=== PATIENT | female | born 1940 | race Caucasian/White ===

== ENCOUNTER 2016-08-26 07:09 | Inpatient (IN) | payer MEDICARE, OTHER ==
--- NOTE | 2016-08-26 07:47 | ED ---
General Adult HPI - General Chief complaint: Shortness of Breath Stated complaint: Difficulty breathing Time Seen by Provider: 08/26/16 07:20 Source: patient, EMS, RN notes reviewed Mode of arrival: EMS Limitations: no limitations - History of Present Illness Initial comments: This is a 76-year-old female who states she woke up this morning was having difficulty breathing so she went [facility]. And again the hospital he diagnosed with COPD exacerbation as well as pneumonia. Patient was already started on Rocephin because the hospital. Patient states currently she is feeling considerably better. Patient also got some breathing treatments and Solu-Medrol. Patient denies any chest pain or palpitations. Patient denies any fever or chills per patient denies abdominal pain patient denies nausea vomiting diarrhea. Patient denies any recent injury or trauma. Patient denies headache patient denies numbness weakness. Patient denies any lightheadedness or dizziness. Patient denies any dysuria hematuria urinary frequency. - Related Data Allergies Allergy/AdvReac Type Severity Reaction Status Date / Time No Known Allergies Allergy Verified 08/26/16 08:04 Review of Systems ROS Statement: Those systems with pertinent positive or pertinent negative responses have been documented in the HPI. ROS Other: All systems not noted in ROS Statement are negative. Past Medical History Past Medical History: Atrial Fibrillation, COPD, CVA/TIA, Myocardial Infarction ([place]), Pneumonia, Respiratory Disorder Additional Past Medical History / Comment(s): cva 10 years History of Any Multi-Drug Resistant Organisms: None Reported Past Surgical History: Appendectomy, Tonsillectomy Additional Past Surgical History / Comment(s): left leg surgery Past Psychological History: No Psychological Hx Reported Smoking Status: Former smoker Past Alcohol Use History: None Reported Past Drug Use History: None Reported General Exam - General Exam Comments Initial Comments: GENERAL: Patient is well-developed and well-nourished. Patient is nontoxic and well- hydrated and is in no acute distress. ENT: Neck is soft and supple. No significant lymphadenopathy is noted. Oropharynx is clear. Moist mucous membranes. Neck has full range of motion without eliciting any pain. EYES: The sclera were anicteric and conjunctiva were pink and moist. Extraocular movements were intact and pupils were equal round and reactive to light. Eyelids were unremarkable. PULMONARY: Unlabored respirations. Good breath sounds bilaterally. Slight crackles in the right base CARDIOVASCULAR: There is a regular rate and rhythm without any murmurs gallops or rubs. ABDOMEN: Soft and nontender with normal bowel sounds. No palpable organomegaly was noted. There is no palpable pulsatile mass. SKIN: Skin is clear with no lesions or rashes and otherwise unremarkable. NEUROLOGIC: Patient is alert and oriented x3. Cranial nerves II through XII are grossly intact. Motor and sensory are also intact. Normal speech, volume and content. Symmetrical smile. MUSCULOSKELETAL: Normal extremities with adequate strength and full range of motion. No lower extremity swelling or edema. No calf tenderness. LYMPHATICS: No significant lymphadenopathy is noted PSYCHIATRIC: Normal psychiatric evaluation. Normal interpersonal interactions appears functionally intact in deals appropriately with others. No signs of depression. No signs of anxiety. Limitations: no limitations Course Vital Signs 08/26/16 07:18 Temperature 98 F Pulse Rate 109 H Respiratory 22 Rate Blood Pressure 147/73 O2 Sat by Pulse 95 Oximetry Medical Decision Making - Medical Decision Making EKG shows atrial fibrillation at 100 beats minute QRS is 78 QT interval 314 QTC is 405. Patient's EKG shows no ST segment elevation or depression or T wave abnormalities are noted. Patient's x-ray from the other facility was reviewed it does show a right lower lobe pneumonia. Disposition Clinical Impression: Pneumonia, COPD exacerbation, Coagulopathy Disposition: ADMITTED IP TO THIS HOSP Referrals: Kofi Cortes MD [Primary Care Provider] - 1-2 days Time of Disposition: 07:58
[2016-08-26] MEDS ORDERED: PNEUMONIA PROTOCOL UTILIZED 1 EACH MISC PO PRN (08:10)
[2016-08-26] MEDS ORDERED: IPRATROPIUM-ALBUTEROL 3 ML NEB INHALATION PRN (08:10)
[2016-08-26] MEDS ORDERED: LISINOPRIL 2.5 MG TAB PO SCH (09:45)
[2016-08-26] MEDS ORDERED: SPIRONOLACTONE 25 MG TAB PO SCH (09:45)
[2016-08-26] MEDS ORDERED: POTASSIUM CHLORIDE ER 20 MEQ TAB.ER PO SCH (09:45)
[2016-08-26 10:38] LABS: Basophils % (A) 0 %; CH 28.7; CHCM 30.6; Eosinophils % (A) 0 %; HCT 39.8 % (34.0-46.0); HGB 12.2 gm/dL (11.4-16.0); Hypochromasia Moderate; Luc # (Auto) 0.03; Luc % (Auto) 1; Lymphocytes # (A) 0.3 k/uL (1.0-4.8); Lymphocytes % (A) 4 %; MCH 28.9 pg (25.0-35.0); MCHC 30.7 g/dL (31.0-37.0); MCV 94.4 fL (80.0-100.0); Mean Platelet Volume 7.1; Monocytes # (A) 0.2 k/uL (0-1.0); Monocytes % (A) 3 %; Neutrophils # (A) 5.5 k/uL (1.3-7.7); Neutrophils % (A) 92 %; RBC 4.21 m/uL (3.80-5.40); RDW 14.4 % (11.5-15.5); WBC (Perox) 6.42
[2016-08-26 10:56] LABS: Calcium 8.3 mg/dL (8.4-10.2); Potassium 4.8 mmol/L (3.5-5.1)
[2016-08-26 10:59] LABS: Prothrombin Time 72.6 sec (9.0-12.0)
[2016-08-26] MEDS: DILTIAZEM CD 240 MG CAP.ER.24H PO SCH (11:14)
[2016-08-26] MEDS: METOPROLOL TARTRATE 25 MG TAB PO SCH ×2 (11:14→20:03)
[2016-08-26] MEDS: OXYBUTYNIN CHLORIDE 5 MG TAB PO SCH ×2 (11:14→20:03)
[2016-08-26] MEDS: AZITHROMYCIN 500 MG TAB PO SCH (11:14)
[2016-08-26 11:20] LABS: INR 7.1 (<1.1)
[2016-08-26] MEDS ORDERED: methylPREDNISolone SOD SUCCI 125 MG/2 ML VIAL IV SCH (12:00)
[2016-08-26 12:01] LABS: Glucose,Whole Blood 129 mg/dL (75-99)
[2016-08-26] MEDS: methylPREDNISolone SOD SUCCI 40 MG/ML 1 ML VIAL IV SCH ×3 (13:13→23:24)
[2016-08-26] MEDS: SODIUM CHLORIDE 0.9% 1,000 ML IV SCH (13:13)
--- NOTE | 2016-08-26 13:31 | HP ---
DATE OF ADMISSION: 08/26/2016 PRESENTING COMPLAINT: Short of breath, cough HISTORY OF PRESENTING COMPLAINT: A very pleasant 76-year-old patient of Dr. Cortes initially went to [facility] where she was transferred down here. Patient's chronic stable medical conditions include atrial fibrillation, congestive heart failure, chronic kidney disease, secondary pulmonary hypertension, osteoarthritis. The patient over one week has been having chills, weakness, decreased oral intake, coughing, short of breath, wheezing, bringing up yellow red sputum. Patient's INR was found to be 9.7 up there, was given ( ) of vitamin K. Patient was therefore transferred down here. The patient continues to feel weak and tired. The patient denies any blood in the urine. Like said there was some red colored sputum. REVIEW OF SYSTEMS: CONSTITUTIONAL: Weak, tired. HEENT: As above. RESPIRATORY: As above. CARDIOVASCULAR: No chest pain. GASTROINTESTINAL: None. GENITOURINARY: None. MUSCULOSKELETAL: Arthritic pain in the hands and legs. GENITOURINARY: None. PSYCHIATRY: None. NEUROLOGICAL: None. Past medical history of atrial fibrillation, CHF with EF 40%, chronic kidney disease, MIs, stroke with no residual, pulmonary hypertension secondary to tricuspid regurgitation, arthritis especially in the hands and legs. PAST SURGICAL HISTORY: Appendectomy, tonsillectomy, left leg surgery for fracture. SOCIAL HISTORY: The patient lives with her daughter and 2 adult grandchildren. Sometimes uses a cane. The patient smoked for close to 56 years, stopped in 2011. Family history of congestive heart failure father. HOME MEDICATIONS: 1. Coumadin 5 mg on Thursday, Thursday, , Thursday, Thursday and 2.5 mg on Thursday and Thursday. 2. Ditropan 5 mg p.o. b.i.d. 3. Potassium 20 mEq a day. 4. Motrin 800 mg p.o. t.i.d. p.r.n. 5. Symbicort 160/4.5 two puffs b.i.d. 6. Aldactone 25 mg a day. 7. Potassium 20 mEq a day. 8. Lopressor 25 p.o. b.i.d. 9. Imodium 4 mg p.o. q.i.d. p.r.n. 10. Zestril 2.5 p.o. daily. 11. Lasix 20 mg p.o. b.i.d. 12. Cardizem CD 240 mg daily. 13. Ventolin 2.5 q.i.d. p.r.n. ALLERGIES: None. ON EXAMINATION: VITAL SIGNS ON PRESENTATION: Temperature 98, pulse 109, respirations 22, blood pressure 147/73, pulse ox 95% on 4 L. GENERAL APPEARANCE: Well built, BMI of 31.9, lying in bed, tired appearing. EYES: Pupils equal. Conjunctivae normal. HENT: Oral cavity normal. NECK: JVD unable to assess. Mass not palpable. RESPIRATORY: Effort increased. LUNGS: Diminished breath sounds, prolonged expiration, wheezing, coarse crackles in the right side. CARDIOVASCULAR: First and second sounds normal. No edema. ABDOMEN: Soft, nontender. Liver and spleen not palpable. LYMPHATIC: No lymph node palpable in the neck and axillae. PSYCHIATRY: Alert and oriented x3. Mood and affect is normal. NEUROLOGICAL: Pupils equal. Cranial nerves grossly intact. Power and sensation grossly intact. MUSCULOSKELETAL: Evidence of osteoarthritis multiple joints. INVESTIGATIONS: Patient's blood work from [facility] shows a BUN 58, creatinine 3.6. UA negative. Amylase 40, lipase 11. White count 7.9, hemoglobin 12.1, platelets 295. Lactic acid 1.2. ASSESSMENT: 1. Right-sided pneumonia, suspect gram-negative organism, present on admission. 2. Acute severe chronic obstructive pulmonary disease exacerbation in an ex-smoker. 3. Persistent atrial fibrillation for which patient is on Coumadin. 4. Chronic congestive heart failure from systolic dysfunction; ejection fraction 40%, from ischemic cardiomyopathy. 5. 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 6. Coronary artery disease with prior history myocardial infarction. 7. Secondary pulmonary hypertension secondary to chronic obstructive pulmonary disease. 8. Tricuspid regurgitation, nonrheumatic. 9. Primary osteoarthritis of the legs and hands. 10. Obesity, body mass index of 31.9. 11. Coumadin toxicity. INR was 9.7 at other hospital. Patient did get ( ) vitamin K. PLAN: Patient was started on nebulized bronchodilators; also started on IV Solu-Medrol. Will send off sputum for Gram stain and culture. Patient also put on breathing treatments. Stat INR has been repeated. Will hold off Coumadin in the meantime. Given patient's renal failure, we will hold off patient's renal offensive drugs including CATIE inhibitor, diuretic, Motrin. Gently hydrate the patient. Will also send her for renal ultrasound. Care was discussed in detail with the patient. Questions were answered.
[2016-08-26] MEDS: IPRATROPIUM-ALBUTEROL 3 ML NEB INHALATION SCH ×3 (14:28→21:24)
--- NOTE | 2016-08-26 14:36 | P.CNPUL ---
History of Present Illness Consult date: 08/26/16 Requesting physician: Finn Scott Reason for consult: pneumonia Chief complaint: Shortness of breath History of present illness: This is a 76-year-old female patient being evaluated and examined today on the selective care unit. The patient was transferred here from [facility] after the patient had one week of chills, weakness, productive coughing with yellow sputum with bright red streaks in it, shortness of breath, wheezing and poor appetite. Patient was noted to have an INR of 9.7 and does take Coumadin at home for atrial fibrillation. Patient was initially started on Rocephin and Solu-Medrol and updrafts while at [facility]. Patient does have a history significant for COPD, atrial fibrillation, previous myocardial infarction, and pneumonia. Chest x-ray from previous hospital does reveal a right lower lobe pneumonia. Upon examination the patient is resting up in bed on 4 L of oxygen via nasal cannula she continues to complain of a productive cough with yellow sputum and red streaks in it.. Review of Systems 14 point review of system was completed and negative other than what is noted above in the HPI. Past Medical History Past Medical History: Atrial Fibrillation, Asthma, Heart Failure, COPD, CVA/TIA , Myocardial Infarction ([place]), Pneumonia, Renal Disease, Respiratory Disorder Additional Past Medical History / Comment(s): cva 15 years ago, EF 40%, severe pulmonary HTN, moderate tricuspid regurg, urinary leakage, arthritis bilateral legs and hands. Last Myocardial Infarction Date:: 1991 History of Any Multi-Drug Resistant Organisms: None Reported Past Surgical History: Appendectomy, Tonsillectomy Additional Past Surgical History / Comment(s): left leg surgery d/t fracture, colonoscopy-normal. Past Anesthesia/Blood Transfusion Reactions: No Reported Reaction Past Psychological History: No Psychological Hx Reported Additional Psychological History / Comment(s): Pt has her daughter and 2 adult grandchildren living with her. She has a cane and walker but does not need to use them at this time. She uses the bus to get to appts. Smoking Status: Former smoker Past Alcohol Use History: None Reported Additional Past Alcohol Use History / Comment(s): Pt states she started smoking in 1954 and quit in 2011. Past Drug Use History: None Reported - Past Family History Father Family Medical History: Congestive Heart Failure (CHF) Additional Family Medical History / Comment(s): Father of CHF-pt cannot recall how old he was. Mother Family Medical History: Diabetes Mellitus Additional Family Medical History / Comment(s): Mother lived to be in her 90's. Medications and Allergies Home Medications Medication Instructions Recorded Confirmed Type Albuterol Nebulized [Ventolin 2.5 mg INHALATION RT-QID PRN 08/26/16 08/26/16 History Nebulized] Budesonide/Formoterol Fumarate 2 puff INHALATION RT-BID 08/26/16 08/26/16 History [Symbicort 160-4.5 Mcg Inhaler] Diltiazem Cd [Cardizem Cd] 240 mg PO DAILY 08/26/16 08/26/16 History Furosemide [Lasix] 20 mg PO BID 08/26/16 08/26/16 History Ibuprofen [Motrin] 800 mg PO TID PRN 08/26/16 08/26/16 History Lisinopril [Zestril] 2.5 mg PO DAILY 08/26/16 08/26/16 History Loperamide [Imodium] 4 mg PO QID PRN 08/26/16 08/26/16 History Metoprolol Tartrate [Lopressor] 25 mg PO BID 08/26/16 08/26/16 History Oxybutynin Chloride [Ditropan] 5 mg PO BID 08/26/16 08/26/16 History Potassium Chloride ER [K-Dur 20] 20 meq PO DAILY 08/26/16 08/26/16 History Potassium Chloride [Klor-Con 20] 20 meq PO DAILY 08/26/16 08/26/16 History Spironolactone [Aldactone] 25 mg PO DAILY 08/26/16 08/26/16 History Warfarin Sodium [Coumadin] 5 mg PO TUWETHFRSA 08/26/16 08/26/16 History Warfarin [Coumadin] 2.5 mg PO SUMO 08/26/16 08/26/16 History Allergies Allergy/AdvReac Type Severity Reaction Status Date / Time No Known Allergies Allergy Verified 08/26/16 08:04 Physical Exam Vitals: Vital Signs Temp Pulse Pulse Resp BP BP Pulse Ox 08/26/16 09:50 96.9 F L 116 H 20 121/64 95 08/26/16 09:30 97.6 F 113 H 22 142/85 94 L 08/26/16 09:23 98 08/26/16 09:13 96 08/26/16 08:54 96 18 115/59 98 08/26/16 08:15 108 H 134/63 98 Intake and Output 08/25/16 08/26/16 08/26/16 22:59 06:59 14:59 Intake Total 120 Output Total 150 Balance -30 Intake: Oral 120 Output: Urine 150 Other: # Bowel Movements 0 GENERAL EXAM: Alert, active, comfortable in no apparent distress. HEAD: Normocephalic. EYES: Normal reaction of pupils, equal size. NOSE: Clear with pink turbinates. THROAT: No erythema or exudates. NECK: No masses, no JVD. CHEST: No chest wall deformity. LUNGS: Equal air entry noted, some faint rhonchi and wheezes noted on expiration. CVS: S1 and S2 normal with no audible mumurs, regular rhythm. ABDOMEN: No hepatosplenomegaly, normal bowel sounds, no guarding or rigidity. EXTREMITIES: No edema noted, pedal pulses palpable. SKIN: No rashes CENTRAL NERVOUS SYSTEM: No focal deficits, tone is normal in all 4 extremities. Results - Laboratory Findings CBC and BMP: 08/26/16 10:21 08/26/16 10:21 PT/INR, D-dimer PT 72.6 sec (9.0-12.0) H 08/26/16 10:21 INR 7.1 (<1.1) H* 08/26/16 10:21 Abnormal lab findings: Abnormal Labs 08/26/16 08/26/16 08/26/16 10:21 10:21 10:21 MCHC 30.7 L Lymphocytes # 0.3 L PT 72.6 H INR 7.1 H* Sodium 135 L Carbon Dioxide 19 L BUN 56 H Creatinine 2.54 H Glucose 151 H POC Glucose (mg/dL) Calcium 8.3 L 08/26/16 11:57 MCHC Lymphocytes # PT INR Sodium Carbon Dioxide BUN Creatinine Glucose POC Glucose (mg/dL) 129 H Calcium Assessment and Plan Plan: Assessment Community acquired right lower lobe pneumonia Acute exacerbation of COPD Coagulopathy Atrial fibrillation Congestive heart failure, systolic dysfunction, EF of 40% Chronic kidney disease stage III Coronary artery disease Plan Medications have been reviewed and will be continued as ordered. Coumadin is on hold and the patient has been given vitamin K. We will obtain a sputum culture. We will obtain a chest x-ray in the morning. We'll add budesonide to her nebulizer treatments. Incentive spirometer initiated and encouraged. Continue supportive care and pulmonary hygiene as well as supplemental oxygen to maintain sats above 90%.
--- NOTE | 2016-08-26 16:31 | P.NPCON ---
History of Present Illness - Reason for Consult acute renal failure - History of Present Illness Reason for consultation: Acute kidney injury History of present illness: Patient is a 76-year-old female seen in renal consultation for acute kidney injury. Unclear as to where baseline renal function is. Creatinine 2.5 for an admission. Patient presented to [facility] with dyspnea. She was noted to have pneumonia as well as COPD/patient. She was transferred to [facility] for further care. Patient states she was having a productive cough with yellow sputum for the last few days. She is currently maintained on IV antibiotics as well as IV steroids. She was also taking Advil for the last few days for pain. In her home meds that to see she was taking diuretics as well as an CATIE inhibitor. Overall her dyspnea is improved. She denies any chest pain. She denies any prior history of kidney disease. Denies family history of renal disease. Hemodynamically she's been stable. She also has history of atrial fibrillation and is maintained on Coumadin. Her INR is elevated at 7.1. Denies any hematuria or dysuria. She has been voiding. Vital signs are stable. General: The patient appeared well nourished and normally developed. HEENT: Head exam is unremarkable. Neck is without jugular venous distension. LUNGS: Rhonchi at bases. Breath sounds decreased. HEART: Rate and Rhythm are regular. First and second heart sounds normal. No murmurs, rubs or gallops. ABDOMEN: Abdominal exam reveals normal bowel sounds. Non-tender and non- distended. No evidence of peritonitis. EXTREMITITES: No clubbing, cyanosis, or edema. Past Medical History Past Medical History: Atrial Fibrillation, Asthma, Heart Failure, COPD, CVA/TIA , Myocardial Infarction ([place]), Pneumonia, Renal Disease, Respiratory Disorder Additional Past Medical History / Comment(s): cva 15 years ago, EF 40%, severe pulmonary HTN, moderate tricuspid regurg, urinary leakage, arthritis bilateral legs and hands. Last Myocardial Infarction Date:: 1991 History of Any Multi-Drug Resistant Organisms: None Reported Past Surgical History: Appendectomy, Tonsillectomy Additional Past Surgical History / Comment(s): left leg surgery d/t fracture, colonoscopy-normal. Past Anesthesia/Blood Transfusion Reactions: No Reported Reaction Past Psychological History: No Psychological Hx Reported Additional Psychological History / Comment(s): Pt has her daughter and 2 adult grandchildren living with her. She has a cane and walker but does not need to use them at this time. She uses the bus to get to appts. Smoking Status: Former smoker Past Alcohol Use History: None Reported Additional Past Alcohol Use History / Comment(s): Pt states she started smoking in 1954 and quit in 2011. Past Drug Use History: None Reported - Past Family History Father Family Medical History: Congestive Heart Failure (CHF) Additional Family Medical History / Comment(s): Father of CHF-pt cannot recall how old he was. Mother Family Medical History: Diabetes Mellitus Additional Family Medical History / Comment(s): Mother lived to be in her 90's. Medications and Allergies Home Medications Medication Instructions Recorded Confirmed Type Albuterol Nebulized [Ventolin 2.5 mg INHALATION RT-QID PRN 08/26/16 08/26/16 History Nebulized] Budesonide/Formoterol Fumarate 2 puff INHALATION RT-BID 08/26/16 08/26/16 History [Symbicort 160-4.5 Mcg Inhaler] Diltiazem Cd [Cardizem Cd] 240 mg PO DAILY 08/26/16 08/26/16 History Furosemide [Lasix] 20 mg PO BID 08/26/16 08/26/16 History Ibuprofen [Motrin] 800 mg PO TID PRN 08/26/16 08/26/16 History Lisinopril [Zestril] 2.5 mg PO DAILY 08/26/16 08/26/16 History Loperamide [Imodium] 4 mg PO QID PRN 08/26/16 08/26/16 History Metoprolol Tartrate [Lopressor] 25 mg PO BID 08/26/16 08/26/16 History Oxybutynin Chloride [Ditropan] 5 mg PO BID 08/26/16 08/26/16 History Potassium Chloride ER [K-Dur 20] 20 meq PO DAILY 08/26/16 08/26/16 History Potassium Chloride [Klor-Con 20] 20 meq PO DAILY 08/26/16 08/26/16 History Spironolactone [Aldactone] 25 mg PO DAILY 08/26/16 08/26/16 History Warfarin Sodium [Coumadin] 5 mg PO TUWETHFRSA 08/26/16 08/26/16 History Warfarin [Coumadin] 2.5 mg PO SUMO 08/26/16 08/26/16 History Allergies Allergy/AdvReac Type Severity Reaction Status Date / Time No Known Allergies Allergy Verified 08/26/16 08:04 Physical Exam Vitals: Vital Signs Temp Pulse Pulse Resp BP BP Pulse Ox 08/26/16 11:15 96.7 F L 102 H 18 119/63 97 08/26/16 09:50 96.9 F L 116 H 20 121/64 95 08/26/16 09:30 97.6 F 113 H 22 142/85 94 L 08/26/16 09:23 98 08/26/16 09:13 96 08/26/16 08:54 96 18 115/59 98 08/26/16 08:15 108 H 134/63 98 Intake and Output 08/26/16 08/26/16 08/26/16 06:59 14:59 22:59 Intake Total 120 Output Total 500 Balance -380 Intake: Oral 120 Output: Urine 500 Other: # Bowel Movements 0 Weight 81.647 kg Patient Weight 08/27/16 06:59 Weight 81.647 kg Results - Lab Results Most recent lab results Calcium 8.3 mg/dL (8.4-10.2) L 08/26/16 10:21 08/26/16 10:21 08/26/16 10:21 Assessment and Plan Plan: Assessment: #1. Acute kidney injury secondary to ATN secondary to sepsis and NSAIDs. Creatinine 2.54 on admission. Unclear as to what her baseline renal function is. #2. Right lower lobe pneumonia. #3. Chronic systolic CHF with ejection fraction of 40%. #4. Metabolic acidosis secondary to acute kidney injury. #5. Atrial fibrillation, maintained on Coumadin. Plan: Continue normal saline to be run at 50 mL an hour. Check urinalysis. Check renal ultrasound. Avoid nephrotoxic agents and hypotensive episodes. Diuretics as well as lisinopril is held at this time. Discontinue potassium supplementation. Repeat electrolytes in the morning. Thank you for the consultation. I will continue to follow the patient with you during her hospital stay.
--- NOTE | 2016-08-26 17:23 | US ---
EXAMINATION TYPE: US kidneys/renal and bladder DATE OF EXAM: 08/26/2016 5:14 PM COMPARISON: NONE CLINICAL HISTORY: lon. Inpatient with pneumonia and AFib EXAM MEASUREMENTS: Right Kidney: 9.8 x 5.1 x 4.3 cm Left Kidney: 10.2 x 5.5 x 5.3 cm Post Void Residual Volume: Not assessed on inpatient Right Kidney: No hydronephrosis or masses seen Left Kidney: No hydronephrosis or masses seen Bladder: wnl Bilateral Jets seen: Yes There is no evidence for hydronephrosis at this point in time. No nephrolithiasis is seen. No primitivo s are identified. The urinary bladder is anechoic. Bilateral ureteral jets are seen. IMPRESSION: Negative retroperitoneal sonogram exam. No evidence of renal mass or obstruction.
[2016-08-26 17:29] LABS: Glucose,Whole Blood 166 mg/dL (75-99)
[2016-08-26] MEDS ORDERED: WARFARIN 5 MG TAB PO SCH (18:00)
[2016-08-26 20:47] LABS: Glucose,Whole Blood 167 mg/dL (75-99)
[2016-08-26] MEDS: BUDESONIDE 0.5 MG/2 ML NEBU INHALATION SCH (21:25)
[2016-08-26] MEDS: INSULIN LISPRO (humaLOG) 300 UNIT/3 ML VIAL SQ SCH (21:46)
[2016-08-27 00:43] LABS: Amorphous Sediment,Urine Rare /hpf; Appearance,Urine Cloudy (Clear); Bacteria,Urine Rare /hpf; Bilirubin,Urine Negative (Negative); Glucose,Urine (UA) Negative (Negative); Ketones,Urine Negative (Negative); Leukocyte Esterase,Urine Negative (Negative); Mucus,Urine Rare /hpf; Nitrite,Urine Negative (Negative); PH, Urine 5.5 (5.0-8.0); Particle Count 3632; Protein,Urine 1+ (Negative); RBC,Urine 2 /hpf (0-5); Squamous Epithelial Cell,Urine 1 /hpf (0-4); Transitional Epi Cells,Urine <1 /hpf (0-1); UA Billing (MACRO vs. MICRO) MICRO; Urobilinogen,Urine <2.0 mg/dL (<2.0); WBC,Urine 18 /hpf (0-5)
[2016-08-27] MEDS: IPRATROPIUM-ALBUTEROL 3 ML NEB INHALATION SCH ×7 (01:03→23:32)
[2016-08-27 03:44] LABS: Glucose,Whole Blood 172 mg/dL (75-99)
[2016-08-27 06:00] LABS: Glucose,Whole Blood 179 mg/dL (75-99)
[2016-08-27] MEDS: INSULIN LISPRO (humaLOG) 300 UNIT/3 ML VIAL SQ SCH ×4 (06:31→21:14)
[2016-08-27] MEDS: SODIUM CHLORIDE 0.9% 1,000 ML IV SCH (06:31)
[2016-08-27 07:17] LABS: Prothrombin Time 19.6 sec (9.0-12.0)
[2016-08-27 07:19] LABS: Calcium 8.5 mg/dL (8.4-10.2); Potassium 5.1 mmol/L (3.5-5.1)
--- NOTE | 2016-08-27 07:44 | XR ---
EXAMINATION TYPE: XR chest 2V DATE OF EXAM: 08/27/2016 6:52 AM COMPARISON: Outside Chest x-ray from yesterday. HISTORY: Pneumonia per order. TECHNIQUE: Frontal and lateral views of the chest are obtained. FINDINGS: The osseous structures are intact. There is persistent cardiomegaly with atherosclerotic th oracic aorta. There is chronic parenchymal change with right greater than left lower lung opacity fel t to be involving middle and lower lobes. Suspect small right pleural effusion on frontal view less p ronounced on lateral view. No pneumothorax is seen bilaterally. IMPRESSION: Cardiomegaly and chronic parenchymal change with right greater than left bibasilar infilt rate and/or atelectasis, no significant change from one day earlier.
[2016-08-27] MEDS: BUDESONIDE 0.5 MG/2 ML NEBU INHALATION SCH ×2 (08:02→20:56)
[2016-08-27 08:06] LABS: Basophils % (A) 0 %; CH 28.9; CHCM 31.2; Eosinophils % (A) 0 %; HCT 35.8 % (34.0-46.0); HDW 2.72; HGB 11.4 gm/dL (11.4-16.0); Hypochromasia Slight; Luc # (Auto) 0.09; Luc % (Auto) 1; Lymphocytes # (A) 0.6 k/uL (1.0-4.8); Lymphocytes % (A) 8 %; MCH 29.7 pg (25.0-35.0); MCHC 31.8 g/dL (31.0-37.0); MCV 93.1 fL (80.0-100.0); Mean Platelet Volume 7.6; Monocytes # (A) 0.4 k/uL (0-1.0); Monocytes % (A) 5 %; Neutrophils # (A) 6.6 k/uL (1.3-7.7); Neutrophils % (A) 86 %; RBC 3.85 m/uL (3.80-5.40); RDW 14.1 % (11.5-15.5); WBC 7.6 k/uL (3.8-10.6)
[2016-08-27] MEDS: methylPREDNISolone SOD SUCCI 40 MG/ML 1 ML VIAL IV SCH ×3 (09:08→23:06)
[2016-08-27] MEDS: OXYBUTYNIN CHLORIDE 5 MG TAB PO SCH ×2 (09:09→20:36)
[2016-08-27] MEDS: DILTIAZEM CD 240 MG CAP.ER.24H PO SCH (09:09)
[2016-08-27] MEDS: AZITHROMYCIN 500 MG TAB PO SCH (09:09)
[2016-08-27] MEDS: METOPROLOL TARTRATE 25 MG TAB PO SCH ×2 (09:09→20:36)
--- NOTE | 2016-08-27 10:16 | CDI ---
In responding to this query, please exercise your independent professional judgment. The [facility] Coding Staff and Clinical Documentation Specialists appreciate your assistance in clarifying documentation, maintaining compliance with coding guidelines, accurately documenting patients condition and capturing severity of illness. The fact that a question is asked does not imply that any particular answer is desired or expected. Communication forms are a method of clarifying documentation and are not made part of the Legal Health Record. Thank you in advance for your clarification. Last Revision, March 2015 Rosalee Thorpe [address] [facility] [place] [address] Documentation Clarification Form Date: 08/27/2016 10:08:00 AM From: Darcy Mcgowan Admit Date: 08/26/2016 8:11:00 AM Patient Name: Shailesh Vaca Visit Number: [id number] Dr. Ghassan Pichardo 'Sepsis' is documented in your consult note on 08/26. Patient history/risk factors Pneumonia COPD Clinical Indicators: Lab findings: wbc 6.0 on admission Vital Signs: temp 98, hr 109, rr 22, bp 147/73, sats 95% on 4L nc On 08/25 you dictated 'lon secondary to atn secondary to sepsis and NSAID's' Treatment: IV Rocephin IV fluids @ 50 cc/hr In your professional opinion, can you please provide clinical support for the diagnosis of 'Sepsis'? Sepsis Ruled In? (please clarify) Sepsis Ruled Out? Other (please specify) Unable to determine Please document in your progress notes and discharge summary in order to capture severity of illness and risk of mortality. Include clinical findings that support your diagnosis. FYI: Press F11 to launch patient chart. Place X here if this finding has no clinical significance, is not applicable or if you are not able to provide any additional documentation. THI
--- NOTE | 2016-08-27 10:18 | P.PN ---
Subjective Patient is seen in follow-up for acute kidney injury. Unclear as to what her baseline renal function is. Creatinine was elevated at 2.54 on admission yesterday and is improved to 1.94 today. Patient presented with dyspnea and is currently being treated for pneumonia as well as COPD. She does of systolic CHF with ejection fraction of 40%. No edema. Appetite is good. No vomiting or diarrhea. Dyspnea is improved. Vital signs are stable. General: The patient appeared well nourished and normally developed. HEENT: Head exam is unremarkable. Neck is without jugular venous distension. LUNGS: Lungs are clear to auscultation and percussion. Breath sounds decreased. HEART: Rate and Rhythm are regular. First and second heart sounds normal. No murmurs, rubs or gallops. ABDOMEN: Abdominal exam reveals normal bowel sounds. Non-tender and non- distended. No evidence of peritonitis. EXTREMITITES: No clubbing, cyanosis, or edema. Objective - Vital Signs Vital signs: Vital Signs Temp 97.2 F L 08/27/16 08:00 Pulse 101 H 08/27/16 08:07 Resp 16 08/27/16 08:00 BP 119/59 08/27/16 08:00 Pulse Ox 94 L 08/27/16 08:07 Intake & Output 08/26/16 08/27/16 08/27/16 18:59 06:59 18:59 Intake Total 120 550 180 Output Total 500 Balance -380 550 180 Weight 81.647 kg 84.9 kg Intake: IV 550 Sodium Chloride 0.9% 1, 550 000 ml @ 50 mls/hr IV . Q20H [facility] Rx#:[id number] Oral 120 180 Output: Urine 500 Other: Voiding Method Toilet # Bowel Movements 0 - Labs CBC & Chem 7: 08/27/16 06:40 08/27/16 06:40 Labs: Abnormal Lab Results - Last 24 Hours (Table) 08/26/16 08/26/16 08/26/16 Range/Units 10:21 10:21 10:21 MCHC 30.7 L (31.0-37.0) g/dL Lymphocytes # 0.3 L (1.0-4.8) k/uL PT 72.6 H (9.0-12.0) sec INR 7.1 H* (<1.1) Sodium 135 L (137-145) mmol/L Carbon Dioxide 19 L (22-30) mmol/L BUN 56 H (7-17) mg/dL Creatinine 2.54 H (0.52-1.04) mg/dL Glucose 151 H (74-99) mg/dL POC Glucose (mg/dL) (75-99) mg/dL Calcium 8.3 L (8.4-10.2) mg/dL 08/26/16 08/26/16 08/26/16 Range/Units 11:57 17:08 20:45 MCHC (31.0-37.0) g/dL Lymphocytes # (1.0-4.8) k/uL PT (9.0-12.0) sec INR (<1.1) Sodium (137-145) mmol/L Carbon Dioxide (22-30) mmol/L BUN (7-17) mg/dL Creatinine (0.52-1.04) mg/dL Glucose (74-99) mg/dL POC Glucose (mg/dL) 129 H 166 H 167 H (75-99) mg/dL Calcium (8.4-10.2) mg/dL 08/27/16 08/27/16 08/27/16 Range/Units 03:43 05:58 06:40 MCHC (31.0-37.0) g/dL Lymphocytes # 0.6 L (1.0-4.8) k/uL PT (9.0-12.0) sec INR (<1.1) Sodium (137-145) mmol/L Carbon Dioxide (22-30) mmol/L BUN (7-17) mg/dL Creatinine (0.52-1.04) mg/dL Glucose (74-99) mg/dL POC Glucose (mg/dL) 172 H 179 H (75-99) mg/dL Calcium (8.4-10.2) mg/dL 08/27/16 08/27/16 Range/Units 06:40 06:40 MCHC (31.0-37.0) g/dL Lymphocytes # (1.0-4.8) k/uL PT 19.6 H (9.0-12.0) sec INR (<1.1) Sodium (137-145) mmol/L Carbon Dioxide (22-30) mmol/L BUN 68 H (7-17) mg/dL Creatinine 1.94 H (0.52-1.04) mg/dL Glucose 171 H (74-99) mg/dL POC Glucose (mg/dL) (75-99) mg/dL Calcium (8.4-10.2) mg/dL Assessment and Plan Plan: Assessment: #1. Acute kidney injury secondary to ATN secondary to sepsis and NSAIDs. Creatinine 2.54 on admission. Improved to 1.94 today. Unclear as to what her baseline renal function is. #2. Right lower lobe pneumonia. #3. Chronic systolic CHF with ejection fraction of 40%. Compensated. #4. Metabolic acidosis secondary to acute kidney injury. #5. Atrial fibrillation, maintained on Coumadin. #6. Pyuria. Plan: Continue normal saline to be run at 50 mL an hour. Check urine culture. Avoid nephrotoxic agents and hypotensive episodes. Diuretics as well as lisinopril is held at this time. Discontinued potassium supplementation. Aldactone is also held for now. Repeat electrolytes in the morning.
[2016-08-27 11:38] LABS: Glucose,Whole Blood 181 mg/dL (75-99)
--- NOTE | 2016-08-27 16:26 | P.PN ---
Subjective This is a 76-year-old female patient being evaluated and examined today on the selective care unit. The patient was transferred here from [facility] after the patient had one week of chills, weakness, productive coughing with yellow sputum with bright red streaks in it, shortness of breath, wheezing and poor appetite. Patient was noted to have an INR of 9.7 and does take Coumadin at home for atrial fibrillation. Patient was initially started on Rocephin and Solu-Medrol and updrafts while at [facility]. Patient does have a history significant for COPD, atrial fibrillation, previous myocardial infarction, and pneumonia. Chest x-ray from previous hospital does reveal a right lower lobe pneumonia. Upon examination the patient is resting up in bed on 3 L of oxygen via nasal cannula she continues to complain of a productive cough with yellow sputum. The patient does not use home oxygen. Objective - Vital Signs Vital signs: Vital Signs Temp 97.2 F L 08/27/16 08:00 Pulse 100 08/27/16 12:00 Resp 16 08/27/16 12:00 BP 119/59 08/27/16 08:00 Pulse Ox 94 L 08/27/16 08:07 Intake & Output 08/26/16 08/27/16 08/27/16 18:59 06:59 18:59 Intake Total 120 550 860 Output Total 500 Balance -380 550 860 Weight 81.647 kg 84.9 kg Intake: IV 550 400 Sodium Chloride 0.9% 1, 550 400 000 ml @ 50 mls/hr IV . Q20H [facility] Rx#:[id number] Intake, IV Titration 100 Amount cefTRIAXone 1,000 mg In 100 Sodium Chloride 0.9% 50 ml @ 100 mls/hr IVPB Q24HR [facility] Rx#:[id number] Oral 120 360 Output: Urine 500 Other: Voiding Method Toilet Toilet # Bowel Movements 0 - Exam GENERAL EXAM: Alert, active, comfortable in no apparent distress. HEAD: Normocephalic. EYES: Normal reaction of pupils, equal size. NOSE: Clear with pink turbinates. THROAT: No erythema or exudates. NECK: No masses, no JVD. CHEST: No chest wall deformity. LUNGS: Equal air entry noted, some faint rhonchi and wheezes noted on expiration. CVS: S1 and S2 normal with no audible mumurs, regular rhythm. ABDOMEN: No hepatosplenomegaly, normal bowel sounds, no guarding or rigidity. EXTREMITIES: No edema noted, pedal pulses palpable. SKIN: No rashes CENTRAL NERVOUS SYSTEM: No focal deficits, tone is normal in all 4 extremities. - Labs CBC & Chem 7: 08/27/16 06:40 08/27/16 06:40 Labs: Abnormal Lab Results - Last 24 Hours (Table) 08/26/16 08/26/16 08/27/16 Range/Units 17:08 20:45 03:43 Lymphocytes # (1.0-4.8) k/uL PT (9.0-12.0) sec BUN (7-17) mg/dL Creatinine (0.52-1.04) mg/dL Glucose (74-99) mg/dL POC Glucose (mg/dL) 166 H 167 H 172 H (75-99) mg/dL 08/27/16 08/27/16 08/27/16 Range/Units 05:58 06:40 06:40 Lymphocytes # 0.6 L (1.0-4.8) k/uL PT 19.6 H (9.0-12.0) sec BUN (7-17) mg/dL Creatinine (0.52-1.04) mg/dL Glucose (74-99) mg/dL POC Glucose (mg/dL) 179 H (75-99) mg/dL 08/27/16 08/27/16 Range/Units 06:40 11:36 Lymphocytes # (1.0-4.8) k/uL PT (9.0-12.0) sec BUN 68 H (7-17) mg/dL Creatinine 1.94 H (0.52-1.04) mg/dL Glucose 171 H (74-99) mg/dL POC Glucose (mg/dL) 181 H (75-99) mg/dL Assessment and Plan Plan: Assessment Community acquired right lower lobe pneumonia Acute exacerbation of COPD Coagulopathy Atrial fibrillation Congestive heart failure, systolic dysfunction, EF of 40% Chronic kidney disease stage III Coronary artery disease Plan Medications have been reviewed and will be continued as ordered. We will obtain a sputum culture and flu swab. We'll continue budesonide and her nebulizer treatments. Incentive spirometer initiated and encouraged, as well as cough and deep breathe. Continue supportive care and pulmonary hygiene as well as supplemental oxygen to maintain sats above 90%. I performed an examination of the patient and discussed their management with the nurse practitioner. I have reviewed the nurse practitioner's note and agree with the documented findings and plan of care.
[2016-08-27 16:36] LABS: Glucose,Whole Blood 201 mg/dL (75-99)
[2016-08-27 21:17] LABS: Glucose,Whole Blood 186 mg/dL (75-99)
--- NOTE | 2016-08-27 23:53 | PN ---
DATE OF SERVICE: 08/27/2016 PRESENTING COMPLAINT: Cough, short of breath. INTERVAL HISTORY: This patient was admitted with pneumonia, COPD exacerbation and Coumadin toxicity. Breathing is a bit better. Some sputum production. Did tolerate some diet. Sitting up on her bed. Review of systems done for constitutional, cardiovascular, GI, pulmonary; relevant findings as above. Current medications are reviewed that include nebulized bronchodilators, ceftriaxone and IV Solu-Medrol. On examination, temperature 97.2, pulse 61, respiration 15, blood pressure 99/56, pulse ox 96% on 2 L. GENERAL APPEARANCE: Sitting up. Not in distress. EYES: Pupils equal. Conjunctivae normal. NECK: JVD not raised. Mass not palpable. RESPIRATORY: Effort increased. LUNGS: Decreased breath sounds. Prolonged expiration and wheezing. CARDIOVASCULAR: First and second sounds normal. No edema. ABDOMEN: Soft, nontender. Liver and spleen not palpable. PSYCHIATRY: Alert and oriented x3. Mood and affect normal. INVESTIGATIONS: White count 7.6, hemoglobin 11.4. Potassium 5.1. INR is 2.0. BUN 68, creatinine 1.94. ASSESSMENT: 1. Right-sided pneumonia; suspect Gram-negative organism, present on admission. 2. Acute severe chronic obstructive pulmonary disease exacerbation in an ex-smoker, slow to respond. 3. Persistent atrial fibrillation, for which patient is on Coumadin. 4. Chronic congestive heart failure from systolic dysfunction; ejection fraction 40%, from ischemic cardiomyopathy. 5. 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 6. Acute renal failure; could be acute tubular necrosis, with some improvement in the acute component. 7. Coronary artery disease with prior history of myocardial infarction. 8. Secondary pulmonary hypertension secondary to chronic obstructive pulmonary disease. 9. Tricuspid regurgitation, non-rheumatic. 10. Primary osteoarthritis of legs and hands. 11. Obesity; body mass index of 31.9. 12. Coumadin toxicity on presentation. INR has come down. PLAN: Continue current medication and treatment plan, including antibiotics. Blood cultures are negative. Care was discussed with the patient. Patient is getting saline at 50%. Repeat labs in the morning. Encouraged to be out of bed.
[2016-08-28 06:12] LABS: Glucose,Whole Blood 166 mg/dL (75-99)
[2016-08-28] MEDS: INSULIN LISPRO (humaLOG) 300 UNIT/3 ML VIAL SQ SCH ×4 (06:42→21:17)
[2016-08-28] MEDS: SODIUM CHLORIDE 0.9% 1,000 ML IV SCH ×2 (06:44→22:04)
[2016-08-28 06:50] LABS: INR 1.5 (<1.1); Prothrombin Time 14.2 sec (9.0-12.0)
[2016-08-28 07:33] LABS: Calcium 8.9 mg/dL (8.4-10.2); Potassium 5.6 mmol/L (3.5-5.1)
[2016-08-28] MEDS: IPRATROPIUM-ALBUTEROL 3 ML NEB INHALATION SCH ×4 (08:16→20:01)
[2016-08-28] MEDS: BUDESONIDE 0.5 MG/2 ML NEBU INHALATION SCH ×2 (08:17→20:01)
[2016-08-28] MEDS: AZITHROMYCIN 500 MG TAB PO SCH (09:05)
[2016-08-28] MEDS: DILTIAZEM CD 240 MG CAP.ER.24H PO SCH (09:05)
[2016-08-28] MEDS: METOPROLOL TARTRATE 25 MG TAB PO SCH ×2 (09:05→21:19)
[2016-08-28] MEDS: OXYBUTYNIN CHLORIDE 5 MG TAB PO SCH ×2 (09:05→21:19)
[2016-08-28] MEDS: methylPREDNISolone SOD SUCCI 40 MG/ML 1 ML VIAL IV SCH ×3 (09:06→23:40)
--- NOTE | 2016-08-28 09:18 | P.PN ---
Subjective Patient is seen in follow-up for acute kidney injury. Unclear as to what her baseline renal function is. Creatinine was elevated at 2.54 on admission yesterday and is improved to 1.24 today. Patient presented with dyspnea and is currently being treated for pneumonia as well as COPD. She does of systolic CHF with ejection fraction of 40%. No edema. Appetite is good. No vomiting or diarrhea. Dyspnea is improved. No changes overnight. Vital signs are stable. General: The patient appeared well nourished and normally developed. HEENT: Head exam is unremarkable. Neck is without jugular venous distension. LUNGS: Lungs are clear to auscultation and percussion. Breath sounds decreased. HEART: Rate and Rhythm are regular. First and second heart sounds normal. No murmurs, rubs or gallops. ABDOMEN: Abdominal exam reveals normal bowel sounds. Non-tender and non- distended. No evidence of peritonitis. EXTREMITITES: No clubbing, cyanosis, or edema. Objective - Vital Signs Vital signs: Vital Signs Temp 98.0 F 08/28/16 04:00 Pulse 82 08/28/16 08:34 Resp 20 08/28/16 04:00 BP 115/55 08/28/16 04:00 Pulse Ox 95 08/28/16 08:18 Intake & Output 08/27/16 08/28/16 08/28/16 18:59 06:59 18:59 Intake Total 978 550 Balance 978 550 Weight 89.9 kg Intake: IV 400 550 Sodium Chloride 0.9% 1, 400 550 000 ml @ 50 mls/hr IV . Q20H [facility] Rx#:[id number] Intake, IV Titration 100 Amount cefTRIAXone 1,000 mg In 100 Sodium Chloride 0.9% 50 ml @ 100 mls/hr IVPB Q24HR [facility] Rx#:[id number] Oral 478 Other: Voiding Method Toilet Toilet # Voids 1 - Labs CBC & Chem 7: 08/27/16 06:40 08/28/16 06:17 Labs: Abnormal Lab Results - Last 24 Hours (Table) 08/27/16 08/27/16 08/27/16 Range/Units 11:36 16:32 21:09 PT (9.0-12.0) sec Potassium (3.5-5.1) mmol/L BUN (7-17) mg/dL Creatinine (0.52-1.04) mg/dL Glucose (74-99) mg/dL POC Glucose (mg/dL) 181 H 201 H 186 H (75-99) mg/dL 08/28/16 08/28/16 08/28/16 Range/Units 05:57 06:17 06:17 PT 14.2 H (9.0-12.0) sec Potassium 5.6 H (3.5-5.1) mmol/L BUN 64 H (7-17) mg/dL Creatinine 1.24 H (0.52-1.04) mg/dL Glucose 168 H (74-99) mg/dL POC Glucose (mg/dL) 166 H (75-99) mg/dL Microbiology - Last 24 Hours (Table) 08/26/16 14:04 Blood Culture - Preliminary Blood No Growth after 24 hours Assessment and Plan Plan: Assessment: #1. Acute kidney injury secondary to ATN secondary to sepsis and NSAIDs. Creatinine 2.54 on admission. Improved to 1.24 today. Unclear as to what her baseline renal function is. #2. Right lower lobe pneumonia. #3. Chronic systolic CHF with ejection fraction of 40%. Compensated. #4. Metabolic acidosis secondary to acute kidney injury. #5. Atrial fibrillation, maintained on Coumadin. #6. Pyuria. #7. Hyperkalemia. Aldactone is held. She is also off all potassium supplementation. Blood sugars are slightly on the higher side which can be a contributing factor. Plan: Hep-Lock IV fluids. Encourage oral intake. Her appetite is good. Await urine culture. Avoid nephrotoxic agents and hypotensive episodes. Diuretics as well as lisinopril is held at this time. Discontinued potassium supplementation. Aldactone is also held for now. Renal diet. Repeat potassium level at 6 PM today. Repeat electrolytes in the morning.
[2016-08-28 11:25] LABS: Glucose,Whole Blood 191 mg/dL (75-99)
[2016-08-28 15:04] VITALS: BMI 35.1
[2016-08-28 16:13] LABS: Glucose,Whole Blood 238 mg/dL (75-99)
--- NOTE | 2016-08-28 17:18 | P.PN ---
Subjective This is a 76-year-old female patient being evaluated and examined today on the selective care unit. The patient was transferred here from [facility] after the patient had one week of chills, weakness, productive coughing with yellow sputum with bright red streaks in it, shortness of breath, wheezing and poor appetite. Patient was noted to have an INR of 9.7 and does take Coumadin at home for atrial fibrillation. Patient was initially started on Rocephin and Solu-Medrol and updrafts while at [facility]. Patient does have a history significant for COPD, atrial fibrillation, previous myocardial infarction, and pneumonia. Chest x-ray from previous hospital does reveal a right lower lobe pneumonia. New chest xrays reviewed. Upon examination the patient is resting up in bed on 3 L of oxygen via nasal cannula she continues to complain of a productive cough with yellow sputum. The patient does not use home oxygen. Objective - Vital Signs Vital signs: Vital Signs Temp 97.3 F L 08/28/16 15:00 Pulse 64 08/28/16 16:00 Resp 18 08/28/16 15:00 BP 117/63 08/28/16 15:00 Pulse Ox 97 08/28/16 15:00 Intake & Output 08/27/16 08/28/16 08/28/16 18:59 06:59 18:59 Intake Total 978 550 480 Output Total 400 Balance 978 550 80 Weight 89.9 kg 89.9 kg Intake: IV 400 550 Sodium Chloride 0.9% 1, 400 550 000 ml @ 50 mls/hr IV . Q20H [facility] Rx#:[id number] Intake, IV Titration 100 Amount cefTRIAXone 1,000 mg In 100 Sodium Chloride 0.9% 50 ml @ 100 mls/hr IVPB Q24HR [facility] Rx#:[id number] Oral 478 480 Output: Urine 400 Other: Voiding Method Toilet Toilet Toilet # Voids 1 2 # Bowel Movements 0 - Exam GENERAL EXAM: Alert, active, comfortable in no apparent distress. HEAD: Normocephalic. EYES: Normal reaction of pupils, equal size. NOSE: Clear with pink turbinates. THROAT: No erythema or exudates. NECK: No masses, no JVD. CHEST: No chest wall deformity. LUNGS: Equal air entry noted, some faint rhonchi and wheezes noted on expiration. CVS: S1 and S2 normal with no audible mumurs, regular rhythm. ABDOMEN: No hepatosplenomegaly, normal bowel sounds, no guarding or rigidity. EXTREMITIES: No edema noted, pedal pulses palpable. SKIN: No rashes CENTRAL NERVOUS SYSTEM: No focal deficits, tone is normal in all 4 extremities. - Labs CBC & Chem 7: 08/27/16 06:40 08/28/16 06:17 Labs: Abnormal Lab Results - Last 24 Hours (Table) 08/27/16 08/28/16 08/28/16 Range/Units 21:09 05:57 06:17 PT 14.2 H (9.0-12.0) sec Potassium (3.5-5.1) mmol/L BUN (7-17) mg/dL Creatinine (0.52-1.04) mg/dL Glucose (74-99) mg/dL POC Glucose (mg/dL) 186 H 166 H (75-99) mg/dL 08/28/16 08/28/16 08/28/16 Range/Units 06:17 11:23 16:11 PT (9.0-12.0) sec Potassium 5.6 H (3.5-5.1) mmol/L BUN 64 H (7-17) mg/dL Creatinine 1.24 H (0.52-1.04) mg/dL Glucose 168 H (74-99) mg/dL POC Glucose (mg/dL) 191 H 238 H (75-99) mg/dL Microbiology - Last 24 Hours (Table) 08/26/16 14:04 Blood Culture - Preliminary Blood No Growth after 48 hours Assessment and Plan Plan: Assessment Community acquired right lower lobe pneumonia Acute exacerbation of COPD Coagulopathy Atrial fibrillation Congestive heart failure, systolic dysfunction, EF of 40% Chronic kidney disease stage III Coronary artery disease Plan Medications have been reviewed and will be continued as ordered. We'll continue budesonide and her nebulizer treatments. Incentive spirometer initiated and encouraged, as well as cough and deep breathe. Continue supportive care and pulmonary hygiene as well as supplemental oxygen to maintain sats above 90%. We will continue to monitor labs/results and adjust treatment as necessary. I performed an examination of the patient and discussed their management with the nurse practitioner. I have reviewed the nurse practitioner's note and agree with the documented findings and plan of care.
[2016-08-28 21:15] LABS: Glucose,Whole Blood 207 mg/dL (75-99)
[2016-08-28] MEDS ORDERED: SODIUM POLYSTYRENE SULFONATE 15 GM/60 ML BOTTLE PO STA (21:34)
[2016-08-28] MEDS ORDERED: SODIUM BICARB 8.4% 50 ML SYR (1 MEQ/ML) IV STA (21:35)
[2016-08-29 06:21] LABS: Glucose,Whole Blood 160 mg/dL (75-99)
[2016-08-29] MEDS: INSULIN LISPRO (humaLOG) 300 UNIT/3 ML VIAL SQ SCH ×4 (06:24→22:19)
[2016-08-29 06:31] LABS: Anion Gap 8 mmol/L; Blood Urea Nitrogen 52 mg/dL (7-17); Calcium 8.7 mg/dL (8.4-10.2); Carbon Dioxide 25 mmol/L (22-30); Chloride 108 mmol/L (98-107); Glucose 178 mg/dL (74-99); INR 1.4 (<1.1); Non-African American GFR(MDRD) >60 (>60 ml/min/1.73 sqM); Potassium 5.8 mmol/L (3.5-5.1); Sodium 141 mmol/L (137-145)
[2016-08-29 06:32] LABS: Prothrombin Time 13.9 sec (9.0-12.0)
[2016-08-29] MEDS ORDERED: INSULIN REGULAR 100 UNIT/ML VIAL IV ONE (07:28)
[2016-08-29] MEDS ORDERED: DEXTROSE 50%-WATER 50 ML SYRINGE IVP STA (07:32)
[2016-08-29] MEDS ORDERED: FUROSEMIDE 10 MG/ML 4 ML VIAL IV STA (07:32)
--- NOTE | 2016-08-29 07:45 | P.PN ---
Subjective Patient is seen in follow-up for acute kidney injury. Unclear as to what her baseline renal function is. Creatinine was elevated at 2.54 on admission yesterday and is improved to 0.9 today. Patient presented with dyspnea and is currently being treated for pneumonia as well as COPD. She does of systolic CHF with ejection fraction of 40%. No edema. Appetite is good. No vomiting or diarrhea. Dyspnea is improved. No changes overnight. Currently sleeping. Vital signs are stable. General: The patient appeared well nourished and normally developed. HEENT: Head exam is unremarkable. Neck is without jugular venous distension. LUNGS: Lungs are clear to auscultation and percussion. Breath sounds decreased. HEART: Rate and Rhythm are regular. First and second heart sounds normal. No murmurs, rubs or gallops. ABDOMEN: Abdominal exam reveals normal bowel sounds. Non-tender and non- distended. No evidence of peritonitis. EXTREMITITES: No clubbing, cyanosis, or edema. Objective - Vital Signs Vital signs: Vital Signs Temp 96.9 F L 08/29/16 04:00 Pulse 85 08/29/16 04:00 Resp 18 08/29/16 04:00 BP 121/68 08/29/16 04:00 Pulse Ox 93 L 08/29/16 04:00 Intake & Output 08/28/16 08/29/16 08/29/16 18:59 06:59 18:59 Intake Total 960 475 Output Total 400 1400 Balance 560 -925 Weight 89.9 kg Intake: IV 475 Sodium Chloride 0.9% 1, 475 000 ml @ 50 mls/hr IV . Q20H [facility] Rx#:[id number] Oral 960 Output: Urine 400 1400 Other: Voiding Method Toilet Toilet # Voids 2 1 # Bowel Movements 0 0 - Labs CBC & Chem 7: 08/27/16 06:40 08/29/16 05:48 Labs: Abnormal Lab Results - Last 24 Hours (Table) 08/28/16 08/28/16 08/28/16 Range/Units 11:23 16:11 18:15 PT (9.0-12.0) sec Potassium 6.0 H (3.5-5.1) mmol/L Chloride (98-107) mmol/L BUN (7-17) mg/dL Glucose (74-99) mg/dL POC Glucose (mg/dL) 191 H 238 H (75-99) mg/dL 08/28/16 08/29/16 08/29/16 Range/Units 21:14 05:48 05:48 PT 13.9 H (9.0-12.0) sec Potassium 5.8 H (3.5-5.1) mmol/L Chloride 108 H (98-107) mmol/L BUN 52 H (7-17) mg/dL Glucose 178 H (74-99) mg/dL POC Glucose (mg/dL) 207 H (75-99) mg/dL 08/29/16 Range/Units 06:18 PT (9.0-12.0) sec Potassium (3.5-5.1) mmol/L Chloride (98-107) mmol/L BUN (7-17) mg/dL Glucose (74-99) mg/dL POC Glucose (mg/dL) 160 H (75-99) mg/dL Microbiology - Last 24 Hours (Table) 08/26/16 14:04 Blood Culture - Preliminary Blood No Growth after 48 hours Assessment and Plan Plan: Assessment: #1. Acute kidney injury secondary to ATN secondary to sepsis and NSAIDs. Creatinine 2.54 on admission. Improved to 0.9 today. Unclear as to what her baseline renal function is. #2. Right lower lobe pneumonia. #3. Chronic systolic CHF with ejection fraction of 40%. Compensated. #4. Metabolic acidosis secondary to acute kidney injury. Improved. #5. Atrial fibrillation, maintained on Coumadin. #6. Pyuria. #7. Hyperkalemia. Aldactone is held. She is also off all potassium supplementation. Blood sugars are slightly on the higher side which can be a contributing factor. Plan: Hep-Lock IV fluids. Encourage oral intake. Her appetite is good. Await urine culture. Avoid nephrotoxic agents and hypotensive episodes. Discontinued potassium supplementation. Aldactone is also held for now. Renal diet. 10 units of IV regular insulin with amp of D50 along with Lasix 40 mg IV once now. Repeat potassium level at 12 PM today.
[2016-08-29] MEDS: methylPREDNISolone SOD SUCCI 40 MG/ML 1 ML VIAL IV SCH ×3 (08:29→23:09)
[2016-08-29] MEDS: METOPROLOL TARTRATE 25 MG TAB PO SCH ×2 (08:32→22:19)
[2016-08-29] MEDS: AZITHROMYCIN 500 MG TAB PO SCH (08:32)
[2016-08-29] MEDS: DILTIAZEM CD 240 MG CAP.ER.24H PO SCH (08:32)
[2016-08-29] MEDS: OXYBUTYNIN CHLORIDE 5 MG TAB PO SCH ×2 (08:32→22:18)
--- NOTE | 2016-08-29 08:32 | PN ---
DATE OF SERVICE: 08/28/2016 PRESENTING COMPLAINT: Cough, short of breath. INTERVAL HISTORY: Patient is admitted with pneumonia, COPD exacerbation and Coumadin toxicity. Breathing continues to get better. This patient is still congested and wheezing. Did tolerate some diet. Review of systems done for constitutional, cardiovascular, GI, pulmonary; relevant findings as above. Current medications are reviewed that include IV ceftriaxone, Solu-Medrol, breathing treatments. On examination, temperature 97.3, pulse 54, respirations 18, blood pressure 107/63, pulse ox 97% on 3-L. GENERAL APPEARANCE: Lying in bed, tired appearing. EYES: Pupils equal. Conjunctivae normal. NECK: JVD not raised. Mass not palpable. RESPIRATORY: Increased. LUNGS: Decreased breath sounds. Poor expiration, wheezing. CARDIOVASCULAR: First and second sounds normal. No edema. ABDOMEN: Soft, nontender. Liver and spleen not palpable. PSYCHIATRY: Alert and oriented x3. Mood and affect normal though tired appearing. INVESTIGATIONS: Potassium was 5.6. Repeat 6.0 this evening. BUN 64, creatinine 1.24. ASSESSMENT: 1. Transient pneumonia, suspect gram-negative organism, present on admission. 2. Acute severe chronic obstructive pulmonary disease exacerbation in an ex-smoker, slow to respond. 3. Significant hyperkalemia. 4. Persistent atrial fibrillation with the patient on Coumadin. 5. Chronic congestive heart failure from systolic dysfunction; ejection fraction 40% from ischemic cardiomyopathy. 6. Chronic kidney disease, stage III from hypertensive nephrosclerosis. 7. Acute renal failure, could be acute tubular necrosis with improvement. 8. Coronary artery disease with prior history of myocardial infarction. 9. Secondary pulmonary hypertension secondary to chronic obstructive pulmonary disease. 10. Tricuspid regurgitation, nonrheumatic. 11. Primary osteoarthritis of the legs and hands. 12. Obesity; body mass index of 31.9. 13. Coumadin toxicity present on admission, INR down to 1.5. PLAN: Continue current medication and treatment plan. Repeat Kayexalate and resume patient's Coumadin tonight at 2.5 mg. Patient's Aldactone has already been held off so has potassium supplementation. Will follow.
[2016-08-29] MEDS: BUDESONIDE 0.5 MG/2 ML NEBU INHALATION SCH (09:27)
[2016-08-29] MEDS: IPRATROPIUM-ALBUTEROL 3 ML NEB INHALATION SCH ×4 (09:27→19:56)
[2016-08-29 11:25] LABS: Glucose,Whole Blood 113 mg/dL (75-99)
--- NOTE | 2016-08-29 12:45 | P.PN ---
Subjective This is a 76-year-old female patient being evaluated and examined today on the selective care unit. The patient was transferred here from [facility] after the patient had one week of chills, weakness, productive coughing with yellow sputum with bright red streaks in it, shortness of breath, wheezing and poor appetite. Patient was noted to have an INR of 9.7 and does take Coumadin at home for atrial fibrillation. Patient was initially started on Rocephin and Solu-Medrol and updrafts while at [facility]. Patient does have a history significant for COPD, atrial fibrillation, previous myocardial infarction, and pneumonia. Chest x-ray from previous hospital does reveal a right lower lobe pneumonia. New chest xrays reviewed. Upon examination the patient is resting up in bed on 3 L of oxygen via nasal cannula she continues to complain of a productive cough with yellow sputum. The patient does not use home oxygen. Patient is hyperkalemic today and has been addressed by nephrology. Objective - Vital Signs Vital signs: Vital Signs Temp 96.3 F L 08/29/16 11:45 Pulse 80 08/29/16 12:07 Resp 18 08/29/16 11:45 BP 110/53 08/29/16 11:45 Pulse Ox 94 L 08/29/16 11:45 Intake & Output 08/28/16 08/29/16 08/29/16 18:59 06:59 18:59 Intake Total 960 475 480 Output Total 400 1400 Balance 560 -925 480 Weight 89.9 kg Intake: IV 475 Sodium Chloride 0.9% 1, 475 000 ml @ 50 mls/hr IV . Q20H [facility] Rx#:[id number] Oral 960 480 Output: Urine 400 1400 Other: Voiding Method Toilet Toilet Toilet # Voids 2 1 # Bowel Movements 0 0 0 - Exam GENERAL EXAM: Alert, active, comfortable in no apparent distress. HEAD: Normocephalic. EYES: Normal reaction of pupils, equal size. NOSE: Clear with pink turbinates. THROAT: No erythema or exudates. NECK: No masses, no JVD. CHEST: No chest wall deformity. LUNGS: Equal air entry noted, some faint rhonchi and wheezes noted on expiration. CVS: S1 and S2 normal with no audible mumurs, regular rhythm. ABDOMEN: No hepatosplenomegaly, normal bowel sounds, no guarding or rigidity. EXTREMITIES: No edema noted, pedal pulses palpable. SKIN: No rashes CENTRAL NERVOUS SYSTEM: No focal deficits, tone is normal in all 4 extremities. - Labs CBC & Chem 7: 08/27/16 06:40 08/29/16 11:54 Labs: Abnormal Lab Results - Last 24 Hours (Table) 08/28/16 08/28/16 08/28/16 Range/Units 16:11 18:15 21:14 PT (9.0-12.0) sec Potassium 6.0 H (3.5-5.1) mmol/L Chloride (98-107) mmol/L BUN (7-17) mg/dL Glucose (74-99) mg/dL POC Glucose (mg/dL) 238 H 207 H (75-99) mg/dL 08/29/16 08/29/16 08/29/16 Range/Units 05:48 05:48 06:18 PT 13.9 H (9.0-12.0) sec Potassium 5.8 H (3.5-5.1) mmol/L Chloride 108 H (98-107) mmol/L BUN 52 H (7-17) mg/dL Glucose 178 H (74-99) mg/dL POC Glucose (mg/dL) 160 H (75-99) mg/dL 08/29/16 08/29/16 Range/Units 11:24 11:54 PT (9.0-12.0) sec Potassium 5.2 H (3.5-5.1) mmol/L Chloride (98-107) mmol/L BUN (7-17) mg/dL Glucose (74-99) mg/dL POC Glucose (mg/dL) 113 H (75-99) mg/dL Microbiology - Last 24 Hours (Table) 08/26/16 14:04 Blood Culture - Preliminary Blood No Growth after 48 hours Assessment and Plan Plan: Assessment Community acquired right lower lobe pneumonia Acute exacerbation of COPD Coagulopathy Atrial fibrillation Congestive heart failure, systolic dysfunction, EF of 40% Chronic kidney disease stage III Coronary artery disease Hyperkalemia Plan Medications have been reviewed and will be continued as ordered. We'll continue budesonide and her nebulizer treatments. Incentive spirometer initiated and encouraged, as well as cough and deep breathe. Continue supportive care and pulmonary hygiene as well as supplemental oxygen to maintain sats above 90%. Nephrology on consult. We will continue to monitor labs/results and adjust treatment as necessary. I performed an examination of the patient and discussed their management with the nurse practitioner. I have reviewed the nurse practitioner's note and agree with the documented findings and plan of care.
[2016-08-29 16:31] LABS: Glucose,Whole Blood 146 mg/dL (75-99)
[2016-08-29] MEDS: BUDESONIDE 1 MG/2 ML NEBU INHALATION SCH (19:56)
[2016-08-29 20:59] LABS: Glucose,Whole Blood 227 mg/dL (75-99)
--- NOTE | 2016-08-29 22:10 | PN ---
DATE OF SERVICE: 08/29/2016 PRESENTING COMPLAINT: Cough, shortness of breath. INTERVAL HISTORY: The patient was admitted with pneumonia, COPD exacerbation. She is quite a bit short of breath, wheezing, though less congested. Did tolerate some diet. Review of systems done for constitutional, cardiovascular, GI, pulmonary; relevant findings as above. Current medications are reviewed that include nebulized bronchodilators, ceftriaxone, Cardizem CD, IV Solu-Medrol. On examination, temperature 97.3, pulse 70, respiration 22, blood pressure 110/61, pulse ox 98% on 3 L. GENERAL APPEARANCE: Lying in bed, very tired-appearing. EYES: Pupils equal. Conjunctivae normal. NECK: JVD not raised. Mass not palpable. RESPIRATORY: Effort increased. LUNGS: Diminished breath sounds. Prolonged expiration. Wheezing. CARDIOVASCULAR: First and second sounds normal. No edema. ABDOMEN: Soft, nontender. Liver and spleen not palpable. PSYCHIATRY: Alert and oriented x3. Mood and affect tired-appearing. INVESTIGATIONS: Potassium 5.8. Repeat 5.2. Accu-Cheks are noted. ASSESSMENT: 1. Pneumonia; suspect Gram-negative organism, present on admission. 2. Acute severe chronic obstructive pulmonary disease exacerbation in an ex-smoker, slow to respond; still patient is pretty tight and wheezing. 3. Hyperkalemia, uncontrolled this morning. Repeat potassium now coming down. 4. Persistent atrial fibrillation, on Coumadin. 5. Chronic congestive heart failure from systolic dysfunction; ejection fraction 40%; ischemic cardiomyopathy. 6. Chronic kidney disease, probably not present. Patient ( ) acute renal failure, probably acute tubular necrosis, with significant improvement. 7. Coronary artery disease with prior history of myocardial infarction. 8. Secondary pulmonary hypertension secondary to chronic obstructive pulmonary disease. 9. Tricuspid regurgitation, non-rheumatic. 10. Primary osteoarthritis of the hands and legs. 11. Obesity; body mass index of 31.9. 12. Coumadin toxicity, present on admission. INR has come down. PLAN: Patient is still very tight. Patient is already on Solu-Medrol. Will also add nebulized inhaled steroids. Cannot go up with the DuoNeb too much, as patient has atrial fibrillation. Care was discussed with the patient. Will follow.
[2016-08-30 06:17] LABS: Glucose,Whole Blood 167 mg/dL (75-99)
[2016-08-30 06:31] LABS: INR 1.4 (<1.1); Prothrombin Time 13.6 sec (9.0-12.0)
[2016-08-30 06:35] LABS: Anion Gap 6 mmol/L; Blood Urea Nitrogen 48 mg/dL (7-17); Calcium 8.8 mg/dL (8.4-10.2); Carbon Dioxide 35 mmol/L (22-30); Chloride 102 mmol/L (98-107); Glucose 168 mg/dL (74-99); Non-African American GFR(MDRD) >60 (>60 ml/min/1.73 sqM); Potassium 4.9 mmol/L (3.5-5.1); Sodium 143 mmol/L (137-145)
[2016-08-30] MEDS: INSULIN LISPRO (humaLOG) 300 UNIT/3 ML VIAL SQ SCH ×2 (06:45→12:01)
[2016-08-30] MEDS: methylPREDNISolone SOD SUCCI 40 MG/ML 1 ML VIAL IV SCH ×2 (08:32→17:23)
[2016-08-30] MEDS: AZITHROMYCIN 500 MG TAB PO SCH (08:33)
[2016-08-30] MEDS: OXYBUTYNIN CHLORIDE 5 MG TAB PO SCH (08:33)
[2016-08-30] MEDS: METOPROLOL TARTRATE 25 MG TAB PO SCH (08:33)
[2016-08-30] MEDS: DILTIAZEM CD 240 MG CAP.ER.24H PO SCH (08:33)
--- NOTE | 2016-08-30 09:36 | P.PN ---
Subjective Patient is seen in follow-up for acute kidney injury. Creatinine was elevated at 2.54 and is now back to baseline. Patient presented with dyspnea and is currently being treated for pneumonia as well as COPD. She does of systolic CHF with ejection fraction of 40%. No edema. Appetite is good. No vomiting or diarrhea. Dyspnea is improved but is still having some wheezing. No changes overnight. Vital signs are stable. General: The patient appeared well nourished and normally developed. HEENT: Head exam is unremarkable. Neck is without jugular venous distension. LUNGS: Lungs are clear to auscultation and percussion. Breath sounds decreased. HEART: Rate and Rhythm are regular. First and second heart sounds normal. No murmurs, rubs or gallops. ABDOMEN: Abdominal exam reveals normal bowel sounds. Non-tender and non- distended. No evidence of peritonitis. EXTREMITITES: No clubbing, cyanosis, or edema. Objective - Vital Signs Vital signs: Vital Signs Temp 97.6 F 08/30/16 08:00 Pulse 84 08/30/16 08:00 Resp 22 08/30/16 08:00 BP 131/90 08/30/16 08:00 Pulse Ox 95 08/30/16 08:00 Intake & Output 08/29/16 08/30/16 08/30/16 18:59 06:59 18:59 Intake Total 1260 200 Output Total 200 Balance 1260 0 Weight 88.5 kg Intake: IV 200 Sodium Chloride 0.9% 1, 200 000 ml @ 50 mls/hr IV . Q20H [facility] Rx#:[id number] Intake, IV Titration 100 Amount cefTRIAXone 1,000 mg In 100 Sodium Chloride 0.9% 50 ml @ 100 mls/hr IVPB Q24HR [facility] Rx#:[id number] Oral 960 200 Output: Urine 200 Other: Voiding Method Toilet Toilet Toilet # Voids 1 # Bowel Movements 0 - Labs CBC & Chem 7: 08/27/16 06:40 08/30/16 05:57 Labs: Abnormal Lab Results - Last 24 Hours (Table) 08/29/16 08/29/16 08/29/16 Range/Units 11:24 11:54 16:29 PT (9.0-12.0) sec Potassium 5.2 H (3.5-5.1) mmol/L Carbon Dioxide (22-30) mmol/L BUN (7-17) mg/dL Glucose (74-99) mg/dL POC Glucose (mg/dL) 113 H 146 H (75-99) mg/dL 08/29/16 08/30/16 08/30/16 Range/Units 20:57 05:57 05:57 PT 13.6 H (9.0-12.0) sec Potassium (3.5-5.1) mmol/L Carbon Dioxide 35 H (22-30) mmol/L BUN 48 H (7-17) mg/dL Glucose 168 H (74-99) mg/dL POC Glucose (mg/dL) 227 H (75-99) mg/dL 08/30/16 Range/Units 06:15 PT (9.0-12.0) sec Potassium (3.5-5.1) mmol/L Carbon Dioxide (22-30) mmol/L BUN (7-17) mg/dL Glucose (74-99) mg/dL POC Glucose (mg/dL) 167 H (75-99) mg/dL Microbiology - Last 24 Hours (Table) 08/26/16 14:04 Blood Culture - Preliminary Blood No Growth after 72 hours Assessment and Plan Plan: Assessment: #1. Acute kidney injury secondary to ATN secondary to sepsis and NSAIDs. Creatinine 2.54 on admission. GFR now at baseline. #2. Right lower lobe pneumonia. #3. Chronic systolic CHF with ejection fraction of 40%. Compensated. #4. Metabolic acidosis secondary to acute kidney injury. Resolved. She is actually now alkalotic with a bicarb level of 35. This can be due to compensation for underlying respiratory acidosis as well as from Solu-Medrol. Continue to monitor. #5. Atrial fibrillation, maintained on Coumadin. #6. Pyuria. #7. Hyperkalemia. Aldactone is held. She is also off all potassium supplementation. Blood sugars are slightly on the higher side which can be a contributing factor. Resolved. Potassium 4.9 today. Plan: Hep-Lock IV fluids. Encourage oral intake. Her appetite is good. Avoid nephrotoxic agents and hypotensive episodes. Discontinued potassium supplementation. Aldactone is also held for now. Renal diet. Repeat electrolytes in the morning.
[2016-08-30] MEDS: BUDESONIDE 1 MG/2 ML NEBU INHALATION SCH (11:42)
[2016-08-30] MEDS: IPRATROPIUM-ALBUTEROL 3 ML NEB INHALATION SCH ×3 (11:42→15:26)
[2016-08-30 12:02] LABS: Glucose,Whole Blood 134 mg/dL (75-99)
[2016-08-30] MEDS ORDERED: WARFARIN 2.5 MG TAB PO ONE (12:55)
--- NOTE | 2016-08-30 13:34 | PN ---
Shailesh Vaca who is a 76-year-old female, seen, evaluated, and examined. Clinically, patient is not much changed. Patient has acute renal failure as well as COPD exacerbation with a component of chronic systolic heart failure. Patient's baseline ejection fraction only 40%. Overall, is a poor historian. She is less short of breath. Her hemodynamic status is stable. Blood pressure 130/90, respiratory rate 22, pulse 94, temperature 97, she is 98%. HEENT EXAMINATION: Otherwise unremarkable. NECK: Supple. LUNGS: Good air entry bilaterally. A few crackles at bases. HEART: Regular rate and rhythm, S1 and S2 audible. Abdomen is soft. No rebound or rigidity. EXTREMITIES: +1 peripheral pulses. NEUROLOGICAL EXAMINATION: Arousable. Opens eyes. Labs are reviewed. BUN and creatinine are 14 and 0.9. Glucose 168, potassium is 4.9. Her last chest x-ray performed 08/27/2016 reviewed and compared with the prior x-ray, revealed cardiomegaly, interstitial edema and right lower lobe infiltrate. Current medications are reviewed which include DuoNeb unit dose updraft 4 times a day, Zithromax 500 mg daily, Pulmicort 2 times a day, on sliding scale insulin, Solu-Medrol 40 q.8 hourly. The patient's Rocephin will be discontinued tomorrow. Patient is off of Coumadin as well. Due to coagulopathy; however, INR normalized. Would recommend to reinstate Coumadin. IMPRESSION: 1. Right lower lobe pneumonia. 2. Acute chronic obstructive pulmonary disease exacerbation. 3. Acute on chronic congestive heart failure related to chronic systolic heart failure. 4. Acute renal failure, which has improved with fluid resuscitation and observation. 5. Coagulopathy resolved as well. Plan is to repeat the chest x-ray. I feel the Zithromax should be enough along with breathing treatment; however, if the x-ray continued to the present, would recommend to resume the Rocephin. In addition to above, would recommend to resume Coumadin with relatively a smaller dose. Will defer to Cardiovascular Service and Primary Service. Will follow.
[2016-08-30 17:12] LABS: Glucose,Whole Blood 187 mg/dL (75-99)
[2016-08-30 17:21] VITALS: PULSE 88
[2016-08-30 17:23] VITALS: BP 133/84; RESP 18; TEMP 97.6
[2016-08-31] MEDS ORDERED: WARFARIN 2.5 MG TAB PO SCH (18:00)
--- NOTE | 2016-09-07 09:47 | DS ---
DATE OF ADMISSION: 08/26/2016 DATE OF DISCHARGE: 08/30/2016 FINAL DIAGNOSES: 1. Pneumonia, suspect gram-negative organism, present on admission. 2. Acute severe chronic obstructive pulmonary disease exacerbation in an ex-smoker, present on admission. 3. Hyperkalemia. 4. Persistent atrial fibrillation, on Coumadin. 5. Chronic congestive heart failure from systolic dysfunction; ejection fraction 40%, from ischemic cardiomyopathy. 6. Chronic kidney disease not present. 7. Acute renal failure, probably acute tubular necrosis, present on admission with improvement. 8. Coronary artery disease with prior history of myocardial infarction. 9. Secondary pulmonary hypertension secondary to chronic obstructive pulmonary disease. 10. Tricuspid regurgitation, nonrheumatic. 11. Primary osteoarthritis of the hands and legs. 12. Obesity, body mass index 31.9. 13. Coumadin toxicity present at admission, INR is coming down. CONSULTATIONS: Dr. Bowie from pulmonary. Dr. Pichardo from nephrology. HOSPITAL COURSE: This patient presented with COPD exacerbation, pneumonia, also had an episode of acute renal failure with creatinine of 2.5 on presentation, did come down to 0.90 by discharge. On exam, lungs improved air entry. CARDIOVASCULAR: Heart sounds irregular. Psychiatric alert and oriented x3. DISCHARGE MEDICATIONS: 1. Ventolin 2.5 q.i.d. p.r.n. 2. Symbicort 160/4.5 2 puffs b.i.d. 3. Cardizem CD 240 mg p.o. daily. 4. Zestril 2.5 mg p.o. daily. 5. Lopressor 25 mg p.o. b.i.d. 6. Ditropan 5 mg p.o. b.i.d. 7. Aldactone 25 mg p.o. daily. 8. Ceftin 500 mg p.o. b.i.d. 9. DuoNeb t.i.d. 10. Coumadin 2.5 p.o. daily. 11. Prednisone taper. LABS: BMP, CBC, INR in [address] Bowie in one week. Follow-up with Dr. Cortes in 3 days. Care was discussed in detail with the patient. DC planning more than 35 minutes.
--- NOTE | 2016-09-07 09:49 | DS ---
DATE OF ADMISSION: 08/26/2016 DATE OF DISCHARGE: 08/30/2016 ADDENDUM: Discharge planning more than 35 minutes.
== END 2016-08-30 17:27 | disposition home or self-care (01) | DRG 190 ==
LOC: EC 07:09 → 6SEL 08:11
PROVIDERS: ADMIT Hospitalist; ATTEND Hospitalist
DX: J44.0 Chronic obstructive pulmonary disease with (acute) lower respiratory infection (principal); J15.6 Pneumonia due to other Gram-negative bacteria; N17.0 Acute kidney failure with tubular necrosis; I13.0 Hypertensive heart and chronic kidney disease with heart failure and stage 1 through stage 4 chronic kidney disease, or unspecified chronic kidney disease; E87.2 Acidosis; I48.1 Persistent atrial fibrillation; I50.22 Chronic systolic (congestive) heart failure; N39.0 Urinary tract infection, site not specified; I27.2 Other secondary pulmonary hypertension; J44.1 Chronic obstructive pulmonary disease with (acute) exacerbation; E87.5 Hyperkalemia; I36.1 Nonrheumatic tricuspid (valve) insufficiency; N18.3 Chronic kidney disease, stage 3 (moderate); I25.5 Ischemic cardiomyopathy; M19.041 Primary osteoarthritis, right hand; M19.042 Primary osteoarthritis, left hand; M19.91 Primary osteoarthritis, unspecified site; J45.909 Unspecified asthma, uncomplicated; I25.10 Atherosclerotic heart disease of native coronary artery without angina pectoris; I25.2 Old myocardial infarction; R79.1 Abnormal coagulation profile; T39.315A Adverse effect of propionic acid derivatives, initial encounter; T45.515A Adverse effect of anticoagulants, initial encounter; E66.9 Obesity, unspecified; Z68.31 Body mass index [BMI] 31.0-31.9, adult; Z86.73 Personal history of transient ischemic attack (TIA), and cerebral infarction without residual deficits; Z87.891 Personal history of nicotine dependence; Z79.01 Long term (current) use of anticoagulants; Z79.899 Other long term (current) drug therapy; Z79.52 Long term (current) use of systemic steroids
CPT/HCPCS: 71020; 76770; 80048; 81001; 84132; 85025; 85610; 87040; 93005; 94640; 94760; 99285

== ENCOUNTER 2016-10-03 18:33 | Inpatient (IN) | payer MEDICARE, OTHER ==
[2016-10-03] MEDS ORDERED: NALOXONE 0.4 MG/ML 1 ML VIAL IV PRN (21:05)
[2016-10-03] MEDS ORDERED: ALBUTEROL NEBULIZED 2.5 MG/3 ML INHALATION PRN (21:09)
--- NOTE | 2016-10-03 21:26 | XR ---
EXAMINATION TYPE: XR chest 1V DATE OF EXAM: 10/03/2016 9:10 PM COMPARISON: 08/27/2016 HISTORY: Heart failure and pneumonia TECHNIQUE: Single frontal view of the chest is obtained. FINDINGS: Heart is enlarged. There is some pulmonary vascular congestion. There is patchy infiltrate in the lower lung christine and worse on the right side. There are chest leads. There is slight bluntin g of costophrenic angles. IMPRESSION: There is evidence of congestive heart failure. Right lower lobe pneumonia is also presen t. Chest appears slightly worse than last exam.
[2016-10-03 21:38] LABS: CH 28.1; CHCM 31.6; HCT 35.6 % (34.0-46.0); HDW 3.67; HGB 11.4 gm/dL (11.4-16.0); Hypochromasia Moderate; MCH 28.6 pg (25.0-35.0); MCHC 31.9 g/dL (31.0-37.0); MCV 89.5 fL (80.0-100.0); Mean Platelet Volume 7.1; Poikilocytosis Slight; RBC 3.98 m/uL (3.80-5.40); RDW 14.9 % (11.5-15.5); WBC 5.7 k/uL (3.8-10.6)
[2016-10-03 21:53] LABS: ALT 32 U/L (9-52); AST 20 U/L (14-36); Alkaline Phosphatase 110 U/L (38-126); Anion Gap 9 mmol/L; Blood Urea Nitrogen 11 mg/dL (7-17); Calcium 8.5 mg/dL (8.4-10.2); Carbon Dioxide 34 mmol/L (22-30); Chloride 96 mmol/L (98-107); Glucose 93 mg/dL (74-99); Non-African American GFR(MDRD) >60 (>60 ml/min/1.73 sqM); Potassium 3.6 mmol/L (3.5-5.1); Sodium 139 mmol/L (137-145); Total Protein 6.2 g/dL (6.3-8.2)
[2016-10-03 22:01] LABS: Prothrombin Time >130.0 sec (9.0-12.0)
[2016-10-03 22:04] LABS: INR >10.0 (<1.1)
[2016-10-03] MEDS ORDERED: PHYTONADIONE 10 MG in SODIUM CHLORIDE 0.9% 50 ML IVPB STA (22:20)
[2016-10-03] MEDS: FUROSEMIDE 10 MG/ML 4 ML VIAL IV SCH (22:36)
[2016-10-04] MEDS ORDERED: HEPARIN SODIUM,PORCINE 5,000 UNIT/ML 1 ML VIAL SQ SCH
[2016-10-04] MEDS: METOPROLOL TARTRATE 25 MG TAB PO SCH ×2 (00:43→08:24)
[2016-10-04 06:32] LABS: Basophils % (A) 1 %; CH 27.4; CHCM 30.3; Eosinophils # (A) 0.1 k/uL (0-0.7); Eosinophils % (A) 2 %; HCT 36.1 % (34.0-46.0); HDW 3.41; HGB 11.2 gm/dL (11.4-16.0); Hypochromasia Marked; Luc # (Auto) 0.08; Luc % (Auto) 1; Lymphocytes # (A) 0.7 k/uL (1.0-4.8); Lymphocytes % (A) 12 %; MCH 28.1 pg (25.0-35.0); MCHC 30.9 g/dL (31.0-37.0); Mean Platelet Volume 6.7; Monocytes # (A) 0.4 k/uL (0-1.0); Monocytes % (A) 7 %; Neutrophils # (A) 4.5 k/uL (1.3-7.7); Neutrophils % (A) 77 %; Poikilocytosis Slight; RBC 3.97 m/uL (3.80-5.40); RDW 14.7 % (11.5-15.5); WBC 5.8 k/uL (3.8-10.6); WBC (Perox) 5.99
[2016-10-04 06:39] LABS: Glucose,Whole Blood 101 mg/dL (75-99)
[2016-10-04 06:40] LABS: Anion Gap 8 mmol/L; Blood Urea Nitrogen 13 mg/dL (7-17); Calcium 8.1 mg/dL (8.4-10.2); Carbon Dioxide 36 mmol/L (22-30); Chloride 95 mmol/L (98-107); Glucose 97 mg/dL (74-99); Non-African American GFR(MDRD) >60 (>60 ml/min/1.73 sqM); Sodium 139 mmol/L (137-145)
[2016-10-04 06:44] LABS: INR 2.2 (<1.1); Prothrombin Time 21.5 sec (9.0-12.0)
[2016-10-04] MEDS: SYMBICORT 160-4.5 MCG INHALER INHALATION SCH ×2 (08:22→19:36)
[2016-10-04] MEDS: IPRATROPIUM-ALBUTEROL 3 ML NEB INHALATION SCH ×3 (08:22→19:36)
[2016-10-04] MEDS: FUROSEMIDE 10 MG/ML 4 ML VIAL IV SCH ×2 (08:23→20:19)
[2016-10-04] MEDS: LISINOPRIL 2.5 MG TAB PO SCH (08:24)
[2016-10-04] MEDS: SPIRONOLACTONE 25 MG TAB PO SCH (08:24)
[2016-10-04] MEDS: OXYBUTYNIN CHLORIDE 5 MG TAB PO SCH ×2 (08:24→20:20)
[2016-10-04] MEDS ORDERED: FUROSEMIDE 20 MG TAB PO SCH (09:00)
[2016-10-04] MEDS ORDERED: DILTIAZEM CD 240 MG CAP.ER.24H PO SCH (09:00)
[2016-10-04] MEDS ORDERED: METOPROLOL TARTRATE 25 MG TAB PO SCH (09:00)
--- NOTE | 2016-10-04 20:01 | HP ---
DATE OF ADMISSION: 10/03/2016 Patient is a pleasant 76-year-old sent in here from [facility] after transfer from [facility] to here. The patient presented to [facility] with shortness of breath has been going on for 3 days with complaints of orthopnea and no clear history of PND. Patient was found to have pulmonary edema on the chest x-ray and patient did have elevated JVD. Patient still has elevated JVD, was subsequently sent here. Previous ejection fraction as per Dr. Scott's dictation is around 40%. Her previous ejection fraction was 40% apparently. Although the patient is on Cardizem that will be discontinued and we will increase the dose of metoprolol to 50 b.i.d. Patient is also found to have supratherapeutic INR of 10 without any signs or symptoms of GI bleed. Hemoglobin remained stable since yesterday. The patient was given 2 doses of vitamin K after which her INR has come down and patient denied any fevers. Patient was complaining of cough with whitish sputum production, patient denied any dysuria, denied any chest pain. Denied any palpitations. Patient does have a history of atrial fibrillation, for which patient is on Coumadin. REVIEW OF SYSTEMS: CONSTITUTIONAL: No fever, no malaise, no fatigue. HEENT: No recent visual problems or hearing problems. Denied any sore throat. CARDIOVASCULAR: As described in history of present illness. PULMONARY: No shortness of breath, no cough, no hemoptysis. GASTROINTESTINAL: No diarrhea, no nausea, no vomiting, no abdominal pain. Normoactive bowel sounds. NEUROLOGICAL: No headaches, no weakness, no numbness. HEMATOLOGICAL: Denies any bleeding or petechiae. GENITOURINARY: Denies any burning micturition, frequency, or urgency. MUSCULOSKELETAL/RHEUMATOLOGICAL: Denies any joint pain, swelling, or any muscle pain. ENDOCRINE: Denies any polyuria or polydipsia. The rest of the 14 point review of systems is negative. PAST MEDICAL HISTORY: Significant for congestive heart failure, ejection fraction of 40%, myocardial infarction in the past. Patient has ischemic cardiomyopathy, pulmonary hypertension, moderate pulmonary hypertension as per the dictation from Dr. Scott. Patient also was treated recently for pneumonia. Does have history of chronic obstructive pulmonary disease, appendectomy, tonsillectomy. Patient used to be a former smoker. Quit smoking in 195, denied any alcohol abuse or drug abuse. FAMILY HISTORY: Significant for congestive heart failure. Father of congestive heart failure. PHYSICAL EXAMINATION: VITAL SIGNS: Temperature 96.8, pulse of 88, respiratory rate of 16, blood pressure is 94/64, saturating at 94% on 3 L O2 by nasal cannula. GENERAL: The patient is alert and oriented x3, not in any acute distress. Well developed, well nourished. HEENT: Pupils are round and equally reacting to light. EOMI. No scleral icterus. No conjunctival pallor. Normocephalic, atraumatic. No pharyngeal erythema. No thyromegaly. CARDIOVASCULAR: S1 and S2 present. Patient does have S3 as well, does have elevated JVD. No murmurs, rubs, or gallops. Patient is sinus rhythm, rate controlled at this point of time. Patient does have bibasilar crackles that were appreciated. No murmurs, rubs, or gallops. PULMONARY: Chest is clear to auscultation, no wheezing or crackles. ABDOMEN: Soft, nontender, nondistended, normoactive bowel sounds. No palpable organomegaly. MUSCULOSKELETAL: No joint swelling or deformity. EXTREMITIES: No cyanosis, clubbing, or pedal edema. NEUROLOGICAL: Gross neurological examination did not reveal any focal deficits. SKIN: No rashes. LABORATORY DATA: CBC, CMP are abnormal for which has come down after two 10 mg of vitamin K. ASSESSMENT AND PLAN: 1. Congestive heart failure, chronic systolic dysfunction; ejection fraction of around 40% with acute exacerbation. Patient will be continued on 40 mg of IV Lasix. Cardiology will be consulted. 2. Atrial fibrillation, rate controlled. Cardizem is not appropriate considering his systolic dysfunction. Cardizem will be discontinued. Patient will be started on metoprolol, probably patient will benefit from alternate anticoagulation as patient has ( ) atrial fibrillation with the newer anticoagulants. 3. Coumadin coagulopathy. Patient does not take any antibiotics at home. 4. Severe secondary pulmonary hypertension secondary to chronic obstructive pulmonary disease. 5. Chronic obstructive pulmonary disease without any acute exacerbation. Patient does have chronic obstructive pulmonary disease with minimal exacerbation. Patient continued on albuterol, budesonide, Formoterol, ipratropium. 6. Obesity. 7. Atrial fibrillation, rate controlled at this point of time.
[2016-10-04] MEDS: METOPROLOL TARTRATE 50 MG TAB PO SCH (20:21)
[2016-10-05 06:39] LABS: INR 1.3 (<1.1); Prothrombin Time 12.8 sec (9.0-12.0)
[2016-10-05 06:46] LABS: Anion Gap 8 mmol/L; Blood Urea Nitrogen 16 mg/dL (7-17); Calcium 8.7 mg/dL (8.4-10.2); Carbon Dioxide 36 mmol/L (22-30); Chloride 92 mmol/L (98-107); Glucose 117 mg/dL (74-99); Non-African American GFR(MDRD) >60 (>60 ml/min/1.73 sqM); Potassium 4.2 mmol/L (3.5-5.1); Sodium 136 mmol/L (137-145)
--- NOTE | 2016-10-05 08:19 | XR ---
EXAMINATION TYPE: XR chest 1V DATE OF EXAM: 10/05/2016 COMPARISON: Prior chest x-ray September HISTORY: Congestive heart failure TECHNIQUE: Single frontal view of the chest is obtained. FINDINGS: The heart remains enlarged. Patchy density persists at the lung bases. No evident pneumoth orax. There are overlying cardiac leads. Interstitium is mildly increased. IMPRESSION: Cardiomegaly. Basilar atelectasis versus edema, correlate to exclude. Aeration thought to be improved.
[2016-10-05] MEDS: FUROSEMIDE 10 MG/ML 4 ML VIAL IV SCH ×2 (08:28→20:32)
[2016-10-05] MEDS: LISINOPRIL 2.5 MG TAB PO SCH (08:28)
[2016-10-05] MEDS: SPIRONOLACTONE 25 MG TAB PO SCH (08:29)
[2016-10-05] MEDS: METOPROLOL TARTRATE 50 MG TAB PO SCH ×2 (08:29→20:31)
[2016-10-05] MEDS: OXYBUTYNIN CHLORIDE 5 MG TAB PO SCH ×2 (08:29→20:31)
[2016-10-05] MEDS: IPRATROPIUM-ALBUTEROL 3 ML NEB INHALATION SCH ×3 (08:50→19:34)
[2016-10-05] MEDS: SYMBICORT 160-4.5 MCG INHALER INHALATION SCH ×2 (08:50→19:31)
--- NOTE | 2016-10-05 09:31 | P.PN ---
Progress Note - Text Patient presenting with increasing shortness of breath and lower extremity edema. No syncope no chest pain Impression Congestive heart failure with left radical ejection fraction of about 40% Severe pulmonary hypertension with right-sided overload, pressure overload COPD resulting in secondary pulmonary hypertension Rate controlled atrial fibrillation Asymptomatic, supratherapeutic INR, coagulopathy secondary to drug use Plan IV diuresis with Lasix and continue Aldactone also Agree with switching to metoprolol and later we may switch to long-acting metoprolol instead Coumadin management per medical team
[2016-10-05] MEDS: ACETAMINOPHEN TAB 500 MG TAB PO PRN (10:53)
[2016-10-05 11:02] VITALS: BMI 32.1
--- NOTE | 2016-10-05 11:14 | ECHOF ---
Referral Reason:CHF MEASUREMENTS -------- HEIGHT: 160.0 cm WEIGHT: 83.5 kg BP: 108/66 RVIDd: 3.0 cm (< 3.3) IVSd: 1.0 cm (0.6 - 1.1) LVIDd: 4.3 cm (3.9 - 5.3) LVPWd: 1.1 cm (0.6 - 1.1) IVSs: 1.4 cm LVIDs: 3.0 cm LVPWs: 1.7 cm LA Diam: 3.8 cm (2.7 - 3.8) LAESV Index (A-L): 20.70 ml/m Ao Diam: 3.1 cm (2.0 - 3.7) AV Cusp: 2.1 cm (1.5 - 2.6) MV EXCURSION: 16.269 mm (> 18.000) MV EF SLOPE: 86 mm/s (70 - 150) EPSS: 0.3 cm RAP: 5.00 mmHg RVSP: 65.95 mmHg FINDINGS -------- Atrial fibrillation. This was a technically adequate study. The left ventricular size is normal. Left ventricular wall thickness is normal. Overall left ventricular systolic function is normal with, an EF between 55 - 60 %. There is septal flattening in diastole and systole which is consistent with right ventricular pressure and volume overload. The right ventricle is normal in size and function. Normal LA size by volume 22+/-6 ml/m2. The right atrium is normal in size. There is mild aortic valve sclerosis. Mild mitral annular calcification present. Mild tricuspid regurgitation present. There is severe pulmonary hypertension. The right ventricular systolic pressure, as measured by Doppler, is 65.95mmHg. The aortic root size is normal. IVC Not well visulized. The pericardium is normal. CONCLUSIONS -------- 1. Atrial fibrillation. 2. There is mild aortic valve sclerosis. 3. Mild mitral annular calcification present. 4. Mild tricuspid regurgitation present. 5. There is severe pulmonary hypertension. 6. The right ventricular systolic pressure, as measured by Doppler, is 65.95mmHg. 7. The aortic root size is normal. 8. IVC Not well visulized. 9. The pericardium is normal. 10. This was a technically adequate study. 11. The left ventricular size is normal. 12. Left ventricular wall thickness is normal. 13. Overall left ventricular systolic function is normal with, an EF between 55 - 60 %. 14. There is septal flattening in diastole and systole which is consistent with right ventricular pressure and volume overload. 15. The right ventricle is normal in size and function. 16. Normal LA size by volume 22+/-6 ml/m2. 17. The right atrium is normal in size. [employer]: Kelly Richmond RDCS
--- NOTE | 2016-10-05 11:26 | CONS ---
DATE OF CONSULTATION: REASON FOR CONSULTATION: ( ). Please see impression and plan dictated separately. Shailesh Vaca is a 76 -year-old female who was sent from [facility] with shortness of breath. She denied any chest discomfort. She was found to have elevated JVD and crackles bilaterally. She has known cardiomyopathy, ejection fraction of 40%. She also has history of pulmonary hypertension and COPD. INR was supratherapeutic. INR was 10 but she did not have any bleeding. REVIEW OF SYSTEMS: No fever, chills, rigors. No cough or expectoration. No nausea, vomiting or diarrhea. He hematuria or dysuria. No strokes or seizures. Past medical history of left ventricular ejection fraction of 40%, congestive heart failure, pulmonary hypertension, chronic obstructive pulmonary disease and RV enlargement. SOCIAL HISTORY: Former smoker. She quit smoking in 1953. On examination, her blood pressure 94/64 mmHg. Pulse rate is in the 80s. Head and neck examination reveals JVD. Heart sounds S1, S2 are irregular. LUNGS: Decreased breath sounds bilaterally. ABDOMEN: Soft. EXTREMITIES: Mild minimal edema. IMPRESSION: 1. Chronic systolic dysfunction, ejection fraction of 40% by history. 2. Congestive heart failure. 3. Rate controlled atrial fibrillation. 4. Supratherapeutic INR. 5. Severe pulmonary hypertension secondary to chronic obstructive pulmonary disease. SUGGEST: Please see the rest of the dictation dictated separately for impression and plan.
[2016-10-05] MEDS: WARFARIN 3 MG TAB PO SCH (17:25)
--- NOTE | 2016-10-05 21:54 | PN ---
Patient is clinically doing well. Her congestive heart failure improved significantly. We will continue with Lasix for today. Possibly can be switched to oral tomorrow and possibility of discharge tomorrow. Patient INR is 1.3 and will be started on 3 mg of Coumadin today. Patient has significant clinical improvement. REVIEW OF SYSTEMS: CARDIOVASCULAR: No chest pain, no orthopnea, no PND, no palpitations. PULMONARY: Denied any shortness of breath. No cough or hemoptysis. GASTROINTESTINAL: No diarrhea, nausea or vomiting. No abdominal pain. Normoactive bowel sounds. NEUROLOGIC: No headaches, no weakness, no numbness. Medications were reviewed. PHYSICAL EXAMINATION: VITAL SIGNS: Temperature 96.3, pulse 84, respiratory rate 18, blood pressure 114/79, saturating at 94% on 3 L O2 by nasal cannula. GENERAL: The patient is alert and oriented x3, not in any acute distress. Well developed, well nourished. HEENT: Pupils are round and equally reacting to light. EOMI. No scleral icterus. No conjunctival pallor. Normocephalic, atraumatic. No pharyngeal erythema. No thyromegaly. CARDIOVASCULAR: S1 and S2 present. No murmurs, rubs, or gallops. PULMONARY: Chest is clear to auscultation, no wheezing or crackles. ABDOMEN: Soft, nontender, nondistended, normoactive bowel sounds. No palpable organomegaly. MUSCULOSKELETAL: No joint swelling or deformity. EXTREMITIES: No cyanosis, clubbing, or pedal edema. NEUROLOGICAL: Gross neurological examination did not reveal any focal deficits. SKIN: No rashes. LABORATORY DATA: CBC, CMP are abnormal for INR 1.3, BUN of 16, creatinine of 0.8 which are actually normal. ASSESSMENT AND PLAN: 1. Congestive heart failure possibly diastolic dysfunction with acute exacerbation. The patient repeat echocardiogram showed normal ejection fraction. Patient will be continued on Lasix, IV Lasix today and possibly will switch her to oral tomorrow. 2. ( )Atrial fibrillation, rate controlled. Patient will be continued on Cardizem. Patient was started back on Coumadin as mentioned above at 3 mg. 3. Severe secondary pulmonary hypertension. 4. Obstructive sleep apnea without any acute exacerbation. 5. Obesity. 6. ( ) atrial fibrillation. ( ).
[2016-10-06 06:19] LABS: INR 1.6 (<1.1); Prothrombin Time 15.4 sec (9.0-12.0)
[2016-10-06 06:23] LABS: Anion Gap 9 mmol/L; Blood Urea Nitrogen 20 mg/dL (7-17); Carbon Dioxide 34 mmol/L (22-30); Chloride 93 mmol/L (98-107); Glucose 118 mg/dL (74-99); Non-African American GFR(MDRD) 54 (>60 ml/min/1.73 sqM); Potassium 5.3 mmol/L (3.5-5.1); Sodium 136 mmol/L (137-145)
[2016-10-06] MEDS: SPIRONOLACTONE 25 MG TAB PO SCH (07:36)
[2016-10-06] MEDS: FUROSEMIDE 10 MG/ML 4 ML VIAL IV SCH ×2 (07:36→21:31)
[2016-10-06] MEDS: OXYBUTYNIN CHLORIDE 5 MG TAB PO SCH ×2 (07:36→21:32)
[2016-10-06] MEDS: LISINOPRIL 2.5 MG TAB PO SCH (07:36)
[2016-10-06] MEDS: METOPROLOL TARTRATE 50 MG TAB PO SCH ×2 (07:36→21:32)
[2016-10-06] MEDS: IPRATROPIUM-ALBUTEROL 3 ML NEB INHALATION SCH ×3 (08:07→20:11)
[2016-10-06] MEDS: SYMBICORT 160-4.5 MCG INHALER INHALATION SCH ×2 (08:07→20:11)
[2016-10-06] MEDS ORDERED: PANTOPRAZOLE 40 MG/10 ML VIAL IVP SCH (09:00)
--- NOTE | 2016-10-06 10:01 | PN ---
Shailesh is doing much better. She is sitting up at the edge of the bed and she is getting a breathing treatment. Pulse rate is in the 70s. Blood pressure 150/88 mmHg. She is afebrile. Head and neck examination is normal. Breath sounds are reduced bilaterally with some scattered crackles at the bases. Heart sounds are normal. EXTREMITIES: Warm. No edema. LABS: Reviewed. Potassium is 5.3. SUGGEST: Reduce Spironolactone to 12.5 mg p.o. daily. No more oral potassium. If her potassium continues to be elevated, Spironolactone can be discontinued especially once Lasix is switched to p.o. I would also recommend switching to p.o. Lasix within the next 24 hours.
[2016-10-06] MEDS: WARFARIN 3 MG TAB PO SCH (18:30)
--- NOTE | 2016-10-06 21:07 | PN ---
The patient congestive heart failure is improving. The patient INR is 1.6, continue with 3 mg of Coumadin. REVIEW OF SYSTEMS: CARDIOVASCULAR: No chest pain, no orthopnea, no PND, no palpitations. PULMONARY: Denied any shortness of breath. No cough or hemoptysis. GASTROINTESTINAL: No diarrhea, nausea or vomiting. No abdominal pain. Normoactive bowel sounds. NEUROLOGIC: No headaches, no weakness, no numbness. Medications are reviewed. PHYSICAL EXAMINATION: VITAL SIGNS: Temperature 97.2, pulse 94, respiratory rate 18, blood pressure 110/76, saturating at 98% on room air. GENERAL: The patient is alert and oriented x3, not in any acute distress. Well developed, well nourished. HEENT: Pupils are round and equally reacting to light. EOMI. No scleral icterus. No conjunctival pallor. Normocephalic, atraumatic. No pharyngeal erythema. No thyromegaly. CARDIOVASCULAR: S1 and S2 present. Patient continues to have elevated JVD . Bibasilar crackles are appreciated. No murmurs, rubs, or gallops. S1, S2 present. PULMONARY: Chest is clear to auscultation, no wheezing or crackles. ABDOMEN: Soft, nontender, nondistended, normoactive bowel sounds. No palpable organomegaly. MUSCULOSKELETAL: No joint swelling or deformity. EXTREMITIES: No cyanosis, clubbing, or pedal edema. NEUROLOGICAL: Gross neurological examination did not reveal any focal deficits. SKIN: No rashes. Medications were reviewed. Medication changes: Lisinopril will be discontinued and Aldactone will be discontinued due to hyperkalemia. Continue with Lasix. Laboratory data was reviewed. Creatinine is 1.0, BUN has gone up a little bit. Patient needs to be switched to oral Lasix, which we will do tomorrow. ASSESSMENT AND PLAN: 1. Congestive heart failure, chronic diastolic dysfunction with acute exacerbation. Continue with IV Lasix at this point of time. Discontinue Lisinopril and Aldactone because of hyperkalemia. 2. Hyperkalemia due to Aldactone and Lisinopril. 3. History of atrial fibrillation, rate controlled. Continue with beta marybeth. Coumadin 3 mg may need 2 or 2.5 mg Coumadin. 4. Severe secondary pulmonary hypertension. 5. Obstructive sleep apnea. 6. Obesity. Repeat electrolytes tomorrow, I's and O's.
[2016-10-06] MEDS: ACETAMINOPHEN TAB 500 MG TAB PO PRN (21:31)
[2016-10-07 06:11] LABS: INR 1.8 (<1.1); Prothrombin Time 17.6 sec (9.0-12.0)
[2016-10-07 06:13] LABS: Blood Urea Nitrogen 29 mg/dL (7-17); Calcium 8.7 mg/dL (8.4-10.2); Chloride 92 mmol/L (98-107); Glucose 102 mg/dL (74-99); Non-African American GFR(MDRD) 52 (>60 ml/min/1.73 sqM); Potassium 4.9 mmol/L (3.5-5.1); Sodium 138 mmol/L (137-145)
[2016-10-07 06:20] LABS: Anion Gap 7 mmol/L; Carbon Dioxide 39 mmol/L (22-30)
[2016-10-07] MEDS: METOPROLOL TARTRATE 50 MG TAB PO SCH ×2 (07:46→22:55)
[2016-10-07] MEDS: OXYBUTYNIN CHLORIDE 5 MG TAB PO SCH ×2 (07:47→22:55)
[2016-10-07] MEDS: PANTOPRAZOLE 40 MG TABLET PO SCH (07:48)
[2016-10-07] MEDS ORDERED: SPIRONOLACTONE 25 MG TAB PO SCH (09:00)
[2016-10-07] MEDS: IPRATROPIUM-ALBUTEROL 3 ML NEB INHALATION SCH ×3 (09:13→20:54)
[2016-10-07] MEDS: SYMBICORT 160-4.5 MCG INHALER INHALATION SCH ×2 (09:16→21:02)
[2016-10-07] MEDS: FUROSEMIDE 10 MG/ML 4 ML VIAL IV SCH (09:58)
[2016-10-07] MEDS: LISINOPRIL 2.5 MG TAB PO SCH (09:58)
--- NOTE | 2016-10-07 12:08 | P.PN ---
Subjective Principal diagnosis: Congestive heart failure This is a 77-year-old female with history of chronic persistent atrial fibrillation, COPD, prior TIA, renal disease, pulmonary hypertension and moderate tricuspid regurg, who presented to the hospital with symptoms of progressively worsening shortness of breath. Patient was initiated on IV Lasix on presentation here. Her weight is down 7 kg from admission. Potassium today 4.9, BUN 29, creatinine 1.04. INR 1.8. Repeat chest x-ray showed improvement in aeration, basilar atelectasis versus edema. Echocardiogram revealed a normal systolic function. Severe pulmonary hypertension. BNP level on admission 835. She was also noted to have a supra therapeutic INR on admission here. Patient will receive 5 mg of Coumadin today. We'll discontinue the IV Lasix and start the patient on oral diuretics. Patient is anticipating being discharged home soon. Objective - Vital Signs Vital signs: Vital Signs Temp 97.6 F 10/07/16 07:56 Pulse 88 10/07/16 09:26 Resp 18 10/07/16 07:56 BP 112/62 10/07/16 07:56 Pulse Ox 96 10/07/16 07:56 Intake & Output 10/06/16 10/07/16 10/07/16 18:59 06:59 18:59 Intake Total 1160 240 Output Total 400 800 Balance 1160 -400 -560 Weight 82.7 kg Intake: Oral 1160 240 Output: Urine 400 800 Other: Voiding Method Toilet Toilet # Voids 3 2 # Bowel Movements 1 - Exam PHYSICAL EXAMINATION: HEENT: Head is atraumatic, normocephalic. Pupils equal, round. Neck is supple. There is no elevated jugular venous pressure. HEART EXAMINATION: Heart S1 and S2 irregularly irregular CHEST EXAMINATION:lungs reveal a decreased air exchange ABDOMEN: Soft, nontender. Bowel sounds are heard. No organomegaly noted. EXTREMITIES: 2+ peripheral pulses with no evidence of peripheral edema and no calf tenderness noted. NEUROLOGIC patient is awake, alert and oriented -3. . - Labs CBC & Chem 7: 10/04/16 06:07 10/07/16 05:30 Labs: Abnormal Lab Results - Last 24 Hours (Table) 10/07/16 10/07/16 Range/Units 05:30 05:30 PT 17.6 H (9.0-12.0) sec Chloride 92 L (98-107) mmol/L Carbon Dioxide 39 H (22-30) mmol/L BUN 29 H (7-17) mg/dL Glucose 102 H (74-99) mg/dL Assessment and Plan (1) Diastolic CHF, acute on chronic Status: Acute (2) Chronic a-fib Status: Acute (3) Pulmonary HTN Status: Acute (4) Sleep apnea Status: Acute (5) COPD exacerbation Status: Acute Plan: From cardiology's perspective, we will recommend to continue Coumadin to keep the INR in the range of 2-2.5. Discontinue IV Lasix and put the patient on a Lasix 40 by mouth twice a day at home. Follow-up appointment in the office post discharge. DNP note has been reviewed, I agree with a documented findings and plan of care. Patient was seen and examined.
[2016-10-07] MEDS: FUROSEMIDE 40 MG TAB PO SCH (16:38)
[2016-10-07] MEDS ORDERED: WARFARIN 5 MG TAB PO ONE (18:00)
[2016-10-07] MEDS: predniSONE 20 MG TAB PO SCH (18:39)
[2016-10-08] MEDS: SYMBICORT 160-4.5 MCG INHALER INHALATION SCH (07:16)
[2016-10-08] MEDS: IPRATROPIUM-ALBUTEROL 3 ML NEB INHALATION SCH ×2 (07:16→15:44)
--- NOTE | 2016-10-08 07:55 | P.PN ---
Subjective Date of service 10/07/2016 Progress note being dictated for Dr. Patel Interval history: This a 76-year-old female here with acute congestive heart failure. Anticoagulated on Coumadin with current INR 1.8. Oxygen weaning in progress, O2 sat on room air after ambulation 83%, in a patient who does not wear oxygen at home. Maintaining O2 sats of 94% on 2 L nasal cannula. Potassium mildly elevated yesterday, lisinopril and Aldactone discontinued; improved, down to 4.9. Denies chest pain, palpitations or increasing shortness of breath. Objective - Vital Signs Vital signs: Vital Signs Temp 97.1 F L 10/07/16 12:00 Pulse 102 H 10/07/16 16:38 Resp 16 10/07/16 16:38 BP 109/62 10/07/16 16:38 Pulse Ox 94 L 10/07/16 16:38 Intake & Output 10/07/16 10/07/16 10/08/16 06:59 18:59 06:59 Intake Total 420 Output Total 400 800 Balance -400 -380 Weight 82.7 kg Intake: Oral 420 Output: Urine 400 800 Other: Voiding Method Toilet Toilet # Voids 2 # Bowel Movements 1 - Exam PHYSICAL EXAM: VITAL SIGNS: As above GENERAL: [Sitting up in bed, no acute distress] HEENT: [Pupils equal conjunctiva normal. No conjunctival pallor] NECK: [Supple, no JVD] RESPIRATORY EFFORT:[ Normal] LUNGS: [Clear to auscultation, no wheezes rhonchi or crackles] CARDIOVASCULAR[ regular S1 and S2, no murmurs rubs or gallops, no edema] GI: [Abdomen soft, nontender, positive bowel sounds.] PSYCH: [Alert and oriented -3, mood and affect normal.] NEURO: No focal deficits - Labs CBC & Chem 7: 10/04/16 06:07 10/07/16 05:30 Labs: Abnormal Lab Results - Last 24 Hours (Table) 10/07/16 10/07/16 Range/Units 05: 05:30 PT 17.6 H (9.0-12.0) sec Chloride 92 L (98-107) mmol/L Carbon Dioxide 39 H (22-30) mmol/L BUN 29 H (7-17) mg/dL Glucose 102 H (74-99) mg/dL Assessment and Plan Plan: 1. Acute on chronic congestive heart failure, diastolic dysfunction. 2. [ Hyperkalemia secondary to Aldactone and lisinopril, which have been discontinued, improving]. 3. [ Chronic atrial fibrillation, rate controlled]. 4. [ Coumadin monitoring]. 5. [ Severe secondary pulmonary hypertension]. 6. [ Acute hypoxic respiratory failure, O2 sat on room air after ambulation 83%] . 7. [ Obstructive sleep apnea]. 8. Obesity, BMI 31.8 9. Acute on chronic COPD exacerbation, minimal. Plan: Continue on current medication regime ,monitoring and symptomatic treatment. Lasix converted to oral. Patient continues to require oxygen, will monitor overnight and attempt to wean off by tomorrow. Close monitoring of electrolytes, INR with repeat labs ordered for a.m. Discharge planning in progress for tomorrow. The impression and plan of care has been dictated as directed. : I performed a H&P examination of this patient and discussed the same with the dictator. I agree with the dictator's note. Any additional findings/opinions/ etc. will be noted.
[2016-10-08] MEDS: METOPROLOL TARTRATE 50 MG TAB PO SCH (08:49)
[2016-10-08] MEDS: FUROSEMIDE 40 MG TAB PO SCH ×2 (08:49→15:04)
[2016-10-08] MEDS: predniSONE 20 MG TAB PO SCH (08:49)
[2016-10-08] MEDS: PANTOPRAZOLE 40 MG TABLET PO SCH (08:49)
[2016-10-08] MEDS: OXYBUTYNIN CHLORIDE 5 MG TAB PO SCH (08:49)
[2016-10-08] MEDS: LISINOPRIL 2.5 MG TAB PO SCH (08:49)
[2016-10-08 09:38] LABS: INR 2.3 (<1.1); Prothrombin Time 22.4 sec (9.0-12.0)
[2016-10-08 09:42] LABS: Anion Gap 12 mmol/L; Blood Urea Nitrogen 40 mg/dL (7-17); Calcium 9.3 mg/dL (8.4-10.2); Carbon Dioxide 32 mmol/L (22-30); Chloride 91 mmol/L (98-107); Glucose 209 mg/dL (74-99); Non-African American GFR(MDRD) 55 (>60 ml/min/1.73 sqM); Sodium 135 mmol/L (137-145)
[2016-10-08 15:15] VITALS: BP 98/62; RESP 18; TEMP 97.6
[2016-10-08 16:02] VITALS: PULSE 86
--- NOTE | 2016-10-08 19:30 | P.DS ---
Providers Date of admission: 10/03/16 20:10 Expected date of discharge: 10/08/16 Attending physician: Shy Patel Consults: [facility], Dr. Perez Primary care physician: Shy Patel Dr. [facility] Course: Final Diagnoses: 1. Acute on chronic congestive heart failure, diastolic dysfunction. 2. [ Hyperkalemia secondary to Aldactone and lisinopril, which have been discontinued, improving]. 3. [ Chronic atrial fibrillation, rate controlled]. 4. [ Coumadin monitoring]. 5. [ Severe secondary pulmonary hypertension]. 6. [ Acute hypoxic respiratory failure, O2 sat on room air after ambulation 83%] . 7. [ Obstructive sleep apnea]. 8. Obesity, BMI 31.8 9. Acute on chronic COPD exacerbation, minimal. Hospital course:This a 76-year-old female here with acute congestive heart failure, severe pulmonary hypertension, supratherapeutic INR. Echo reported normal LV, EF 55-60%. Evaluated by cardiology .Diuresed with Lasix IV push Anticoagulated on decreased dose of Coumadin. Unable to wean off oxygen; O2 sat on room air after ambulation 83%, in a patient who does not wear oxygen at home. Potassium mildly elevated, lisinopril and Aldactone discontinued. Significant clinical improvement. Cleared by cardiology for discharge. Patient is being discharged home in a stable condition with guarded prognosis. The impression and plan of care has been dictated as directed. : I performed a H&P examination of this patient and discussed the same with the dictator. I agree with the dictator's note. Any additional findings/opinions/ etc. will be noted. Patient Condition at Discharge: Stable Plan - Discharge Summary New Discharge Prescriptions: New Furosemide [Lasix] 40 mg PO BID #60 tablet Metoprolol Tartrate [Lopressor] 50 mg PO BID #60 tab predniSONE 10 mg PO DIRECTED #9 tab Warfarin Sodium [Coumadin] 2 mg PO DAILY@1800 #7 tablet Continue Oxybutynin Chloride [Ditropan] 5 mg PO BID Budesonide/Formoterol Fumarate [Symbicort 160-4.5 Mcg Inhaler] 2 puff INHALATION RT-BID Ipratropium-Albuterol Nebulize [Duoneb 0.5 mg-3 mg/3 ml Soln] 3 ml INHALATION RT-TID #90 ampul.neb Loperamide HCl [Loperamide] 4 mg PO DAILY Changed Albuterol Nebulized [Ventolin Nebulized] 2.5 mg INHALATION TID #0 Discontinued Spironolactone [Aldactone] 25 mg PO DAILY Metoprolol Tartrate [Lopressor] 25 mg PO BID Lisinopril [Zestril] 2.5 mg PO DAILY Diltiazem Cd [Cardizem CD] 240 mg PO DAILY Potassium Chloride ER [K-Dur 20] 20 meq PO DAILY Ibuprofen [Motrin] 800 mg PO TID PRN PRN Reason: Pain Discharge Medication List Budesonide/Formoterol Fumarate [Symbicort 160-4.5 Mcg Inhaler] 2 puff INHALATION RT-BID 08/26/16 [History] Oxybutynin Chloride [Ditropan] 5 mg PO BID 08/26/16 [History] Ipratropium-Albuterol Nebulize [Duoneb 0.5 mg-3 mg/3 ml Soln] 3 ml INHALATION RT -TID #90 ampul.neb 08/30/16 [Rx] Loperamide HCl [Loperamide] 4 mg PO DAILY 10/03/16 [History] Furosemide [Lasix] 40 mg PO BID #60 tablet 10/07/16 [Rx] Albuterol Nebulized [Ventolin Nebulized] 2.5 mg INHALATION TID #0 10/08/16 [Rx] Metoprolol Tartrate [Lopressor] 50 mg PO BID #60 tab 10/08/16 [Rx] Warfarin Sodium [Coumadin] 2 mg PO DAILY@1800 #7 tablet 10/08/16 [Rx] predniSONE 10 mg PO DIRECTED #9 tab 10/08/16 [Rx] Follow up Appointment(s)/Referral(s): Cosme Perez MD [STAFF PHYSICIAN] - 10/15/16 (Unable to get a hold of office at this time. Please call to schedule appointment. ) Kofi Cortes MD [REFERRING] - 10/13/16 3:00 pm Ambulatory/Diagnostic Orders: Prothrombin Time INR [LAB.AMB] Time Frame: 10/10/16, Location: Determined By Patient Patient Instructions/Handouts: Heart Failure (DC), Using Oxygen at Home (DC), Elevated INR (DC) Activity/Diet/Wound Care/Special Instructions: Diet:CHF DIET, Cardiac, no added salt Activity: Limited until follow 3L Oxygen at home, set up for pt with Sancho SMITH (#[phone])/ call once home to have concentrator delivered Discharge Disposition: HOME SELF-CARE
== END 2016-10-08 17:22 | disposition home or self-care (01) | DRG 291 ==
LOC: 6SEL 20:10 → 4MS4W 10-07 20:05
PROVIDERS: ADMIT Internal Medicine; ATTEND Internal Medicine
DX: I50.43 Acute on chronic combined systolic (congestive) and diastolic (congestive) heart failure (principal); J96.01 Acute respiratory failure with hypoxia; I48.1 Persistent atrial fibrillation; J44.1 Chronic obstructive pulmonary disease with (acute) exacerbation; I27.2 Other secondary pulmonary hypertension; E87.5 Hyperkalemia; E66.9 Obesity, unspecified; G47.33 Obstructive sleep apnea (adult) (pediatric); I07.1 Rheumatic tricuspid insufficiency; I25.2 Old myocardial infarction; I25.5 Ischemic cardiomyopathy; I48.2 Chronic atrial fibrillation; R79.1 Abnormal coagulation profile; T45.515A Adverse effect of anticoagulants, initial encounter; T50.0X5A Adverse effect of mineralocorticoids and their antagonists, initial encounter; Z68.31 Body mass index [BMI] 31.0-31.9, adult; Z79.01 Long term (current) use of anticoagulants; Z82.49 Family history of ischemic heart disease and other diseases of the circulatory system; Z86.73 Personal history of transient ischemic attack (TIA), and cerebral infarction without residual deficits; Z87.891 Personal history of nicotine dependence
CPT/HCPCS: 71010; 80048; 80053; 83880; 85025; 85027; 85610; 93306; 94640; 94760

== ENCOUNTER 2017-01-10 16:06 | Inpatient (IN) | payer MEDICARE, OTHER ==
[2017-01-10 19:26] LABS: Basophils % (A) 0 %; CH 27.2; CHCM 31.3; Eosinophils % (A) 0 %; HCT 37.1 % (34.0-46.0); HDW 2.71; Hypochromasia Slight; Luc # (Auto) 0.18; Luc % (Auto) 4; Lymphocytes # (A) 0.5 k/uL (1.0-4.8); Lymphocytes % (A) 12 %; MCH 28.3 pg (25.0-35.0); MCHC 32.3 g/dL (31.0-37.0); MCV 87.5 fL (80.0-100.0); Mean Platelet Volume 8.4; Monocytes # (A) 0.4 k/uL (0-1.0); Monocytes % (A) 8 %; Neutrophils # (A) 3.4 k/uL (1.3-7.7); Neutrophils % (A) 75 %; RBC 4.24 m/uL (3.80-5.40); WBC 4.5 k/uL (3.8-10.6); WBC (Perox) 4.81
[2017-01-10 19:32] LABS: INR 1.5 (<1.2); Prothrombin Time 14.8 sec (9.0-12.0)
[2017-01-10] MEDS ORDERED: WARFARIN 7.5 MG TAB PO ONE (20:00)
[2017-01-10 20:09] LABS: Calcium 8.1 mg/dL (8.4-10.2)
[2017-01-10] MEDS: METOPROLOL TARTRATE 50 MG TAB PO SCH (20:51)
[2017-01-10] MEDS: OXYBUTYNIN CHLORIDE 5 MG TAB PO SCH (20:51)
[2017-01-10] MEDS ORDERED: HEPARIN SODIUM,PORCINE 5,000 UNIT/ML 1 ML VIAL IV PRN (21:30)
[2017-01-10] MEDS ORDERED: HEPARIN SODIUM,PORCINE 5,000 UNIT/ML 1 ML VIAL IV ONE (21:30)
[2017-01-10] MEDS: HEPARIN SODIUM,PORCINE/D5W PMX 25,000 UNIT in DEXTROSE/WATER 1 500ML.BAG IV SCH (22:15)
[2017-01-10] MEDS: POTASSIUM CHLORIDE ER 20 MEQ TAB.ER PO SCH ×2 (22:20→23:47)
[2017-01-10] MEDS: POTASSIUM CHLORIDE 10 MEQ, LIDOCAINE 2% INJ 10 MG in SODIUM CHLORIDE 0.9% 100 ML IV SCH ×2 (22:21→23:46)
--- NOTE | 2017-01-11 01:38 | XR ---
EXAM: XR Chest, 1 View CLINICAL HISTORY: Reason: Shortness of Breath TECHNIQUE: Frontal view of the chest. COMPARISON: Chest x-ray dated 09/27/2016 FINDINGS: Lungs: Probable minimal pulmonary vascular congestion. Bibasilar atelectasis. Pleural space: Unremarkable. No pneumothorax. Heart: Moderate enlargement of the cardiomediastinal silhouette. Mediastinum: See above. Bones/joints: Unremarkable. IMPRESSION: Probable minimal pulmonary vascular congestion.
[2017-01-11] MEDS: POTASSIUM CHLORIDE ER 20 MEQ TAB.ER PO SCH (01:48)
[2017-01-11] MEDS: FUROSEMIDE 10 MG/ML 4 ML VIAL IV SCH ×3 (01:53→20:12)
[2017-01-11 04:02] LABS: INR 1.9 (<1.2); Partial Thromboplastin Time 51.9 sec (22.0-30.0); Prothrombin Time 18.6 sec (9.0-12.0)
[2017-01-11 04:20] LABS: Basophils % (A) 0 %; CH 26.8; CHCM 31.2; Eosinophils % (A) 1 %; HDW 2.69; HGB 12.3 gm/dL (11.4-16.0); Hypochromasia Slight; Luc # (Auto) 0.11; Luc % (Auto) 2; Lymphocytes # (A) 0.9 k/uL (1.0-4.8); Lymphocytes % (A) 18 %; MCHC 32.4 g/dL (31.0-37.0); MCV 86.3 fL (80.0-100.0); Mean Platelet Volume 7.5; Monocytes # (A) 0.3 k/uL (0-1.0); Monocytes % (A) 5 %; Neutrophils # (A) 3.6 k/uL (1.3-7.7); Neutrophils % (A) 74 %; RDW 15.9 % (11.5-15.5); WBC (Perox) 5.45
[2017-01-11 04:31] LABS: Calcium 8.3 mg/dL (8.4-10.2); Potassium 3.7 mmol/L (3.5-5.1)
[2017-01-11] MEDS ORDERED: NON-FORMULARY DRUG (Fluticasone/Vilanterol [Breo Ellipta 200-25 Mcg Inh] 1 PUFF) INHALATION SCH (08:00)
[2017-01-11] MEDS ORDERED: FUROSEMIDE 40 MG TAB PO SCH (09:00)
[2017-01-11] MEDS: SYMBICORT 160-4.5 MCG INHALER INHALATION SCH ×2 (09:16→20:09)
--- NOTE | 2017-01-11 09:54 | HP ---
HISTORY AND PHYSICAL DATE OF SERVICE: 01/10/2017. CHIEF COMPLAINT: Shortness of breath and chest pain. HISTORY OF PRESENT ILLNESS: This 76-year-old woman with past medical history of multiple medical problems, including history of CHF, history atrial fibrillation, history of asthma, COPD, CVA, TIA being followed by Dr. Cortes in the outpatient setting presented to [facility] today with complaints of shortness of breath. The patient also complained of left-sided chest pain which was brief and without radiation, vague in character. The patient was directly transferred to [facility] for further evaluation and treatment. Potassium was found to be 3 and creatinine is 1.1. Serial troponin is found to be 0.[address]-segment elevation myocardial infarction. A 2 D echo done on 10/05/2016 showed a ejection fraction about 55-60%. There is no history of any fever, rigors or chills. No history of headache, loss of consciousness or fevers at this time. PAST MEDICAL HISTORY: History of CHF, history of atrial fibrillation, asthma, CVA/TIA, myocardial infarction. HOME MEDICATIONS: Reviewed and include: 1. Coumadin 2 mg p.o. daily. 2. Aldactone 25 mg p.o. daily. 3. Ditropan 5 mg p.o. b.i.d. 4. Lopressor 50 mg b.i.d. 5. Motrin 800 mg q.8h p.r.n. 6. Lasix 40 mg p.o. b.i.d. 7. Fluticasone 1 puff daily. 8. Symbicort 2 puffs b.i.d. ALLERGIES: None. FAMILY HISTORY: History of CHF in the family in father. SOCIAL HISTORY: Previous history of smoking. No history of alcohol intake. REVIEW OF SYSTEMS: ENT no diminished hearing. No diminished vision. Cardiovascular: As mentioned earlier. Respiratory: As mentioned earlier. Gastroenterology: No nausea or vomiting. : No dysuria. Nervous system: No numbness or weakness. Allergy/Immunology: No asthma or hayfever. Integument: Negative. Musculoskeletal as mentioned early. Hematology: No history anemia. Endocrine: No history of diabetes, hypothyroidism. Constitutional: As mentioned earlier. Dermatology: Negative. Hematology negative. Psychiatric: As mentioned earlier. PHYSICAL EXAM: Patient is alert, oriented times three. Pulse 82, blood pressure 116/49, respirations 17, temperature 97.2, pulse ox 97% on 4 L. HEENT: Conjunctivae normal. Oral mucosa moist. Neck is no jugular venous distention. No carotid bruit. No lymph node enlargement. Cardiovascular system: S1, S2 muffled. No S3, no S4. Respiratory: Breath sounds diminished at the base. Bilateral basal crackles present. ABDOMEN: Soft, nontender. No mass palpable. LEGS: No edema, no swelling. Central nervous system: Higher functions as mentioned earlier. Motors all 4 limbs. No focal motor or sensory deficits. Lymphatics: No lymph nodes palpable in the neck, axilla or groin. Skin: No ulcer, rash or bleeding. LAB DATA: WBC 4.2, hemoglobin is 12, sodium 138, potassium 3. Troponin is noted. ASSESSMENT: 1. Congestive heart failure acute exacerbation with acute on chronic diastolic dysfunction, ejection fraction 55%. 2. Chest pain, possible acute non-ST segment elevation myocardial infarction with Troponin 0.0709. 3. Hypokalemia. 4. Chronic obstructive pulmonary disease. 5. History of atrial fibrillation. 6. Coumadin monitoring. 7. History of myocardial infarction. 8. History of severe pulmonary hypertension. RECOMMENDATIONS AND DISCUSSION: This 76-year-old woman presented with multiple complex medical issues. We will monitor the patient closely. Continue the current medication. Continue symptomatic treatment. Otherwise I recommend IV heparin. Antiplatelet agents. Beta blockers. I would also recommend Cardiology consultation. Otherwise we will resume the home medications also. The prognosis is guarded because of multiple complex medical issues. Monitor fluid and electrolytes balance closely. See orders for further details. Further recommendations to follow. We will supplement potassium as well. See orders for further details. Copy dictation forwarded to Dr. Cortes who is the primary physician. MMODL / IJN: [id number] /
[2017-01-11] MEDS: WARFARIN 2 MG TAB PO SCH (10:26)
[2017-01-11] MEDS: SPIRONOLACTONE 25 MG TAB PO SCH (10:26)
[2017-01-11] MEDS: LOPERAMIDE 2 MG CAP PO SCH (10:27)
[2017-01-11] MEDS: OXYBUTYNIN CHLORIDE 5 MG TAB PO SCH ×2 (10:28→20:12)
[2017-01-11] MEDS: METOPROLOL TARTRATE 50 MG TAB PO SCH ×2 (10:28→20:12)
--- NOTE | 2017-01-11 15:20 | P.CRDCN ---
History of Present Illness Consult reason: shortness of breath History of present illness: Patient presented to the emergency room with sudden onset of shortness of breath. She denied chest discomfort. Medication list in the EMR was reviewed patient states her medications were recently changed Labs are reviewed Troponins reviewed Review of systems: No fever chills or rigors, no cough, phlegm or expectoration , no nausea, vomiting or diarrhea, no hematuria, dysuria, no musculoskeletal complaints, no strokes or seizures, no skin lesions. On examination temperature 97.3F pulse rate 100-110 beats a minute blood pressure 142/73 mmHg respirations 18-20 Breath sounds are reduced bilaterally with by bilateral rhonchi Heart sounds S1 and S2 are soft soft systolic murmur Abdomen soft nontender Extremities warm no edema Impression 76-year-old obese female presenting with fairly sudden onset of shortness of breath and was transferred from [facility]. Follows with Dr. Costello. Stated that in bad most of her medications were changed. She normally follows with Dr. Cortes and Dr. 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% Pulmonary hypertension with RV enlargement Past history of supra therapeutic INRs Borderline troponins, Hypokalemia Subtherapeutic INRs Plan Management of COPD per internal medicine Evaluation for other pulmonary causes of increasing difficulty with breathing per admitting team/internal medicine Continue IV Lasix continue heparin I'm not sure why she is not on an CATIE inhibitor at home: This is an elderly and we don't have a full list of medications all was stopped she is on Aldactone 25 mg by mouth daily Preferably long-acting metoprolol since she also has a cardiac myopathy Check TSH Check d-dimer Repeat 12-lead ECG Past Medical History Past Medical History: Atrial Fibrillation, Asthma, Heart Failure, COPD, CVA/TIA , Myocardial Infarction ([place]), Pneumonia, Renal Disease, Respiratory Disorder Additional Past Medical History / Comment(s): cva 15 years ago, EF 40%, severe pulmonary HTN, moderate tricuspid regurg, urinary leakage, arthritis bilateral legs and hands. Last Myocardial Infarction Date:: 1991 History of Any Multi-Drug Resistant Organisms: None Reported Past Surgical History: Appendectomy, Tonsillectomy Additional Past Surgical History / Comment(s): left leg surgery d/t fracture, colonoscopy-normal. Past Anesthesia/Blood Transfusion Reactions: No Reported Reaction Past Psychological History: No Psychological Hx Reported Additional Psychological History / Comment(s): Pt has her daughter and 2 adult grandchildren living with her. She has a cane and walker but does not need to use them at this time. She uses the bus to get to appts. Smoking Status: Former smoker Past Alcohol Use History: None Reported Additional Past Alcohol Use History / Comment(s): Pt states she started smoking in 1954 and quit in 2011. Past Drug Use History: None Reported - Past Family History Father Family Medical History: Congestive Heart Failure (CHF) Additional Family Medical History / Comment(s): Father of CHF-pt cannot recall how old he was. Mother Family Medical History: Diabetes Mellitus Additional Family Medical History / Comment(s): Mother lived to be in her 90's. Medications and Allergies Home Medications Medication Instructions Recorded Confirmed Type RX: Budesonide/Formoterol Fumarate 2 puff INHALATION RT-BID 08/26/16 01/10/17 History [Symbicort 160-4.5 Mcg Inhaler] RX: Oxybutynin Chloride [Ditropan] 5 mg PO BID 08/26/16 01/10/17 History RX: Metoprolol Tartrate [Lopressor] 50 mg PO BID #60 tab 10/08/16 01/10/17 Rx Fluticasone/Vilanterol [Breo 1 puff INHALATION RT-DAILY 01/10/17 01/10/17 History Ellipta 200-25 Mcg INH] Furosemide [Lasix] 40 mg PO BID 01/10/17 01/10/17 History Ibuprofen [Motrin] 800 mg PO Q8H PRN 01/10/17 01/10/17 History Spironolactone [Aldactone] 25 mg PO DAILY 01/10/17 01/10/17 History Warfarin Sodium [Coumadin] 2 mg PO DAILY 01/10/17 01/10/17 History Allergies Allergy/AdvReac Type Severity Reaction Status Date / Time No Known Allergies Allergy Verified 01/10/17 19:40 Physical Exam Vitals: Vital Signs Temp Pulse Resp BP BP Pulse Ox 01/11/17 09:18 95 01/11/17 08:00 97.2 F L 111 H 20 142/73 92 L 01/11/17 07:22 94 01/11/17 04:00 97 F L 94 17 131/71 94 L 01/11/17 00:00 97.2 F L 89 17 102/62 97 01/10/17 20:00 97.2 F L 82 17 116/49 97 01/10/17 18:45 96.5 F L 87 16 136/69 94 L Intake and Output 01/10/17 01/11/17 01/11/17 22:59 06:59 14:59 Intake Total 120 329.105 Output Total 1200 Balance 120 -870.895 Intake: IV 20 80 0.9 @20mls/hr 20 80 Intake, IV Titration 100 249.105 Amount Heparin Sodium,Porcine/ 149.105 D5w Pmx 25,000 unit In Dextrose/Water 1 500ml. bag @ 11.23 UNITS/KG/HR 19.98 mls/hr IV .Q24H BROCK Rx#:[id number] Potassium Chloride 10 meq 100 100 Lidocaine 2% Inj 10 mg In Sodium Chloride 0.9% 100 ml @ 100 mls/hr IV Q1HR BROCK Rx#:[id number] Output: Urine 1200 Other: Voiding Method Toilet Toilet # Voids 1 Weight 89 kg 89 kg Results 01/11/17 03:32 01/11/17 03:32 Cardiac Enzymes 01/10/17 01/11/17 01/11/17 Range/Units 19:14 00:49 06:22 Troponin I 0.709 H* 0.712 H* 0.631 H* (0.000-0.034) ng/mL Coagulation 01/10/17 01/10/17 01/11/17 Range/Units 19:09 19:14 03:32 PT 14.8 H Cancelled 18.6 H (9.0-12.0) sec APTT 43.3 H 51.9 H (22.0-30.0) sec CBC 01/10/17 01/11/17 Range/Units 19:09 03:32 WBC 4.5 5.0 (3.8-10.6) k/uL RBC 4.24 4.40 (3.80-5.40) m/uL Hgb 12.0 12.3 (11.4-16.0) gm/dL Hct 37.1 38.0 (34.0-46.0) % Plt Count 133 L 148 L (150-450) k/uL Comprehensive Metabolic Panel 01/10/17 01/11/17 Range/Units 19:09 03:32 Sodium 138 137 (137-145) mmol/L Potassium 3.0 L* 3.7 (3.5-5.1) mmol/L Chloride 96 L 95 L (98-107) mmol/L Carbon Dioxide 33 H 32 H (22-30) mmol/L BUN 22 H 26 H (7-17) mg/dL Creatinine 1.10 H 1.10 H (0.52-1.04) mg/dL Glucose 139 H 128 H (74-99) mg/dL Calcium 8.1 L 8.3 L (8.4-10.2) mg/dL Current Medications Generic Name Dose Route Start Last Admin Trade Name Freq PRN Reason Stop Dose Admin Budesonide/Formoterol Fumarate 2 puff 01/11/17 08:00 01/11/17 09:16 Symbicort 160-4.5 Mcg Inhaler INHALATION 2 puff RT-BID BROCK Administration Furosemide 40 mg 01/11/17 01:00 01/11/17 01:53 Lasix IV 40 mg Q12HR BROCK Administration Heparin Sodium (Porcine) 0 unit 01/10/17 21:30 Heparin IV PER PROTOCOL PRN Low PTT Protocol Heparin Sodium/Dextrose 25,000 500 mls @ 19.98 mls/hr 01/10/17 21:30 04:14 unit/ IV Solution IV 14 units/kg/hr .Q24H BROCK 24.92 mls/hr Protocol Titration 11.23 UNITS/KG/HR Loperamide HCl 4 mg 01/11/17 09:00 Imodium PO DAILY BROCK Metoprolol Tartrate 50 mg 01/10/17 21:00 01/10/17 20:51 Lopressor PO 50 mg BID BROCK Administration Oxybutynin Chloride 5 mg 01/10/17 21:00 01/10/17 20:51 Ditropan PO 5 mg BID BROCK Administration Spironolactone 50 mg 01/11/17 10:15 Aldactone PO DAILY BROCK Warfarin Sodium 2 mg 01/11/17 09:00 Coumadin PO DAILY BROCK Intake and Output 01/10/17 01/11/17 01/11/17 22:59 06:59 14:59 Intake Total 120 329.105 Output Total 1200 Balance 120 -870.895 Intake: IV 20 80 0.9 @20mls/hr 20 80 Intake, IV Titration 100 249.105 Amount Heparin Sodium,Porcine/ 149.105 D5w Pmx 25,000 unit In Dextrose/Water 1 500ml. bag @ 11.23 UNITS/KG/HR 19.98 mls/hr IV .Q24H BROCK Rx#:[id number] Potassium Chloride 10 meq 100 100 Lidocaine 2% Inj 10 mg In Sodium Chloride 0.9% 100 ml @ 100 mls/hr IV Q1HR BROCK Rx#:[id number] Output: Urine 1200 Other: Voiding Method Toilet Toilet # Voids 1 Weight 89 kg 89 kg 01/11/17 03:32 01/11/17 03:32
[2017-01-11] MEDS: INSULIN LISPRO (humaLOG) 300 UNIT/3 ML VIAL SQ SCH ×2 (17:28→23:00)
--- NOTE | 2017-01-11 17:52 | P.CNPUL ---
History of Present Illness Consult date: 01/11/17 Reason for consult: dyspnea, COPD History of present illness: A pleasant 76-year-old female patient, obese with known history of COPD, oxygen dependent maintained on home oxygen and Symbicort or Breo on outpatient basis, also known to have chronic atrial fibrillation, mild congestion heart failure with ejection fraction 40% and secondary pulmonary hypertension with RV enlargement. The patient was in a good state of health. Over the past 3 days she started having increased exertional dyspnea along with some limited cough and chest congestion. She was also having some occasional palpitations. No dizziness. No pleurisy. No hemoptysis. She presented emergency department. She was found to have subtherapeutic PT/INR at 1.5. Troponins were 0.7, 0.7 0.6 respectively 3. The d-dimer was positive at 3.77. The patient was started on IV heparin per protocol. The chest x-ray showed mild pulmonary vascular congestion. Otherwise no other acute abnormalities was noted. Meanwhile, the patient was also started on acute COPD exacerbation treatment with DuoNeb neb last treatment [id number], IV Solu-Medrol and she was started on IV Lasix 40 mg every 12 hours. Metoprolol is being used for rate control and the patient is still on anticoagulation with warfarin regarding her chronic atrial fibrillation. Denies having any heart attack. No previous history of DVT or pulmonary embolism. No history of pulmonary fibrosis. No other complaints otherwise. Review of Systems 12 point review of system was done and the positive findings are almost above in history of present illness Past Medical History Past Medical History: Atrial Fibrillation, Asthma, Heart Failure, COPD, CVA/TIA , Myocardial Infarction ([place]), Pneumonia, Renal Disease, Respiratory Disorder Additional Past Medical History / Comment(s): Obesity, COPD, secondary pulmonary potential, degenerative arthritis, CHF with ejection fraction of 40%, chronic atrial fibrillation, obstructive sleep apnea currently on no treatment, BMI of 31.8, Last Myocardial Infarction Date:: 1991 History of Any Multi-Drug Resistant Organisms: None Reported Past Surgical History: Appendectomy, Tonsillectomy Additional Past Surgical History / Comment(s): left leg surgery d/t fracture, colonoscopy-normal. Past Anesthesia/Blood Transfusion Reactions: No Reported Reaction Past Psychological History: No Psychological Hx Reported Additional Psychological History / Comment(s): Pt has her daughter and 2 adult grandchildren living with her. She has a cane and walker but does not need to use them at this time. She uses the bus to get to appts. Smoking Status: Former smoker Past Alcohol Use History: None Reported Additional Past Alcohol Use History / Comment(s): Pt states she started smoking in 1954 and quit in 2011. Past Drug Use History: None Reported - Past Family History Father Family Medical History: Congestive Heart Failure (CHF) Additional Family Medical History / Comment(s): Father of CHF-pt cannot recall how old he was. Mother Family Medical History: Diabetes Mellitus Additional Family Medical History / Comment(s): Mother lived to be in her 90's. Medications and Allergies Home Medications Medication Instructions Recorded Confirmed Type Budesonide/Formoterol Fumarate 2 puff INHALATION RT-BID 08/26/16 01/10/17 History [Symbicort 160-4.5 Mcg Inhaler] Oxybutynin Chloride [Ditropan] 5 mg PO BID 08/26/16 01/10/17 History Metoprolol Tartrate [Lopressor] 50 mg PO BID #60 tab 10/08/16 01/10/17 Rx Fluticasone/Vilanterol [Breo 1 puff INHALATION RT-DAILY 01/10/17 01/10/17 History Ellipta 200-25 Mcg INH] Furosemide [Lasix] 40 mg PO BID 01/10/17 01/10/17 History Ibuprofen [Motrin] 800 mg PO Q8H PRN 01/10/17 01/10/17 History Spironolactone [Aldactone] 25 mg PO DAILY 01/10/17 01/10/17 History Warfarin Sodium [Coumadin] 2 mg PO DAILY 01/10/17 01/10/17 History Allergies Allergy/AdvReac Type Severity Reaction Status Date / Time No Known Allergies Allergy Verified 01/10/17 19:40 Physical Exam Vitals: Vital Signs Temp Pulse Resp BP BP Pulse Ox 01/11/17 16:00 97.6 F 93 18 101/67 95 01/11/17 12:00 97.3 F L 94 18 122/71 99 01/11/17 09:18 95 01/11/17 08:00 97.2 F L 111 H 20 142/73 92 L 01/11/17 07:22 94 01/11/17 04:00 97 F L 94 17 131/71 94 L 01/11/17 00:00 97.2 F L 89 17 102/62 97 01/10/17 20:00 97.2 F L 82 17 116/49 97 01/10/17 18:45 96.5 F L 87 16 136/69 94 L Intake and Output 01/11/17 01/11/17 01/11/17 06:59 14:59 22:59 Intake Total 329.105 120 Output Total 1200 800 Balance -870.895 -680 Intake: IV 80 0.9 @20mls/hr 80 Intake, IV Titration 249.105 Amount Heparin Sodium,Porcine/ 149.105 D5w Pmx 25,000 unit In Dextrose/Water 1 500ml. bag @ 11.23 UNITS/KG/HR 19.98 mls/hr IV .Q24H BROCK Rx#:[id number] Potassium Chloride 10 meq 100 Lidocaine 2% Inj 10 mg In Sodium Chloride 0.9% 100 ml @ 100 mls/hr IV Q1HR BROCK Rx#:[id number] Oral 120 Output: Urine 1200 800 Other: Voiding Method Toilet # Voids 1 2 # Bowel Movements 1 Weight 89 kg Obese, comfortable no acute distress. Not using excessive muscle breathing.Head exam was generally normal. There was no scleral icterus or corneal arcus. Mucous membranes were moist. Neck is short and supple and there is significant crowding of the posterior pharynx. There is a little neck masses. Lungs sounds are diminished bilaterally especially lung bases. Minimal to wheezing with expiration. Heart sounds are irregular, positive S1- S2. No S3 or S4 no murmurs.Abdominal exam revealed normal bowel sounds. The abdomen was soft, non-tender, and without masses, organomegaly, or appreciable enlargement of the abdominal aorta.Examination of the extremities revealed easily palpable radial, femoral and pedal pulses. There was no cyanosis, clubbing or edema. Results - Laboratory Findings CBC and BMP: 01/11/17 03:32 01/11/17 03:32 PT/INR, D-dimer PT 18.6 sec (9.0-12.0) H 01/11/17 03:32 INR 1.9 (<1.2) H 01/11/17 03:32 D-Dimer 3.77 mg/L FEU (<0.60) H 01/11/17 10:41 Abnormal lab findings: Abnormal Labs 01/10/17 01/10/17 01/10/17 19:09 19:09 19:09 RDW 16.0 H Plt Count 133 L Lymphocytes # 0.5 L PT 14.8 H INR 1.5 H APTT D-Dimer Potassium 3.0 L* Chloride 96 L Carbon Dioxide 33 H BUN 22 H Creatinine 1.10 H Glucose 139 H Calcium 8.1 L Troponin I 01/10/17 01/10/17 01/11/17 19:14 19:14 00:49 RDW Plt Count Lymphocytes # PT INR APTT 43.3 H D-Dimer Potassium Chloride Carbon Dioxide BUN Creatinine Glucose Calcium Troponin I 0.709 H* 0.712 H* 01/11/17 01/11/17 01/11/17 03:32 03:32 03:32 RDW 15.9 H Plt Count 148 L Lymphocytes # 0.9 L PT 18.6 H INR 1.9 H APTT 51.9 H D-Dimer Potassium Chloride 95 L Carbon Dioxide 32 H BUN 26 H Creatinine 1.10 H Glucose 128 H Calcium 8.3 L Troponin I 01/11/17 01/11/17 06:22 10:41 RDW Plt Count Lymphocytes # PT INR APTT D-Dimer 3.77 H Potassium Chloride Carbon Dioxide BUN Creatinine Glucose Calcium Troponin I 0.631 H* - Diagnostic Findings Chest x-ray: image reviewed Assessment and Plan Plan: Assessment 1 shortness of breath secondary to acute COPD and CHF exacerbation 2 CHF with mild impairment of the left with an ejection fraction of 40% with severe pulmonary potential 3 COPD with chronic hypoxic respiratory failure maintained on oxygen outpatient basis 4 obesity with a BMI of 34.8 5 obstructive sleep apnea untreated 6 chronic a chief fibrillation with a therapeutic INR on presentation currently on IV heparin 7 troponin leak without significant ST segment elevation or depressions. 8 hypertension 9 osteoarthritis 10 CVA/TIA, history of currently inactive in stable Plan Agree on the current treatment. Continue bronchodilators and steroids and diuretics. Continue deterioration with Coumadin to achieve a therapeutic PT/ INR. Monitor electrodes. We'll continue to follow.
[2017-01-11] MEDS: methylPREDNISolone SOD SUCCI 125 MG/2 ML VIAL IV SCH (18:09)
[2017-01-11] MEDS: HEPARIN SODIUM,PORCINE/D5W PMX 25,000 UNIT in DEXTROSE/WATER 1 500ML.BAG IV SCH (18:09)
[2017-01-11] MEDS: IPRATROPIUM-ALBUTEROL 3 ML NEB INHALATION SCH ×2 (18:50→20:09)
--- NOTE | 2017-01-11 20:30 | PN ---
PROGRESS NOTE DATE OF SERVICE: 01/11/2017 This is a progress note. This 76-year-old woman was admitted with CHF exacerbation also had elevated troponin, possibility of acute non ST segment elevation myocardial infarction is a concern. 2D echo with Doppler is pending at this time. Patient also has COPD as well. PAST MEDICAL HISTORY: Past medical reviewed. REVIEW OF SYSTEMS: Cardiovascular system: As mentioned earlier. Respiratory: As mentioned earlier. GI: No nausea or vomiting. : No dysuria. Central nervous system: No focal deficits. CURRENT MEDICATIONS: Reviewed and include. 1. Symbicort 2 puffs b.i.d. 2. Lasix 40 mg b.i.d. 3. Heparin. 4. Imodium. 5. Diprivan. 6. Lopressor. 7. Aldactone. 8. Famotidine. PHYSICAL EXAMINATION: The patient is alert, oriented times three. Pulse 94, blood pressure 83/47, respiratory rate 16. Temperature 97.3. Pulse ox 98% room air. HEENT: Conjunctivae normal. Oral mucosa moist. Neck is no jugular venous distention. No carotid bruit. No lymph node enlargement. Cardiovascular: S1, S2 muffled. Respiratory: Breath sounds diminished at the bases. Bilateral scattered and crackles. Abdomen soft, nontender. Legs no edema. No swelling. Central nervous system: No focal deficits. LABORATORY DATA: D. dimer is 3.77. Troponin 0.631 and creatinine is 1.10. TSH was 2.10. ASSESSMENT: 1. Congestive heart failure exacerbation acute on chronic diastolic dysfunction, ejection fraction 55%. 2. Chronic obstructive pulmonary disease acute exacerbation with acute purulent tracheobronchitis. 3. Chest pain possible acute non ST segment elevation myocardial infarction. Troponin 0.079. 4. Hypokalemia. 5. History atrial ablation. 6. Coumadin monitoring. 7. History of myocardial infarction. 8. History of pulmonary hypertension. RECOMMENDATIONS AND DISCUSSION: Recommend to continue current management, symptomatic treatment, dual bronchodilator treatment, otherwise steroids. Cardiology input appreciated. Monitor PT/INR closely. We will continue to monitor. We will also obtain Pulmonary consultation as well. The prognosis guarded because of multiple complex medical issues. Further recommendations to follow. MMODL / IJN: [id number] /
[2017-01-11 21:04] LABS: Glucose,Whole Blood 127 mg/dL (75-99)
[2017-01-12] MEDS: methylPREDNISolone SOD SUCCI 125 MG/2 ML VIAL IV SCH ×5 (00:26→23:21)
[2017-01-12 06:00] LABS: Glucose,Whole Blood 157 mg/dL (75-99)
[2017-01-12] MEDS: INSULIN LISPRO (humaLOG) 300 UNIT/3 ML VIAL SQ SCH ×4 (06:25→22:00)
[2017-01-12 06:42] LABS: Basophils % (A) 0 %; CHCM 30.8; Eosinophils % (A) 1 %; HCT 39.1 % (34.0-46.0); HDW 2.71; HGB 12.3 gm/dL (11.4-16.0); Hypochromasia Moderate; Luc # (Auto) 0.05; Luc % (Auto) 2; Lymphocytes # (A) 0.4 k/uL (1.0-4.8); Lymphocytes % (A) 13 %; MCH 27.8 pg (25.0-35.0); MCHC 31.5 g/dL (31.0-37.0); MCV 88.1 fL (80.0-100.0); Monocytes # (A) 0.1 k/uL (0-1.0); Monocytes % (A) 3 %; Neutrophils # (A) 2.3 k/uL (1.3-7.7); Neutrophils % (A) 82 %; RBC 4.44 m/uL (3.80-5.40); RDW 15.6 % (11.5-15.5); WBC 2.8 k/uL (3.8-10.6); WBC (Perox) 3.02
[2017-01-12 06:50] LABS: INR 2.5 (<1.2); Partial Thromboplastin Time 90.2 sec (22.0-30.0); Prothrombin Time 24.5 sec (9.0-12.0)
[2017-01-12] MEDS: IPRATROPIUM-ALBUTEROL 3 ML NEB INHALATION SCH ×4 (07:02→21:01)
[2017-01-12] MEDS: SYMBICORT 160-4.5 MCG INHALER INHALATION SCH ×2 (07:02→21:01)
[2017-01-12] MEDS: LOPERAMIDE 2 MG CAP PO SCH (07:33)
[2017-01-12] MEDS: WARFARIN 2 MG TAB PO SCH (07:37)
[2017-01-12] MEDS: FUROSEMIDE 10 MG/ML 4 ML VIAL IV SCH ×2 (07:37→20:34)
[2017-01-12] MEDS: METOPROLOL TARTRATE 50 MG TAB PO SCH ×2 (07:37→20:34)
[2017-01-12] MEDS: SPIRONOLACTONE 25 MG TAB PO SCH (07:38)
[2017-01-12] MEDS: OXYBUTYNIN CHLORIDE 5 MG TAB PO SCH ×2 (07:38→20:34)
[2017-01-12 07:44] LABS: Anion Gap 8 mmol/L; Blood Urea Nitrogen 25 mg/dL (7-17); Calcium 8.6 mg/dL (8.4-10.2); Carbon Dioxide 37 mmol/L (22-30); Chloride 96 mmol/L (98-107); Glucose 160 mg/dL (74-99); Non-African American GFR(MDRD) 50 (>60 ml/min/1.73 sqM); Sodium 141 mmol/L (137-145)
--- NOTE | 2017-01-12 11:20 | P.PN ---
Subjective Patient of Dr. Costello admitted with shortness of breath, borderline troponins Patient is ablating in the room. She denies any chest discomfort, denies shortness of breath. Afebrile 97.6F, pulse rate in the 70s, normal respirations, blood pressure 120/ 63 mmHg Afebrile 96 rt or shortness of breath Breath sounds are reduced bilaterally with occasional crackles at the bases and occasional scattered rhonchi Heart sounds are soft no S3 gallop Abdomen is soft nontender Extended is warm no edema Impression Permanent atrial fibrillation, rate controlled COPD exacerbation Cardiomyopathy with an ejection fraction of 40% by last assessment Pulmonary hypertension with RV enlargement Admitted with shortness of breath Borderline troponins Stage III chronic kidney disease Normal TSH Plan Continue IV Lasix Continue IV heparin until INR is therapeutic. Today the INR is 2.5 and heparin can be stopped today Continue medical management for now, stop IV heparin and switched to by mouth Lasix 80 mg in the morning and 40 mg in the evening Objective - Vital Signs Vital signs: Vital Signs Temp 97.6 F 01/12/17 07:51 Pulse 72 01/12/17 11:07 Resp 18 01/12/17 07:51 BP 128/63 01/12/17 07:51 Pulse Ox 95 01/12/17 07:51 Intake & Output 01/11/17 01/12/17 01/12/17 18:59 06:59 18:59 Intake Total 706.803 498.145 118 Output Total 800 1950 Balance -93.197 -1451.855 118 Weight 78.1 kg Intake: IV 180 0.9 @20mls/hr 180 Intake, IV Titration 346.803 318.145 Amount Heparin Sodium,Porcine/ 346.803 318.145 D5w Pmx 25,000 unit In Dextrose/Water 1 500ml. bag @ 11.23 UNITS/KG/HR 19.98 mls/hr IV .Q24H BROCK Rx#:[id number] Oral 360 118 Output: Urine 800 1950 Stool 0 Other: Voiding Method Toilet # Voids 2 # Bowel Movements 1 - Labs CBC & Chem 7: 01/12/17 05:59 01/12/17 05:59 Labs: Abnormal Lab Results - Last 24 Hours (Table) 01/11/17 01/11/17 01/12/17 Range/Units 10:41 21:02 05:56 WBC (3.8-10.6) k/uL RDW (11.5-15.5) % Lymphocytes # (1.0-4.8) k/uL PT (9.0-12.0) sec INR (<1.2) APTT (22.0-30.0) sec D-Dimer 3.77 H (<0.60) mg/L FEU Chloride (98-107) mmol/L Carbon Dioxide (22-30) mmol/L BUN (7-17) mg/dL Creatinine (0.52-1.04) mg/dL Glucose (74-99) mg/dL POC Glucose (mg/dL) 127 H 157 H (75-99) mg/dL 01/12/17 01/12/17 01/12/17 Range/Units 05:59 05:59 05:59 WBC 2.8 L (3.8-10.6) k/uL RDW 15.6 H (11.5-15.5) % Lymphocytes # 0.4 L (1.0-4.8) k/uL PT 24.5 H (9.0-12.0) sec INR 2.5 H (<1.2) APTT 90.2 H (22.0-30.0) sec D-Dimer (<0.60) mg/L FEU Chloride 96 L (98-107) mmol/L Carbon Dioxide 37 H (22-30) mmol/L BUN 25 H (7-17) mg/dL Creatinine 1.06 H (0.52-1.04) mg/dL Glucose 160 H (74-99) mg/dL POC Glucose (mg/dL) (75-99) mg/dL
[2017-01-12 11:45] LABS: Glucose,Whole Blood 177 mg/dL (75-99)
--- NOTE | 2017-01-12 13:53 | P.PN ---
Subjective A pleasant 76-year-old female patient, obese with known history of COPD, oxygen dependent maintained on home oxygen and Symbicort or Breo on outpatient basis, also known to have chronic atrial fibrillation, mild congestion heart failure with ejection fraction 40% and secondary pulmonary hypertension with RV enlargement. The patient was in a good state of health. Over the past 3 days she started having increased exertional dyspnea along with some limited cough and chest congestion. She was also having some occasional palpitations. No dizziness. No pleurisy. No hemoptysis. She presented emergency department. She was found to have subtherapeutic PT/INR at 1.5. Troponins were 0.7, 0.7 0.6 respectively 3. The d-dimer was positive at 3.77. The patient was started on IV heparin per protocol. The chest x-ray showed mild pulmonary vascular congestion. Otherwise no other acute abnormalities was noted. Meanwhile, the patient was also started on acute COPD exacerbation treatment with DuoNeb neb last treatment [id number], IV Solu-Medrol and she was started on IV Lasix 40 mg every 12 hours. Metoprolol is being used for rate control and the patient is still on anticoagulation with warfarin regarding her chronic atrial fibrillation. Denies having any heart attack. No previous history of DVT or pulmonary embolism. No history of pulmonary fibrosis. No other complaints otherwise. On 01/12/2017 the patient is doing well. The patient is less short of breath compared to yesterday. She is being diuresed. She is also on examination bronchodilators as and systemic steroids. No new complaints otherwise for now. She remains in atrial fibrillation. He is also being anticoagulated with warfarin and her INR is therapeutic at this point. IV heparin can be discontinued. Renal function stable. She is still on Lasix 40 mg IV every 12 hours. Objective - Vital Signs Vital signs: Vital Signs Temp 97.4 F L 01/12/17 12:00 Pulse 77 01/12/17 12:00 Resp 20 01/12/17 12:00 BP 118/72 01/12/17 12:00 Pulse Ox 95 01/12/17 12:00 Intake & Output 01/11/17 01/12/17 01/12/17 18:59 06:59 18:59 Intake Total 706.803 498.145 118 Output Total 800 1950 Balance -93.197 -1451.855 118 Weight 78.1 kg Intake: IV 180 0.9 @20mls/hr 180 Intake, IV Titration 346.803 318.145 Amount Heparin Sodium,Porcine/ 346.803 318.145 D5w Pmx 25,000 unit In Dextrose/Water 1 500ml. bag @ 11.23 UNITS/KG/HR 19.98 mls/hr IV .Q24H BROCK Rx#:[id number] Oral 360 118 Output: Urine 800 1950 Stool 0 Other: Voiding Method Toilet # Voids 2 # Bowel Movements 1 - Exam Obese, comfortable no acute distress. Not using excessive muscle breathing.Head exam was generally normal. There was no scleral icterus or corneal arcus. Mucous membranes were moist. Neck is short and supple and there is significant crowding of the posterior pharynx. There is a little neck masses. Lungs sounds are diminished bilaterally especially lung bases. Minimal to wheezing with expiration. Heart sounds are irregular, positive S1- S2. No S3 or S4 no murmurs.Abdominal exam revealed normal bowel sounds. The abdomen was soft, non-tender, and without masses, organomegaly, or appreciable enlargement of the abdominal aorta.Examination of the extremities revealed easily palpable radial, femoral and pedal pulses. There was no cyanosis, clubbing or edema. - Labs CBC & Chem 7: 01/12/17 05:59 01/12/17 05:59 Labs: Abnormal Lab Results - Last 24 Hours (Table) 01/11/17 01/12/17 01/12/17 Range/Units 21:02 05:56 05:59 WBC 2.8 L (3.8-10.6) k/uL RDW 15.6 H (11.5-15.5) % Lymphocytes # 0.4 L (1.0-4.8) k/uL PT (9.0-12.0) sec INR (<1.2) APTT (22.0-30.0) sec Chloride (98-107) mmol/L Carbon Dioxide (22-30) mmol/L BUN (7-17) mg/dL Creatinine (0.52-1.04) mg/dL Glucose (74-99) mg/dL POC Glucose (mg/dL) 127 H 157 H (75-99) mg/dL 01/12/17 01/12/17 01/12/17 Range/Units 05:59 05:59 11:43 WBC (3.8-10.6) k/uL RDW (11.5-15.5) % Lymphocytes # (1.0-4.8) k/uL PT 24.5 H (9.0-12.0) sec INR 2.5 H (<1.2) APTT 90.2 H (22.0-30.0) sec Chloride 96 L (98-107) mmol/L Carbon Dioxide 37 H (22-30) mmol/L BUN 25 H (7-17) mg/dL Creatinine 1.06 H (0.52-1.04) mg/dL Glucose 160 H (74-99) mg/dL POC Glucose (mg/dL) 177 H (75-99) mg/dL 01/12/17 Range/Units 13:11 WBC (3.8-10.6) k/uL RDW (11.5-15.5) % Lymphocytes # (1.0-4.8) k/uL PT (9.0-12.0) sec INR (<1.2) APTT 58.6 H (22.0-30.0) sec Chloride (98-107) mmol/L Carbon Dioxide (22-30) mmol/L BUN (7-17) mg/dL Creatinine (0.52-1.04) mg/dL Glucose (74-99) mg/dL POC Glucose (mg/dL) (75-99) mg/dL Assessment and Plan Plan: Assessment 1 shortness of breath secondary to acute COPD and CHF exacerbation, improving slowly 2 CHF with mild impairment of the left with an ejection fraction of 40% with severe pulmonary hypertension 3 COPD with chronic hypoxic respiratory failure maintained on oxygen outpatient basis 4 obesity with a BMI of 34.8 5 obstructive sleep apnea untreated 6 chronic a chief fibrillation with a therapeutic INR on presentation currently on IV heparin 7 troponin leak without significant ST segment elevation or depressions. 8 hypertension 9 osteoarthritis 10 CVA/TIA, history of currently inactive in stable Plan Stop the IV heparin as the patient's INR is therapeutic it is point. Continue likely Lasix. Continue bronchodilators. Continue systemic steroids. Metoprolol for rate control. 2 mg by mouth twice a day. We'll follow.
[2017-01-12 16:46] LABS: Glucose,Whole Blood 156 mg/dL (75-99)
[2017-01-12 21:22] LABS: Glucose,Whole Blood 224 mg/dL (75-99)
[2017-01-13 06:29] LABS: Anisocytosis Slight; Basophils % (A) 0 %; CH 28.2; CHCM 32.5; Eosinophils % (A) 0 %; HCT 38.3 % (34.0-46.0); HDW 2.91; HGB 12.1 gm/dL (11.4-16.0); Hypochromasia Slight; Luc # (Auto) 0.05; Luc % (Auto) 1; Lymphocytes # (A) 0.3 k/uL (1.0-4.8); Lymphocytes % (A) 7 %; MCH 27.7 pg (25.0-35.0); MCHC 31.7 g/dL (31.0-37.0); MCV 87.3 fL (80.0-100.0); Mean Platelet Volume 8.4; Monocytes # (A) 0.2 k/uL (0-1.0); Monocytes % (A) 4 %; Neutrophils # (A) 4.2 k/uL (1.3-7.7); Neutrophils % (A) 88 %; RBC 4.38 m/uL (3.80-5.40); RDW 16.1 % (11.5-15.5); WBC 4.8 k/uL (3.8-10.6); WBC (Perox) 4.91
[2017-01-13 06:37] LABS: Anion Gap 8 mmol/L; Blood Urea Nitrogen 30 mg/dL (7-17); Calcium 8.9 mg/dL (8.4-10.2); Carbon Dioxide 34 mmol/L (22-30); Chloride 94 mmol/L (98-107); Glucose 165 mg/dL (74-99); Non-African American GFR(MDRD) 54 (>60 ml/min/1.73 sqM); Potassium 3.9 mmol/L (3.5-5.1); Sodium 136 mmol/L (137-145)
[2017-01-13 06:43] LABS: Glucose,Whole Blood 156 mg/dL (75-99)
[2017-01-13] MEDS: methylPREDNISolone SOD SUCCI 125 MG/2 ML VIAL IV SCH ×4 (06:55→23:33)
[2017-01-13] MEDS: INSULIN LISPRO (humaLOG) 300 UNIT/3 ML VIAL SQ SCH ×4 (06:56→21:36)
[2017-01-13] MEDS: IPRATROPIUM-ALBUTEROL 3 ML NEB INHALATION SCH ×4 (07:13→20:07)
[2017-01-13] MEDS: SYMBICORT 160-4.5 MCG INHALER INHALATION SCH ×2 (07:13→20:07)
[2017-01-13] MEDS: OXYBUTYNIN CHLORIDE 5 MG TAB PO SCH ×2 (08:03→20:23)
[2017-01-13] MEDS: LOPERAMIDE 2 MG CAP PO SCH ×2 (08:03→08:10)
[2017-01-13] MEDS: FUROSEMIDE 10 MG/ML 4 ML VIAL IV SCH (08:03)
[2017-01-13] MEDS: WARFARIN 2 MG TAB PO SCH ×2 (08:03→08:09)
[2017-01-13] MEDS: SPIRONOLACTONE 25 MG TAB PO SCH (08:03)
[2017-01-13] MEDS: METOPROLOL TARTRATE 50 MG TAB PO SCH ×2 (08:04→20:23)
[2017-01-13 08:28] VITALS: RESP 16
--- NOTE | 2017-01-13 10:17 | P.PN ---
Subjective Principal diagnosis: Shortness of breath This is a 76-year-old female who presented to the hospital with sudden onset of shortness of breath. She follows regularly with Dr. Potts in the office. Has history of persistent chronic atrial fibrillation, COPD, prior TIA, renal disease, was treated here mostly for exacerbation of COPD. Patient also had mild congestive cardiac failure, diastolic acute on chronic. She was seen and examined this morning, breathing overall is significantly improved. She is on Coumadin for anticoagulation, INR pending. Yesterday's INR was 2.5. Objective - Vital Signs Vital signs: Vital Signs Temp 97 F L 01/13/17 08:00 Pulse 110 H 01/13/17 08:00 Resp 16 01/13/17 08:00 BP 116/59 01/13/17 08:00 Pulse Ox 97 01/13/17 08:00 Intake & Output 01/12/17 01/13/17 01/13/17 18:59 06:59 18:59 Intake Total 118 240 Output Total 500 502 Balance -382 -502 240 Weight 87 kg Intake: Oral 118 240 Output: Urine 500 500 Stool 2 Other: Voiding Method Toilet # Voids 650 - Exam PHYSICAL EXAMINATION: HEENT: Head is atraumatic, normocephalic. Pupils equal, round. Neck is supple. There is no elevated jugular venous pressure. HEART EXAMINATION: Heart S1 and S2 irregularly irregular CHEST EXAMINATION: lungs reveal some fine expiratory wheezing throughout. ABDOMEN: Soft, nontender. Bowel sounds are heard. No organomegaly noted. EXTREMITIES: 2+ peripheral pulses with no evidence of peripheral edema and no calf tenderness noted. NEUROLOGIC patient is awake, alert and oriented -2. . - Labs CBC & Chem 7: 01/13/17 05:43 01/13/17 05:43 Labs: Abnormal Lab Results - Last 24 Hours (Table) 01/12/17 01/12/17 01/12/17 Range/Units 11:43 13:11 16:40 RDW (11.5-15.5) % Lymphocytes # (1.0-4.8) k/uL APTT 58.6 H (22.0-30.0) sec Sodium (137-145) mmol/L Chloride (98-107) mmol/L Carbon Dioxide (22-30) mmol/L BUN (7-17) mg/dL Glucose (74-99) mg/dL POC Glucose (mg/dL) 177 H 156 H (75-99) mg/dL 01/12/17 01/13/17 01/13/17 Range/Units 21:20 05:43 05:43 RDW 16.1 H (11.5-15.5) % Lymphocytes # 0.3 L (1.0-4.8) k/uL APTT (22.0-30.0) sec Sodium 136 L (137-145) mmol/L Chloride 94 L (98-107) mmol/L Carbon Dioxide 34 H (22-30) mmol/L BUN 30 H (7-17) mg/dL Glucose 165 H (74-99) mg/dL POC Glucose (mg/dL) 224 H (75-99) mg/dL 01/13/17 Range/Units 06:39 RDW (11.5-15.5) % Lymphocytes # (1.0-4.8) k/uL APTT (22.0-30.0) sec Sodium (137-145) mmol/L Chloride (98-107) mmol/L Carbon Dioxide (22-30) mmol/L BUN (7-17) mg/dL Glucose (74-99) mg/dL POC Glucose (mg/dL) 156 H (75-99) mg/dL Assessment and Plan (1) COPD exacerbation Status: Acute (2) Chronic a-fib Status: Acute (3) TIA (transient ischemic attack) Status: Acute (4) Obesity Status: Acute (5) HTN (hypertension) Status: Acute (6) Elevated troponin Status: Acute (7) Pulmonary HTN Status: Acute (8) Sleep apnea Status: Acute Plan: From cardiology's perspective, we will decrease Aldactone to 25 mg daily, discontinue IV Lasix and start the patient on oral diuretics. She may be able to be discharged once cleared by the primary and a follow-up appointment will be made in the office with Dr. Potts. DNP note has been reviewed, I agree with a documented findings and plan of care. Patient was seen and examined.
[2017-01-13 11:25] LABS: Glucose,Whole Blood 168 mg/dL (75-99)
[2017-01-13 11:35] LABS: INR 3.6 (<1.2); Prothrombin Time 34.6 sec (9.0-12.0)
--- NOTE | 2017-01-13 14:16 | P.PN ---
Subjective Principal diagnosis: Acute exacerbation of COPD A pleasant 76-year-old female patient, obese with known history of COPD, oxygen dependent maintained on home oxygen and Symbicort or Breo on outpatient basis, also known to have chronic atrial fibrillation, mild congestion heart failure with ejection fraction 40% and secondary pulmonary hypertension with RV enlargement. The patient was in a good state of health. Over the past 3 days she started having increased exertional dyspnea along with some limited cough and chest congestion. She was also having some occasional palpitations. No dizziness. No pleurisy. No hemoptysis. She presented emergency department. She was found to have subtherapeutic PT/INR at 1.5. Troponins were 0.7, 0.7 0.6 respectively 3. The d-dimer was positive at 3.77. The patient was started on IV heparin per protocol. The chest x-ray showed mild pulmonary vascular congestion. Otherwise no other acute abnormalities was noted. Meanwhile, the patient was also started on acute COPD exacerbation treatment with DuoNeb neb last treatment [id number], IV Solu-Medrol and she was started on IV Lasix 40 mg every 12 hours. Metoprolol is being used for rate control and the patient is still on anticoagulation with warfarin regarding her chronic atrial fibrillation. Denies having any heart attack. No previous history of DVT or pulmonary embolism. No history of pulmonary fibrosis. No other complaints otherwise. Reevaluated today on 01/13/2017, patient is feeling much better, no cough no wheezing no shortness of breath no chest pain. Patient has made a significant improvement over the last couple of days since admission. INR is therapeutic at 3.6. Basic metabolic profile is normal CBC is relatively normal. Chest x- ray on admission showed mild pulmonary vascular congestion. Improving with diuretics based on the clinical findings. Objective - Vital Signs Vital signs: Vital Signs Temp 97 F L 01/13/17 08:00 Pulse 74 01/13/17 11:20 Resp 16 01/13/17 12:00 BP 116/59 01/13/17 12:00 Pulse Ox 97 01/13/17 12:00 Intake & Output 01/12/17 01/13/17 01/13/17 18:59 06:59 18:59 Intake Total 118 480 Output Total 500 502 802 Balance -382 -502 -322 Weight 87 kg Intake: Oral 118 480 Output: Urine 500 500 800 Stool 2 2 Other: Voiding Method Toilet Toilet # Voids 650 - Exam Physical Exam: Revealed a 76-year-old female in no distress. HEENT:[Neck is supple.] [No neck masses.] [No thyromegaly.] [No JVD.] Chest: [Diminished breath sounds at the bases, no crackles nor rhonchi, no wheezes.] Cardiac Exam: [Normal S1 and S2, no S3 gallop, no murmur.] Abdomen: [Soft, nontender, no megaly, no rebound, no guarding, normal bowel sounds.] Extremities: [No clubbing, no edema, no cyanosis.] Neurological Exam: [No focal neurologic deficit.] - Labs CBC & Chem 7: 01/13/17 05:43 01/13/17 05:43 Labs: Abnormal Lab Results - Last 24 Hours (Table) 01/12/17 01/12/17 01/13/17 Range/Units 16:40 21:20 05:43 RDW 16.1 H (11.5-15.5) % Lymphocytes # 0.3 L (1.0-4.8) k/uL PT (9.0-12.0) sec INR (<1.2) Sodium (137-145) mmol/L Chloride (98-107) mmol/L Carbon Dioxide (22-30) mmol/L BUN (7-17) mg/dL Glucose (74-99) mg/dL POC Glucose (mg/dL) 156 H 224 H (75-99) mg/dL 01/13/17 01/13/17 01/13/17 Range/Units 05:43 06:39 11:17 RDW (11.5-15.5) % Lymphocytes # (1.0-4.8) k/uL PT 34.6 H (9.0-12.0) sec INR 3.6 H (<1.2) Sodium 136 L (137-145) mmol/L Chloride 94 L (98-107) mmol/L Carbon Dioxide 34 H (22-30) mmol/L BUN 30 H (7-17) mg/dL Glucose 165 H (74-99) mg/dL POC Glucose (mg/dL) 156 H (75-99) mg/dL 01/13/17 Range/Units 11:24 RDW (11.5-15.5) % Lymphocytes # (1.0-4.8) k/uL PT (9.0-12.0) sec INR (<1.2) Sodium (137-145) mmol/L Chloride (98-107) mmol/L Carbon Dioxide (22-30) mmol/L BUN (7-17) mg/dL Glucose (74-99) mg/dL POC Glucose (mg/dL) 168 H (75-99) mg/dL Assessment and Plan Plan: 1 shortness of breath secondary to acute COPD and CHF exacerbation 2 CHF with mild impairment of the left with an ejection fraction of 40% with severe pulmonary potential 3 COPD with chronic hypoxic respiratory failure maintained on oxygen outpatient basis 4 obesity with a BMI of 34.8 5 obstructive sleep apnea untreated 6 chronic a chief fibrillation with a therapeutic INR on presentation currently on IV heparin 7 troponin leak without significant ST segment elevation or depressions. 8 hypertension 9 osteoarthritis 10 CVA/TIA, history of currently inactive in stable Recommendation: Continue present treatment plan including bronchodilators, steroids, diuretics, consider discharge planning today or in the next 24 hours. Time with Patient: Less than 30
[2017-01-13 16:35] LABS: Glucose,Whole Blood 190 mg/dL (75-99)
[2017-01-13] MEDS: FUROSEMIDE 40 MG TAB PO SCH (16:58)
--- NOTE | 2017-01-13 18:19 | P.PN ---
Subjective Date of service 01/13/2017. Progress note being dictated for Dr. Cuenca. Interval history: This is a 76-year-old female admitted with acute COPD exacerbation, acute CHF exacerbation and multiple other medical issues. Maintained on nebulized bronchodilators, steroids ,antibiotics and diuretics with breathing improving. Anticoagulated on Coumadin with INR currently at 3.6. Denies chest pain, palpitations or increased in shortness of breath. Recently weaned off of oxygen, Maintaining O2 sats of 97% on room air. Objective - Vital Signs Vital signs: Vital Signs Temp 97 F L 01/13/17 08:00 Pulse 74 01/13/17 11:20 Resp 16 01/13/17 08:00 BP 116/59 01/13/17 08:00 Pulse Ox 97 01/13/17 08:00 Intake & Output 01/12/17 01/13/17 01/13/17 18:59 06:59 18:59 Intake Total 118 240 Output Total 500 502 2 Balance -382 -502 238 Weight 87 kg Intake: Oral 118 240 Output: Urine 500 500 Stool 2 2 Other: Voiding Method Toilet Toilet # Voids 650 - Exam PHYSICAL EXAM: VITAL SIGNS: As above GENERAL: Sitting up at side of bed, no acute distress, consumed 100% of lunch HEENT: Conjunctivae normal. eyes normal. Oral mucosa moist. NECK: No JVD. No thyroid enlargement. No LNs CARDIOVASCULAR: S1, S2 muffled. No murmur, no rubs, no gallops RESPIRATION: Breath sounds diminished in the bases. no rhonchi , no crackles, no wheezes. No bronchial breathing. ABDOMEN: Soft, nontender . No guarding. no masses palpable. No ascites, No hepatosplenomegaly.Bowel sounds heard. LEGS: No edema. no swelling PSYCHIATRY: Alert and oriented 3, mood and affect normal. NERVOUS SYSTEM: Cranial N 2-12 grossly normal. Moves all 4 limbs. Diffuse weakness No focal deficits. No sensory deficit. Skin: no ulcer no rash Joints: No active swelling. No inflammation. Lymphatic system. No LN neck axilla or groin. - Labs CBC & Chem 7: 01/13/17 05:43 01/13/17 05:43 Labs: Abnormal Lab Results - Last 24 Hours (Table) 01/12/17 01/12/17 01/12/17 Range/Units 11:43 13:11 16:40 RDW (11.5-15.5) % Lymphocytes # (1.0-4.8) k/uL PT (9.0-12.0) sec INR (<1.2) APTT 58.6 H (22.0-30.0) sec Sodium (137-145) mmol/L Chloride (98-107) mmol/L Carbon Dioxide (22-30) mmol/L BUN (7-17) mg/dL Glucose (74-99) mg/dL POC Glucose (mg/dL) 177 H 156 H (75-99) mg/dL 01/12/17 01/13/17 01/13/17 Range/Units 21:20 05:43 05:43 RDW 16.1 H (11.5-15.5) % Lymphocytes # 0.3 L (1.0-4.8) k/uL PT (9.0-12.0) sec INR (<1.2) APTT (22.0-30.0) sec Sodium 136 L (137-145) mmol/L Chloride 94 L (98-107) mmol/L Carbon Dioxide 34 H (22-30) mmol/L BUN 30 H (7-17) mg/dL Glucose 165 H (74-99) mg/dL POC Glucose (mg/dL) 224 H (75-99) mg/dL 01/13/17 01/13/17 01/13/17 Range/Units 06:39 11:17 11:24 RDW (11.5-15.5) % Lymphocytes # (1.0-4.8) k/uL PT 34.6 H (9.0-12.0) sec INR 3.6 H (<1.2) APTT (22.0-30.0) sec Sodium (137-145) mmol/L Chloride (98-107) mmol/L Carbon Dioxide (22-30) mmol/L BUN (7-17) mg/dL Glucose (74-99) mg/dL POC Glucose (mg/dL) 156 H 168 H (75-99) mg/dL Assessment and Plan Plan: 1. Acute on chronic congestive heart failure exacerbation, diastolic dysfunction, EF 55%[]. 2. [ Acute COPD exacerbation with acute purulent tracheobronchitis]. 3. [ Chest pain, possible acute non-STEMI, troponin 0.079 4. [ Coumadin monitoring]. 5. [ Pulmonary hypertension]. Plan: Continue on current medication regime ,monitoring and symptomatic treatment. Hold Coumadin tonight, INR 3.6 .Maintain nebulized bronchodilators, antibiotics, steroids. Increase ambulation as tolerated. Discharge planning in progress for tomorrow pending pulmonary clearance. The impression and plan of care has been dictated as directed. : I performed a H&P examination of this patient and discussed the same with the dictator. I agree with the dictator's note. Any additional findings/opinions/ etc. will be noted.
[2017-01-13 21:21] LABS: Glucose,Whole Blood 237 mg/dL (75-99)
[2017-01-14 06:08] LABS: Glucose,Whole Blood 167 mg/dL (75-99)
[2017-01-14 06:14] LABS: Anisocytosis Slight; Basophils % (A) 0 %; CH 28.1; CHCM 32.1; Eosinophils % (A) 0 %; HCT 38.1 % (34.0-46.0); HDW 2.86; HGB 11.7 gm/dL (11.4-16.0); Hypochromasia Slight; Luc # (Auto) 0.07; Luc % (Auto) 1; Lymphocytes # (A) 0.3 k/uL (1.0-4.8); Lymphocytes % (A) 7 %; MCH 27.1 pg (25.0-35.0); MCHC 30.8 g/dL (31.0-37.0); MCV 87.9 fL (80.0-100.0); Monocytes # (A) 0.2 k/uL (0-1.0); Monocytes % (A) 5 %; Neutrophils # (A) 4.2 k/uL (1.3-7.7); Neutrophils % (A) 87 %; RBC 4.34 m/uL (3.80-5.40); RDW 16.1 % (11.5-15.5); WBC 4.8 k/uL (3.8-10.6); WBC (Perox) 4.79
[2017-01-14 06:18] LABS: Blood Urea Nitrogen 34 mg/dL (7-17); Calcium 8.4 mg/dL (8.4-10.2); Chloride 94 mmol/L (98-107); Glucose 170 mg/dL (74-99); Non-African American GFR(MDRD) 54 (>60 ml/min/1.73 sqM); Potassium 4.1 mmol/L (3.5-5.1); Sodium 138 mmol/L (137-145)
[2017-01-14 06:26] LABS: Anion Gap 4 mmol/L
[2017-01-14 06:30] LABS: Carbon Dioxide 40 mmol/L (22-30)
[2017-01-14] MEDS: INSULIN LISPRO (humaLOG) 300 UNIT/3 ML VIAL SQ SCH ×2 (06:32→13:17)
[2017-01-14] MEDS: methylPREDNISolone SOD SUCCI 125 MG/2 ML VIAL IV SCH ×2 (06:32→13:16)
[2017-01-14] MEDS: METOPROLOL TARTRATE 50 MG TAB PO SCH (08:08)
[2017-01-14] MEDS: FUROSEMIDE 40 MG TAB PO SCH (08:08)
[2017-01-14] MEDS: OXYBUTYNIN CHLORIDE 5 MG TAB PO SCH (08:09)
[2017-01-14 08:12] VITALS: BP 131/74; TEMP 97.3
[2017-01-14] MEDS: SYMBICORT 160-4.5 MCG INHALER INHALATION SCH (08:59)
[2017-01-14] MEDS: IPRATROPIUM-ALBUTEROL 3 ML NEB INHALATION SCH ×2 (08:59→13:26)
[2017-01-14] MEDS ORDERED: SPIRONOLACTONE 25 MG TAB PO SCH (09:00)
[2017-01-14 09:08] LABS: INR 3.1 (<1.2)
--- NOTE | 2017-01-14 09:59 | P.PN ---
Subjective Principal diagnosis: Shortness of breath This is a 76-year-old female who presented to the hospital with sudden onset of shortness of breath. She follows regularly with Dr. Potts in the office. Has history of persistent chronic atrial fibrillation, COPD, prior TIA, renal disease, was treated here mostly for exacerbation of COPD. Patient also had mild congestive cardiac failure, diastolic acute on chronic. She was seen and examined this morning, breathing overall is significantly improved. She is on Coumadin for anticoagulation, INR pending. Yesterday's INR was 2.5. 01/14/2017 Patient seen and examined this morning, overall feeling well. Breathing is stable. blood pressure 130/70 with a heart rate in the 70s, 97% on 3 L of oxygen. INR today 3.1, potassium 4.1, BUN 34, creatinine 1.0. Objective - Vital Signs Vital signs: Vital Signs Temp 97.3 F L 01/14/17 08:00 Pulse 74 01/14/17 09:20 Resp 16 01/14/17 08:00 BP 131/74 01/14/17 08:00 Pulse Ox 97 01/14/17 08:00 Intake & Output 01/13/17 01/14/17 01/14/17 18:59 06:59 18:59 Intake Total 720 100 Output Total 802 900 Balance -82 -900 100 Weight 87.7 kg Intake: Oral 720 100 Output: Urine 800 900 Stool 2 Other: Voiding Method Toilet Toilet - Exam PHYSICAL EXAMINATION: HEENT: Head is atraumatic, normocephalic. Pupils equal, round. Neck is supple. There is no elevated jugular venous pressure. HEART EXAMINATION: Heart S1 and S2 irregularly irregular CHEST EXAMINATION: lungs reveal some fine expiratory wheezing throughout. ABDOMEN: Soft, nontender. Bowel sounds are heard. No organomegaly noted. EXTREMITIES: 2+ peripheral pulses with no evidence of peripheral edema and no calf tenderness noted. NEUROLOGIC patient is awake, alert and oriented -2. . - Labs CBC & Chem 7: 01/14/17 05:18 01/14/17 05:18 Labs: Abnormal Lab Results - Last 24 Hours (Table) 01/13/17 01/13/17 01/13/17 Range/Units 11:17 11:24 16:34 MCHC (31.0-37.0) g/dL RDW (11.5-15.5) % Lymphocytes # (1.0-4.8) k/uL PT 34.6 H (9.0-12.0) sec INR 3.6 H (<1.2) Chloride (98-107) mmol/L Carbon Dioxide (22-30) mmol/L BUN (7-17) mg/dL Glucose (74-99) mg/dL POC Glucose (mg/dL) 168 H 190 H (75-99) mg/dL 01/13/17 01/14/17 01/14/17 Range/Units 21:19 05:18 05:18 MCHC 30.8 L (31.0-37.0) g/dL RDW 16.1 H (11.5-15.5) % Lymphocytes # 0.3 L (1.0-4.8) k/uL PT (9.0-12.0) sec INR (<1.2) Chloride 94 L (98-107) mmol/L Carbon Dioxide 40 H* (22-30) mmol/L BUN 34 H (7-17) mg/dL Glucose 170 H (74-99) mg/dL POC Glucose (mg/dL) 237 H (75-99) mg/dL 01/14/17 01/14/17 Range/Units 05:18 06:06 MCHC (31.0-37.0) g/dL RDW (11.5-15.5) % Lymphocytes # (1.0-4.8) k/uL PT 30.0 H (9.0-12.0) sec INR 3.1 H (<1.2) Chloride (98-107) mmol/L Carbon Dioxide (22-30) mmol/L BUN (7-17) mg/dL Glucose (74-99) mg/dL POC Glucose (mg/dL) 167 H (75-99) mg/dL Assessment and Plan (1) COPD exacerbation Status: Acute (2) Chronic a-fib Status: Acute (3) TIA (transient ischemic attack) Status: Acute (4) Obesity Status: Acute (5) HTN (hypertension) Status: Acute (6) Elevated troponin Status: Acute (7) Pulmonary HTN Status: Acute (8) Sleep apnea Status: Acute Plan: From cardiology's perspective, patient may be able to be discharged home once cleared by the primary. We will make her a follow-up appointment in the office post discharge. DNP note has been reviewed, I agree with a documented findings and plan of care. Patient was seen and examined.
--- NOTE | 2017-01-14 11:34 | P.PN ---
Subjective Principal diagnosis: Acute exacerbation of COPD A pleasant 76-year-old female patient, obese with known history of COPD, oxygen dependent maintained on home oxygen and Symbicort or Breo on outpatient basis, also known to have chronic atrial fibrillation, mild congestion heart failure with ejection fraction 40% and secondary pulmonary hypertension with RV enlargement. The patient was in a good state of health. Over the past 3 days she started having increased exertional dyspnea along with some limited cough and chest congestion. She was also having some occasional palpitations. No dizziness. No pleurisy. No hemoptysis. She presented emergency department. She was found to have subtherapeutic PT/INR at 1.5. Troponins were 0.7, 0.7 0.6 respectively 3. The d-dimer was positive at 3.77. The patient was started on IV heparin per protocol. The chest x-ray showed mild pulmonary vascular congestion. Otherwise no other acute abnormalities was noted. Meanwhile, the patient was also started on acute COPD exacerbation treatment with DuoNeb neb last treatment [id number], IV Solu-Medrol and she was started on IV Lasix 40 mg every 12 hours. Metoprolol is being used for rate control and the patient is still on anticoagulation with warfarin regarding her chronic atrial fibrillation. Denies having any heart attack. No previous history of DVT or pulmonary embolism. No history of pulmonary fibrosis. No other complaints otherwise. Reevaluated today on 01/13/2017, patient is feeling much better, no cough no wheezing no shortness of breath no chest pain. Patient has made a significant improvement over the last couple of days since admission. INR is therapeutic at 3.6. Basic metabolic profile is normal CBC is relatively normal. Chest x- ray on admission showed mild pulmonary vascular congestion. Improving with diuretics based on the clinical findings. Reevaluated today on 01/14/2017, patient is asymptomatic, no cough no wheezing or shortness of breath. Patient is actually ready to be discharged home, and she was already cleared for discharge by cardiology. CBC is relatively normal, INR is 3.1, basic metabolic profile is relatively normal except for bicarb of 40. Objective - Vital Signs Vital signs: Vital Signs Temp 97.3 F L 01/14/17 08:00 Pulse 74 01/14/17 09:20 Resp 16 01/14/17 08:00 BP 131/74 01/14/17 08:00 Pulse Ox 97 01/14/17 08:00 Intake & Output 01/13/17 01/14/17 01/14/17 18:59 06:59 18:59 Intake Total 720 100 Output Total 802 900 375 Balance -82 -900 -275 Weight 87.7 kg Intake: Oral 720 100 Output: Urine 800 900 375 Stool 2 Other: Voiding Method Toilet Toilet Toilet - Exam Physical Exam: Revealed a 76-year-old female in no distress. HEENT:[Neck is supple.] [No neck masses.] [No thyromegaly.] [No JVD.] Chest: [Diminished breath sounds at the bases, no crackles nor rhonchi, no wheezes.] Cardiac Exam: [Normal S1 and S2, no S3 gallop, no murmur.] Abdomen: [Soft, nontender, no megaly, no rebound, no guarding, normal bowel sounds.] Extremities: [No clubbing, no edema, no cyanosis.] Neurological Exam: [No focal neurologic deficit.] - Labs CBC & Chem 7: 01/14/17 05:18 01/14/17 05:18 Labs: Abnormal Lab Results - Last 24 Hours (Table) 01/13/17 01/13/17 01/13/17 Range/Units 11:17 16:34 21:19 MCHC (31.0-37.0) g/dL RDW (11.5-15.5) % Lymphocytes # (1.0-4.8) k/uL PT 34.6 H (9.0-12.0) sec INR 3.6 H (<1.2) Chloride (98-107) mmol/L Carbon Dioxide (22-30) mmol/L BUN (7-17) mg/dL Glucose (74-99) mg/dL POC Glucose (mg/dL) 190 H 237 H (75-99) mg/dL 01/14/17 01/14/17 01/14/17 Range/Units 05:18 05:18 05:18 MCHC 30.8 L (31.0-37.0) g/dL RDW 16.1 H (11.5-15.5) % Lymphocytes # 0.3 L (1.0-4.8) k/uL PT 30.0 H (9.0-12.0) sec INR 3.1 H (<1.2) Chloride 94 L (98-107) mmol/L Carbon Dioxide 40 H* (22-30) mmol/L BUN 34 H (7-17) mg/dL Glucose 170 H (74-99) mg/dL POC Glucose (mg/dL) (75-99) mg/dL 01/14/17 Range/Units 06:06 MCHC (31.0-37.0) g/dL RDW (11.5-15.5) % Lymphocytes # (1.0-4.8) k/uL PT (9.0-12.0) sec INR (<1.2) Chloride (98-107) mmol/L Carbon Dioxide (22-30) mmol/L BUN (7-17) mg/dL Glucose (74-99) mg/dL POC Glucose (mg/dL) 167 H (75-99) mg/dL Assessment and Plan Plan: 1 shortness of breath secondary to acute COPD and CHF exacerbation 2 CHF with mild impairment of the left with an ejection fraction of 40% with severe pulmonary potential 3 COPD with chronic hypoxic respiratory failure maintained on oxygen outpatient basis 4 obesity with a BMI of 34.8 5 obstructive sleep apnea untreated 6 chronic a chief fibrillation with a therapeutic INR on presentation currently on IV heparin 7 troponin leak without significant ST segment elevation or depressions. 8 hypertension 9 osteoarthritis 10 CVA/TIA, history of currently inactive in stable Recommendation: Continue present treatment plan including bronchodilators, steroids, diuretics, cleared for discharge today by pulmonary. Patient should set up on outpatient appointment to see us for follow-up on COPD. Time with Patient: Less than 30
[2017-01-14 11:46] LABS: Glucose,Whole Blood 189 mg/dL (75-99)
[2017-01-14] MEDS: LOPERAMIDE 2 MG CAP PO SCH (13:16)
[2017-01-14 14:04] VITALS: PULSE 78
--- NOTE | 2017-01-14 15:34 | P.DS ---
Providers Date of admission: 01/10/17 18:01 Attending physician: Deandre Mccurdy MD Consults: 01/10/17 18:58 Consult Physician Routine Consulting Provider: Cosme Perez Consult Reason/Comments: Chest pain Do you want consulting provider notified?: Yes 01/11/17 15:47 Consult Physician Routine Consulting Provider: Mika Bahena Consult Reason/Comments: copd Do you want consulting provider notified?: Yes Primary care physician: Deandre Mccurdy MD Hospital Course: This 76-year-old woman with a past medical history multiple medical problems was admitted with shortness with possibly due to be multifactorial including CHF acute exacerbation as a COPD acute exacerbation. patient also had a features of acute non-ST segment elevation myocardial infarction. Treated symptomatically. Patient was seen by cardiology and pulmonology. Improved significantly. Patient will be discharged in a stable condition with guarded prognosis with further plans to follow up outpatient clinic closely. On exam vitals are stable cardio S1 and S2 normal. Respiratory system bilateral scattered rhonchi and expiratory wheezing and crackles. Improved. Abdomen soft nontender nervous system system no focal deficit. Patient be discharged in a stable condition with guarded prognosis. total time taken 35 minutes. recommend to follow-up with the primary physician, pulmonary, cardiology in the outpatient setting closely. patient understands and agrees. Final diagnosis 1. COPD acute exacerbation with acute purulent tracheobronchitis as well as CHF acute exacerbation with acute on chronic diastolic dysfunction ejection fraction 55%. 2. Chest pain possible acute non-ST elevation myocardial infarction troponin 0.079. 4. Coumadin monitoring 5. Pulmonary hypertension Plan - Discharge Summary New Discharge Prescriptions: New predniSONE 10 mg PO DIRECTED #30 tab Continue Oxybutynin Chloride [Ditropan] 5 mg PO BID Metoprolol Tartrate [Lopressor] 50 mg PO BID #60 tab Furosemide [Lasix] 40 mg PO BID Warfarin Sodium [Coumadin] 2 mg PO DAILY Spironolactone [Aldactone] 25 mg PO DAILY Fluticasone/Vilanterol [Breo Ellipta 200-25 Mcg INH] 1 puff INHALATION RT- DAILY Discontinued Ibuprofen [Motrin] 800 mg PO Q8H PRN PRN Reason: Pain Discharge Medication List Oxybutynin Chloride [Ditropan] 5 mg PO BID 08/26/16 [History] Metoprolol Tartrate [Lopressor] 50 mg PO BID #60 tab 10/08/16 [Rx] Fluticasone/Vilanterol [Breo Ellipta 200-25 Mcg INH] 1 puff INHALATION RT-DAILY 01/10/17 [History] Furosemide [Lasix] 40 mg PO BID 01/10/17 [History] Spironolactone [Aldactone] 25 mg PO DAILY 01/10/17 [History] Warfarin Sodium [Coumadin] 2 mg PO DAILY 01/10/17 [History] predniSONE 10 mg PO DIRECTED #30 tab 01/13/17 [Rx] Follow up Appointment(s)/Referral(s): Kofi Cortes MD [REFERRING] - 01/16/17 1:00 pm Colby Potts MD [STAFF PHYSICIAN] - 01/26/17 2:45 pm (appt in [place] ) Mika Bahena MD [STAFF PHYSICIAN] - 01/23/17 10:00 am Ambulatory/Diagnostic Orders: Prothrombin Time INR [LAB.AMB] Time Frame: 01/16/17, Location: Determined By Patient Activity/Diet/Wound Care/Special Instructions: Home 02 3Lnc Home Nebs:resume QID & Q4H prn SOB DIet: Cardiac, "CHF DIET:,ALBERTA Activity: Limited until follow up
== END 2017-01-14 16:08 | disposition home or self-care (01) | DRG 280 ==
LOC: 6SEL 18:01
PROVIDERS: ADMIT Internal Medicine; ATTEND Internal Medicine
DX: I13.0 Hypertensive heart and chronic kidney disease with heart failure and stage 1 through stage 4 chronic kidney disease, or unspecified chronic kidney disease (principal); I21.4 Non-ST elevation (NSTEMI) myocardial infarction; I50.33 Acute on chronic diastolic (congestive) heart failure; J96.11 Chronic respiratory failure with hypoxia; J44.1 Chronic obstructive pulmonary disease with (acute) exacerbation; I42.9 Cardiomyopathy, unspecified; I27.2 Other secondary pulmonary hypertension; E87.6 Hypokalemia; I48.2 Chronic atrial fibrillation; N18.3 Chronic kidney disease, stage 3 (moderate); E66.9 Obesity, unspecified; M19.042 Primary osteoarthritis, left hand; M19.041 Primary osteoarthritis, right hand; M19.072 Primary osteoarthritis, left ankle and foot; M19.071 Primary osteoarthritis, right ankle and foot; I07.1 Rheumatic tricuspid insufficiency; G47.33 Obstructive sleep apnea (adult) (pediatric); Z86.73 Personal history of transient ischemic attack (TIA), and cerebral infarction without residual deficits; Z68.34 Body mass index [BMI] 34.0-34.9, adult; Z79.01 Long term (current) use of anticoagulants; I25.2 Old myocardial infarction; Z87.891 Personal history of nicotine dependence; Z99.81 Dependence on supplemental oxygen; Z82.49 Family history of ischemic heart disease and other diseases of the circulatory system; Z79.51 Long term (current) use of inhaled steroids; Z79.899 Other long term (current) drug therapy; Z79.52 Long term (current) use of systemic steroids; Z79.1 Long term (current) use of non-steroidal anti-inflammatories (NSAID); Z51.81 Encounter for therapeutic drug level monitoring; Z87.01 Personal history of pneumonia (recurrent); Z90.49 Acquired absence of other specified parts of digestive tract; Z83.3 Family history of diabetes mellitus
CPT/HCPCS: 71010; 80048; 83036; 84443; 84484; 85025; 85379; 85610; 85730; 94640; 94760

== ENCOUNTER 2017-02-08 13:19 | Inpatient (IN) | payer MEDICARE, OTHER ==
[2017-02-08] MEDS ORDERED: MELATONIN 3 MG TABLET PO PRN (15:44)
[2017-02-08] MEDS ORDERED: NALOXONE 0.4 MG/ML 1 ML VIAL IV PRN (15:44)
[2017-02-08] MEDS ORDERED: HYDROcodone/APAP 5-325MG 1 EACH TAB PO PRN (15:44)
--- NOTE | 2017-02-08 15:44 | XR ---
EXAMINATION TYPE: XR chest 1V portable DATE OF EXAM: 02/08/2017 COMPARISON: 01/11/2017 HISTORY: Shortness of breath TECHNIQUE: Single frontal view of the chest is obtained. FINDINGS: New diffuse reticular interstitial pulmonary edema is seen in comparison to the prior exam . Bilateral hilar fullness may relate to engorged vasculature or adenopathy. More confluent area of o pacification is seen within the right infrahilar region in the right lung base, which may relate to f ocal pulmonary edema versus pneumonia. Heart is enlarged. Haziness of the costophrenic angles may rel ate to trace pleural effusions. Mild degenerative changes of thoracic spine and acromioclavicular aminah nts are noted. IMPRESSION: 1. New mild to moderate interstitial pulmonary edema with more confluent region in the right lung bas e/right infrahilar region. This could relate to focal pulmonary edema versus pneumonia. 2. Probable trace pleural effusions, hilar fullness and cardiomegaly in combination with the above fi ndings most likely relate to decompensated congestive heart failure.
[2017-02-08] MEDS ORDERED: ALPRAZolam 0.25 MG TAB PO PRN (15:49)
[2017-02-08] MEDS ORDERED: TEMAZEPAM 15 MG CAP PO PRN (15:49)
[2017-02-08] MEDS ORDERED: ACETAMINOPHEN TAB 500 MG TAB PO PRN (15:49)
[2017-02-08] MEDS: SODIUM CHLORIDE 0.9% 1,000 ML IV SCH (16:19)
[2017-02-08] MEDS: FUROSEMIDE 10 MG/ML 4 ML VIAL IV SCH (16:21)
[2017-02-08 16:24] LABS: Basophils % (A) 0 %; CH 27.9; CHCM 31.3; Eosinophils % (A) 0 %; HCT 38.6 % (34.0-46.0); HDW 2.72; HGB 11.6 gm/dL (11.4-16.0); Hypochromasia Slight; Luc # (Auto) 0.06; Luc % (Auto) 1; Lymphocytes # (A) 0.7 k/uL (1.0-4.8); Lymphocytes % (A) 9 %; MCH 26.8 pg (25.0-35.0); MCHC 29.9 g/dL (31.0-37.0); MCV 89.4 fL (80.0-100.0); Mean Platelet Volume 7.5; Monocytes # (A) 0.1 k/uL (0-1.0); Monocytes % (A) 2 %; Neutrophils # (A) 6.9 k/uL (1.3-7.7); Neutrophils % (A) 88 %; RBC 4.32 m/uL (3.80-5.40); RDW 15.3 % (11.5-15.5); WBC 7.9 k/uL (3.8-10.6); WBC (Perox) 7.74
[2017-02-08 16:30] LABS: INR 1.9 (<1.2); Prothrombin Time 18.1 sec (9.0-12.0)
--- NOTE | 2017-02-08 16:37 | HP ---
HISTORY AND PHYSICAL DATE OF ADMISSION: 02/08/2017. CHIEF COMPLAINTS: Shortness of breath. HISTORY: This 76-year-old woman with a past history of atrial fibrillation, history of CHF, history of COPD, CVA, TIA, history of COPD being followed by Dr. Cortes in the outpatient setting, was recently admitted with shortness of breath which is felt to be multifactorial. Patient went home. Improved. Subsequently patient had to go to [facility]. Shortness of breath increased over the last 3 days and the patient because of concern at was evaluated the patient and sent to [facility] as a direct admission at this time. There is no history of fever, rigors or chills. No history of headache, loss of consciousness or seizures. Right lower lobe infiltrate suspected. PAST MEDICAL HISTORY: Atrial fibrillation, CHF and COPD and appendectomy. MEDICATIONS PRIOR TO ADMISSION: 1. Include Lasix 40 mg p.o. b.i.d. 2. Breo Ellipta 1 puff daily. 3. Coumadin 2 mg b.i.d. 4. Aldactone 25 mg. 5. Ditropan 5 mg p.o. b.i.d. 6. Lopressor 50 mg p.o. b.i.d. ALLERGIES: Allergies are none. FAMILY HISTORY: History of CHF. SOCIAL HISTORY: Previous history of smoking. No history of current smoking or alcohol intake. REVIEW OF SYSTEMS: ENT: No diminished hearing or vision. CARDIOVASCULAR: No angina or palpitations. RESPIRATORY: No cough or hemoptysis. GI no nausea and vomiting. no dysuria. Nervous system: No numbness or weakness. Allergy/Immunology: As mentioned earlier. Hematology/Oncology: No history anemia. Endocrine: No history of diabetes or hypothyroidism. CONSTITUTIONAL: As mentioned earlier. RHEUMATOLOGY: Negative. Dermatology: Negative. Psychiatric: As mentioned earlier. PHYSICAL EXAM: Patient is alert, oriented times three, pulse is 90, blood pressure 92/59, respirations 18, temperature 97.2, pulse ox 97% on 4 L. HEENT: Conjunctivae normal. Oral mucosa moist. Neck is no jugular venous distention. No carotid bruit. No lymph node enlargement. No thyroid enlargement. Cardiovascular system: S1, S2 muffled. No S3, no S4. Respiratory: Breath sounds diminished in the bases. Bilateral scattered rhonchi, expiratory wheezing and crackles. ABDOMEN: Soft, nontender. No mass palpable. Legs bilateral leg edema. Nervous system: Higher functions as mentioned earlier. Moves all four limbs. No focal motor or sensory deficits. Lymphatics: No lymph nodes palpable in the neck, axillae or groin. Skin no ulcer, rash, bleeding. LAB STUDIES: Awaited. ASSESSMENT: 1. Shortness of breath, multifactorial, chronic obstructive pulmonary disease acute exacerbation as well as congestive heart failure acute exacerbation with acute on chronic diastolic dysfunction, ejection fraction 50-55%. 2. Rule out right lower lobe pneumonia. 3. Coumadin monitoring. 4. Pulmonary hypertension. 5. History of atrial fibrillation. 6. History of asthma. 7. History of cerebrovascular accident, transient ischemic attack. 8. History pneumonia. 9. History of sleep apnea. RECOMMENDATIONS AND DISCUSSION: In this 76-year-old woman who presented with multiple complex medical issues, we will monitor the patient closely. Continue the current management and continue with symptomatic treatment, continue bronchodilators, empiric antibiotics. Diuretics. Cardiology and pulmonology consultations. Guarded prognosis because of multiple complex medical issues. Resume the home medications. Monitor PT and INR closely. Prognosis guarded. Discussed with the patient, who understands and agrees. Further recommendations to follow. MMODL / IJN: [id number] / THI
[2017-02-08 16:39] LABS: ALT 44 U/L (9-52); AST 37 U/L (14-36); Alkaline Phosphatase 143 U/L (38-126); Blood Urea Nitrogen 14 mg/dL (7-17); Calcium 8.5 mg/dL (8.4-10.2); Chloride 81 mmol/L (98-107); Glucose 213 mg/dL (74-99); Magnesium 1.7 mg/dL (1.6-2.3); Non-African American GFR(MDRD) >60 (>60 ml/min/1.73 sqM); Potassium 4.2 mmol/L (3.5-5.1); Sodium 130 mmol/L (137-145); Total Bilirubin 1.6 mg/dL (0.2-1.3); Total Protein 6.7 g/dL (6.3-8.2)
[2017-02-08 16:45] LABS: Anion Gap 10 mmol/L
[2017-02-08] MEDS: INSULIN LISPRO (humaLOG) 300 UNIT/3 ML VIAL SQ SCH ×2 (16:48→21:48)
[2017-02-08 16:53] LABS: Carbon Dioxide 39 mmol/L (22-30)
[2017-02-08 16:55] LABS: Appearance,Urine Clear (Clear); Bilirubin,Urine Negative (Negative); Glucose,Urine (UA) Negative (Negative); Ketones,Urine Negative (Negative); Leukocyte Esterase,Urine Negative (Negative); Nitrite,Urine Negative (Negative); PH, Urine 7.5 (5.0-8.0); Protein,Urine Negative (Negative); Specific Gravity,Urine 1.015 (1.001-1.035); UA Billing (MACRO vs. MICRO) CHEM
[2017-02-08 16:55] LABS: Glucose,Whole Blood 214 mg/dL (75-99)
[2017-02-08] MEDS: methylPREDNISolone SOD SUCCI 125 MG/2 ML VIAL IV SCH (17:32)
[2017-02-08] MEDS: WARFARIN 2 MG TAB PO SCH (17:32)
[2017-02-08] MEDS: IPRATROPIUM 0.5 MG/2.5 ML NEBU INHALATION SCH ×2 (19:13→21:49)
[2017-02-08 20:51] LABS: Glucose,Whole Blood 170 mg/dL (75-99)
[2017-02-08] MEDS: SYMBICORT 160-4.5 MCG INHALER INHALATION SCH (21:48)
[2017-02-08] MEDS: METOPROLOL TARTRATE 50 MG TAB PO SCH (21:48)
[2017-02-08] MEDS: OXYBUTYNIN CHLORIDE 5 MG TAB PO SCH (21:48)
[2017-02-08] MEDS: LEVALBUTEROL NEB (CONC) 1.25 MG/0.5 ML AMP INHALATION SCH (21:49)
[2017-02-09] MEDS: methylPREDNISolone SOD SUCCI 125 MG/2 ML VIAL IV SCH ×5 (00:11→23:57)
[2017-02-09] MEDS: FUROSEMIDE 10 MG/ML 4 ML VIAL IV SCH ×4 (00:11→23:57)
[2017-02-09 06:02] LABS: Glucose,Whole Blood 173 mg/dL (75-99)
[2017-02-09] MEDS: PANTOPRAZOLE 40 MG TABLET PO SCH (06:04)
[2017-02-09] MEDS: INSULIN LISPRO (humaLOG) 300 UNIT/3 ML VIAL SQ SCH ×4 (06:04→22:15)
[2017-02-09 06:38] LABS: Basophils % (A) 0 %; CH 26.7; CHCM 30.3; Eosinophils % (A) 0 %; HCT 34.3 % (34.0-46.0); HDW 2.83; HGB 10.4 gm/dL (11.4-16.0); Hypochromasia Marked; Luc # (Auto) 0.05; Luc % (Auto) 1; Lymphocytes # (A) 0.6 k/uL (1.0-4.8); Lymphocytes % (A) 12 %; MCH 26.7 pg (25.0-35.0); MCHC 30.3 g/dL (31.0-37.0); MCV 88.1 fL (80.0-100.0); Monocytes # (A) 0.2 k/uL (0-1.0); Monocytes % (A) 3 %; Neutrophils # (A) 4.3 k/uL (1.3-7.7); Neutrophils % (A) 84 %; RBC 3.89 m/uL (3.80-5.40); RDW 14.4 % (11.5-15.5); WBC 5.1 k/uL (3.8-10.6); WBC (Perox) 5.39
[2017-02-09 06:45] LABS: INR 1.7 (<1.2)
[2017-02-09 06:49] LABS: Blood Urea Nitrogen 17 mg/dL (7-17); Calcium 8.5 mg/dL (8.4-10.2); Chloride 83 mmol/L (98-107); Glucose 162 mg/dL (74-99); Non-African American GFR(MDRD) >60 (>60 ml/min/1.73 sqM); Potassium 3.9 mmol/L (3.5-5.1); Sodium 133 mmol/L (137-145)
[2017-02-09 06:55] LABS: Anion Gap 7 mmol/L
[2017-02-09 07:02] LABS: Carbon Dioxide 43 mmol/L (22-30)
[2017-02-09] MEDS: LEVALBUTEROL NEB (CONC) 1.25 MG/0.5 ML AMP INHALATION SCH ×2 (08:41→13:18)
[2017-02-09] MEDS: SYMBICORT 160-4.5 MCG INHALER INHALATION SCH ×2 (08:41→20:47)
[2017-02-09] MEDS: IPRATROPIUM 0.5 MG/2.5 ML NEBU INHALATION SCH ×2 (08:41→13:18)
[2017-02-09] MEDS: SPIRONOLACTONE 25 MG TAB PO SCH (09:39)
[2017-02-09] MEDS: METOPROLOL TARTRATE 50 MG TAB PO SCH ×2 (09:39→22:15)
[2017-02-09] MEDS: OXYBUTYNIN CHLORIDE 5 MG TAB PO SCH ×2 (09:39→22:15)
--- NOTE | 2017-02-09 10:48 | P.CRDCN ---
History of Present Illness Consult date: 02/09/17 Requesting physician: Lynda Pittman Reason for Consult (text): CHF Chief complaint: progressively worsening shortness of breath History of present illness: This is a pleasant 76-year-old female patient who follows with Dr. Potts in the office. She has history of chronic atrial fibrillation, on Coumadin, COPD, asthma, chronic diastolic heart failure, hypertension. She was initially admitted to [facility] with complaints of progressively worsening shortness of breath over 3-4 days. She was initiated on IV Lasix 40 mg every 12 hours with little improvement. His transferred here to [facility] for further evaluation and treatment. In reviewing notes from [facility], patient had a CTA of the chest that was negative for PE but showed bilateral ground glass opacities, bilateral infiltrates, alveolar congestion, small pericardial effusion and pulmonary hypertension. Labs from [place] showed troponin of 0.051, 0.060, 0.066 and 0.057. Upon arrival here patient's troponins came back at 0.051, 0.030, and 0.038. We had a BNP drawn this morning that came back to be normal for her age group at 1380. BUN is 17 and creatinine 0.90. Chest x-ray done here showed mild to moderate interstitial pulmonary edema. She was placed on Lasix 40 mg IV push every 8 hours here. Upon examination, patient is sitting up in bed and says she is feeling quite a bit better since arrival. She denies complaints of orthopnea, PND, chest discomfort, palpitations, dizziness or syncope. She does continue to complain of shortness of breath with exertion which seems to have improved somewhat. Past Medical History Past Medical History: Atrial Fibrillation, Asthma, Heart Failure, COPD, CVA/TIA , Myocardial Infarction ([place]), Pneumonia, Renal Disease, Respiratory Disorder, Sleep Apnea/CPAP/BIPAP Additional Past Medical History / Comment(s): Obesity, COPD, secondary pulmonary potential, degenerative arthritis, CHF with ejection fraction of 40%, obstructive sleep apnea currently on no treatment Last Myocardial Infarction Date:: 1991 History of Any Multi-Drug Resistant Organisms: None Reported Past Surgical History: Appendectomy, Tonsillectomy Additional Past Surgical History / Comment(s): left leg surgery d/t fracture, colonoscopy-normal. Past Anesthesia/Blood Transfusion Reactions: No Reported Reaction Past Psychological History: No Psychological Hx Reported Additional Psychological History / Comment(s): Pt has her daughter and 2 adult grandchildren living with her. She has a cane and walker but does not need to use them at this time. She uses the bus to get to appts. Smoking Status: Former smoker Past Alcohol Use History: None Reported Additional Past Alcohol Use History / Comment(s): Pt states she started smoking in 1954 and quit in 2011. Past Drug Use History: None Reported - Past Family History Father Family Medical History: Congestive Heart Failure (CHF) Additional Family Medical History / Comment(s): Father of CHF-pt cannot recall how old he was. Mother Family Medical History: Diabetes Mellitus Additional Family Medical History / Comment(s): Mother lived to be in her 90's. Medications and Allergies Home Medications Medication Instructions Recorded Confirmed Type Oxybutynin Chloride [Ditropan] 5 mg PO BID 08/26/16 02/08/17 History Metoprolol Tartrate [Lopressor] 50 mg PO BID #60 tab 10/08/16 02/08/17 Rx Fluticasone/Vilanterol [Breo 1 puff INHALATION RT-DAILY 01/10/17 02/08/17 History Ellipta 200-25 Mcg INH] Furosemide [Lasix] 40 mg PO BID 01/10/17 02/08/17 History Spironolactone [Aldactone] 25 mg PO DAILY 01/10/17 02/08/17 History Warfarin Sodium [Coumadin] 2 mg PO HS 01/10/17 02/08/17 History Allergies Allergy/AdvReac Type Severity Reaction Status Date / Time No Known Allergies Allergy Verified 02/08/17 16:41 Physical Exam Vitals: Vital Signs Temp Pulse Pulse Resp BP Pulse Ox 02/09/17 08:58 96 02/09/17 08:42 96 02/09/17 03:51 18 02/09/17 03:50 98.1 F 81 18 110/68 98 02/09/17 00:00 97.2 F L 79 18 110/59 95 02/08/17 22:05 92 02/08/17 21:49 88 95 02/08/17 20:00 96.9 F L 109 H 20 120/69 90 L 02/08/17 17:38 88 18 91/61 91 L 02/08/17 14:59 98 20 02/08/17 14:45 97.3 F L 98 18 92/59 92 L Intake and Output 02/08/17 02/09/17 02/09/17 22:59 06:59 14:59 Intake Total 440 140 240 Output Total 1100 Balance -660 140 240 Intake: IV 50 Sodium Chloride 0.9% 1, 50 000 ml @ 20 mls/hr IV . Q24H BROCK Rx#:[id number] Intake, IV Titration 50 140 Amount Sodium Chloride 0.9% 1, 140 000 ml @ 20 mls/hr IV . Q24H BROCK Rx#:[id number] cefTRIAXone 1,000 mg In 50 Sodium Chloride 0.9% 50 ml @ 100 mls/hr IVPB Q24HR BROCK Rx#:[id number] Oral 340 240 Output: Urine 1100 Other: Voiding Method Toilet Toilet # Voids 2 Weight 78.6 kg PHYSICAL EXAMINATION: HEENT: Head is atraumatic, normocephalic. Pupils equal, round. Neck is supple. There is no elevated jugular venous pressure. HEART EXAMINATION: Heart sounds irregularly irregular, S1 and S2 normal. No murmur or gallop heard. CHEST EXAMINATION: Lungs reveal diminished air entry bilaterally with crackles at bilateral bases. No chest wall tenderness is noted on palpation or with deep breathing. ABDOMEN: Soft, nontender. Bowel sounds are heard. No organomegaly noted. EXTREMITIES: Diminished peripheral pulses with evidence of trace peripheral edema and no calf tenderness noted. NEUROLOGIC patient is awake, alert and oriented x3. . Results 02/09/17 05:38 02/09/17 05:38 Cardiac Enzymes 02/08/17 02/08/17 02/08/17 Range/Units 16:01 16:09 23:45 AST 37 H (14-36) U/L Troponin I 0.051 H* 0.030 (0.000-0.034) ng/mL 02/09/17 Range/Units 05:38 AST (14-36) U/L Troponin I 0.038 H* (0.000-0.034) ng/mL Coagulation 02/08/17 02/09/17 Range/Units 16:09 05:38 PT 18.1 H 16.0 H (9.0-12.0) sec CBC 02/08/17 02/09/17 Range/Units 16:09 05:38 WBC 7.9 5.1 (3.8-10.6) k/uL RBC 4.32 3.89 (3.80-5.40) m/uL Hgb 11.6 10.4 L (11.4-16.0) gm/dL Hct 38.6 34.3 (34.0-46.0) % Plt Count 360 378 (150-450) k/uL Comprehensive Metabolic Panel 02/08/17 02/09/17 Range/Units 16:09 05:38 Sodium 130 L 133 L (137-145) mmol/L Potassium 4.2 3.9 (3.5-5.1) mmol/L Chloride 81 L 83 L (98-107) mmol/L Carbon Dioxide 39 H 43 H* (22-30) mmol/L BUN 14 17 (7-17) mg/dL Creatinine 0.80 0.90 (0.52-1.04) mg/dL Glucose 213 H 162 H (74-99) mg/dL Calcium 8.5 8.5 (8.4-10.2) mg/dL AST 37 H (14-36) U/L ALT 44 (9-52) U/L Alkaline Phosphatase 143 H (38-126) U/L Total Protein 6.7 (6.3-8.2) g/dL Albumin 3.1 L (3.5-5.0) g/dL Current Medications Generic Name Dose Route Start Last Admin Trade Name Freq PRN Reason Stop Dose Admin Acetaminophen 500 mg 02/08/17 15:49 Tylenol Tab PO Q6HR PRN Fever and/ or Pain Hydrocodone Bitart/Acetaminophen 1 each 02/08/17 15:44 [place] 5-325 PO Q4HR PRN Moderate Pain Alprazolam 0.25 mg 02/08/17 15:49 Xanax PO TID PRN Anxiety Budesonide/Formoterol Fumarate 2 puff 02/08/17 20:00 02/09/17 08:41 Symbicort 160-4.5 Mcg Inhaler INHALATION 2 puff RT-BID BROCK Administration Furosemide 40 mg 02/08/17 16:00 02/09/17 09:38 Lasix IV 40 mg Q8HR BROCK Administration Ceftriaxone Sodium 1,000 mg/ 50 mls @ 100 mls/hr 02/08/17 16:00 02/09/17 09: 38 Sodium Chloride IVPB 100 mls/hr Q24HR BROCK Administration Sodium Chloride 1,000 mls @ 20 mls/hr 02/08/17 15:45 02/08/17 16:19 Saline 0.9% IV 20 mls/hr .Q24H BROCK Administration Insulin Human Lispro 0 unit 02/08/17 17:30 02/09/17 06:04 Humalog SQ 2 unit ACHS BROCK Administration Protocol Ipratropium Goodman 0.5 mg 02/08/17 16:00 02/09/17 08:41 Atrovent Nebulized INHALATION 0.5 mg RT-QID BROCK Administration Levalbuterol HCl 1.25 mg 02/08/17 20:00 02/09/17 08:41 Xopenex Nebulized (Conc) INHALATION 1.25 mg RT-TID BROCK Administration Melatonin 3 mg 02/08/17 15:44 Melatonin PO HS PRN Insomnia Methylprednisolone Sodium Succinate 60 mg 02/08/17 18:00 02/09/17 06:03 Solu-Medrol IV 60 mg Q6HR BROCK Administration Metoprolol Tartrate 50 mg 02/08/17 21:00 02/09/17 09:39 Lopressor PO 50 mg BID BROCK Administration Naloxone HCl 0.2 mg 02/08/17 15:44 Narcan IV Q2M PRN Opioid Reversal Oxybutynin Chloride 5 mg 02/08/17 21:00 02/09/17 09:39 Ditropan PO 5 mg BID BROCK Administration Pantoprazole Sodium 40 mg 02/09/17 07:30 02/09/17 06:04 Protonix PO 40 mg AC-[id number] BROCK Administration Spironolactone 25 mg 02/09/17 09:00 02/09/17 09:39 Aldactone PO 25 mg DAILY BROCK Administration Temazepam 15 mg 02/08/17 15:49 Restoril PO HS PRN Insomnia Warfarin Sodium 2 mg 02/08/17 18:00 02/08/17 17:32 Coumadin PO 2 mg DAILY@1800 BROCK Administration Intake and Output 02/08/17 02/09/17 02/09/17 22:59 06:59 14:59 Intake Total 440 140 240 Output Total 1100 Balance -660 140 240 Intake: IV 50 Sodium Chloride 0.9% 1, 50 000 ml @ 20 mls/hr IV . Q24H BROCK Rx#:[id number] Intake, IV Titration 50 140 Amount Sodium Chloride 0.9% 1, 140 000 ml @ 20 mls/hr IV . Q24H BROCK Rx#:[id number] cefTRIAXone 1,000 mg In 50 Sodium Chloride 0.9% 50 ml @ 100 mls/hr IVPB Q24HR BROCK Rx#:[id number] Oral 340 240 Output: Urine 1100 Other: Voiding Method Toilet Toilet # Voids 2 Weight 78.6 kg 02/09/17 05:38 02/09/17 05:38 EKG Interpretations (text) Atrial fibrillation with controlled ventricular response without ST-T wave abnormalities suggestive of acute ischemia Assessment and Plan Plan: Assessment and plan #1 symptoms of progressively worsening shortness of breath likely secondary to COPD exacerbation, normal BNP #2 COPD exacerbation #3 minimal troponin leak not suggestive of acute myocardial injury, likely secondary to oxygen supply and demand mismatch #4 chronic atrial fibrillation #5 history of chronic diastolic heart failure, BNP is normal at this time. From cardiology's perspective, a BNP was obtained and came back to normal at 1380. We will obtain a 2-D echo with Doppler. Switch to oral Lasix. We will continue to follow the patient provide further recommendations accordingly. [employer] CONS[employer] note has been reviewed, I agree with a documented findings and plan of care. Patient was seen and examined.
--- NOTE | 2017-02-09 11:32 | ECHOF ---
Referral Reason:CHF exacerbation MEASUREMENTS -------- HEIGHT: 160.0 cm WEIGHT: 78.5 kg BP: 110/68 RVIDd: 3.4 cm (< 3.3) IVSd: 1.1 cm (0.6 - 1.1) LVIDd: 4.6 cm (3.9 - 5.3) LVPWd: 1.1 cm (0.6 - 1.1) IVSs: 1.4 cm LVIDs: 3.7 cm LVPWs: 1.2 cm LA Diam: 4.2 cm (2.7 - 3.8) LAESV Index (A-L): 44.99 ml/m Ao Diam: 3.3 cm (2.0 - 3.7) AV Cusp: 2.5 cm (1.5 - 2.6) LA Diam: 4.8 cm (2.7 - 3.8) MV EXCURSION: 20.282 mm (> 18.000) MV EF SLOPE: 71 mm/s (70 - 150) EPSS: 0.2 cm MV E Jose: 1.31 m/s MV DecT: 195 ms MV A Jose: 0.38 m/s MV E/A Ratio: 3.43 RAP: 5.00 mmHg RVSP: 45.71 mmHg FINDINGS -------- Undetermined rhythm. This was a technically adequate study. The left ventricular size is normal. There is mild concentric left ventricular hypertrophy. Overall left ventricular systolic function is normal with, an EF between 55 - 60 %. The right ventricle is mildly enlarged. LA is severely dilated >40 ml/m2 The right atrial size is normal. There is mild aortic valve sclerosis. There is no evidence of aortic regurgitation. Mild mitral annular calcification present. Mild mitral regurgitation is present. Mild tricuspid regurgitation present. There is mild to moderate pulmonary hypertension. The right ventricular systolic pressure, as measured by Doppler, is 45.71mmHg. Trace/mild (physiologic) pulmonic regurgitation. There is a trivial pericardial effusion present. CONCLUSIONS -------- 1. The left ventricular size is normal. 2. There is mild to moderate pulmonary hypertension. 3. The right ventricular systolic pressure, as measured by Doppler, is 45.71mmHg. 4. Trace/mild (physiologic) pulmonic regurgitation. 5. There is a trivial pericardial effusion present. 6. There is mild concentric left ventricular hypertrophy. 7. Overall left ventricular systolic function is normal with, an EF between 55 - 60 %. 8. The right ventricle is mildly enlarged. 9. LA is severely dilated >40 ml/m2 10. There is mild aortic valve sclerosis. 11. Mild mitral annular calcification present. 12. Mild mitral regurgitation is present. 13. Mild tricuspid regurgitation present. CHILD AND ADOLESCENT PSYCHOLOGIST: Francesca Olguin RDCS
[2017-02-09 11:51] LABS: Glucose,Whole Blood 175 mg/dL (75-99)
[2017-02-09 13:10] VITALS: BMI 30.7
--- NOTE | 2017-02-09 14:28 | P.CNPUL ---
History of Present Illness Consult date: 02/09/17 Reason for consult: dyspnea, cough, COPD, pleural effusion, abnormal CXR/CT Chief complaint: Shortness of breath History of present illness: Consult dated 02/09/2017 76-year-old female sent down from [place] where she was a patient for a day at [facility]. She has a history of chronic atrial fibrillation heart failure COPD CVA TIA and sees Dr. Cortes. Today she sitting at the bedside. She sitting up in bed. Has a book about heart failure in front of her. It appears that her primary problem is congestive heart failure. The patient is feeling a bit better from when she initially was admitted. Still very short of breath. her as an outpatient. She came in because of her found shortness of breath which increased 3 days prior to admission at the other hospital. In addition, she admits to some leg swelling and edema. Also bit of a cough without much phlegm production. No fever no chills. Not coughing up any purulent sputum. No hemoptysis. No chest pain. The patient was sent down for further evaluation and treatment. Review of Systems A 12 point review of systems is positive for shortness of breath chest congestion cough no phlegm production. No fever no chills. No chest pain or chest discomfort. Not coughing up any blood. She has had some weight gain and some lower extremity edema. Past Medical History Past Medical History: Atrial Fibrillation, Asthma, Heart Failure, COPD, CVA/TIA , Myocardial Infarction (SD), Pneumonia, Renal Disease, Respiratory Disorder, Sleep Apnea/CPAP/BIPAP Additional Past Medical History / Comment(s): Obesity, COPD, secondary pulmonary potential, degenerative arthritis, CHF with ejection fraction of 40%, obstructive sleep apnea currently on no treatment Last Myocardial Infarction Date:: 1991 History of Any Multi-Drug Resistant Organisms: None Reported Past Surgical History: Appendectomy, Tonsillectomy Additional Past Surgical History / Comment(s): left leg surgery d/t fracture, colonoscopy-normal. Past Anesthesia/Blood Transfusion Reactions: No Reported Reaction Past Psychological History: No Psychological Hx Reported Additional Psychological History / Comment(s): Pt has her daughter and 2 adult grandchildren living with her. She has a cane and walker but does not need to use them at this time. She uses the bus to get to appts. Smoking Status: Former smoker Past Alcohol Use History: None Reported Additional Past Alcohol Use History / Comment(s): Pt states she started smoking in 1954 and quit in 2011. Past Drug Use History: None Reported - Past Family History Father Family Medical History: Congestive Heart Failure (CHF) Additional Family Medical History / Comment(s): Father of CHF-pt cannot recall how old he was. Mother Family Medical History: Diabetes Mellitus Additional Family Medical History / Comment(s): Mother lived to be in her 90's. Medications and Allergies Home Medications Medication Instructions Recorded Confirmed Type Oxybutynin Chloride [Ditropan] 5 mg PO BID 08/26/16 02/08/17 History Metoprolol Tartrate [Lopressor] 50 mg PO BID #60 tab 10/08/16 02/08/17 Rx Fluticasone/Vilanterol [Breo 1 puff INHALATION RT-DAILY 01/10/17 02/08/17 History Ellipta 200-25 Mcg INH] Furosemide [Lasix] 40 mg PO BID 01/10/17 02/08/17 History Spironolactone [Aldactone] 25 mg PO DAILY 01/10/17 02/08/17 History Warfarin Sodium [Coumadin] 2 mg PO HS 01/10/17 02/08/17 History Allergies Allergy/AdvReac Type Severity Reaction Status Date / Time No Known Allergies Allergy Verified 02/08/17 16:41 Physical Exam Osteopathic Statement: *. No significant issues noted on an osteopathic structural exam other than those noted in the History and Physical/Consult. Vitals: Vital Signs Temp Pulse Pulse Resp BP Pulse Ox 02/09/17 13:31 84 02/09/17 13:21 76 02/09/17 08:58 96 02/09/17 08:42 96 02/09/17 08:00 96.7 F L 95 18 112/66 92 L 02/09/17 03:51 18 02/09/17 03:50 98.1 F 81 18 110/68 98 02/09/17 00:00 97.2 F L 79 18 110/59 95 02/08/17 22:05 92 02/08/17 21:49 88 95 02/08/17 20:00 96.9 F L 109 H 20 120/69 90 L 02/08/17 17:38 88 18 91/61 91 L 02/08/17 14:59 98 20 02/08/17 14:45 97.3 F L 98 18 92/59 92 L Intake and Output 02/08/17 02/09/17 02/09/17 22:59 06:59 14:59 Intake Total 440 140 240 Output Total 1100 200 Balance -660 140 40 Intake: IV 50 Sodium Chloride 0.9% 1, 50 000 ml @ 20 mls/hr IV . Q24H [facility] Rx#:[id number] Intake, IV Titration 50 140 Amount Sodium Chloride 0.9% 1, 140 000 ml @ 20 mls/hr IV . Q24H [facility] Rx#:[id number] cefTRIAXone 1,000 mg In 50 Sodium Chloride 0.9% 50 ml @ 100 mls/hr IVPB Q24HR [facility] Rx#:[id number] Oral 340 240 Output: Urine 1100 200 Other: Voiding Method Toilet Toilet # Voids 2 Weight 78.6 kg 78.6 kg Patient Weight 02/10/17 06:59 Weight 78.6 kg No acute distress, oriented 3. HEENT examination is grossly unremarkable. Mucous membranes are moist. No oral lesions. Neck supple. Full range of motion. No adenopathy or thyromegaly. Neck veins are not distended. Cardiovascular examination reveals regular rhythm rate. She's not tachycardic. S1 normal. S2 normal. Mild systolic murmur. No S3-S4. Lungs reveal some bibasilar crackles. Some mild expiratory rhonchi. No wheezes or other adventitious lung sounds. Breath sounds equal bilaterally. There is prolongation on forced maneuver. Abdomen soft. Bowel sounds are heard. Extremities reveal some mild edema. No cyanosis or clubbing. Skin is without rash. Neurologic examination is nonfocal. Results - Laboratory Findings CBC and BMP: 02/09/17 05:38 02/09/17 05:38 PT/INR, D-dimer PT 16.0 sec (9.0-12.0) H 02/09/17 05:38 INR 1.7 (<1.2) H 02/09/17 05:38 Abnormal lab findings: Abnormal Labs 02/08/17 02/08/17 02/08/17 16:01 16:09 16:09 Hgb MCHC 29.9 L Lymphocytes # 0.7 L PT INR Sodium 130 L Chloride 81 L Carbon Dioxide 39 H Glucose 213 H POC Glucose (mg/dL) Total Bilirubin 1.6 H AST 37 H Alkaline Phosphatase 143 H Troponin I 0.051 H* Albumin 3.1 L 02/08/17 02/08/17 02/08/17 16:09 16:35 20:47 Hgb MCHC Lymphocytes # PT 18.1 H INR 1.9 H Sodium Chloride Carbon Dioxide Glucose POC Glucose (mg/dL) 214 H 170 H Total Bilirubin AST Alkaline Phosphatase Troponin I Albumin 02/09/17 02/09/17 02/09/17 05:38 05:38 05:38 Hgb 10.4 L MCHC 30.3 L Lymphocytes # 0.6 L PT 16.0 H INR 1.7 H Sodium 133 L Chloride 83 L Carbon Dioxide 43 H* Glucose 162 H POC Glucose (mg/dL) Total Bilirubin AST Alkaline Phosphatase Troponin I Albumin 02/09/17 02/09/17 02/09/17 05:38 06:00 11:42 Hgb MCHC Lymphocytes # PT INR Sodium Chloride Carbon Dioxide Glucose POC Glucose (mg/dL) 173 H 175 H Total Bilirubin AST Alkaline Phosphatase Troponin I 0.038 H* Albumin - Diagnostic Findings Chest x-ray: image reviewed CT scan - chest: image reviewed (X-rays labs and medications are all reviewed.) Assessment and Plan (1) COPD exacerbation Status: Acute (2) Chronic a-fib Status: Acute (3) Diastolic CHF, acute on chronic Status: Acute (4) HTN (hypertension) Status: Acute (5) Obesity Status: Acute (6) Pneumonia Status: Acute (7) Pulmonary HTN Status: Acute (8) Sleep apnea Status: Acute (9) TIA (transient ischemic attack) Status: Acute Plan: Plan The patient's medications will be reviewed. The patient would probably benefit from DuoNeb 4 times a day and when necessary as well as Symbicort 160/4.52 puffs twice a day. I may give her a short course of corticosteroids. The patient might also benefit from a short course of oral antibiotics. Medications labs are reviewed. Additional recommendations and suggestions are forthcoming. Time with Patient: Greater than 30
[2017-02-09] MEDS: IPRATROPIUM-ALBUTEROL 3 ML NEB INHALATION SCH ×2 (15:50→20:47)
[2017-02-09 16:57] LABS: Glucose,Whole Blood 204 mg/dL (75-99)
[2017-02-09] MEDS: WARFARIN 2 MG TAB PO SCH (17:36)
[2017-02-09] MEDS: SODIUM CHLORIDE 0.9% 1,000 ML IV SCH (17:45)
--- NOTE | 2017-02-09 20:02 | PN ---
PROGRESS NOTE DATE OF SERVICE: 02/09/2017 This 76-year-old woman, admitted with shortness of breath which was possibly secondary to multifactorial etiology, is being closely monitored. Right lower lobe pneumonia is also suspected. Patient is on diuretics and bronchodilators. Troponin is 0.038. The patient was seen by Cardiology, who recommended continuing with the bronchodilator treatment. Pulmonology has also seen the patient, who also recommended a short course of steroids as well. Past medical history reviewed. REVIEW OF SYSTEMS: CARDIOVASCULAR SYSTEM: No angina, palpitations. RESPIRATORY SYSTEM: As mentioned earlier. GI: As mentioned earlier. : No dysuria or retention. NERVOUS SYSTEM: No numbness, weakness. CURRENT MEDICATIONS: Current medications are reviewed and include: 1. Tylenol 500 q.6 p.r.n. 2. Coolidge 5 mg q.4 p.r.n. 3. DuoNeb q.i.d. and p.r.n. 4. Xanax 0.5 t.i.d. 5. Augmentin 500/125 p.o. b.i.d. 6. Symbicort 160/4.5 two puffs b.i.d. 7. Lasix 40 mg IV q.8. 8. Melatonin. 9. Solu-Medrol 60 IV q.6. 10.Narcan. 11.Ditropan. 12.Protonix. 13.Restoril. 14.Coumadin 2 mg. Doses are reviewed. PHYSICAL EXAMINATION: Alert and oriented x3. Pulse 80, blood pressure 130/65, respiration 18, temperature 97.2, pulse ox 94% on 3 L. HEENT: Conjunctivae normal. Oral mucosa moist. NECK: No jugular venous distention. No carotid bruit. No lymph node enlargement. CARDIOVASCULAR: S1, S2 muffled. RESPIRATORY SYSTEM: Breath sounds diminished at the bases. A few scattered rhonchi and crackles, more on the right side. ABDOMEN: Soft, nontender. No mass palpable. LEGS: Minimal edema bilaterally. NERVOUS SYSTEM: No focal deficit. LABS: Labs at this time show WBC 5.1, hemoglobin 10.4, INR 1.7, sodium 133. CO2 is 43. Troponins noted. Accu-Cheks noted. ASSESSMENT: 1. Shortness of breath, possibly multifactorial; chronic obstructive pulmonary disease, acute exacerbation, as well as congestive heart failure, acute exacerbation, with acute on chronic diastolic dysfunction, ejection fraction 50% to 55%. 2. Rule out right lower lobe pneumonia. 3. Pneumonia or possibly acute purulent tracheobronchitis. 4. Coumadin monitoring. 5. Pulmonary hypertension. 6. History of atrial fibrillation. 7. History of asthma. 8. History of cerebrovascular accident, transient ischemic attack. 9. History of pneumonia. 10.Sleep apnea. RECOMMENDATIONS AND DISCUSSION: I recommend to continue current medication, continue symptomatic treatment, continue the bronchodilators as well as steroids. Monitor blood sugars closely. Monitor fluid/electrolyte balance closely. Prognosis guarded because of multiple complex medical issues. See orders for further details. MMODL / IJN: [id number] /
[2017-02-09 22:10] LABS: Glucose,Whole Blood 216 mg/dL (75-99)
[2017-02-09] MEDS: AMOXIC-POT CLAV 500-125 MG 1 EACH TAB PO SCH (22:14)
[2017-02-10 06:27] LABS: Glucose,Whole Blood 161 mg/dL (75-99)
[2017-02-10] MEDS: methylPREDNISolone SOD SUCCI 125 MG/2 ML VIAL IV SCH ×2 (06:29→13:44)
[2017-02-10] MEDS: PANTOPRAZOLE 40 MG TABLET PO SCH (06:29)
[2017-02-10] MEDS: INSULIN LISPRO (humaLOG) 300 UNIT/3 ML VIAL SQ SCH ×4 (06:29→21:39)
[2017-02-10 06:40] LABS: INR 1.9 (<1.2); Prothrombin Time 18.2 sec (9.0-12.0)
[2017-02-10 06:48] LABS: Basophils % (A) 0 %; CH 26.5; CHCM 30.1; Eosinophils % (A) 0 %; HCT 37.1 % (34.0-46.0); HDW 2.81; HGB 11.1 gm/dL (11.4-16.0); Hypochromasia Marked; Luc # (Auto) 0.07; Luc % (Auto) 1; Lymphocytes # (A) 0.5 k/uL (1.0-4.8); Lymphocytes % (A) 5 %; MCH 26.5 pg (25.0-35.0); MCV 88.2 fL (80.0-100.0); Monocytes # (A) 0.3 k/uL (0-1.0); Monocytes % (A) 3 %; Neutrophils # (A) 9.4 k/uL (1.3-7.7); Neutrophils % (A) 91 %; RBC 4.21 m/uL (3.80-5.40); RDW 14.4 % (11.5-15.5); WBC 10.2 k/uL (3.8-10.6); WBC (Perox) 9.75
[2017-02-10 06:52] LABS: Blood Urea Nitrogen 30 mg/dL (7-17); Calcium 8.3 mg/dL (8.4-10.2); Chloride 85 mmol/L (98-107); Glucose 168 mg/dL (74-99); Non-African American GFR(MDRD) >60 (>60 ml/min/1.73 sqM); Potassium 3.8 mmol/L (3.5-5.1); Sodium 133 mmol/L (137-145)
[2017-02-10 07:00] LABS: Anion Gap 10 mmol/L; Carbon Dioxide 38 mmol/L (22-30)
[2017-02-10] MEDS: SYMBICORT 160-4.5 MCG INHALER INHALATION SCH ×2 (08:42→21:21)
[2017-02-10] MEDS: IPRATROPIUM-ALBUTEROL 3 ML NEB INHALATION SCH ×4 (08:42→21:21)
[2017-02-10] MEDS: FUROSEMIDE 10 MG/ML 4 ML VIAL IV SCH (09:09)
[2017-02-10] MEDS: AMOXIC-POT CLAV 500-125 MG 1 EACH TAB PO SCH ×2 (09:09→21:39)
[2017-02-10] MEDS: OXYBUTYNIN CHLORIDE 5 MG TAB PO SCH ×2 (09:09→21:38)
[2017-02-10] MEDS: METOPROLOL TARTRATE 50 MG TAB PO SCH ×2 (09:09→21:39)
[2017-02-10] MEDS: SPIRONOLACTONE 25 MG TAB PO SCH (09:09)
[2017-02-10 11:42] LABS: Glucose,Whole Blood 207 mg/dL (75-99)
--- NOTE | 2017-02-10 12:25 | P.PN ---
Subjective Progress note dated 02/10/2017 This is a 76-year-old female was transferred down from [facility] in [place]. She has a history of chronic atrial fibrillation, heart failure, COPD, CVA/TIA. Her primary physician is Dr. Kofi ruiz. She was admitted with a diagnosis of shortness of breath, multifactorial, most related to underlying CHF but also COPD. She sees my partner in the office. She is feeling better today. Still very weak and fatigued. Short of breath. No fever no chills. Not coughing up any phlegm. No hemoptysis. No chest pain or chest discomfort. No nausea vomiting or diarrhea. Objective - Vital Signs Vital signs: Vital Signs Temp 97 F L 02/10/17 08:00 Pulse 84 02/10/17 08:57 Resp 18 02/10/17 08:00 BP 126/68 02/10/17 08:00 Pulse Ox 91 L 02/10/17 08:00 Intake & Output 02/09/17 02/10/17 02/10/17 18:59 06:59 18:59 Intake Total 720 40 Output Total 1300 600 Balance -580 -600 40 Weight 78.6 kg 78.7 kg Intake: IV 40 Sodium Chloride 0.9% 1, 40 000 ml @ 20 mls/hr IV . Q24H [facility] Rx#:[id number] Oral 720 Output: Urine 1300 600 Other: Voiding Method Toilet # Voids 2 1 # Bowel Movements 0 - Exam No acute distress, oriented 3. HEENT examination is grossly unremarkable. Mucous membranes are moist. Neck supple. Full range of motion. No adenopathy or thyromegaly. Cardiovascular examination reveals regular rhythm rate. S1-S2 normal. Lungs reveal diminished breath sounds. A few scattered rhonchi. No wheezes. A few crackles. Abdomen soft bowel sounds are heard. No masses or tenderness. Extremities are intact. Slight edema. No cyanosis or clubbing. Skin is without rash. Neurologic examination is nonfocal. - Labs CBC & Chem 7: 02/10/17 06:08 02/10/17 06:08 Labs: Abnormal Lab Results - Last 24 Hours (Table) 02/09/17 02/09/17 02/10/17 Range/Units 16:30 22:08 06:08 Hgb 11.1 L (11.4-16.0) gm/dL MCHC 30.0 L (31.0-37.0) g/dL Plt Count 457 H (150-450) k/uL Neutrophils # 9.4 H (1.3-7.7) k/uL Lymphocytes # 0.5 L (1.0-4.8) k/uL PT (9.0-12.0) sec INR (<1.2) Sodium (137-145) mmol/L Chloride (98-107) mmol/L Carbon Dioxide (22-30) mmol/L BUN (7-17) mg/dL Glucose (74-99) mg/dL POC Glucose (mg/dL) 204 H 216 H (75-99) mg/dL Calcium (8.4-10.2) mg/dL 02/10/17 02/10/17 02/10/17 Range/Units 06:08 06:08 06:26 Hgb (11.4-16.0) gm/dL MCHC (31.0-37.0) g/dL Plt Count (150-450) k/uL Neutrophils # (1.3-7.7) k/uL Lymphocytes # (1.0-4.8) k/uL PT 18.2 H (9.0-12.0) sec INR 1.9 H (<1.2) Sodium 133 L (137-145) mmol/L Chloride 85 L (98-107) mmol/L Carbon Dioxide 38 H (22-30) mmol/L BUN 30 H (7-17) mg/dL Glucose 168 H (74-99) mg/dL POC Glucose (mg/dL) 161 H (75-99) mg/dL Calcium 8.3 L (8.4-10.2) mg/dL 02/10/17 Range/Units 11:39 Hgb (11.4-16.0) gm/dL MCHC (31.0-37.0) g/dL Plt Count (150-450) k/uL Neutrophils # (1.3-7.7) k/uL Lymphocytes # (1.0-4.8) k/uL PT (9.0-12.0) sec INR (<1.2) Sodium (137-145) mmol/L Chloride (98-107) mmol/L Carbon Dioxide (22-30) mmol/L BUN (7-17) mg/dL Glucose (74-99) mg/dL POC Glucose (mg/dL) 207 H (75-99) mg/dL Calcium (8.4-10.2) mg/dL Assessment and Plan (1) COPD exacerbation Status: Acute (2) Chronic a-fib Status: Acute (3) Diastolic CHF, acute on chronic Status: Acute (4) HTN (hypertension) Status: Acute (5) Obesity Status: Acute (6) Pneumonia Status: Acute (7) Pulmonary HTN Status: Acute (8) Sleep apnea Status: Acute (9) TIA (transient ischemic attack) Status: Acute Plan: Plan The patient's medications will be reviewed. The patient would probably benefit from DuoNeb 4 times a day and when necessary as well as Symbicort 160/4.52 puffs twice a day. I may give her a short course of corticosteroids. The patient might also benefit from a short course of oral antibiotics. Medications labs are reviewed. Additional recommendations and suggestions are forthcoming. Plan dated 02/10/2017 The patient will continue on DuoNeb's steroids Symbicort and a short course of antibiotics. In addition, she is getting diuretics for her heart failure. Still feeling very weak and short of breath. Better than she was yesterday. We 'll continue to follow. Labs x-rays a medications are all reviewed. Time with Patient: Less than 30
--- NOTE | 2017-02-10 15:07 | P.PN ---
Subjective Principal diagnosis: COPD This is a pleasant 76-year-old female patient who follows with Dr. Potts in the office. She has history of chronic atrial fibrillation, on Coumadin, COPD, asthma, chronic diastolic heart failure, hypertension. She was initially admitted to [facility] with complaints of progressively worsening shortness of breath over 3-4 days. She was initiated on IV Lasix 40 mg every 12 hours with little improvement. His transferred here to [facility] for further evaluation and treatment. In reviewing notes from [facility], patient had a CTA of the chest that was negative for PE but showed bilateral ground glass opacities, bilateral infiltrates, alveolar congestion, small pericardial effusion and pulmonary hypertension. Labs from [facility] showed troponin of 0.051, 0.060, 0.066 and 0.057. Upon arrival here patient's troponins came back at 0.051, 0.030, and 0.038. We had a BNP drawn this morning that came back to be normal for her age group at 1380. BUN is 17 and creatinine 0.90. Chest x-ray done here showed mild to moderate interstitial pulmonary edema. She was placed on Lasix 40 mg IV push every 8 hours here. This has been switched to oral lasix. Upon examination, patient is resting comfortably in bed. She denies complaints of orthopnea, PND, chest discomfort, palpitations, dizziness or syncope. She feels that her breathing has improved significantly since admission. She continues to cough, productive. Objective - Vital Signs Vital signs: Vital Signs Temp 97.9 F 02/10/17 12:00 Pulse 84 02/10/17 12:58 Resp 18 02/10/17 12:00 BP 113/75 02/10/17 12:00 Pulse Ox 95 02/10/17 12:00 Intake & Output 02/09/17 02/10/17 02/10/17 18:59 06:59 18:59 Intake Total 720 40 Output Total 1300 600 600 Balance -580 -600 -560 Weight 78.6 kg 78.7 kg Intake: IV 40 Sodium Chloride 0.9% 1, 40 000 ml @ 20 mls/hr IV . Q24H [facility] Rx#:[id number] Oral 720 Output: Urine 1300 600 600 Other: Voiding Method Toilet # Voids 2 1 # Bowel Movements 0 - Exam PHYSICAL EXAMINATION: HEENT: Head is atraumatic, normocephalic. Pupils equal, round. Neck is supple. There is no elevated jugular venous pressure. HEART EXAMINATION: Heart sounds irregularly irregular, S1 and S2 normal. No murmur or gallop heard. CHEST EXAMINATION: Lungs reveal diminished air entry bilaterally. No chest wall tenderness is noted on palpation or with deep breathing. ABDOMEN: Soft, nontender. Bowel sounds are heard. No organomegaly noted. EXTREMITIES: Diminished peripheral pulses with no evidence of peripheral edema and no calf tenderness noted. NEUROLOGIC patient is awake, alert and oriented x3. - Labs CBC & Chem 7: 02/10/17 06:08 02/10/17 06:08 Labs: Abnormal Lab Results - Last 24 Hours (Table) 02/09/17 02/09/17 02/10/17 Range/Units 16:30 22:08 06:08 Hgb 11.1 L (11.4-16.0) gm/dL MCHC 30.0 L (31.0-37.0) g/dL Plt Count 457 H (150-450) k/uL Neutrophils # 9.4 H (1.3-7.7) k/uL Lymphocytes # 0.5 L (1.0-4.8) k/uL PT (9.0-12.0) sec INR (<1.2) Sodium (137-145) mmol/L Chloride (98-107) mmol/L Carbon Dioxide (22-30) mmol/L BUN (7-17) mg/dL Glucose (74-99) mg/dL POC Glucose (mg/dL) 204 H 216 H (75-99) mg/dL Calcium (8.4-10.2) mg/dL 02/10/17 02/10/17 02/10/17 Range/Units 06:08 06:08 06:26 Hgb (11.4-16.0) gm/dL MCHC (31.0-37.0) g/dL Plt Count (150-450) k/uL Neutrophils # (1.3-7.7) k/uL Lymphocytes # (1.0-4.8) k/uL PT 18.2 H (9.0-12.0) sec INR 1.9 H (<1.2) Sodium 133 L (137-145) mmol/L Chloride 85 L (98-107) mmol/L Carbon Dioxide 38 H (22-30) mmol/L BUN 30 H (7-17) mg/dL Glucose 168 H (74-99) mg/dL POC Glucose (mg/dL) 161 H (75-99) mg/dL Calcium 8.3 L (8.4-10.2) mg/dL 02/10/17 Range/Units 11:39 Hgb (11.4-16.0) gm/dL MCHC (31.0-37.0) g/dL Plt Count (150-450) k/uL Neutrophils # (1.3-7.7) k/uL Lymphocytes # (1.0-4.8) k/uL PT (9.0-12.0) sec INR (<1.2) Sodium (137-145) mmol/L Chloride (98-107) mmol/L Carbon Dioxide (22-30) mmol/L BUN (7-17) mg/dL Glucose (74-99) mg/dL POC Glucose (mg/dL) 207 H (75-99) mg/dL Calcium (8.4-10.2) mg/dL Assessment and Plan Plan: Assessment and plan #1 symptoms of progressively worsening shortness of breath likely secondary to COPD exacerbation, normal BNP #2 COPD exacerbation #3 minimal troponin leak not suggestive of acute myocardial injury, likely secondary to oxygen supply and demand mismatch #4 chronic atrial fibrillation #5 history of chronic diastolic heart failure, with no evidence of acute exacerbation, BNP is normal at this time. From cardiology's perspective, medications were reviewed, we will continue the same. We will follow the patient on an as needed basis. She will follow-up with Dr. Potts as an outpatient. MANAGER [employer] note has been reviewed, I agree with a documented findings and plan of care. Patient was seen and examined.
[2017-02-10] MEDS: FUROSEMIDE 40 MG TAB PO SCH (15:30)
[2017-02-10] MEDS: SODIUM CHLORIDE 0.9% 1,000 ML IV SCH (15:31)
[2017-02-10 16:55] LABS: Glucose,Whole Blood 152 mg/dL (75-99)
[2017-02-10] MEDS: methylPREDNISolone SOD SUCCI 40 MG/ML 1 ML VIAL IV SCH (17:04)
[2017-02-10] MEDS: WARFARIN 2 MG TAB PO SCH (17:04)
--- NOTE | 2017-02-10 17:33 | PN ---
PROGRESS NOTE DATE OF SERVICE: 02/10/2017 This 76-year-old woman who was admitted with shortness of breath has possibly a combination of COPD and CHF. The patient is still having shortness of breath at this time. Pulmonary and Cardiology are following the patient closely. Patient is on steroids as well. No chest pain. No palpitations. No fever. PHYSICAL EXAMINATION: Alert and oriented x3. Pulse is 97, blood pressure 113/75, respiration 18, temperature 97.9, pulse ox 95% on 4 L. HEENT: Conjunctivae normal. NECK: No jugular venous distention. CARDIOVASCULAR SYSTEM: S1, S2 muffled. RESPIRATORY SYSTEM: Breath sounds diminished at the bases. Bilateral scattered rhonchi and crackles. Expiratory wheezing also present. ABDOMEN: Soft, non-tender. LEGS: No edema. No swelling. NERVOUS SYSTEM: No focal deficit. LABS: Labs at this time show WBC of 10.2, hemoglobin 11.1. INR is 1.9. Sodium 133. Accu-Cheks 161. ASSESSMENT: 1. Shortness of breath, with possibly multifactorial; chronic obstructive pulmonary disease, acute exacerbation, with acute purulent tracheobronchitis as well as congestive heart failure, acute exacerbation, with acute on chronic diastolic dysfunction, ejection fraction 50% to 55%. 2. Pneumonia likely. 3. Coumadin monitoring. 4. Pulmonary hypertension. 5. History of atrial fibrillation. 6. History of asthma. 7. History of cerebrovascular accident, transient ischemic attack. 8. History of pneumonia. 9. Sleep apnea. RECOMMENDATIONS AND DISCUSSION: In this 76-year-old woman who presented with multiple complex medical issues, we will monitor the patient closely, continue the current medication, continue symptomatic treatment. We will continue the bronchodilators, continue the rest of the medications. Guarded prognosis because of multiple complex medical issues. Further recommendations to follow. MMODL / IJN: [id number] /
[2017-02-10 21:07] LABS: Glucose,Whole Blood 200 mg/dL (75-99)
[2017-02-11] MEDS: methylPREDNISolone SOD SUCCI 40 MG/ML 1 ML VIAL IV SCH ×3 (00:26→11:38)
[2017-02-11 05:58] LABS: Glucose,Whole Blood 161 mg/dL (75-99)
[2017-02-11 06:19] LABS: Basophils % (A) 0 %; CH 26.6; CHCM 29.8; Eosinophils % (A) 0 %; HCT 36.2 % (34.0-46.0); HDW 2.66; Hypochromasia Marked; Luc # (Auto) 0.08; Luc % (Auto) 1; Lymphocytes # (A) 0.5 k/uL (1.0-4.8); Lymphocytes % (A) 6 %; MCH 27.1 pg (25.0-35.0); MCHC 30.3 g/dL (31.0-37.0); MCV 89.5 fL (80.0-100.0); Monocytes # (A) 0.3 k/uL (0-1.0); Monocytes % (A) 3 %; Neutrophils # (A) 8.1 k/uL (1.3-7.7); Neutrophils % (A) 90 %; RBC 4.05 m/uL (3.80-5.40); RDW 14.5 % (11.5-15.5); WBC (Perox) 9.72
[2017-02-11 06:22] LABS: INR 2.1 (<1.2); Prothrombin Time 20.7 sec (9.0-12.0)
[2017-02-11] MEDS: FUROSEMIDE 40 MG TAB PO SCH (06:28)
[2017-02-11 06:32] LABS: Blood Urea Nitrogen 37 mg/dL (7-17); Calcium 8.3 mg/dL (8.4-10.2); Chloride 87 mmol/L (98-107); Glucose 150 mg/dL (74-99); Non-African American GFR(MDRD) 58 (>60 ml/min/1.73 sqM); Potassium 4.3 mmol/L (3.5-5.1); Sodium 133 mmol/L (137-145)
[2017-02-11 06:38] LABS: Anion Gap 6 mmol/L
[2017-02-11 06:44] LABS: Carbon Dioxide 40 mmol/L (22-30)
[2017-02-11] MEDS: PANTOPRAZOLE 40 MG TABLET PO SCH (07:06)
[2017-02-11] MEDS: INSULIN LISPRO (humaLOG) 300 UNIT/3 ML VIAL SQ SCH ×2 (07:06→14:43)
[2017-02-11] MEDS: SPIRONOLACTONE 25 MG TAB PO SCH (08:15)
[2017-02-11] MEDS: OXYBUTYNIN CHLORIDE 5 MG TAB PO SCH (08:15)
[2017-02-11] MEDS: METOPROLOL TARTRATE 50 MG TAB PO SCH (08:15)
[2017-02-11] MEDS: AMOXIC-POT CLAV 500-125 MG 1 EACH TAB PO SCH (08:15)
[2017-02-11] MEDS: SYMBICORT 160-4.5 MCG INHALER INHALATION SCH (09:21)
[2017-02-11] MEDS: IPRATROPIUM-ALBUTEROL 3 ML NEB INHALATION SCH ×3 (09:21→16:38)
[2017-02-11 12:19] VITALS: BP 115/65; TEMP 98.3
[2017-02-11 12:25] LABS: Glucose,Whole Blood 153 mg/dL (75-99)
--- NOTE | 2017-02-11 13:24 | P.PN ---
Subjective Progress Note Date: 02/11/17 Principal diagnosis: Progress note dated 02/10/2017 This is a 76-year-old female was transferred down from [facility] in [place]. She has a history of chronic atrial fibrillation, heart failure, COPD, CVA/TIA. Her primary physician is Dr. Kofi ruiz. She was admitted with a diagnosis of shortness of breath, multifactorial, most related to underlying CHF but also COPD. She sees my partner in the office. She is feeling better today. Still very weak and fatigued. Short of breath. No fever no chills. Not coughing up any phlegm. No hemoptysis. No chest pain or chest discomfort. No nausea vomiting or diarrhea. Progress note dated 02/11/2017 The patient is seen again today in follow-up on the selective care unit. She is awake and alert in no acute distress. She is breathing quite a bit better today as compared to yesterday. She is maintaining good O2 saturations in the mid 90s on 3 L/m per nasal cannula. She's been afebrile. She continues to diurese well. She remains in a negative balance. Objective - Vital Signs Vital signs: Vital Signs Temp 98.3 F 02/11/17 12:00 Pulse 92 02/11/17 13:16 Resp 18 02/11/17 12:00 BP 115/65 02/11/17 12:00 Pulse Ox 94 L 02/11/17 12:00 Intake & Output 02/10/17 02/11/17 02/11/17 18:59 06:59 18:59 Intake Total 200 Output Total 600 1200 Balance -400 -1200 Weight 79.5 kg Intake: IV 200 Sodium Chloride 0.9% 1, 200 000 ml @ 20 mls/hr IV . Q24H BROCK Rx#:[id number] Output: Urine 600 1200 Other: Voiding Method Toilet Toilet # Voids 1 1 - Exam GENERAL EXAM: Alert, active, comfortable in no apparent distress. HEAD: Normocephalic. EYES: Normal reaction of pupils, equal size. NOSE: Clear with pink turbinates. THROAT: No erythema or exudates. NECK: No masses, no JVD. CHEST: No chest wall deformity. LUNGS: Equal air entry with no crackles, wheeze, rhonchi or dullness. Diminished. CVS: S1 and S2 normal with no audible murmurs, irregular rhythm. ABDOMEN: No hepatosplenomegaly, normal bowel sounds, no guarding or rigidity. SPINE: No scoliosis or deformity SKIN: No rashes CENTRAL NERVOUS SYSTEM: No focal deficits, tone is normal in all 4 extremities. Extremities: There is trace peripheral edema. No clubbing, no cyanosis. Peripheral pulses are intact. - Labs CBC & Chem 7: 02/11/17 05:43 02/11/17 05:43 Labs: Abnormal Lab Results - Last 24 Hours (Table) 02/10/17 02/10/17 02/11/17 Range/Units 16:52 21:00 05:43 Hgb 11.0 L (11.4-16.0) gm/dL MCHC 30.3 L (31.0-37.0) g/dL Plt Count 467 H (150-450) k/uL Neutrophils # 8.1 H (1.3-7.7) k/uL Lymphocytes # 0.5 L (1.0-4.8) k/uL PT (9.0-12.0) sec INR (<1.2) Sodium (137-145) mmol/L Chloride (98-107) mmol/L Carbon Dioxide (22-30) mmol/L BUN (7-17) mg/dL Glucose (74-99) mg/dL POC Glucose (mg/dL) 152 H 200 H (75-99) mg/dL Calcium (8.4-10.2) mg/dL 02/11/17 02/11/17 02/11/17 Range/Units 05:43 05:43 05:57 Hgb (11.4-16.0) gm/dL MCHC (31.0-37.0) g/dL Plt Count (150-450) k/uL Neutrophils # (1.3-7.7) k/uL Lymphocytes # (1.0-4.8) k/uL PT 20.7 H (9.0-12.0) sec INR 2.1 H (<1.2) Sodium 133 L (137-145) mmol/L Chloride 87 L (98-107) mmol/L Carbon Dioxide 40 H* (22-30) mmol/L BUN 37 H (7-17) mg/dL Glucose 150 H (74-99) mg/dL POC Glucose (mg/dL) 161 H (75-99) mg/dL Calcium 8.3 L (8.4-10.2) mg/dL 02/11/17 Range/Units 11:37 Hgb (11.4-16.0) gm/dL MCHC (31.0-37.0) g/dL Plt Count (150-450) k/uL Neutrophils # (1.3-7.7) k/uL Lymphocytes # (1.0-4.8) k/uL PT (9.0-12.0) sec INR (<1.2) Sodium (137-145) mmol/L Chloride (98-107) mmol/L Carbon Dioxide (22-30) mmol/L BUN (7-17) mg/dL Glucose (74-99) mg/dL POC Glucose (mg/dL) 153 H (75-99) mg/dL Calcium (8.4-10.2) mg/dL Assessment and Plan Plan: Impression: #1 Acute exacerbation of chronic obstructive pulmonary disease. #2 Chronic atrial fibrillation, anticoagulated with warfarin, therapeutic. #3 History of diastolic congestive heart failure. #4 Hypertension. #5 Pulmonary hypertension. #6 Obstructive sleep apnea. #7 Obesity. #8 History of TIA. Plan: The patient was seen and evaluated by Dr. Juares. She has been treated for her COPD exacerbation nearly back to her baseline. She is cleared for discharge on the pulmonary standpoint. She'll follow-up with Dr. Bahena in our office in 1 -2 weeks' time. She'll complete her course of antibiotics along with a course of prednisone taper. Continue her home pulmonary medications. She is however encouraged to call sooner with any recurrence of symptoms or other questions or concerns.
[2017-02-11 15:26] VITALS: RESP 20
[2017-02-11 16:49] VITALS: PULSE 90
--- NOTE | 2017-02-11 17:52 | P.DS ---
Providers Date of admission: 02/08/17 14:30 Attending physician: Shy Patel Consults: 02/08/17 15:46 Consult Physician Routine Consulting Provider: Gustavo Goins Consult Reason/Comments: chf Do you want consulting provider notified?: Yes 02/08/17 15:47 Consult Physician Routine Consulting Provider: Jamir Lazar Consult Reason/Comments: copd Do you want consulting provider notified?: Yes Primary care physician: [facility] Course: This 76-year-old woman with a past medical history of multiple medical problems was admitted with the shortness of breath which was thought to be multifactorial mostly COPD acute exacerbation. Patient was treated bronchodilators records and antibiotics. Patient improved significantly. Patient was seen by Dr. Escobar. Cardiology also saw the patient. Care was coordinated. Patient also had a features of CHF exacerbation with acute on chronic diastolic dysfunction ejection fraction 50-50%. Patient improved significantly. Patient be discharged in a stable condition with guarded prognosis. Total time taken 35 minutes. On exam vitals stable. Cardio S1 and S2 normal. Abdomen soft nontender. Respiratory system bilateral scattered rhonchi and expiratory crackles also. Much improved. Final diagnosis 1. Shortness of breath possibly multifactorial chronic obstructive pulmonary disease acute exacerbation with acute purulent tracheobronchitis as well as CHF acute exacerbation with acute on chronic diastolic dysfunction ejection fraction 50-50%. 2. Pneumonia unlikely. 3. Coumadin monitoring. 4. Pulmonary hypertension. 5. History to fibrillation. 6. History of asthma. 7. History of CVA TIA. 8. History of pneumonia. 9. History of sleep apnea. Plan - Discharge Summary New Discharge Prescriptions: New Amoxic-Pot Clav 500-125 mg [Augmentin 500-125 mg] 1 each PO BID #10 tab Ipratropium-Albuterol Nebulize [Duoneb 0.5 mg-3 mg/3 ml Soln] 3 ml INHALATION RT-QID #120 neb predniSONE 10 mg PO DIRECTED #30 tab Continue Oxybutynin Chloride [Ditropan] 5 mg PO BID Metoprolol Tartrate [Lopressor] 50 mg PO BID #60 tab Furosemide [Lasix] 40 mg PO BID Warfarin Sodium [Coumadin] 2 mg PO HS Spironolactone [Aldactone] 25 mg PO DAILY Fluticasone/Vilanterol [Breo Ellipta 200-25 Mcg INH] 1 puff INHALATION RT- DAILY Discharge Medication List Oxybutynin Chloride [Ditropan] 5 mg PO BID 08/26/16 [History] Metoprolol Tartrate [Lopressor] 50 mg PO BID #60 tab 10/08/16 [Rx] Fluticasone/Vilanterol [Breo Ellipta 200-25 Mcg INH] 1 puff INHALATION RT-DAILY 01/10/17 [History] Furosemide [Lasix] 40 mg PO BID 01/10/17 [History] Spironolactone [Aldactone] 25 mg PO DAILY 01/10/17 [History] Warfarin Sodium [Coumadin] 2 mg PO HS 01/10/17 [History] Amoxic-Pot Clav 500-125 mg [Augmentin 500-125 mg] 1 each PO BID #10 tab [Rx] Ipratropium-Albuterol Nebulize [Duoneb 0.5 mg-3 mg/3 ml Soln] 3 ml INHALATION RT -QID #120 neb 02/11/17 [Rx] predniSONE 10 mg PO DIRECTED #30 tab 02/11/17 [Rx] Follow up Appointment(s)/Referral(s): Kofi Cortes MD [Primary Care Provider] - 02/16/17 12:45 pm Colby Potts MD [STAFF PHYSICIAN] - 03/02/17 4:15 pm [facility] Visiting Nurse, [NON-STAFF] - As Needed Ambulatory/Diagnostic Orders: Complete Blood Count w/diff [LAB.AMB] Location: Determined By Patient Patient Instructions/Handouts: Heart Failure (DC), COPD (Chronic Obstructive Pulmonary Disease) (DC), Pneumonia (DC) Activity/Diet/Wound Care/Special Instructions: diet cardiac act limited till f/u Discharge Disposition: HOME SELF-CARE
== END 2017-02-11 17:39 | disposition home or self-care (01) | DRG 190 ==
LOC: 6SEL 14:30
PROVIDERS: ADMIT Internal Medicine; ATTEND Internal Medicine
DX: J44.1 Chronic obstructive pulmonary disease with (acute) exacerbation (principal); I50.33 Acute on chronic diastolic (congestive) heart failure; I27.20 Pulmonary hypertension, unspecified; I31.3 Pericardial effusion (noninflammatory); I48.2 Chronic atrial fibrillation; I11.0 Hypertensive heart disease with heart failure; E66.9 Obesity, unspecified; G47.33 Obstructive sleep apnea (adult) (pediatric); Z79.01 Long term (current) use of anticoagulants; Z79.899 Other long term (current) drug therapy; Z82.49 Family history of ischemic heart disease and other diseases of the circulatory system; Z83.3 Family history of diabetes mellitus; Z86.73 Personal history of transient ischemic attack (TIA), and cerebral infarction without residual deficits; Z87.01 Personal history of pneumonia (recurrent); Z87.891 Personal history of nicotine dependence; Z51.81 Encounter for therapeutic drug level monitoring; I25.2 Old myocardial infarction; Z90.49 Acquired absence of other specified parts of digestive tract; Z90.89 Acquired absence of other organs; Z79.891 Long term (current) use of opiate analgesic
CPT/HCPCS: 71010; 80048; 80053; 81003; 83036; 83735; 83880; 84484; 85025; 85610; 93306; 94640; 94760

== ENCOUNTER 2020-04-25 16:39 | Inpatient (IN) | payer MEDICARE ==
[2020-04-25] MEDS ORDERED: ALBUTEROL HFA INHALER INHALATION STA (16:55)
[2020-04-25] MEDS ORDERED: SODIUM CHLORIDE 0.9% 1,000 ML IV STA (16:55)
[2020-04-25] MEDS ORDERED: ACETAMINOPHEN TAB 500 MG TAB PO STA (16:55)
[2020-04-25] MEDS ORDERED: ACETAMINOPHEN TAB 500 MG TAB PO PRN (16:55)
--- NOTE | 2020-04-25 16:59 | ED ---
General Adult HPI - General Chief complaint: Shortness of Breath Stated complaint: JW Time Seen by Provider: 04/25/20 16:49 Source: patient, EMS, RN notes reviewed Mode of arrival: EMS Limitations: no limitations - History of Present Illness Initial comments: Patient is a pleasant 79-year-old female presenting to the emergency Department with complaints of difficulty breathing. Onset of symptoms was 2-3 days ago. Patient does have cough with yellow sputum. No fever. No leg pain or leg swelling. Symptoms are similar to previous COPD. dyspnea has progressively worsened over the past few days. - Related Data Home Medications Medication Instructions Recorded Confirmed Oxybutynin Chloride [Ditropan] 5 mg PO BID 08/26/16 02/25/19 Fluticasone/Vilanterol [Breo 1 puff INHALATION RT-DAILY 01/10/17 02/25/19 Ellipta 200-25 Mcg INH] Furosemide [Lasix] 20 mg PO BID 01/10/17 02/25/19 Rivaroxaban [Xarelto] 20 mg PO HS 01/18/19 02/25/19 Previous Rx's Medication Instructions Recorded Metoprolol Tartrate [Lopressor] 50 mg PO BID #60 tab 10/08/16 Ipratropium-Albuterol Nebulize 3 ml INHALATION RT-QID #120 neb 02/11/17 [Duoneb 0.5 mg-3 mg/3 ml Soln] Allergies Allergy/AdvReac Type Severity Reaction Status Date / Time No Known Allergies Allergy Verified 04/25/20 16:54 Review of Systems ROS Statement: Those systems with pertinent positive or pertinent negative responses have been documented in the HPI. ROS Other: All systems not noted in ROS Statement are negative. Constitutional: Denies: fever Eyes: Denies: eye pain ENT: Denies: ear pain Respiratory: Reports: cough, dyspnea Cardiovascular: Denies: chest pain Endocrine: Reports: fatigue Gastrointestinal: Denies: abdominal pain Genitourinary: Denies: dysuria Musculoskeletal: Denies: back pain Skin: Denies: rash Neurological: Denies: headache Past Medical History Past Medical History: Atrial Fibrillation, Asthma, Heart Failure, COPD, CVA/TIA, Myocardial Infarction (VT), Pneumonia, Renal Disease, Respiratory Disorder, Sleep Apnea/CPAP/BIPAP Additional Past Medical History / Comment(s): Obesity, COPD, secondary pulmonary potential, degenerative arthritis, CHF with ejection fraction of 40%, obstructive sleep apnea currently on no treatment Last Myocardial Infarction Date:: 1991 History of Any Multi-Drug Resistant Organisms: None Reported Past Surgical History: Appendectomy, Tonsillectomy Additional Past Surgical History / Comment(s): left leg surgery d/t fracture, colonoscopy-normal. Past Anesthesia/Blood Transfusion Reactions: No Reported Reaction Past Psychological History: No Psychological Hx Reported Past Alcohol Use History: None Reported Past Drug Use History: None Reported - Past Family History Father Family Medical History: Congestive Heart Failure (CHF) Additional Family Medical History / Comment(s): Father of CHF-pt cannot recall how old he was. Mother Family Medical History: Diabetes Mellitus Additional Family Medical History / Comment(s): Mother lived to be in her 90's. General Exam Limitations: no limitations General appearance: alert, in no apparent distress Head exam: Present: normocephalic Eye exam: Present: normal appearance Neck exam: Present: normal inspection Respiratory exam: Present: wheezes, rhonchi Cardiovascular Exam: Present: tachycardia, irregular rhythm GI/Abdominal exam: Present: soft. Absent: tenderness Extremities exam: Present: normal inspection. Absent: pedal edema, calf tenderness Neurological exam: Present: alert Psychiatric exam: Present: normal affect, normal mood Skin exam: Present: normal color Course Vital Signs 04/25/20 04/25/20 04/25/20 16:40 16:43 17:00 Temperature 102 F H Pulse Rate 119 H 125 H Respiratory 28 H 26 H Rate Blood Pressure 110/56 110/56 O2 Sat by Pulse 100 99 Oximetry 04/25/20 04/25/20 04/25/20 17:30 18:00 18:44 Temperature 101.2 F H Pulse Rate 115 H 110 H Respiratory 24 26 H 18 Rate Blood Pressure 125/67 124/49 O2 Sat by Pulse 98 97 Oximetry EKG Findings - EKG Comments: EKG Findings:: Neuro complex regular rhythm with a rate of 119. AR and 70. QRS 70. QT 296. QTc 416. Right axis. Q waves V1 and V2. Nonspecific ST-T. Motion artifact present. Medical Decision Making - Medical Decision Making Patient reevaluated and updated. Patient currently on Xarelto and therefore Lovenox will be held. Case was discussed with Dr. Scott, who will admit covering for Dr. Cortes. - Lab Data Result diagrams: 04/25/20 17:04 04/25/20 17:04 Lab Results 04/25/20 04/25/20 04/25/20 Range/Units 17:04 17:04 17:04 WBC 9.2 (3.8-10.6) k/uL RBC 4.11 (3.80-5.40) m/uL Hgb 12.4 (11.4-16.0) gm/dL Hct 38.4 (34.0-46.0) % MCV 93.6 (80.0-100.0) fL MCH 30.1 (25.0-35.0) pg MCHC 32.2 (31.0-37.0) g/dL RDW 13.3 (11.5-15.5) % Plt Count 170 (150-450) k/uL MPV 7.1 Neutrophils % 92 % Lymphocytes % 2 % Monocytes % 4 % Eosinophils % 0 % Basophils % 1 % Neutrophils # 8.5 H (1.3-7.7) k/uL Lymphocytes # 0.2 L (1.0-4.8) k/uL Monocytes # 0.4 (0-1.0) k/uL Eosinophils # 0.0 (0-0.7) k/uL Basophils # 0.1 (0-0.2) k/uL PT 11.6 (9.0-12.0) sec INR 1.1 (<1.2) APTT 28.4 (22.0-30.0) sec Sodium 134 L (137-145) mmol/L Potassium 3.6 (3.5-5.1) mmol/L Chloride 89 L (98-107) mmol/L Carbon Dioxide 37 H (22-30) mmol/L Anion Gap 8 mmol/L BUN 29 H (7-17) mg/dL Creatinine 1.16 H (0.52-1.04) mg/dL Est GFR (CKD-EPI)AfAm 52 (>60 ml/min/1.73 sqM) Est GFR (CKD-EPI)NonAf 45 (>60 ml/min/1.73 sqM) Glucose 167 H (74-99) mg/dL Lactic Ac Sepsis Rflx Plasma Lactic Acid Axel (0.7-2.0) mmol/L Calcium 8.3 L (8.4-10.2) mg/dL Magnesium 1.8 (1.6-2.3) mg/dL Total Bilirubin 2.4 H (0.2-1.3) mg/dL AST 34 (14-36) U/L ALT 16 (4-34) U/L Alkaline Phosphatase 112 (38-126) U/L Lactate Dehydrogenase 626 H (313-618) U/L C-Reactive Protein 229.9 H (<10.0) mg/L Total Protein 6.9 (6.3-8.2) g/dL Albumin 3.8 (3.5-5.0) g/dL Coronavirus (PCR) (Not Detectd) 04/25/20 04/25/20 04/25/20 Range/Units 17:04 17:04 17:43 WBC (3.8-10.6) k/uL RBC (3.80-5.40) m/uL Hgb (11.4-16.0) gm/dL Hct (34.0-46.0) % MCV (80.0-100.0) fL MCH (25.0-35.0) pg MCHC (31.0-37.0) g/dL RDW (11.5-15.5) % Plt Count (150-450) k/uL MPV Neutrophils % % Lymphocytes % % Monocytes % % Eosinophils % % Basophils % % Neutrophils # (1.3-7.7) k/uL Lymphocytes # (1.0-4.8) k/uL Monocytes # (0-1.0) k/uL Eosinophils # (0-0.7) k/uL Basophils # (0-0.2) k/uL PT (9.0-12.0) sec INR (<1.2) APTT (22.0-30.0) sec Sodium (137-145) mmol/L Potassium (3.5-5.1) mmol/L Chloride (98-107) mmol/L Carbon Dioxide (22-30) mmol/L Anion Gap mmol/L BUN (7-17) mg/dL Creatinine (0.52-1.04) mg/dL Est GFR (CKD-EPI)AfAm (>60 ml/min/1.73 sqM) Est GFR (CKD-EPI)NonAf (>60 ml/min/1.73 sqM) Glucose (74-99) mg/dL Lactic Ac Sepsis Rflx Y Plasma Lactic Acid Axel 2.5 H* (0.7-2.0) mmol/L Calcium (8.4-10.2) mg/dL Magnesium (1.6-2.3) mg/dL Total Bilirubin (0.2-1.3) mg/dL AST (14-36) U/L ALT (4-34) U/L Alkaline Phosphatase (38-126) U/L Lactate Dehydrogenase (313-618) U/L C-Reactive Protein (<10.0) mg/L Total Protein (6.3-8.2) g/dL Albumin (3.5-5.0) g/dL Coronavirus (PCR) Detected A (Not Detectd) - Radiology Data Radiology results: image reviewed (Chest x-ray shows right lower lobe infiltrate. Small right effusion) Disposition Clinical Impression: COVID-19, Acute exacerbation of chronic obstructive pulmonary disease Disposition: ADMITTED IP TO THIS HOSP Condition: Serious Is patient prescribed a controlled substance at d/c from ED?: No Referrals: Kofi Cortes MD [Primary Care Provider] - 1-2 days Decision Time: 20:00
[2020-04-25 17:20] LABS: Basophils # (A) 0.1 k/uL (0-0.2); Basophils % (A) 1 %; Eosinophils % (A) 0 %; HCT 38.4 % (34.0-46.0); HGB 12.4 gm/dL (11.4-16.0); Lymphocytes # (A) 0.2 k/uL (1.0-4.8); Lymphocytes % (A) 2 %; MCH 30.1 pg (25.0-35.0); MCHC 32.2 g/dL (31.0-37.0); MCV 93.6 fL (80.0-100.0); Mean Platelet Volume 7.1; Monocytes # (A) 0.4 k/uL (0-1.0); Monocytes % (A) 4 %; Neutrophils # (A) 8.5 k/uL (1.3-7.7); Neutrophils % (A) 92 %; Platelet Count 170 k/uL (150-450); RBC 4.11 m/uL (3.80-5.40); RDW 13.3 % (11.5-15.5); WBC 9.2 k/uL (3.8-10.6)
[2020-04-25 17:29] LABS: INR 1.1 (<1.2); Partial Thromboplastin Time 28.4 sec (22.0-30.0); Prothrombin Time 11.6 sec (9.0-12.0)
[2020-04-25 17:30] LABS: Albumin 3.8 g/dL (3.5-5.0); Calcium 8.3 mg/dL (8.4-10.2); Magnesium 1.8 mg/dL (1.6-2.3); Potassium 3.6 mmol/L (3.5-5.1); Total Bilirubin 2.4 mg/dL (0.2-1.3); Total Protein 6.9 g/dL (6.3-8.2)
[2020-04-25 17:42] LABS: C Reactive Protein 229.9 mg/L (<10.0)
--- NOTE | 2020-04-25 17:50 | XR ---
EXAMINATION TYPE: XR chest 1V portable DATE OF EXAM: 04/25/2020 COMPARISON: 02/08/2017 HISTORY: Short of breath TECHNIQUE: FINDINGS: Heart is enlarged. There is coarse pulmonary infiltrates. This is predominantly in the lowe r lobes. There is no obvious heart failure. There are chest leads. There is probably small right pleu ral effusion. IMPRESSION: Moderate cardiomegaly. Chronic lower lobe pneumonia similar to old exam. No obvious heart failure. Small right pleural effusion increased compared to old exam.
[2020-04-25] MEDS ORDERED: ALBUTEROL HFA INHALER INHALATION SCH (20:00)
[2020-04-25] MEDS ORDERED: methylPREDNISolone SOD SUCCI 125 MG/2 ML VIAL IV STA (20:00)
[2020-04-25] MEDS: ASCORBIC ACID 500 MG TAB PO SCH (20:45)
[2020-04-25] MEDS: METOPROLOL TARTRATE 50 MG TAB PO SCH (20:45)
[2020-04-25] MEDS: ZINC SULFATE 220 MG CAP PO SCH (20:45)
[2020-04-25] MEDS: CHOLECALCIFEROL 1,000 UNIT TAB PO SCH (20:45)
[2020-04-25] MEDS: SODIUM CHLORIDE 0.9% 1,000 ML IV SCH (20:45)
[2020-04-25] MEDS: RIVAROXABAN 20 MG TAB PO SCH (20:46)
[2020-04-25] MEDS: methylPREDNISolone SOD SUCCI 125 MG/2 ML VIAL IV SCH (23:48)
[2020-04-26 01:42] LABS: Ferritin 232.3 ng/mL (10.0-291.0)
[2020-04-26] MEDS: methylPREDNISolone SOD SUCCI 125 MG/2 ML VIAL IV SCH ×2 (05:58→12:49)
[2020-04-26] MEDS: SODIUM CHLORIDE 0.9% 1,000 ML IV SCH ×2 (06:00→17:44)
[2020-04-26] MEDS: ALBUTEROL HFA INHALER INHALATION PRN ×2 (07:34→19:37)
[2020-04-26] MEDS: SYMBICORT 160-4.5 MCG INHALER INHALATION SCH ×2 (07:34→19:37)
[2020-04-26] MEDS: ZINC SULFATE 220 MG CAP PO SCH (08:14)
[2020-04-26] MEDS: METOPROLOL TARTRATE 50 MG TAB PO SCH ×2 (08:14→20:44)
[2020-04-26] MEDS: ASCORBIC ACID 500 MG TAB PO SCH ×2 (08:14→20:44)
[2020-04-26] MEDS: CHOLECALCIFEROL 1,000 UNIT TAB PO SCH (08:14)
[2020-04-26 13:00] LABS: Glucose,Whole Blood 136 mg/dL (75-99)
[2020-04-26] MEDS ORDERED: VANCOMYCIN IV PER PHARMACY 1 EACH MISC MISCELLANE PRN (13:11)
[2020-04-26] MEDS: SPIRONOLACTONE 25 MG TAB PO SCH (13:12)
[2020-04-26] MEDS: OXYBUTYNIN CHLORIDE 5 MG TAB PO SCH ×2 (13:12→20:44)
[2020-04-26] MEDS: guaiFENesin 600 MG TABLET.ER PO SCH ×3 (13:12→20:44)
[2020-04-26] MEDS: INSULIN ASPART (NovoLOG) 100 UNIT/ML VIAL SQ SCH ×3 (13:12→20:45)
[2020-04-26 13:37] LABS: ABG Base Excess 8.4 mmol/L; ABG HCO3 34 mmol/L (21-25); ABG Oxygen Saturation 82.6 % (94-97); ABG PCO2 60 mmHg (35-45); ABG PH 7.36 (7.35-7.45); ABG TCO2 36 mmol/L (19-24); Allen Test Performed? Yes
[2020-04-26 13:42] LABS: ABG PO2 46 mmHg (83-108)
[2020-04-26] MEDS: VANCOMYCIN 1,250 MG in SODIUM CHLORIDE 0.9% 250 ML IVPB SCH (14:41)
[2020-04-26] MEDS ORDERED: methylPREDNISolone SOD SUCCI 40 MG/ML 1 ML VIAL IV SCH ×2 (16:00→18:00)
--- NOTE | 2020-04-26 16:59 | P.CNPUL ---
History of Present Illness Consult date: 04/26/20 Requesting physician: Finn Scott Reason for consult: dyspnea, hypoxemia, abnormal CXR/CT (COPD, moderate cardiomegaly, chronic left lower lobe opacity) Chief complaint: Shortness of breath History of present illness: This is a pleasant 79-year-old female patient who follows with Dr. Cortes with a known history of chronic hypoxic respiratory failure on home oxygen, chronic tobacco dependence, atrial fibrillation, CVA/TIA, myocardial infarction, obstructive sleep apnea on no treatment, chronic systolic congestive heart failure with ejection fraction 40%. She presented to the emergency room yesterday with complaints of a 2-3 day history of increasing shortness of breath, cough and congestion yellow productive sputum. She states she had been exposed to her grandson who was positive for CoVID 19. Chest x-ray revealed moderate cardiomegaly. Chronic lower lobe pneumonia similar to previous exam from 2017. Small right pleural effusion. White count 9.2. Hemoglobin 12.4. D-dimer 0.49. Sodium 134. Potassium 3.6. Creatinine 1.16. LDH 626. C- reactive protein 315. Coronavirus by PCR detected. She is seen today in consultation on the regular medical floor. She is currently in some moderate respiratory distress. She is spastic and wheezing. She has a productive cough. She is on 10 L high flow nasal cannula to maintain O2 saturation in the 90s. Urgent arterial blood gases were drawn and revealed a PaO2 of 46, pCO2 of 60 and a pH of 7.36. She was placed on BiPAP 12/6 and 60% FiO2. He is more comfortable. She has stated she did not want to be intubated and placed on mechanical ventilator. She is a DO NOT RESUSCITATE/DO NOT INTUBATE CODE STATUS. Pro calcitonin 3.21. She is initiated on Zosyn and bronchodilators. Preliminary blood culture reveals gram-positive cocci. She is initiated on vancomycin. Review of Systems REVIEW OF SYSTEMS: CONSTITUTIONAL: Denies any recent significant weight loss or weight gain. EYES: Denies change in vision. EARS, NOSE, MOUTH, THROAT: Denies headaches, denies sore throat. CARDIOVASCULAR: Denies chest pain, palpitations or syncopal episodes. RESPIRATORY: Positive for shortness of breath, cough, congestion no hemoptysis. GASTROINTESTINAL: Denies change in appetite, denies abdominal pain GENITOURINARY: Denies hematuria, denies infections. MUSKULOSKELETAL: Denies pain, denies swelling. INTEGUMENTARY: Denies rash, denies eczema. NEUROLOGICAL: Denies recent memory loss, no recent seizure activity. PSYCHIATRIC: Denies anxiety, denies depression. HEMATOLOGIC/LYMPHATIC: Denies anemia, denies enlarged lymph nodes. Past Medical History Past Medical History: Atrial Fibrillation, Asthma, Heart Failure, COPD, CVA/TIA, Myocardial Infarction ([place]), Pneumonia, Renal Disease, Respiratory Disorder, Sleep Apnea/CPAP/BIPAP Additional Past Medical History / Comment(s): Obesity, COPD, secondary pulmonary potential, degenerative arthritis, CHF with ejection fraction of 40%, obstructive sleep apnea currently on no treatment, uses O2 4L Last Myocardial Infarction Date:: 1991 History of Any Multi-Drug Resistant Organisms: None Reported Past Surgical History: Appendectomy, Tonsillectomy Additional Past Surgical History / Comment(s): left leg surgery d/t fracture, colonoscopy-normal. Past Anesthesia/Blood Transfusion Reactions: No Reported Reaction Past Psychological History: No Psychological Hx Reported Additional Psychological History / Comment(s): Pt has her daughter and 2 adult grandchildren living with her. She has a cane and walker. Smoking Status: Former smoker Past Alcohol Use History: None Reported Additional Past Alcohol Use History / Comment(s): Pt states she started smoking in 1954 and quit in 2011. Past Drug Use History: None Reported - Past Family History Father Family Medical History: Congestive Heart Failure (CHF) Additional Family Medical History / Comment(s): Father of CHF-pt cannot recall how old he was. Mother Family Medical History: Diabetes Mellitus Additional Family Medical History / Comment(s): Mother lived to be in her 90's. Medications and Allergies Home Medications Medication Instructions Recorded Confirmed Type Oxybutynin Chloride [Ditropan] 5 mg PO BID 08/26/16 04/25/20 History Metoprolol Tartrate [Lopressor] 50 mg PO BID #60 tab 10/08/16 04/25/20 Rx Fluticasone/Vilanterol [Breo 1 puff INHALATION RT-DAILY 01/10/17 04/25/20 History Ellipta 200-25 Mcg INH] Furosemide [Lasix] 20 mg PO BID 01/10/17 04/25/20 History Ipratropium-Albuterol Nebulize 3 ml INHALATION RT-QID #120 neb 02/11/17 04/25/20 Rx [Duoneb 0.5 mg-3 mg/3 ml Soln] Rivaroxaban [Xarelto] 20 mg PO HS 01/18/19 04/25/20 History Potassium Chloride 10 meq PO DAILY 04/25/20 04/25/20 History Spironolactone [Aldactone] 25 mg PO DAILY 04/25/20 04/25/20 History Allergies Allergy/AdvReac Type Severity Reaction Status Date / Time No Known Allergies Allergy Verified 04/25/20 20:44 Physical Exam Vitals: Vital Signs Temp Pulse Pulse Resp BP BP Pulse Ox 04/26/20 11:00 98.0 F 84 18 113/44 97 04/26/20 04:40 97.5 F L 67 16 107/61 100 04/26/20 01:12 90 L 04/26/20 00:00 86 16 04/25/20 21:40 98.0 F 86 16 116/64 99 04/25/20 20:55 26 H 95 04/25/20 20:43 98.0 F 110 H 28 H 92 L 04/25/20 20:00 112 H 18 129/61 98 04/25/20 19:30 112 H 20 117/48 98 04/25/20 19:00 115 H 18 116/59 98 04/25/20 18:44 101.2 F H 18 04/25/20 18:30 117 H 22 119/45 96 04/25/20 18:00 110 H 26 H 124/49 97 04/25/20 17:30 115 H 24 125/67 98 04/25/20 17:00 125 H 26 H 110/56 04/25/20 16:43 99 Intake and Output 04/26/20 04/26/20 04/26/20 06:59 14:59 22:59 Intake Total 240 Balance 240 Intake: Oral 240 Other: # Voids 1 1 # Bowel Movements 0 GENERAL EXAM: Alert, restless 79-year-old female patient, on 10 L high flow nasal cannula, and mild to moderate respiratory distress. HEAD: Normocephalic. EYES: Normal reaction of pupils, equal size. NOSE: Clear with pink turbinates. THROAT: No erythema or exudates. NECK: No masses, no JVD. CHEST: No chest wall deformity. LUNGS: Equal air entry with bilateral end expiratory wheeze, scattered rhonchi, diminished. CVS: S1 and S2 normal with no audible murmur, regular rhythm. ABDOMEN: No hepatosplenomegaly, normal bowel sounds, no guarding or rigidity. SPINE: No scoliosis or deformity SKIN: No rashes CENTRAL NERVOUS SYSTEM: No focal deficits, tone is normal in all 4 extremities. EXTREMITIES: There is no peripheral edema. No clubbing, no cyanosis. Peripheral pulses are intact. Results - Laboratory Findings CBC and BMP: 04/25/20 17:04 04/25/20 17:04 ABG ABG pH 7.36 (7.35-7.45) 04/26/20 13:35 ABG pCO2 60 mmHg (35-45) H 04/26/20 13:35 ABG pO2 46 mmHg (83-108) L* 04/26/20 13:35 ABG O2 Saturation 82.6 % (94-97) L 04/26/20 13:35 PT/INR, D-dimer PT 11.6 sec (9.0-12.0) 04/25/20 17:04 INR 1.1 (<1.2) 04/25/20 17:04 D-Dimer 0.49 mg/L FEU (<0.60) 04/26/20 12:24 Abnormal lab findings: Abnormal Labs 04/25/20 04/25/20 04/25/20 17:04 17:04 17:04 Neutrophils # 8.5 H Lymphocytes # 0.2 L ABG pCO2 ABG pO2 ABG HCO3 ABG Total CO2 ABG O2 Saturation Sodium 134 L Chloride 89 L Carbon Dioxide 37 H BUN 29 H Creatinine 1.16 H Glucose 167 H POC Glucose (mg/dL) Plasma Lactic Acid Axel 2.5 H* Calcium 8.3 L Total Bilirubin 2.4 H Lactate Dehydrogenase 626 H C-Reactive Protein 229.9 H Procalcitonin Coronavirus (PCR) 04/25/20 04/25/20 04/26/20 17:04 17:04 12:24 Neutrophils # Lymphocytes # ABG pCO2 ABG pO2 ABG HCO3 ABG Total CO2 ABG O2 Saturation Sodium Chloride Carbon Dioxide BUN Creatinine Glucose POC Glucose (mg/dL) Plasma Lactic Acid Axel Calcium Total Bilirubin Lactate Dehydrogenase C-Reactive Protein 315.2 H Procalcitonin 3.21 H Coronavirus (PCR) Detected A 04/26/20 04/26/20 12:59 13:35 Neutrophils # Lymphocytes # ABG pCO2 60 H ABG pO2 46 L* ABG HCO3 34 H ABG Total CO2 36 H ABG O2 Saturation 82.6 L Sodium Chloride Carbon Dioxide BUN Creatinine Glucose POC Glucose (mg/dL) 136 H Plasma Lactic Acid Axel Calcium Total Bilirubin Lactate Dehydrogenase C-Reactive Protein Procalcitonin Coronavirus (PCR) - Diagnostic Findings Chest x-ray: image reviewed Assessment and Plan Assessment: 1 Acute on chronic hypoxic respiratory failure secondary to an acute exacerbation of chronic obstructive pulmonary disease complicated by probable early pneumonia and CoVID 19 infection. 2 Acute CoVID 19 infection 3 Chronic hypoxemic respiratory failure 4 History of previous chronic tobacco dependence 5 Bacteremia secondary to gram-positive cocci 6 Acute renal failure 7 Elevated inflammatory markers secondary to Coronavirus 8 History of atrial fibrillation, anticoagulated with Xarelto 9 History of CVA/TIA 10 Ischemic cardiomyopathy with ejection fraction 40% 11 History of obstructive sleep apnea not on treatment 12 Poor overall functional performance based on the above-mentioned multiple comorbidities Plan: The patient was seen and evaluated by Dr. Lazar Chest x-ray, ABGs and labs reviewed Continue BiPAP support for now Initiate Zosyn, vancomycin Continue bronchodilators and IV Solu-Medrol Anticoagulated with Xarelto Prognosis remains quite guarded and poor She is a DO NOT RESUSCITATE/DO NOT INTUBATE CODE STATUS We will continue to follow make further recommendations based on her clinical status I, the cosigning physician, performed a history & physical examination of the patient. Lungs sounds with bilateral wheeze, scattered rhonchi, diminished. Maintaining good O2 saturations in the 90s on BiPAP 12/6and 60% FiO2. I discussed the assessment and plan of care with my nurse practitioner, Debbie Deras. I attest to the above consultation as dictated by her. Time with Patient: Greater than 30
[2020-04-26 17:12] LABS: Glucose,Whole Blood 192 mg/dL (75-99)
[2020-04-26] MEDS: PIPERACILLIN-TAZOBACTAM 3.375 GM in SODIUM CHLORIDE 0.9% 100 ML IVPB SCH (17:32)
[2020-04-26 20:19] LABS: Glucose,Whole Blood 129 mg/dL (75-99)
[2020-04-26] MEDS: RIVAROXABAN 20 MG TAB PO SCH (20:44)
--- NOTE | 2020-04-27 00:34 | P.HPIM ---
History of Present Illness H&P Date: 04/26/20 Chief Complaint: cough History of presenting complaint: This is a pleasant 79-year-old patient of . Chronic stable medical conditions include atrial fibrillation, COPD, kidney disease, secondary pulmonary hypertension, DJD, CHF EF of 40%, obstructive sleep apnea does not use any treatment, home oxygen 4 L. Patient presents with 3-4 weeks of not feeling well got a cough taking yellow-green sputum. Denies any fever but feels cold all the time decreased appetite. No loss of smell or taste. Denies any headache. No diarrhea. Review of systems: GEN.: Tired decreased appetite EYES: None HEENT: None NECK: None RESPIRATORY: Take yellow-green sputum CARDIOVASCULAR: None GASTROINTESTINAL: None GENITOURINARY: None MUSCULOSKELETAL: Some joint pains LYMPHATICS: None HEMATOLOGICAL: None PSYCHIATRY: None NEUROLOGICAL: None Past medical history to include: Atrial fibrillation, COPD, heart failure, TIA, heart attack, obstructive sleep apnea does not use any treatment Secondary to be hypertension, DJD, CHF EF of 40%, home oxygen 4 L Social history: Daughter lives with him. Does use a cane and a walker. Patient smoked for 58 years stopping in 2011. No alcohol. Physical examination: VITAL SIGNS: 102, 119, 28, 110/56, 100% on 15 L on breather GENERAL: BMI 28.3, sitting up, tired. EYES: Pupils equal. Conjunctiva normal. HEENT: External appearance of nose and ears normal, oral cavity grossly normal. NECK: JVD not raised; masses not palpable. HEART: First and second heart sounds are normal; no edema. LUNGS: Respiratory rate increased, decreased breath sounds right basilar coarse crackles. ABDOMEN: Soft, nontender, liver spleen not palpable, no masses palpable. PSYCH: Alert and oriented x3; mood and affect normal. NEUROLOGICAL: Cranial nerves grossly intact; no facial asymmetry, power and sensation grossly intact. LYMPHATICS: No lymph nodes palpable in the axilla and neck INVESTIGATIONS, reviewed in the clinical context: White count 9.2 hemoglobin 12.4 neutrophils 8.5 lymphocytes 0.2 potassium 3.6 bun 29 creatinine 1.16 D-dimer 0.48 lactic acid 2.5 CRP 229 pro-calcitonin 3.21 Coronavirus PCR-detected Chest x-ray film personally reviewed by me-right lower lobe infiltrate EKG tracing personally reviewed by me-atrial flutter Assessment: -Right lower lobe pneumonia suspected gram-negative orgasm patient with thick yellow-green sputum. -Underlying COVID 19 infection -Persistent atrial flutter fibrillation -Acute COPD exacerbation in an ex-smoker -Coronary artery disease with prior [place] -Chronic hypoxic respiratory failure on 4 L oxygen at home -Acute hypoxic respiratory failure from above -Chronic congestive heart failure from systolic dysfunction EF 40% -Secondary pulmonary hypertension Plan: Patient started IV Zosyn. Sputum will be sent off for Gram stain and culture. Vancomycin was added by Dr. Lazar. Patient to continue on xarelto. Bronchodilators. IV Solu-Medrol. Care was discussed with the patient question also. Past Medical History Past Medical History: Atrial Fibrillation, Asthma, Heart Failure, COPD, CVA/TIA, Myocardial Infarction ([place]), Pneumonia, Renal Disease, Respiratory Disorder, Sleep Apnea/CPAP/BIPAP Additional Past Medical History / Comment(s): Obesity, COPD, secondary pulmonary potential, degenerative arthritis, CHF with ejection fraction of 40%, obstructive sleep apnea currently on no treatment, uses O2 4L Last Myocardial Infarction Date:: 1991 History of Any Multi-Drug Resistant Organisms: None Reported Past Surgical History: Appendectomy, Tonsillectomy Additional Past Surgical History / Comment(s): left leg surgery d/t fracture, colonoscopy-normal. Past Anesthesia/Blood Transfusion Reactions: No Reported Reaction Past Psychological History: No Psychological Hx Reported Additional Psychological History / Comment(s): Pt has her daughter and 2 adult grandchildren living with her. She has a cane and walker. Smoking Status: Former smoker Past Alcohol Use History: None Reported Additional Past Alcohol Use History / Comment(s): Pt states she started smoking in 1954 and quit in 2011. Past Drug Use History: None Reported - Past Family History Father Family Medical History: Congestive Heart Failure (CHF) Additional Family Medical History / Comment(s): Father of CHF-pt cannot recall how old he was. Mother Family Medical History: Diabetes Mellitus Additional Family Medical History / Comment(s): Mother lived to be in her 90's. Medications and Allergies Home Medications Medication Instructions Recorded Confirmed Type Oxybutynin Chloride [Ditropan] 5 mg PO BID 08/26/16 04/25/20 History Metoprolol Tartrate [Lopressor] 50 mg PO BID #60 tab 10/08/16 04/25/20 Rx Fluticasone/Vilanterol [Breo 1 puff INHALATION RT-DAILY 01/10/17 04/25/20 History Ellipta 200-25 Mcg INH] Furosemide [Lasix] 20 mg PO BID 01/10/17 04/25/20 History Ipratropium-Albuterol Nebulize 3 ml INHALATION RT-QID #120 neb 02/11/17 04/25/20 Rx [Duoneb 0.5 mg-3 mg/3 ml Soln] Rivaroxaban [Xarelto] 20 mg PO HS 01/18/19 04/25/20 History Potassium Chloride 10 meq PO DAILY 04/25/20 04/25/20 History Spironolactone [Aldactone] 25 mg PO DAILY 04/25/20 04/25/20 History Allergies Allergy/AdvReac Type Severity Reaction Status Date / Time No Known Allergies Allergy Verified 04/25/20 20:44 Physical Exam Vitals: Vital Signs Temp Pulse Pulse Resp BP BP Pulse Ox 04/26/20 04:40 97.5 F L 67 16 107/61 100 04/26/20 01:12 90 L 04/26/20 00:00 86 16 04/25/20 21:40 98.0 F 86 16 116/64 99 04/25/20 20:55 26 H 95 04/25/20 20:43 98.0 F 110 H 28 H 92 L 04/25/20 20:00 112 H 18 129/61 98 04/25/20 19:30 112 H 20 117/48 98 04/25/20 19:00 115 H 18 116/59 98 04/25/20 18:44 101.2 F H 18 04/25/20 18:30 117 H 22 119/45 96 04/25/20 18:00 110 H 26 H 124/49 97 04/25/20 17:30 115 H 24 125/67 98 04/25/20 17:00 125 H 26 H 110/56 04/25/20 16:43 99 04/25/20 16:40 102 F H 119 H 28 H 110/56 100 Intake and Output 04/25/20 04/26/20 04/26/20 22:59 06:59 14:59 Intake Total 240 Balance 240 Intake: Oral 240 Other: # Voids 1 # Bowel Movements 0 0 Weight 74.843 kg Results CBC & Chem 7: 04/25/20 17:04 04/25/20 17:04 Labs: Abnormal Lab Results - Last 24 Hours (Table) 04/25/20 04/25/20 04/25/20 Range/Units 17:04 17:04 17:04 Neutrophils # 8.5 H (1.3-7.7) k/uL Lymphocytes # 0.2 L (1.0-4.8) k/uL Sodium 134 L (137-145) mmol/L Chloride 89 L (98-107) mmol/L Carbon Dioxide 37 H (22-30) mmol/L BUN 29 H (7-17) mg/dL Creatinine 1.16 H (0.52-1.04) mg/dL Glucose 167 H (74-99) mg/dL Plasma Lactic Acid Axel 2.5 H* (0.7-2.0) mmol/L Calcium 8.3 L (8.4-10.2) mg/dL Total Bilirubin 2.4 H (0.2-1.3) mg/dL Lactate Dehydrogenase 626 H (313-618) U/L C-Reactive Protein 229.9 H (<10.0) mg/L Procalcitonin (0.02-0.09) ng/mL Coronavirus (PCR) (Not Detectd) 04/25/20 04/25/20 Range/Units 17:04 17:04 Neutrophils # (1.3-7.7) k/uL Lymphocytes # (1.0-4.8) k/uL Sodium (137-145) mmol/L Chloride (98-107) mmol/L Carbon Dioxide (22-30) mmol/L BUN (7-17) mg/dL Creatinine (0.52-1.04) mg/dL Glucose (74-99) mg/dL Plasma Lactic Acid Axel (0.7-2.0) mmol/L Calcium (8.4-10.2) mg/dL Total Bilirubin (0.2-1.3) mg/dL Lactate Dehydrogenase (313-618) U/L C-Reactive Protein (<10.0) mg/L Procalcitonin 3.21 H (0.02-0.09) ng/mL Coronavirus (PCR) Detected A (Not Detectd) Thrombosis Risk Factor Assmnt - Choose All That Apply Any of the Below Risk Factors Present?: Yes Each Factor Represents 1 point: Abnormal pulmonary function (COPD), Obesity (BMI >25), Serious lung disease incl. pneumonia (< 1month) Other Risk Factors: Yes Each Risk Factor Represents 3 Points: Age 75 years or older Other congenital or acquired thrombophilia - If yes, enter type in comment: No Thrombosis Risk Factor Assessment Total Risk Factor Score: 6 Thrombosis Risk Factor Assessment Level: High Risk
[2020-04-27] MEDS: methylPREDNISolone SOD SUCCI 125 MG/2 ML VIAL IV SCH ×4 (00:43→17:27)
[2020-04-27] MEDS: PIPERACILLIN-TAZOBACTAM 3.375 GM in SODIUM CHLORIDE 0.9% 100 ML IVPB SCH ×3 (00:43→17:27)
[2020-04-27] MEDS: SPIRONOLACTONE 25 MG TAB PO SCH (07:09)
[2020-04-27] MEDS: CHOLECALCIFEROL 1,000 UNIT TAB PO SCH (07:09)
[2020-04-27] MEDS: OXYBUTYNIN CHLORIDE 5 MG TAB PO SCH ×2 (07:09→20:31)
[2020-04-27] MEDS: guaiFENesin 600 MG TABLET.ER PO SCH ×4 (07:09→20:31)
[2020-04-27] MEDS: ZINC SULFATE 220 MG CAP PO SCH (07:09)
[2020-04-27] MEDS: ASCORBIC ACID 500 MG TAB PO SCH ×2 (07:09→20:31)
[2020-04-27] MEDS: METOPROLOL TARTRATE 50 MG TAB PO SCH ×2 (07:09→20:31)
[2020-04-27 07:12] LABS: Glucose,Whole Blood 144 mg/dL (75-99)
[2020-04-27] MEDS: INSULIN ASPART (NovoLOG) 100 UNIT/ML VIAL SQ SCH ×4 (07:45→20:31)
[2020-04-27] MEDS: ALBUTEROL HFA INHALER INHALATION PRN ×3 (09:14→20:04)
[2020-04-27] MEDS: SYMBICORT 160-4.5 MCG INHALER INHALATION SCH ×2 (09:15→20:03)
[2020-04-27 11:41] LABS: Glucose,Whole Blood 173 mg/dL (75-99)
[2020-04-27] MEDS: SODIUM CHLORIDE 0.9% 1,000 ML IV SCH (11:50)
[2020-04-27] MEDS: VANCOMYCIN 1,250 MG in SODIUM CHLORIDE 0.9% 250 ML IVPB SCH (12:50)
--- NOTE | 2020-04-27 15:25 | P.PN ---
Subjective Progress Note Date: 04/27/20 Principal diagnosis: Acute on chronic hypoxic respiratory failure secondary to an acute exacerbation of COPD complicated by early pneumonia ankle, 19 infection This is a pleasant 79-year-old female patient who follows with Dr. Cortes with a known history of chronic hypoxic respiratory failure on home oxygen, chronic tobacco dependence, atrial fibrillation, CVA/TIA, myocardial infarction, obstructive sleep apnea on no treatment, chronic systolic congestive heart failure with ejection fraction 40%. She presented to the emergency room yesterday with complaints of a 2-3 day history of increasing shortness of breath, cough and congestion yellow productive sputum. She states she had been exposed to her grandson who was positive for CoVID 19. Chest x-ray revealed moderate cardiomegaly. Chronic lower lobe pneumonia similar to previous exam from 2017. Small right pleural effusion. White count 9.2. Hemoglobin 12.4. D-dimer 0.49. Sodium 134. Potassium 3.6. Creatinine 1.16. LDH 626. C- reactive protein 315. Coronavirus by PCR detected. She is seen today in [facility] on the regular medical floor. She is currently in some moderate respiratory distress. She is spastic and wheezing. She has a productive cough. She is on 10 L high flow nasal cannula to maintain O2 saturation in the 90s. Urgent arterial blood gases were drawn and revealed a PaO2 of 46, pCO2 of 60 and a pH of 7.36. She was placed on BiPAP 12/6 and 60% FiO2. He is more comfortable. She has stated she did not want to be intubated and placed on mechanical ventilator. She is a DO NOT RESUSCITATE/DO NOT INTUBATE CODE STATUS. Pro calcitonin 3.21. She is initiated on Zosyn and bronchodilators. Preliminary blood culture reveals gram-positive cocci. She is initiated on vancomycin. The patient is seen today 04/27/2020 in follow-up on the regular medical floor. She is doing a bit better today compared to yesterday. She is up in the chair. She remains on BiPAP. Currently at 12/6 and 50% FiO2. His 0.9 normal saline at 50 MLS per hour. Blood cultures are revealing presumptive staph aureus. Sputum culture with presumptive staph aureus. Blood glucose 173. She remains on Symbicort, albuterol, IV Solu-Medrol. Continued on Zosyn and vancomycin. Anticoagulated with Xarelto. [place] on vitamin supplements. Objective - Vital Signs Vital signs: Vital Signs Temp 96.4 F L 04/27/20 11:00 Pulse 85 04/27/20 11:00 Resp 24 04/27/20 11:00 BP 109/66 04/27/20 11:00 Pulse Ox 99 04/27/20 11:00 Intake & Output 04/26/20 04/27/20 04/27/20 18:59 06:59 18:59 Intake Total 1040 1280 240 Balance 1040 1280 240 Intake: Intake, IV Titration 800 Amount Piperacillin-Tazobactam 3 200 .375 gm In Sodium Chloride 0.9% 100 ml @ 25 mls/hr IVPB Q8HR [facility] Rx# :[id number] Sodium Chloride 0.9% 1, 600 000 ml @ 50 mls/hr IV . Q20H [facility]OCK Rx#:[id number] Oral 1040 480 240 Other: # Voids 2 1 # Bowel Movements 1 - Exam GENERAL EXAM: Alert, 79-year-old female patient, on BiPap 04/15 at 50% high flow nasal cannula, and mild to moderate respiratory distress. HEAD: Normocephalic. EYES: Normal reaction of pupils, equal size. NOSE: Clear with pink turbinates. THROAT: No erythema or exudates. NECK: No masses, no JVD. CHEST: No chest wall deformity. LUNGS: Equal air entry with bilateral end expiratory wheeze, scattered rhonchi, diminished. CVS: S1 and S2 normal with no audible murmur, regular rhythm. ABDOMEN: No hepatosplenomegaly, normal bowel sounds, no guarding or rigidity. SPINE: No scoliosis or deformity SKIN: No rashes CENTRAL NERVOUS SYSTEM: No focal deficits, tone is normal in all 4 extremities. EXTREMITIES: There is no peripheral edema. No clubbing, no cyanosis. Peripheral pulses are intact. - Labs CBC & Chem 7: 04/25/20 17:04 04/25/20 17:04 Labs: Abnormal Lab Results - Last 24 Hours (Table) 04/26/20 04/26/20 04/26/20 Range/Units 12:24 16:57 20:04 POC Glucose (mg/dL) 192 H 129 H (75-99) mg/dL C-Reactive Protein 315.2 H (<10.0) mg/L 04/27/20 04/27/20 Range/Units 07:05 11:36 POC Glucose (mg/dL) 144 H 173 H (75-99) mg/dL C-Reactive Protein (<10.0) mg/L Microbiology - Last 24 Hours (Table) 04/26/20 20:05 Gram Stain - Preliminary Sputum Sputum Culture - Preliminary Presumptive Staph aureus 04/25/20 17:04 Blood Culture Gram Stain - Preliminary Blood Blood Culture - Preliminary Presumptive Staph aureus 04/25/20 17:04 Blood Culture - Final Blood Assessment and Plan Assessment: 1 Acute on chronic hypoxic respiratory failure secondary to an acute exacerbation of chronic obstructive pulmonary disease complicated by probable early pneumonia and CoVID 19 infection. 2 Acute CoVID 19 infection 3 Chronic hypoxemic respiratory failure 4 History of previous chronic tobacco dependence 5 Bacteremia secondary to gram-positive cocci 6 Acute renal failure 7 Elevated inflammatory markers secondary to Coronavirus 8 History of atrial fibrillation, anticoagulated with Xarelto 9 History of CVA/TIA 10 Ischemic cardiomyopathy with ejection fraction 40% 11 History of obstructive sleep apnea not on treatment 12 Poor overall functional performance based on the above-mentioned multiple comorbidities Plan: The patient was seen and evaluated by Dr. Lazar Continue BiPAP support for now Continue Zosyn, vancomycin Continue bronchodilators and IV Solu-Medrol Anticoagulated with Xarelto Repeat chest x-ray and inflammatory markers in the a.m. We will continue to follow and make further recommendations based on her clinical status I, the cosigning physician, performed a history & physical examination of the pa bethnt. Lungs sounds with bilateral wheeze, scattered rhonchi, diminished. Maintaining good O2 saturations in the 90s on BiPAP 12/6and 50% FiO2. I discussed the assessment and plan of care with my nurse practitioner, Debbie Deras. I attest to the above note as dictated by her.
[2020-04-27 17:25] LABS: Glucose,Whole Blood 158 mg/dL (75-99)
[2020-04-27 20:03] LABS: Glucose,Whole Blood 230 mg/dL (75-99)
[2020-04-27] MEDS: RIVAROXABAN 20 MG TAB PO SCH (20:31)
--- NOTE | 2020-04-27 20:52 | P.PN ---
Progress Note - Text Progress Note Date: 04/27/20 Chief Complaint: cough History of presenting complaint: This is a pleasant 79-year-old patient of . Chronic stable medical conditions include atrial fibrillation, COPD, kidney disease, secondary pulmonary hypertension, DJD, CHF EF of 40%, obstructive sleep apnea does not use any treatment, home oxygen 4 L. Patient presents with 3-4 weeks of not feeling well got a cough taking yellow-green sputum. Denies any fever but feels cold all the time decreased appetite. No loss of smell or taste. Denies any headache. No diarrhea. Patient positive for COVID 19 PCR. Check stat x-ray showed right lower lobe infiltrate. Admitted with right lower lobe pneumonia suspected to be gram-negative organism, underlying COVID 19 infection, acute COPD exacerbation, acute hypoxic respiratory failure. Patient started IV Zosyn, vancomycin, bronchodilators, steroids. Xarelto continued Today-feeling a bit better. On 50% BiPAP. Cough with yellow sputum. Oral intake. Good Review of systems: Was done for constitutional, cardiovascular, GI, pulmonary. relevant finding as above Active Medications Acetaminophen (Acetaminophen Tab 500 Mg Tab) 1,000 mg PO Q6HR PRN PRN Reason: Fever>101 Albuterol Sulfate (Albuterol Hfa Inhaler) 2 puff INHALATION RT-Q6H PRN PRN Reason: Shortness Of Breath Or Wheezing Last Admin: 04/27/20 20:04 Dose: 2 puff Documented by: Ascorbic Acid (Ascorbic Acid 500 Mg Tab) 500 mg PO BID [facility] Last Admin: 04/27/20 20:31 Dose: 500 mg Documented by: Budesonide/Formoterol Fumarate (Symbicort 160-4.5 Mcg Inhaler) 2 puff INHALATION RT-BID [facility] Last Admin: 04/27/20 20:03 Dose: 2 puff Documented by: Cholecalciferol (Cholecalciferol 1,000 Unit Tab) 5,000 unit PO DAILY [facility] Last Admin: 04/27/20 07:09 Dose: 5,000 unit Documented by: Guaifenesin (Guaifenesin 600 Mg Tablet.Er) 600 mg PO QID [facility] Last Admin: 04/27/20 20:31 Dose: 600 mg Documented by: Sodium Chloride (Saline 0.9%) 1,000 mls @ 50 mls/hr IV .Q20H [facility] Last Admin: 04/27/20 11:50 Dose: 50 mls/hr Documented by: Piperacillin Sod/Tazobactam (Sod 3.375 gm/ Sodium Chloride) 100 mls @ 25 mls/hr IVPB Q8HR [facility] Last Admin: 04/27/20 17:27 Dose: 25 mls/hr Documented by: Vancomycin HCl 1,250 mg/ (Sodium Chloride) 250 mls @ 125 mls/hr IVPB Q24H [facility] Last Admin: 04/27/20 12:50 Dose: 125 mls/hr Documented by: Insulin Aspart (Insulin Aspart (Novolog) 100 Unit/Ml Vial) 0 unit SQ ACHS [facility]; Protocol Last Admin: 04/27/20 20:31 Dose: 7 unit Documented by: Methylprednisolone Sodium Succinate (Methylprednisolone Sod Succi 125 Mg/2 Ml Vial) 60 mg IV Q6HR [facility] Last Admin: 04/27/20 17:27 Dose: 60 mg Documented by: Metoprolol Tartrate (Metoprolol Tartrate 50 Mg Tab) 50 mg PO BID [facility] Last Admin: 04/27/20 20:31 Dose: 50 mg Documented by: Oxybutynin Chloride (Oxybutynin Chloride 5 Mg Tab) 5 mg PO BID [facility] Last Admin: 04/27/20 20:31 Dose: 5 mg Documented by: Rivaroxaban (Rivaroxaban 20 Mg Tab) 20 mg PO HS [facility] Last Admin: 04/27/20 20:31 Dose: 20 mg Documented by: Spironolactone (Spironolactone 25 Mg Tab) 25 mg PO DAILY [facility] Last Admin: 04/27/20 07:09 Dose: 25 mg Documented by: Zinc Sulfate (Zinc Sulfate 220 Mg Cap) 220 mg PO DAILY [facility] Last Admin: 04/27/20 07:09 Dose: 220 mg Documented by: Physical examination: VITAL SIGNS: Afebrile, 82, 21, 112/61, 99% on BiPAP 50% GENERAL: BMI 28.3, sitting up, tired. EYES: Pupils equal. Conjunctiva normal. HEENT: External appearance of nose and ears normal, oral cavity grossly normal. NECK: JVD not raised; masses not palpable. HEART: First and second heart sounds are normal; no edema. LUNGS: Respiratory rate increased, decreased breath sounds right basilar coarse crackles. ABDOMEN: Soft, nontender, liver spleen not palpable, no masses palpable. PSYCH: Alert and oriented x3; mood and affect normal. INVESTIGATIONS, reviewed in the clinical context: White count 9.2 hemoglobin 12.4 neutrophils 8.5 lymphocytes 0.2 potassium 3.6 bun 29 creatinine 1.16 D-dimer 0.48 lactic acid 2.5 CRP 229 pro-calcitonin 3.21 Coronavirus PCR-detected Chest x-ray film personally reviewed by me-right lower lobe infiltrate EKG tracing personally reviewed by me-atrial flutter Assessment: -Right lower lobe pneumonia suspected gram-negative orgasm patient with thick yellow-green sputum. -Underlying COVID 19 infection -Persistent atrial flutter fibrillation -Acute COPD exacerbation in an ex-smoker -Coronary artery disease with prior PR -Chronic hypoxic respiratory failure on 4 L oxygen at home -Acute hypoxic respiratory failure from above on 50% BiPAP -Chronic congestive heart failure from systolic dysfunction EF 40% -Secondary pulmonary hypertension Plan: Continue IV Zosyn. , Vancomycin , xarelto. Bronchodilators. IV Solu-Medrol. Follow with pulmonary..
[2020-04-28] MEDS: methylPREDNISolone SOD SUCCI 125 MG/2 ML VIAL IV SCH ×4 (00:05→18:07)
[2020-04-28] MEDS: PIPERACILLIN-TAZOBACTAM 3.375 GM in SODIUM CHLORIDE 0.9% 100 ML IVPB SCH ×2 (00:05→08:59)
[2020-04-28] MEDS: ALBUTEROL HFA INHALER INHALATION PRN ×3 (06:05→20:02)
[2020-04-28] MEDS: SYMBICORT 160-4.5 MCG INHALER INHALATION SCH ×2 (06:05→20:02)
[2020-04-28 07:08] LABS: Glucose,Whole Blood 211 mg/dL (75-99)
--- NOTE | 2020-04-28 07:20 | XR ---
EXAMINATION TYPE: XR chest 1V DATE OF EXAM: 04/28/2020 COMPARISON: 04/25/2020 HISTORY: Cough TECHNIQUE: Single frontal view of the chest is obtained. FINDINGS: Heart is enlarged and there is bilateral patchy areas of infiltrate and coarsened intersti tium stable in appearance. Underlying COPD suspected. No pneumothorax. Atherosclerotic change aorta. IMPRESSION: Stable bilateral infiltrates
[2020-04-28 07:38] LABS: Basophils % (A) 0 %; Eosinophils % (A) 0 %; HCT 34.9 % (34.0-46.0); HGB 11.3 gm/dL (11.4-16.0); Hypochromasia Slight; Lymphocytes # (A) 0.3 k/uL (1.0-4.8); Lymphocytes % (A) 3 %; MCH 30.2 pg (25.0-35.0); MCHC 32.2 g/dL (31.0-37.0); MCV 93.6 fL (80.0-100.0); Monocytes # (A) 0.4 k/uL (0-1.0); Monocytes % (A) 4 %; Neutrophils # (A) 9.1 k/uL (1.3-7.7); Neutrophils % (A) 92 %; Platelet Count 191 k/uL (150-450); RBC 3.73 m/uL (3.80-5.40); RDW 13.1 % (11.5-15.5); WBC 9.9 k/uL (3.8-10.6)
[2020-04-28] MEDS: INSULIN ASPART (NovoLOG) 100 UNIT/ML VIAL SQ SCH ×4 (08:58→21:11)
[2020-04-28] MEDS: ZINC SULFATE 220 MG CAP PO SCH (08:59)
[2020-04-28] MEDS: CHOLECALCIFEROL 1,000 UNIT TAB PO SCH (08:59)
[2020-04-28] MEDS: guaiFENesin 600 MG TABLET.ER PO SCH ×4 (08:59→21:10)
[2020-04-28] MEDS: SPIRONOLACTONE 25 MG TAB PO SCH (08:59)
[2020-04-28] MEDS: OXYBUTYNIN CHLORIDE 5 MG TAB PO SCH ×2 (09:00→21:10)
[2020-04-28] MEDS: METOPROLOL TARTRATE 50 MG TAB PO SCH ×2 (09:00→21:11)
[2020-04-28] MEDS: ASCORBIC ACID 500 MG TAB PO SCH ×2 (09:00→21:11)
[2020-04-28] MEDS: SODIUM CHLORIDE 0.9% 1,000 ML IV SCH (10:23)
[2020-04-28 11:29] LABS: Glucose,Whole Blood 202 mg/dL (75-99)
--- NOTE | 2020-04-28 13:36 | P.PN ---
Subjective Progress Note Date: 04/28/20 Principal diagnosis: Acute on chronic hypoxic respiratory failure secondary to an acute exacerbation of COPD complicated by early pneumonia ankle, 19 infection This is a pleasant 79-year-old female patient who follows with Dr. Cortes with a known history of chronic hypoxic respiratory failure on home oxygen, chronic tobacco dependence, atrial fibrillation, CVA/TIA, myocardial infarction, obstructive sleep apnea on no treatment, chronic systolic congestive heart failure with ejection fraction 40%. She presented to the emergency room yesterday with complaints of a 2-3 day history of increasing shortness of breath, cough and congestion yellow productive sputum. She states she had been exposed to her grandson who was positive for CoVID 19. Chest x-ray revealed moderate cardiomegaly. Chronic lower lobe pneumonia similar to previous exam from 2017. Small right pleural effusion. White count 9.2. Hemoglobin 12.4. D-dimer 0.49. Sodium 134. Potassium 3.6. Creatinine 1.16. LDH 626. C- reactive protein 315. Coronavirus by PCR detected. She is seen today in [facility] on the regular medical floor. She is currently in some moderate respiratory distress. She is spastic and wheezing. She has a productive cough. She is on 10 L high flow nasal cannula to maintain O2 saturation in the 90s. Urgent arterial blood gases were drawn and revealed a PaO2 of 46, pCO2 of 60 and a pH of 7.36. She was placed on BiPAP 12/6 and 60% FiO2. He is more comfortable. She has stated she did not want to be intubated and placed on mechanical ventilator. She is a DO NOT RESUSCITATE/DO NOT INTUBATE CODE STATUS. Pro calcitonin 3.21. She is initiated on Zosyn and bronchodilators. Preliminary blood culture reveals gram-positive cocci. She is initiated on vancomycin. The patient is seen today 04/27/2020 in follow-up on the regular medical floor. She is doing a bit better today compared to yesterday. She is up in the chair. She remains on BiPAP. Currently at 12/6 and 50% FiO2. His 0.9 normal saline at 50 MLS per hour. Blood cultures are revealing presumptive staph aureus. Sputum culture with presumptive staph aureus. Blood glucose 173. She remains on Symbicort, albuterol, IV Solu-Medrol. Continued on Zosyn and vancomycin. Anticoagulated with Xarelto. [place] on vitamin supplements. Patient is seen today 04/28/2020 in follow-up on the regular medical floor. She is currently sitting at the bedside. Awake and alert in no acute distress. Con tinues to improve daily. Maintaining O2 saturations at 100% on 8 L/m per nasal cannula. She continues with crackles in the bilateral bases. She did utilize BiPAP throughout the evening. Blood and sputum cultures reveal evidence of MSSA. White count 9.9. Hemoglobin 11.3. D-dimer 0.66. Continued on vancomycin, Zosyn, IV Solu-Medrol, bronchodilators. Anticoagulated with Xarelto. Objective - Vital Signs Vital signs: Vital Signs Temp 98.3 F 04/28/20 11:00 Pulse 76 04/28/20 11:00 Resp 17 04/28/20 11:00 BP 120/70 04/28/20 11:00 Pulse Ox 97 04/28/20 11:00 Intake & Output 04/27/20 04/28/20 04/28/20 18:59 06:59 18:59 Intake Total 780 240 Balance 780 240 Weight 74 kg Intake: Oral 780 240 Other: # Voids 2 - Exam GENERAL EXAM: Alert, 79-year-old female patient, on 8 L high flow nasal cannula, in no acute respiratory distress. HEAD: Normocephalic. EYES: Normal reaction of pupils, equal size. NOSE: Clear with pink turbinates. THROAT: No erythema or exudates. NECK: No masses, no JVD. CHEST: No chest wall deformity. LUNGS: Equal air entry with bilateral end expiratory wheeze, scattered rhonchi, diminished. CVS: S1 and S2 normal with no audible murmur, regular rhythm. ABDOMEN: No hepatosplenomegaly, normal bowel sounds, no guarding or rigidity. SPINE: No scoliosis or deformity SKIN: No rashes CENTRAL NERVOUS SYSTEM: No focal deficits, tone is normal in all 4 extremities. EXTREMITIES: There is no peripheral edema. No clubbing, no cyanosis. Peripheral pulses are intact. - Labs CBC & Chem 7: 04/28/20 07:02 04/25/20 17:04 Labs: Abnormal Lab Results - Last 24 Hours (Table) 04/27/20 04/27/20 04/28/20 Range/Units 17:14 20:02 06:53 RBC (3.80-5.40) m/uL Hgb (11.4-16.0) gm/dL Neutrophils # (1.3-7.7) k/uL Lymphocytes # (1.0-4.8) k/uL D-Dimer 0.66 H (<0.60) mg/L FEU POC Glucose (mg/dL) 158 H 230 H (75-99) mg/dL 04/28/20 04/28/20 04/28/20 Range/Units 07:02 07:06 11:28 RBC 3.73 L (3.80-5.40) m/uL Hgb 11.3 L (11.4-16.0) gm/dL Neutrophils # 9.1 H (1.3-7.7) k/uL Lymphocytes # 0.3 L (1.0-4.8) k/uL D-Dimer (<0.60) mg/L FEU POC Glucose (mg/dL) 211 H 202 H (75-99) mg/dL Microbiology - Last 24 Hours (Table) 04/26/20 20:05 Gram Stain - Final Sputum Sputum Culture - Final Staphylococcus aureus 04/25/20 17:04 Blood Culture Gram Stain - Final Blood Blood Culture - Final Staphylococcus aureus Assessment and Plan Assessment: 1 Acute on chronic hypoxic respiratory failure secondary to an acute exacerbation of chronic obstructive pulmonary disease complicated by probable early pneumonia and CoVID 19 infection. 2 Acute CoVID 19 infection 3 Chronic hypoxemic respiratory failure 4 History of previous chronic tobacco dependence 5 Bacteremia secondary to gram-positive cocci 6 Acute renal failure 7 Elevated inflammatory markers secondary to Coronavirus 8 History of atrial fibrillation, anticoagulated with Xarelto 9 History of CVA/TIA 10 Ischemic cardiomyopathy with ejection fraction 40% 11 History of obstructive sleep apnea not on treatment 12 Poor overall functional performance based on the above-mentioned multiple comorbidities Plan: The patient was seen and evaluated by Dr. Lazar Chest x-ray and labs reviewed Continue Zosyn, vancomycin Continue bronchodilators and IV Solu-Medrol Anticoagulated with Xarelto Titrate down the FiO2 as tolerated We will continue to follow and make further recommendations based on her clinical status I, the cosigning physician, performed a history & physical examination of the patient. Lungs sounds with bilateral wheeze, scattered rhonchi, diminished. Maintaining good O2 saturations in the 90s on 8 L high flow nasal cannula. I discussed the assessment and plan of care with my nurse practitioner, Debbie Deras. I attest to the above note as dictated by her.
[2020-04-28] MEDS: VANCOMYCIN 1,250 MG in SODIUM CHLORIDE 0.9% 250 ML IVPB SCH (15:17)
[2020-04-28 16:49] LABS: African American GFR (CKD) 49.8 (60.0-200.0); Anion Gap 9.3 mmol/L (4.00-12.00); C Reactive Protein 20.2 mg/dL (0.0-0.8); Calcium 9.1 mg/dL (8.7-10.3); Carbon Dioxide 29.7 mmol/L (21.6-31.8); Non-African American GFR(CKD) 42.9 (60.0-200.0); Potassium 4.6 mmol/L (3.5-5.5)
[2020-04-28 17:21] LABS: Glucose,Whole Blood 172 mg/dL (75-99)
[2020-04-28 20:14] LABS: Glucose,Whole Blood 235 mg/dL (75-99)
[2020-04-28] MEDS: RIVAROXABAN 15 MG TAB PO SCH (21:11)
--- NOTE | 2020-04-28 21:23 | P.PN ---
Subjective Progress Note Date: 04/28/20 Principal diagnosis: Methicillin sensitive staph aureus pneumonia and bacteremia -Right lower lobe pneumonia suspected gram-negative orgasm -Underlying COVID 19 infection -Persistent atrial flutter fibrillation -Acute COPD exacerbation in an ex-smoker -Coronary artery disease with prior DC -Chronic hypoxic respiratory failure on 4 L oxygen at home -Acute hypoxic respiratory failure from above on 50% BiPAP -Chronic congestive heart failure from systolic dysfunction EF 40% -Secondary pulmonary hypertension 04/28/2020, patient seen and evaluated examined, off of BiPAP, on supplemental oxygen, breathing comfortably, on 6 L nasal cannula patient remains on broad- spectrum antibiotics along with IV steroids and bronchodilator and direct anticoagulant pulmonary is following, chest x-ray continue show bilateral infiltrates which are stable, sputum and blood both positive for MSSA, This is a pleasant 79-year-old patient of . Chronic stable medical conditions include atrial fibrillation, COPD, kidney disease, secondary pulmonary hypertension, DJD, CHF EF of 40%, obstructive sleep apnea does not use any treatment, home oxygen 4 L. Patient presents with 3-4 weeks of not feeling well got a cough taking yellow-green sputum. Denies any fever but feels cold a ll the time decreased appetite. No loss of smell or taste. Denies any headache. No diarrhea. Patient positive for COVID 19 PCR. Check stat x-ray showed right lower lobe infiltrate. Admitted with right lower lobe pneumonia suspected to be gram-negative organism, underlying COVID 19 infection, acute COPD exacerbation, acute hypoxic respiratory failure. Patient started IV Zosyn, vancomycin, bronchodilators, steroids. Xarelto continued Objective - Vital Signs Vital signs: Vital Signs Temp 97.6 F 04/28/20 20:48 Pulse 75 04/28/20 20:48 Resp 24 04/28/20 20:48 BP 116/79 04/28/20 20:48 Pulse Ox 96 04/28/20 20:48 Intake & Output 04/28/20 04/28/20 04/29/20 06:59 18:59 06:59 Intake Total 240 Output Total 2 Balance 238 Weight 74 kg Intake: Oral 240 Output: Urine 2 Other: # Voids 2 - Exam GENERAL: BMI 28.3, sitting up, tired. EYES: Pupils equal. Conjunctiva normal. HEENT: External appearance of nose and ears normal, oral cavity grossly normal. NECK: JVD not raised; masses not palpable. HEART: First and second heart sounds are normal; no edema. LUNGS: Respiratory rate increased, decreased breath sounds right basilar coarse crackles. ABDOMEN: Soft, nontender, liver spleen not palpable, no masses palpable. PSYCH: Alert and oriented x3; mood and affect normal. - Labs CBC & Chem 7: 04/28/20 07:02 04/28/20 07:02 Labs: Abnormal Lab Results - Last 24 Hours (Table) 04/28/20 04/28/20 04/28/20 Range/Units 06:53 07:02 07:02 RBC 3.73 L (3.80-5.40) m/uL Hgb 11.3 L (11.4-16.0) gm/dL Neutrophils # 9.1 H (1.3-7.7) k/uL Lymphocytes # 0.3 L (1.0-4.8) k/uL D-Dimer 0.66 H (<0.60) mg/L FEU BUN 54.0 H (9.0-27.0) mg/dL Est GFR (CKD-EPI)AfAm 49.8 L (60.0-200.0) Est GFR (CKD-EPI)NonAf 42.9 L (60.0-200.0) BUN/Creatinine Ratio 45.00 H (12.00-20.00) Ratio Glucose 182 H (70-110) mg/dL POC Glucose (mg/dL) (75-99) mg/dL Lactate Dehydrogenase 329 H (120-246) U/L C-Reactive Protein 20.2 H (0.0-0.8) mg/dL 04/28/20 04/28/20 04/28/20 Range/Units 07:06 11:28 17:19 RBC (3.80-5.40) m/uL Hgb (11.4-16.0) gm/dL Neutrophils # (1.3-7.7) k/uL Lymphocytes # (1.0-4.8) k/uL D-Dimer (<0.60) mg/L FEU BUN (9.0-27.0) mg/dL Est GFR (CKD-EPI)AfAm (60.0-200.0) Est GFR (CKD-EPI)NonAf (60.0-200.0) BUN/Creatinine Ratio (12.00-20.00) Ratio Glucose (70-110) mg/dL POC Glucose (mg/dL) 211 H 202 H 172 H (75-99) mg/dL Lactate Dehydrogenase (120-246) U/L C-Reactive Protein (0.0-0.8) mg/dL 04/28/20 Range/Units 20:11 RBC (3.80-5.40) m/uL Hgb (11.4-16.0) gm/dL Neutrophils # (1.3-7.7) k/uL Lymphocytes # (1.0-4.8) k/uL D-Dimer (<0.60) mg/L FEU BUN (9.0-27.0) mg/dL Est GFR (CKD-EPI)AfAm (60.0-200.0) Est GFR (CKD-EPI)NonAf (60.0-200.0) BUN/Creatinine Ratio (12.00-20.00) Ratio Glucose (70-110) mg/dL POC Glucose (mg/dL) 235 H (75-99) mg/dL Lactate Dehydrogenase (120-246) U/L C-Reactive Protein (0.0-0.8) mg/dL Microbiology - Last 24 Hours (Table) 04/26/20 20:05 Gram Stain - Final Sputum Sputum Culture - Final Staphylococcus aureus 04/25/20 17:04 Blood Culture Gram Stain - Final Blood Blood Culture - Final Staphylococcus aureus Assessment and Plan Assessment: Methicillin sensitive staph aureus pneumonia and bacteremia -Right lower lobe pneumonia suspected gram-negative orgasm -Underlying COVID 19 infection -Persistent atrial flutter fibrillation -Acute COPD exacerbation in an ex-smoker -Coronary artery disease with prior DC -Chronic hypoxic respiratory failure on 4 L oxygen at home -Acute hypoxic respiratory failure from above on 50% BiPAP -Chronic congestive heart failure from systolic dysfunction EF 40% -Secondary pulmonary hypertension Plan: Continue oxygen titrated down as tolerated, and, we'll continue IV steroids breathing treatments supportive care, pulmonary following, we'll consult infectious disease as well Time with Patient: Greater than 30
--- NOTE | 2020-04-28 23:28 | CONS ---
CONSULTATION DATE OF SERVICE: 04/28/2020. REASON FOR CONSULTATION: Bacteremia. HISTORY OF PRESENT ILLNESS: The patient is 79-year-old female, past medical history significant for COPD presenting to the hospital three days ago for evaluation of increasing shortness of breath and cough. Patient symptoms had been going on for about 3 days before presenting to the hospital. Symptoms mostly shortness of breath. She did have a cough, moderate in intensity, bringing up some yellow sputum. The patient denies having any pleuritic chest pain. No numbness. No nausea, no vomiting. No abdominal pain or diarrhea. With these symptoms the patient was evaluated by the ER physician. On arrival to the ER, the patient did have fever of 102 degrees Fahrenheit. The patient did have supplemental oxygen, currently on 4 L nasal cannula. The patient did have a normal white count with evidence of lymphopenia. Initial D-dimer was negative. Slightly elevated today 0.66. The patient did have a creatinine 1.2, elevated LDH, CRP as well as procalcitonin up to 3.21. The patient did have a chest x-ray reported as chronic lower lobe pneumonia no obvious heart failure. The patient was started on vancomycin and Zosyn. The patient did have blood cultures done as well as sputum showing MSSA. With positive blood culture, infectious Disease was consulted for further management of antibiotic therapy. REVIEW OF SYSTEMS: Positive points have been mentioned in HPI. Rest of systems are negative. PAST MEDICAL HISTORY: Atrial fibrillation, asthma, heart failure, COPD, CVA, TIA. Sleep apnea. PAST SURGICAL HISTORY: Appendectomy, tonsillectomy. SOCIAL HISTORY: Remote history of smoking. No drinking or drug use. FAMILY HISTORY: Father history of congestive heart failure. Mother with diabetes. ALLERGIES: No known drug allergies. MEDICATIONS: The patient is currently on Tylenol, Ventolin, vitamin C, Symbicort, Zosyn 3.375 grams q.8 hours, vitamin D3, Mucinex, Solu-Medrol, Lopressor, Xarelto, zinc. Vancomycin discontinued. PHYSICAL EXAMINATION: Blood pressure is 116/79 with a pulse of 75, temperature 97.6. She is 96% on 4 L nasal cannula. General description is an elderly female up in the chair in no distress. No tachypnea or accessory muscles of respiration use. HEENT: Shows slight pallor. No scleral icterus. Oral mucous membrane is dry. Neck: Trachea central. No thyromegaly. Lungs: Unlabored breathing. Coarse breath sounds at bases. No wheeze. Heart S1, S2. Regular rate and rhythm. ABDOMEN: Soft, no tenderness. No guarding or rigidity. Extremities: No edema of the feet. Skin examination: No rash or mass palpable. Neurological: Patient is awake, alert, oriented times three. Mood and affect normal. LABS: Hemoglobin 11.9, white count 9.9, BUN of 54, creatinine 1.2, and elevated CRP and procalcitonin. Blood and sputum showing MSSA. DIAGNOSTIC IMPRESSION AND PLAN: Patient with admission to the hospital predominantly with respiratory symptoms in this patient who did have a cough, sputum, fever of 102 degrees Fahrenheit, mild elevated tachycardia. White count has been normal. Source likely MSSA pneumonia with secondary bacteremia. PLAN: 1. Blood cultures will be repeated to document clearance of bacteremia. 2. Discontinue Zosyn, will start the patient on cefazolin 2 grams q.8 hours. 3. We will follow on clinical condition and culture to further adjust medication if needed. Thank you for this consultation. Will follow this patient along with you. MMODL / IJN: [id number] /
[2020-04-29] MEDS: methylPREDNISolone SOD SUCCI 125 MG/2 ML VIAL IV SCH ×4 (00:16→17:50)
[2020-04-29] MEDS: SODIUM CHLORIDE 0.9% 1,000 ML IV SCH (05:36)
[2020-04-29 07:25] LABS: Glucose,Whole Blood 159 mg/dL (75-99)
[2020-04-29] MEDS: SYMBICORT 160-4.5 MCG INHALER INHALATION SCH ×2 (07:32→20:04)
[2020-04-29] MEDS: ALBUTEROL HFA INHALER INHALATION PRN ×3 (07:32→20:04)
[2020-04-29] MEDS: INSULIN ASPART (NovoLOG) 100 UNIT/ML VIAL SQ SCH ×4 (08:19→20:50)
[2020-04-29] MEDS: guaiFENesin 600 MG TABLET.ER PO SCH ×4 (08:20→20:41)
[2020-04-29] MEDS: SPIRONOLACTONE 25 MG TAB PO SCH (08:20)
[2020-04-29] MEDS: CHOLECALCIFEROL 1,000 UNIT TAB PO SCH (08:20)
[2020-04-29] MEDS: ZINC SULFATE 220 MG CAP PO SCH (08:20)
[2020-04-29] MEDS: OXYBUTYNIN CHLORIDE 5 MG TAB PO SCH ×2 (08:20→20:42)
[2020-04-29] MEDS: ASCORBIC ACID 500 MG TAB PO SCH ×2 (08:20→20:41)
[2020-04-29] MEDS: METOPROLOL TARTRATE 50 MG TAB PO SCH ×2 (08:20→20:41)
[2020-04-29 11:11] LABS: Glucose,Whole Blood 217 mg/dL (75-99)
[2020-04-29 11:17] LABS: ABG Base Excess 5.9 mmol/L; ABG HCO3 31 mmol/L (21-25); ABG PCO2 52 mmHg (35-45); ABG PH 7.38 (7.35-7.45); ABG PO2 176 mmHg (83-108); ABG TCO2 33 mmol/L (19-24); Allen Test Performed? Yes
--- NOTE | 2020-04-29 14:41 | P.PN ---
Subjective Progress Note Date: 04/29/20 Principal diagnosis: Acute on chronic hypoxic respiratory failure secondary to an acute exacerbation of COPD complicated by early pneumonia, CoVID 19 infection This is a pleasant 79-year-old female patient who follows with Dr. Cortes with a known history of chronic hypoxic respiratory failure on home oxygen, chronic tobacco dependence, atrial fibrillation, CVA/TIA, myocardial infarction, obstructive sleep apnea on no treatment, chronic systolic congestive heart failure with ejection fraction 40%. She presented to the emergency room yesterday with complaints of a 2-3 day history of increasing shortness of breath, cough and congestion yellow productive sputum. She states she had been exposed to her grandson who was positive for CoVID 19. Chest x-ray revealed moderate cardiomegaly. Chronic lower lobe pneumonia similar to previous exam from 2017. Small right pleural effusion. White count 9.2. Hemoglobin 12.4. D-dimer 0.49. Sodium 134. Potassium 3.6. Creatinine 1.16. LDH 626. C- reactive protein 315. Coronavirus by PCR detected. She is seen today in [facility] on the regular medical floor. She is currently in some moderate respiratory distress. She is spastic and wheezing. She has a productive cough. She is on 10 L high flow nasal cannula to maintain O2 saturation in the 90s. Urgent arterial blood gases were drawn and revealed a PaO2 of 46, pCO2 of 60 and a pH of 7.36. She was placed on BiPAP 12/6 and 60% FiO2. He is more comfortable. She has stated she did not want to be intubated and placed on mechanical ventilator. She is a DO NOT RESUSCITATE/DO NOT INTUBATE CODE STATUS. Pro calcitonin 3.21. She is initiated on Zosyn and bronchodilators. Preliminary blood culture reveals gram-positive cocci. She is initiated on vancomycin. The patient is seen today 04/27/2020 in follow-up on the regular medical floor. She is doing a bit better today compared to yesterday. She is up in the chair. She remains on BiPAP. Currently at 12/6 and 50% FiO2. His 0.9 normal saline at 50 MLS per hour. Blood cultures are revealing presumptive staph aureus. Sputum culture with presumptive staph aureus. Blood glucose 173. She remains on Symbicort, albuterol, IV Solu-Medrol. Continued on Zosyn and vancomycin. Anticoagulated with Xarelto. [place] on vitamin supplements. Patient is seen today 04/28/2020 in follow-up on the regular medical floor. She is currently sitting at the bedside. Awake and alert in no acute distress. Con tinues to improve daily. Maintaining O2 saturations at 100% on 8 L/m per nasal cannula. She continues with crackles in the bilateral bases. She did utilize BiPAP throughout the evening. Blood and sputum cultures reveal evidence of MSSA. White count 9.9. Hemoglobin 11.3. D-dimer 0.66. Continued on vancomycin, Zosyn, IV Solu-Medrol, bronchodilators. Anticoagulated with Xarelto. The patient is seen today 04/29/2020 and follow-up on the regular medical floor. She is currently sitting up at the bedside. Awake and alert in mild respiratory distress. She did utilize BiPAP throughout the evening 50% FiO2. She is currently on 8 L high flow nasal cannula. Arterial blood gases revealed a pO2 176, pCO2 52, pH 7.38. Antibiotics changed to cefazolin. Continued on IV Solu-Medrol, Symbicort, albuterol. Anticoagulated with Xarelto. Objective - Vital Signs Vital signs: Vital Signs Temp 98.9 F 04/29/20 11:00 Pulse 77 04/29/20 11:00 Resp 18 04/29/20 11:00 BP 118/68 04/29/20 11:00 Pulse Ox 95 04/29/20 11:00 Intake & Output 04/28/20 04/29/20 04/29/20 18:59 06:59 18:59 Intake Total 240 1165 Output Total 2 2 Balance 238 1163 Intake: Intake, IV Titration 925 Amount Sodium Chloride 0.9% 1, 825 000 ml @ 50 mls/hr IV . Q20H BROCK Rx#:[id number] ceFAZolin 2 gm In Sodium 100 Chloride 0.9% 50 ml @ 100 mls/hr IVPB Q8HR BROCK Rx# :[id number] Oral 240 240 Output: Urine 2 2 Other: # Voids 2 - Exam GENERAL EXAM: Alert, 79-year-old female patient, on 8 L high flow nasal cannula, in no acute respiratory distress. HEAD: Normocephalic. EYES: Normal reaction of pupils, equal size. NOSE: Clear with pink turbinates. THROAT: No erythema or exudates. NECK: No masses, no JVD. CHEST: No chest wall deformity. LUNGS: Equal air entry with bilateral end expiratory wheeze, scattered rhonchi, diminished. CVS: S1 and S2 normal with no audible murmur, regular rhythm. ABDOMEN: No hepatosplenomegaly, normal bowel sounds, no guarding or rigidity. SPINE: No scoliosis or deformity SKIN: No rashes CENTRAL NERVOUS SYSTEM: No focal deficits, tone is normal in all 4 extremities. EXTREMITIES: There is no peripheral edema. No clubbing, no cyanosis. Peripheral pulses are intact. - Labs CBC & Chem 7: 04/28/20 07:02 04/28/20 07:02 Labs: Abnormal Lab Results - Last 24 Hours (Table) 04/28/20 04/28/20 04/28/20 Range/Units 07:02 17:19 20:11 ABG pCO2 (35-45) mmHg ABG pO2 (83-108) mmHg ABG HCO3 (21-25) mmol/L ABG Total CO2 (19-24) mmol/L ABG O2 Saturation (94-97) % BUN 54.0 H (9.0-27.0) mg/dL Est GFR (CKD-EPI)AfAm 49.8 L (60.0-200.0) Est GFR (CKD-EPI)NonAf 42.9 L (60.0-200.0) BUN/Creatinine Ratio 45.00 H (12.00-20.00) Ratio Glucose 182 H (70-110) mg/dL POC Glucose (mg/dL) 172 H 235 H (75-99) mg/dL Lactate Dehydrogenase 329 H (120-246) U/L C-Reactive Protein 20.2 H (0.0-0.8) mg/dL 04/29/20 04/29/20 04/29/20 Range/Units 07:23 11:10 11:11 ABG pCO2 52 H (35-45) mmHg ABG pO2 176 H (83-108) mmHg ABG HCO3 31 H (21-25) mmol/L ABG Total CO2 33 H (19-24) mmol/L ABG O2 Saturation 100.0 H (94-97) % BUN (9.0-27.0) mg/dL Est GFR (CKD-EPI)AfAm (60.0-200.0) Est GFR (CKD-EPI)NonAf (60.0-200.0) BUN/Creatinine Ratio (12.00-20.00) Ratio Glucose (70-110) mg/dL POC Glucose (mg/dL) 159 H 217 H (75-99) mg/dL Lactate Dehydrogenase (120-246) U/L C-Reactive Protein (0.0-0.8) mg/dL Microbiology - Last 24 Hours (Table) 04/28/20 14:56 Blood Culture Gram Stain - Preliminary Blood 04/28/20 14:56 Blood Culture - Final Blood Assessment and Plan Assessment: 1 Acute on chronic hypoxic respiratory failure secondary to an acute exacerbation of chronic obstructive pulmonary disease complicated by probable early pneumonia and CoVID 19 infection. 2 Acute CoVID 19 infection 3 Chronic hypoxemic respiratory failure 4 History of previous chronic tobacco dependence 5 Bacteremia secondary to gram-positive cocci 6 Acute renal failure 7 Elevated inflammatory markers secondary to Coronavirus 8 History of atrial fibrillation, anticoagulated with Xarelto 9 History of CVA/TIA 10 Ischemic cardiomyopathy with ejection fraction 40% 11 History of obstructive sleep apnea not on treatment 12 Poor overall functional performance based on the above-mentioned multiple comorbidities Plan: The patient was seen and evaluated by Dr. Lazar Continue bronchodilators and IV Solu-Medrol Anticoagulated with Xarelto Antibiotics per ID, currently on cefazolin Titrate down the FiO2 as tolerated Repeat chest x-ray in a.m. We will continue to follow I, the cosigning physician, performed a history & physical examination of the patient. Lungs sounds with bilateral wheeze, scattered rhonchi, diminished. Maintaining good O2 saturations in the 90s on 8 L high flow nasal cannula. I discussed the assessment and plan of care with my nurse practitioner, Debbie Deras. I attest to the above note as dictated by her.
[2020-04-29 17:07] LABS: Glucose,Whole Blood 189 mg/dL (75-99)
[2020-04-29] MEDS: RIVAROXABAN 15 MG TAB PO SCH (20:41)
[2020-04-29 20:49] LABS: Glucose,Whole Blood 245 mg/dL (75-99)
--- NOTE | 2020-04-29 23:25 | P.PN ---
Subjective Progress Note Date: 04/29/20 Principal diagnosis: Methicillin sensitive staph aureus pneumonia and bacteremia -Right lower lobe pneumonia suspected gram-negative orgasm -Underlying COVID 19 infection -Persistent atrial flutter fibrillation -Acute COPD exacerbation in an ex-smoker -Coronary artery disease with prior [facility] -Chronic hypoxic respiratory failure on 4 L oxygen at home -Acute hypoxic respiratory failure from above on 50% BiPAP -Chronic congestive heart failure from systolic dysfunction EF 40% -Secondary pulmonary hypertension 04/29/2020, patient seen eval examined during the rounds labs reviewed medications reviewed, mild degree or shortness of breath ongoing is present, is still intermittently using BiPAP alternating with 8 L high flow oxygen, ID services following patient's antibiotics have been changed to cefazolin remains on direct oral anticoagulants and bronchodilator along with steroids 04/28/2020, patient seen and evaluated examined, off of BiPAP, on supplemental oxygen, breathing comfortably, on 6 L nasal cannula patient remains on broad- spectrum antibiotics along with IV steroids and bronchodilator and direct anticoagulant pulmonary is following, chest x-ray continue show bilateral infiltrates which are stable, sputum and blood both positive for MSSA, This is a pleasant 79-year-old patient of . Chronic stable medical conditions include atrial fibrillation, COPD, kidney disease, secondary pulmonary hypertension, DJD, CHF EF of 40%, obstructive sleep apnea does not use any treatment, home oxygen 4 L. Patient presents with 3-4 weeks of not feeling well got a cough taking yellow-green sputum. Denies any fever but feels cold all the time decreased appetite. No loss of smell or taste. Denies any headache. No diarrhea. Patient positive for COVID 19 PCR. Check stat x-ray showed right lower lobe infiltrate. Admitted with right lower lobe pneumonia suspected to be gram-negative organism, underlying COVID 19 infection, acute COPD exacerbation, acute hypoxic respiratory failure. Patient started IV Zosyn, vancomycin, bronchodilators, steroids. Xarelto continued Objective - Vital Signs Vital signs: Vital Signs Temp 98 F 04/29/20 22:05 Pulse 81 04/29/20 22:05 Resp 32 H 04/29/20 22:05 BP 106/73 04/29/20 22:05 Pulse Ox 94 L 04/29/20 22:05 Intake & Output 04/29/20 04/29/20 04/30/20 06:59 18:59 06:59 Intake Total 1165 600 Output Total 2 Balance 1163 600 Intake: Intake, IV Titration 925 600 Amount Sodium Chloride 0.9% 1, 825 400 000 ml @ 50 mls/hr IV . Q20H BROCK Rx#:[id number] ceFAZolin 2 gm In Sodium 100 200 Chloride 0.9% 50 ml @ 100 mls/hr IVPB Q8HR BROCK Rx# :[id number] Oral 240 Output: Urine 2 Other: # Voids 2 4 0 # Bowel Movements 0 - Exam GENERAL: BMI 28.3, sitting up, tired. EYES: Pupils equal. Conjunctiva normal. HEENT: External appearance of nose and ears normal, oral cavity grossly normal. NECK: JVD not raised; masses not palpable. HEART: First and second heart sounds are normal; no edema. LUNGS: Respiratory rate increased, decreased breath sounds right basilar coarse crackles. ABDOMEN: Soft, nontender, liver spleen not palpable, no masses palpable. PSYCH: Alert and oriented x3; mood and affect normal. - Labs CBC & Chem 7: 04/28/20 07:02 04/28/20 07:02 Labs: Abnormal Lab Results - Last 24 Hours (Table) 04/29/20 04/29/20 04/29/20 Range/Units 07:23 11:10 11:11 ABG pCO2 52 H (35-45) mmHg ABG pO2 176 H (83-108) mmHg ABG HCO3 31 H (21-25) mmol/L ABG Total CO2 33 H (19-24) mmol/L ABG O2 Saturation 100.0 H (94-97) % POC Glucose (mg/dL) 159 H 217 H (75-99) mg/dL 04/29/20 04/29/20 Range/Units 16:57 20:47 ABG pCO2 (35-45) mmHg ABG pO2 (83-108) mmHg ABG HCO3 (21-25) mmol/L ABG Total CO2 (19-24) mmol/L ABG O2 Saturation (94-97) % POC Glucose (mg/dL) 189 H 245 H (75-99) mg/dL Microbiology - Last 24 Hours (Table) 04/28/20 14:56 Blood Culture Gram Stain - Preliminary Blood Blood Culture - Preliminary Presumptive Staph aureus 04/28/20 14:56 Blood Culture - Final Blood Assessment and Plan Assessment: Methicillin sensitive staph aureus pneumonia and bacteremia -Right lower lobe pneumonia suspected gram-negative orgasm -Underlying COVID 19 infection -Persistent atrial flutter fibrillation -Acute COPD exacerbation in an ex-smoker -Coronary artery disease with prior [facility] -Chronic hypoxic respiratory failure on 4 L oxygen at home -Acute hypoxic respiratory failure from above on 50% BiPAP -Chronic congestive heart failure from systolic dysfunction EF 40% -Secondary pulmonary hypertension Plan: Continue oxygen titrated down as tolerated, and, we'll continue IV steroids breathing treatments supportive care, pulmonary and infectious disease following, Time with Patient: Greater than 30
[2020-04-30] MEDS: methylPREDNISolone SOD SUCCI 125 MG/2 ML VIAL IV SCH ×5 (00:20→23:21)
[2020-04-30] MEDS: SODIUM CHLORIDE 0.9% 1,000 ML IV SCH ×2 (00:23→13:25)
--- NOTE | 2020-04-30 03:11 | PN ---
PROGRESS NOTE DATE OF SERVICE: 04/29/2020 REASON FOR FOLLOWUP: MSSA bacteremia and pneumonia. INTERVAL HISTORY: The patient is currently afebrile. The patient did have slight respiratory distress and requiring high flow nasal cannula oxygen. Patient denies having any chest pain. Did have a cough, not bringing up sputum. No abdominal pain or diarrhea. PHYSICAL EXAMINATION: Blood pressure 106/73, pulse of 81, temperature 98. She is 94% on 4 L nasal cannula. General description is an elderly female up in the bed in no distress. RESPIRATORY SYSTEM: Unlabored breathing with decreased intensity of breath sounds. No wheeze. HEART: S1, S2. Regular rate and rhythm. ABDOMEN: Soft, no tenderness. LABS: Repeat blood culture so far positive. DIAGNOSTIC IMPRESSION AND PLAN: Patient with MSSA bacteremia, source is likely pneumonia in this patient with evidence of persistent bacteremia. Blood cultures will be repeated again tomorrow to document clearance of bacteremia. She is currently covered with cefazolin to continue and monitor clinical course closely. MMODL / IJN: [id number] /
[2020-04-30 07:04] LABS: Glucose,Whole Blood 168 mg/dL (75-99)
[2020-04-30] MEDS: SYMBICORT 160-4.5 MCG INHALER INHALATION SCH ×2 (08:20→20:06)
[2020-04-30] MEDS: ALBUTEROL HFA INHALER INHALATION PRN ×2 (08:20→15:50)
--- NOTE | 2020-04-30 08:23 | XR ---
EXAMINATION TYPE: XR chest 1V DATE OF EXAM: 04/30/2020 COMPARISON: 04/28/2020 HISTORY: 79-year-old female COVID, COPD TECHNIQUE: Single frontal view of the chest is obtained. FINDINGS: Heart remains mild to moderately enlarged. Mild diffuse interstitial prominence is unchanged. Focal p atchy right lower lung opacity shows no significant change. No sizable effusion. IMPRESSION: Similar cardiomegaly. Similar patchy infiltrate at the right base.
[2020-04-30] MEDS: ZINC SULFATE 220 MG CAP PO SCH (08:33)
[2020-04-30] MEDS: SPIRONOLACTONE 25 MG TAB PO SCH (08:33)
[2020-04-30] MEDS: INSULIN ASPART (NovoLOG) 100 UNIT/ML VIAL SQ SCH ×4 (08:33→20:30)
[2020-04-30] MEDS: CHOLECALCIFEROL 1,000 UNIT TAB PO SCH (08:33)
[2020-04-30] MEDS: ASCORBIC ACID 500 MG TAB PO SCH ×2 (08:34→20:29)
[2020-04-30] MEDS: METOPROLOL TARTRATE 50 MG TAB PO SCH ×2 (08:34→20:34)
[2020-04-30] MEDS: OXYBUTYNIN CHLORIDE 5 MG TAB PO SCH ×2 (08:34→20:29)
[2020-04-30] MEDS: guaiFENesin 600 MG TABLET.ER PO SCH ×4 (08:34→20:29)
[2020-04-30 11:30] LABS: Glucose,Whole Blood 240 mg/dL (75-99)
--- NOTE | 2020-04-30 13:11 | P.PN ---
Subjective Progress Note Date: 04/30/20 Principal diagnosis: Acute on chronic hypoxic and hypercapnic respiratory failure secondary to bacterial pneumonia, covid 19 pneumonia, and acute exacerbation of COPD. This is a pleasant 79-year-old female patient who follows with Dr. Cortes with a known history of chronic hypoxic respiratory failure on home oxygen, chronic tobacco dependence, atrial fibrillation, CVA/TIA, myocardial infarction, obstructive sleep apnea on no treatment, chronic systolic congestive heart failu re with ejection fraction 40%. She presented to the emergency room yesterday with complaints of a 2-3 day history of increasing shortness of breath, cough and congestion yellow productive sputum. She states she had been exposed to her grandson who was positive for CoVID 19. Chest x-ray revealed moderate cardiomegaly. Chronic lower lobe pneumonia similar to previous exam from 2017. Small right pleural effusion. White count 9.2. Hemoglobin 12.4. D-dimer 0.49. Sodium 134. Potassium 3.6. Creatinine 1.16. LDH 626. C-reactive protein 315. Coronavirus by PCR detected. She is seen today in consultation on the regular medical floor. She is currently in some moderate respiratory distress. She is spastic and wheezing. She has a productive cough. She is on 10 L high flow nasal cannula to maintain O2 saturation in the 90s. Urgent arterial blood gases were drawn and revealed a PaO2 of 46, pCO2 of 60 and a pH of 7.36. She was placed on BiPAP 12/6 and 60% FiO2. He is more comfortable. She has stated she did not want to be intubated and placed on mechanical ventilator. She is a DO NOT RESUSCITATE/DO NOT INTUBATE CODE STATUS. Pro calcitonin 3.21. She is initiated on Zosyn and bronchodilators. Preliminary blood culture reveals gram- positive cocci. She is initiated on vancomycin. The patient is seen today 04/27/2020 in follow-up on the regular medical floor. She is doing a bit better today compared to yesterday. She is up in the chair. She remains on BiPAP. Currently at 12/6 and 50% FiO2. His 0.9 normal saline at 50 MLS per hour. Blood cultures are revealing presumptive staph aureus. Sputum culture with presumptive staph aureus. Blood glucose 173. She remains on Symbicort, albuterol, IV Solu-Medrol. Continued on Zosyn and vancomycin. Anticoagulated with Xarelto. [place] on vitamin supplements. Patient is seen today 04/28/2020 in follow-up on the regular medical floor. She is currently sitting at the bedside. Awake and alert in no acute distress. Continues to improve daily. Maintaining O2 saturations at 100% on 8 L/m per nasal cannula. She continues with crackles in the bilateral bases. She did utilize BiPAP throughout the evening. Blood and sputum cultures reveal evidence of MSSA. White count 9.9. Hemoglobin 11.3. D-dimer 0.66. Continued on vancomycin, Zosyn, IV Solu-Medrol, bronchodilators. Anticoagulated with Xarelto. The patient is seen today 04/29/2020 and follow-up on the regular medical floor. She is currently sitting up at the bedside. Awake and alert in mild respiratory distress. She did utilize BiPAP throughout the evening 50% FiO2. She is currently on 8 L high flow nasal cannula. Arterial blood gases revealed a pO2 176, pCO2 52, pH 7.38. Antibiotics changed to cefazolin. Continued on IV Solu-Medrol, Symbicort, albuterol. Anticoagulated with Xarelto. Patient was reevaluated today on 04/30/20, patient is now on 6 L nasal cannula, maintaining O2 saturation at 96%. Patient is feeling better, less cough and less wheezing less shortness of breath, nonetheless, the patient is not back to her baseline. And on physical examination continues to have rhonchi and wheezes bilaterally and crackles at the right base. Patient is using BiPAP which is at bedside as needed. Presently on nasal cannula, and seems to be quite comfortable with that. Patient had an ABG yesterday on 50% FiO2, on BiPAP, her pO2 was 176 pCO2 52 and pH of 7.38. Electrolytes are normal BUN is 54 creatinine 1.2 indicative of prerenal azotemia. WBC count is 9.9 hemoglobin is 11.3. D-dimer is 0.66. Chest x-ray today showed patchy infiltrate at the right lower lobe area unchanged from admission. Objective - Vital Signs Vital signs: Vital Signs Temp 98 F 04/30/20 11:00 Pulse 71 04/30/20 11:00 Resp 22 04/30/20 11:00 BP 128/63 04/30/20 11:00 Pulse Ox 96 04/30/20 11:00 Intake & Output 04/29/20 04/30/20 04/30/20 18:59 06:59 18:59 Intake Total 600 550 Balance 600 550 Intake: Intake, IV Titration 600 50 Amount Sodium Chloride 0.9% 1, 400 000 ml @ 50 mls/hr IV . Q20H [facility] Rx#:[id number] ceFAZolin 2 gm In Sodium 200 50 Chloride 0.9% 50 ml @ 100 mls/hr IVPB Q8HR [facility] Rx# :[id number] Oral 500 Other: # Voids 4 0 # Bowel Movements 0 - Exam GENERAL EXAM: Alert, 79-year-old female patient, on 6 L high flow nasal cannula. HEAD: Normocephalic. ENT: PERRLA, EOMI, nonicteric, no neck masses, no JVD, no stridor. CHEST: No chest wall deformity. LUNGS: Equal air entry with bilateral end expiratory wheeze, scattered rhonchi, noted bilaterally however right more so than left. CVS: S1 and S2 normal with no audible murmur, regular rhythm. ABDOMEN: No hepatosplenomegaly, normal bowel sounds, no guarding or rigidity. SPINE: No scoliosis or deformity SKIN: No rashes CENTRAL NERVOUS SYSTEM: Alert and oriented 3 focal deficits. EXTREMITIES: There is no peripheral edema. No clubbing, no cyanosis. Peripheral pulses are intact. Psychiatric: Normal mood affect and normal mental status examination. - Labs CBC & Chem 7: 04/28/20 07:02 04/28/20 07:02 Labs: Abnormal Lab Results - Last 24 Hours (Table) 04/29/20 04/29/20 04/30/20 Range/Units 16:57 20:47 07:03 POC Glucose (mg/dL) 189 H 245 H 168 H (75-99) mg/dL 04/30/20 Range/Units 11:29 POC Glucose (mg/dL) 240 H (75-99) mg/dL Microbiology - Last 24 Hours (Table) 04/29/20 07:21 Blood Culture Gram Stain - Preliminary Blood 04/29/20 07:21 Blood Culture - Final Blood 04/28/20 14:56 Blood Culture Gram Stain - Preliminary Blood Blood Culture - Preliminary Presumptive Staph aureus 04/28/20 14:56 Blood Culture - Final Blood Assessment and Plan Assessment: Impression: Acute on chronic hypoxic and hypercapnic respiratory failure, multifactorial, secondary to acute exacerbation of COPD, covid 19 pneumonitis, and staph aureus pneumonia, MSSA. Acute staph aureus bacteremia, likely source is pneumonia. Acute kidney injury. Elevated inflammatory markers secondary to rotavirus infection. History of chronic atrial fibrillation. History of ischemic cardiomyopathy and LV dysfunction, ejection fraction of 40%. History of obstructive sleep apnea syndrome. Recommendation: Continue present treatment plan including bronchodilators, cefazolin, Covid 19 cocktail, Xarelto, hold diuretics, since the patient is developing a prerenal azotemia. Continue Solu-Medrol. And eventually transition the patient to oral prednisone. Patient is not quite ready for discharge planning. We'll continue to follow. Continue to monitor renal profile. Consider discharge planning in the next 2-3 days at the most. Time with Patient: Less than 30
--- NOTE | 2020-04-30 13:55 | P.PN ---
Subjective Progress Note Date: 04/30/20 Principal diagnosis: Methicillin sensitive staph aureus pneumonia and bacteremia -Right lower lobe pneumonia suspected gram-negative orgasm -Underlying COVID 19 infection -Persistent atrial flutter fibrillation -Acute COPD exacerbation in an ex-smoker -Coronary artery disease with prior NC -Chronic hypoxic respiratory failure on 4 L oxygen at home -Acute hypoxic respiratory failure from above on 50% BiPAP -Chronic congestive heart failure from systolic dysfunction EF 40% -Secondary pulmonary hypertension 04/30/2020, patient seen eval examined during the rounds labs reviewed medications reviewed care plan discussed, chest x-ray remains stable, on 6 L oxygen saturation is in mid 90s, 04/29/2020, patient seen eval examined during the rounds labs reviewed medications reviewed, mild degree or shortness of breath ongoing is present, is still intermittently using BiPAP alternating with 8 L high flow oxygen, ID services following patient's antibiotics have been changed to cefazolin remains on direct oral anticoagulants and bronchodilator along with steroids 04/28/2020, patient seen and evaluated examined, off of BiPAP, on supplemental oxygen, breathing comfortably, on 6 L nasal cannula patient remains on broad- spectrum antibiotics along with IV steroids and bronchodilator and direct anticoagulant pulmonary is following, chest x-ray continue show bilateral infil trates which are stable, sputum and blood both positive for MSSA, This is a pleasant 79-year-old patient of . Chronic stable medical conditions include atrial fibrillation, COPD, kidney disease, secondary pulmonary hypertension, DJD, CHF EF of 40%, obstructive sleep apnea does not use any treatment, home oxygen 4 L. Patient presents with 3-4 weeks of not feeling well got a cough taking yellow-green sputum. Denies any fever but feels cold all the time decreased appetite. No loss of smell or taste. Denies any headache. No diarrhea. Patient positive for COVID 19 PCR. Check stat x-ray showed right lower lobe infiltrate. Admitted with right lower lobe pneumonia suspected to be gram-negative organism, underlying COVID 19 infection, acute COPD exacerbation, acute hypoxic respir atory failure. Patient started IV Zosyn, vancomycin, bronchodilators, steroids. Xarelto continued Objective - Vital Signs Vital signs: Vital Signs Temp 98 F 04/30/20 11:00 Pulse 71 04/30/20 11:00 Resp 22 04/30/20 11:00 BP 128/63 04/30/20 11:00 Pulse Ox 96 04/30/20 11:00 Intake & Output 04/29/20 04/30/20 04/30/20 18:59 06:59 18:59 Intake Total 600 550 Balance 600 550 Intake: Intake, IV Titration 600 50 Amount Sodium Chloride 0.9% 1, 400 000 ml @ 50 mls/hr IV . Q20H BROCK Rx#:[id number] ceFAZolin 2 gm In Sodium 200 50 Chloride 0.9% 50 ml @ 100 mls/hr IVPB Q8HR [facility] Rx# :[id number] Oral 500 Other: # Voids 4 0 # Bowel Movements 0 - Exam GENERAL: BMI 28.3, sitting up, tired. EYES: Pupils equal. Conjunctiva normal. HEENT: External appearance of nose and ears normal, oral cavity grossly normal. NECK: JVD not raised; masses not palpable. HEART: First and second heart sounds are normal; no edema. LUNGS: Respiratory rate increased, decreased breath sounds right basilar coarse crackles. ABDOMEN: Soft, nontender, liver spleen not palpable, no masses palpable. PSYCH: Alert and oriented x3; mood and affect normal. - Labs CBC & Chem 7: 04/28/20 07:02 04/28/20 07:02 Labs: Abnormal Lab Results - Last 24 Hours (Table) 04/29/20 04/29/20 04/30/20 Range/Units 16:57 20:47 07:03 POC Glucose (mg/dL) 189 H 245 H 168 H (75-99) mg/dL 04/30/20 Range/Units 11:29 POC Glucose (mg/dL) 240 H (75-99) mg/dL Microbiology - Last 24 Hours (Table) 04/29/20 07:21 Blood Culture Gram Stain - Preliminary Blood 04/29/20 07:21 Blood Culture - Final Blood 04/28/20 14:56 Blood Culture Gram Stain - Preliminary Blood Blood Culture - Preliminary Presumptive Staph aureus 04/28/20 14:56 Blood Culture - Final Blood Assessment and Plan Assessment: Methicillin sensitive staph aureus pneumonia and bacteremia -Right lower lobe pneumonia suspected gram-negative orgasm -Underlying COVID 19 infection -Persistent atrial flutter fibrillation -Acute COPD exacerbation in an ex-smoker -Coronary artery disease with prior NC -Chronic hypoxic respiratory failure on 4 L oxygen at home -Acute hypoxic respiratory failure from above on 50% BiPAP -Chronic congestive heart failure from systolic dysfunction EF 40% -Secondary pulmonary hypertension Plan: Continue oxygen titrated down as tolerated, and, we'll continue IV steroids breathing treatments supportive care, pulmonary and infectious disease following, Time with Patient: Greater than 30
[2020-04-30 16:59] LABS: Glucose,Whole Blood 224 mg/dL (75-99)
[2020-04-30 20:09] LABS: Glucose,Whole Blood 257 mg/dL (75-99)
[2020-04-30] MEDS: RIVAROXABAN 15 MG TAB PO SCH (20:29)
[2020-04-30] MEDS ORDERED: RX INFO: IV CONTRAST WAS GIVEN 1 EACH MISC MISCELLANE PRN (22:36)
--- NOTE | 2020-04-30 23:19 | PN ---
PROGRESS NOTE DATE OF SERVICE: 04/30/2020 REASON FOR FOLLOWUP: MSSA bacteremia pneumonia. INTERVAL HISTORY: Patient is currently afebrile. The patient is breathing slightly comfortably. The patient denies having any chest pain. Did have some cough. No abdominal pain or diarrhea. PHYSICAL EXAMINATION: Blood pressure 161/83 with a pulse of 74. Temperature is 97.5. He is 99% BiPAP. General description is an elderly female up in the bed in no distress. Respiratory system: Unlabored breathing, decreased breath sounds in the bases. No wheeze. Heart S1, S2. Regular rate and rhythm. ABDOMEN: Soft, no tenderness. LABS: No new labs have been obtained today. Blood cultures from yesterday positive as well. DIAGNOSTIC IMPRESSION AND PLAN: Patient with MSSA bacteremia persistent with evidence of source likely pneumonia with persistent bacteremia. We will obtain a CT of the chest to make sure no evidence of any loculated fluid that may be needs to be persistent bacteremia. Cefazolin to continue and continue supportive care. MMODL / IJN: [id number] /
[2020-05-01] MEDS: methylPREDNISolone SOD SUCCI 125 MG/2 ML VIAL IV SCH ×3 (05:15→17:39)
[2020-05-01 07:17] LABS: Glucose,Whole Blood 115 mg/dL (75-99)
[2020-05-01] MEDS: CHOLECALCIFEROL 1,000 UNIT TAB PO SCH (07:36)
[2020-05-01] MEDS: ZINC SULFATE 220 MG CAP PO SCH (07:37)
[2020-05-01] MEDS: INSULIN ASPART (NovoLOG) 100 UNIT/ML VIAL SQ SCH ×4 (07:37→20:41)
[2020-05-01] MEDS: OXYBUTYNIN CHLORIDE 5 MG TAB PO SCH ×2 (07:37→20:21)
[2020-05-01] MEDS: METOPROLOL TARTRATE 50 MG TAB PO SCH ×2 (07:37→20:21)
[2020-05-01] MEDS: guaiFENesin 600 MG TABLET.ER PO SCH ×4 (07:37→20:21)
[2020-05-01] MEDS: ASCORBIC ACID 500 MG TAB PO SCH ×2 (07:37→20:21)
--- NOTE | 2020-05-01 07:42 | CT ---
EXAMINATION TYPE: CT chest w con DATE OF EXAM: 05/01/2020 COMPARISON: None HISTORY: pneumonia, covid positive CT DLP: 345.4 mGycm Automated exposure control for dose reduction was used. CONTRAST: CT scan of the chest is performed with IV Contrast, patient injected with 80 mL of Isovue 300. FINDINGS: LUNGS: Scattered areas of airspace infiltrate are seen bilaterally. Is also superimposed interstitial prominence. Findings are compatible with the provided history of Covid Pneumonia.I do not see eviden ce for mass. Trace pleural effusion noted. No evidence for volume loss. MEDIASTINUM: There are no greater than 1 cm hilar or mediastinal lymph nodes. No pericardial effusi on is seen. Thoracic aorta is of normal caliber. There is evidence of cardiomegaly. UPPER ABDOMEN: Left adrenal mass is identified measuring 3.7 x 4.3 cm. OTHER: No additional signific ant abnormality is seen. IMPRESSION: 1.Scattered areas of airspace infiltrate are seen bilaterally. Is also superimposed interstitial prom inence. Findings are compatible with the provided history of Covid Pneumonia. 2. Nonspecific left adrenal mass.
[2020-05-01] MEDS: SYMBICORT 160-4.5 MCG INHALER INHALATION SCH ×2 (09:09→20:10)
[2020-05-01] MEDS: ALBUTEROL HFA INHALER INHALATION PRN ×4 (09:09→20:10)
[2020-05-01 12:21] LABS: Glucose,Whole Blood 179 mg/dL (75-99)
--- NOTE | 2020-05-01 13:16 | P.PN ---
Subjective Progress Note Date: 05/01/20 Principal diagnosis: Acute on chronic hypoxic and hypercapnic respiratory failure secondary to bacterial pneumonia, covid 19 pneumonia, and acute exacerbation of COPD. This is a pleasant 79-year-old female patient who follows with Dr. Cortes with a known history of chronic hypoxic respiratory failure on home oxygen, chronic tobacco dependence, atrial fibrillation, CVA/TIA, myocardial infarction, obstructive sleep apnea on no treatment, chronic systolic congestive heart failu re with ejection fraction 40%. She presented to the emergency room yesterday with complaints of a 2-3 day history of increasing shortness of breath, cough and congestion yellow productive sputum. She states she had been exposed to her grandson who was positive for CoVID 19. Chest x-ray revealed moderate cardiomegaly. Chronic lower lobe pneumonia similar to previous exam from 2017. Small right pleural effusion. White count 9.2. Hemoglobin 12.4. D-dimer 0.49. Sodium 134. Potassium 3.6. Creatinine 1.16. LDH 626. C-reactive protein 315. Coronavirus by PCR detected. She is seen today in consultation on the regular medical floor. She is currently in some moderate respiratory distress. She is spastic and wheezing. She has a productive cough. She is on 10 L high flow nasal cannula to maintain O2 saturation in the 90s. Urgent arterial blood gases were drawn and revealed a PaO2 of 46, pCO2 of 60 and a pH of 7.36. She was placed on BiPAP 12/6 and 60% FiO2. He is more comfortable. She has stated she did not want to be intubated and placed on mechanical ventilator. She is a DO NOT RESUSCITATE/DO NOT INTUBATE CODE STATUS. Pro calcitonin 3.21. She is initiated on Zosyn and bronchodilators. Preliminary blood culture reveals gram- positive cocci. She is initiated on vancomycin. The patient is seen today 04/27/2020 in follow-up on the regular medical floor. She is doing a bit better today compared to yesterday. She is up in the chair. She remains on BiPAP. Currently at 12/6 and 50% FiO2. His 0.9 normal saline at 50 MLS per hour. Blood cultures are revealing presumptive staph aureus. Sputum culture with presumptive staph aureus. Blood glucose 173. She remains on Symbicort, albuterol, IV Solu-Medrol. Continued on Zosyn and vancomycin. Anticoagulated with Xarelto. [place] on vitamin supplements. Patient is seen today 04/28/2020 in follow-up on the regular medical floor. She is currently sitting at the bedside. Awake and alert in no acute distress. Continues to improve daily. Maintaining O2 saturations at 100% on 8 L/m per nasal cannula. She continues with crackles in the bilateral bases. She did utilize BiPAP throughout the evening. Blood and sputum cultures reveal evidence of MSSA. White count 9.9. Hemoglobin 11.3. D-dimer 0.66. Continued on vancomycin, Zosyn, IV Solu-Medrol, bronchodilators. Anticoagulated with Xarelto. The patient is seen today 04/29/2020 and follow-up on the regular medical floor. She is currently sitting up at the bedside. Awake and alert in mild respiratory distress. She did utilize BiPAP throughout the evening 50% FiO2. She is currently on 8 L high flow nasal cannula. Arterial blood gases revealed a pO2 176, pCO2 52, pH 7.38. Antibiotics changed to cefazolin. Continued on IV Solu-Medrol, Symbicort, albuterol. Anticoagulated with Xarelto. Patient was reevaluated today on 04/30/20, patient is now on 6 L nasal cannula, maintaining O2 saturation at 96%. Patient is feeling better, less cough and less wheezing less shortness of breath, nonetheless, the patient is not back to her baseline. And on physical examination continues to have rhonchi and wheezes bilaterally and crackles at the right base. Patient is using BiPAP which is at bedside as needed. Presently on nasal cannula, and seems to be quite comfortable with that. Patient had an ABG yesterday on 50% FiO2, on BiPAP, her pO2 was 176 pCO2 52 and pH of 7.38. Electrolytes are normal BUN is 54 creatinine 1.2 indicative of prerenal azotemia. WBC count is 9.9 hemoglobin is 11.3. D-dimer is 0.66. Chest x-ray today showed patchy infiltrate at the right lower lobe area unchanged from admission. Reevaluated today on 05/01/20, patient is now on BiPAP, with IPAP of 12, EPAP of 6, and 40% FiO2. Patient is feeling better, but continues to have shortness of breath, intermittent episodes of cough and wheezing. On physical examination she continues to have significant crackles and rhonchi especially at the right base. Patient is being treated for COPD, Covid 19 pneumonitis, and also suspect underlying bacterial pneumonia with bacteremia. Objective - Vital Signs Vital signs: Vital Signs Temp 97.5 F L 05/01/20 11:00 Pulse 70 05/01/20 11:00 Resp 26 H 05/01/20 11:00 BP 119/80 05/01/20 11:00 Pulse Ox 100 05/01/20 11:00 Intake & Output 04/30/20 05/01/20 05/01/20 18:59 06:59 18:59 Intake Total 1100 Balance 1100 Intake: Intake, IV Titration 700 Amount Sodium Chloride 0.9% 1, 600 000 ml @ 75 mls/hr IV . [id number] [facility] Rx#:[id number] ceFAZolin 2 gm In Sodium 100 Chloride 0.9% 50 ml @ 100 mls/hr IVPB Q8HR [facility] Rx# :[id number] Oral 400 Other: Voiding Method Bedside Commode # Voids 3 3 # Bowel Movements 1 - Exam GENERAL EXAM: Alert, 79-year-old female patient, on BiPAP. HEAD: Normocephalic. ENT: PERRLA, EOMI, nonicteric, no neck masses, no JVD, no stridor. CHEST: No chest wall deformity. LUNGS: Symmetrical chest expansion, crackles at the bases especially at the right base. CVS: S1 and S2 normal with no audible murmur, regular rhythm. ABDOMEN: No hepatosplenomegaly, normal bowel sounds, no guarding or rigidity. SPINE: No scoliosis or deformity SKIN: No rashes CENTRAL NERVOUS SYSTEM: Alert and oriented 3 focal deficits. EXTREMITIES: There is no peripheral edema. No clubbing, no cyanosis. Peripheral pulses are intact. Psychiatric: Normal mood affect and normal mental status examination. - Labs CBC & Chem 7: 04/28/20 07:02 04/28/20 07:02 Labs: Abnormal Lab Results - Last 24 Hours (Table) 04/30/20 04/30/20 05/01/20 Range/Units 16:58 19:44 07:09 POC Glucose (mg/dL) 224 H 257 H 115 H (75-99) mg/dL 05/01/20 Range/Units 12:19 POC Glucose (mg/dL) 179 H (75-99) mg/dL Microbiology - Last 24 Hours (Table) 04/30/20 05:52 Blood Culture - Preliminary Blood No Growth after 24 hours 04/28/20 14:56 Blood Culture Gram Stain - Final Blood Blood Culture - Final Staphylococcus aureus 04/29/20 07:21 Blood Culture Gram Stain - Preliminary Blood Blood Culture - Preliminary Presumptive Staph aureus Assessment and Plan Assessment: Impression: Acute on chronic hypoxic and hypercapnic respiratory failure, multifactorial, secondary to acute exacerbation of COPD, covid 19 pneumonitis, and staph aureus pneumonia, MSSA. Acute staph aureus bacteremia, likely source is pneumonia. Acute kidney injury. Elevated inflammatory markers secondary to rotavirus infection. History of chronic atrial fibrillation. History of ischemic cardiomyopathy and LV dysfunction, ejection fraction of 40%. History of obstructive sleep apnea syndrome. Recommendation: Continue bronchodilators, cefazolin, Covid 19 cocktail, Xarelto, Continue Solu-Medrol. And eventually transition the patient to oral prednisone. Patient is not quite ready for discharge planning. We'll continue to follow. Continue to monitor renal profile. Consider discharge planning in the 3 days Time with Patient: Less than 30
--- NOTE | 2020-05-01 14:05 | P.PN ---
Subjective Progress Note Date: 05/01/20 Principal diagnosis: Methicillin sensitive staph aureus pneumonia and bacteremia -Right lower lobe pneumonia suspected gram-negative orgasm -Underlying COVID 19 infection -Persistent atrial flutter fibrillation -Acute COPD exacerbation in an ex-smoker -Coronary artery disease with prior NE -Chronic hypoxic respiratory failure on 4 L oxygen at home -Acute hypoxic respiratory failure from above on 50% BiPAP -Chronic congestive heart failure from systolic dysfunction EF 40% -Secondary pulmonary hypertension 05/01/2020, patient seen eval examined during the rounds labs reviewed medications reviewed care plan discussed, oxygen saturation remains stable, they are 100% when she is on BiPAP, ET scan of the chest revealed bilateral scattered infiltrate along with left adrenal mass, appears to be nonspecific 04/30/2020, patient seen eval examined during the rounds labs reviewed medications reviewed care plan discussed, chest x-ray remains stable, on 6 L oxygen saturation is in mid 90s, 04/29/2020, patient seen eval examined during the rounds labs reviewed medications reviewed, mild degree or shortness of breath ongoing is present, is still intermittently using BiPAP alternating with 8 L high flow oxygen, ID services following patient's antibiotics have been changed to cefazolin remains on direct oral anticoagulants and bronchodilator along with steroids 04/28/2020, patient seen and evaluated examined, off of BiPAP, on supplemental oxygen, breathing comfortably, on 6 L nasal cannula patient remains on broad- spectrum antibiotics along with IV steroids and bronchodilator and direct anticoagulant pulmonary is following, chest x-ray continue show bilateral infi ltrates which are stable, sputum and blood both positive for MSSA, This is a pleasant 79-year-old patient of . Chronic stable medical conditions include atrial fibrillation, COPD, kidney disease, secondary pulmonary hypertension, DJD, CHF EF of 40%, obstructive sleep apnea does not use any treatment, home oxygen 4 L. Patient presents with 3-4 weeks of not feeling well got a cough taking yellow-green sputum. Denies any fever but feels cold all the time decreased appetite. No loss of smell or taste. Denies any headache. No diarrhea. Patient positive for COVID 19 PCR. Check stat x-ray showed right lower lobe infiltrate. Admitted with right lower lobe pneumonia suspected to be gram-negative organism, underlying COVID 19 infection, acute COPD exacerbation, acute hypoxic respi ratory failure. Patient started IV Zosyn, vancomycin, bronchodilators, steroids. Xarelto continued Objective - Vital Signs Vital signs: Vital Signs Temp 97.5 F L 05/01/20 11:00 Pulse 70 05/01/20 11:00 Resp 26 H 05/01/20 11:00 BP 119/80 05/01/20 11:00 Pulse Ox 100 05/01/20 11:00 Intake & Output 04/30/20 05/01/20 05/01/20 18:59 06:59 18:59 Intake Total 1100 240 Balance 1100 240 Intake: Intake, IV Titration 700 Amount Sodium Chloride 0.9% 1, 600 000 ml @ 75 mls/hr IV . [id number] [facility] Rx#:[id number] ceFAZolin 2 gm In Sodium 100 Chloride 0.9% 50 ml @ 100 mls/hr IVPB Q8HR [facility] Rx# :[id number] Oral 400 240 Other: Voiding Method Bedside Commode # Voids 3 3 # Bowel Movements 1 - Exam GENERAL: BMI 28.3, sitting up, tired. EYES: Pupils equal. Conjunctiva normal. HEENT: External appearance of nose and ears normal, oral cavity grossly normal. NECK: JVD not raised; masses not palpable. HEART: First and second heart sounds are normal; no edema. LUNGS: Respiratory rate increased, decreased breath sounds right basilar coarse crackles. ABDOMEN: Soft, nontender, liver spleen not palpable, no masses palpable. PSYCH: Alert and oriented x3; mood and affect normal. - Labs CBC & Chem 7: 04/28/20 07:02 04/28/20 07:02 Labs: Abnormal Lab Results - Last 24 Hours (Table) 04/30/20 04/30/20 05/01/20 Range/Units 16:58 19:44 07:09 POC Glucose (mg/dL) 224 H 257 H 115 H (75-99) mg/dL 05/01/20 Range/Units 12:19 POC Glucose (mg/dL) 179 H (75-99) mg/dL Microbiology - Last 24 Hours (Table) 04/30/20 05:52 Blood Culture - Preliminary Blood No Growth after 24 hours 04/28/20 14:56 Blood Culture Gram Stain - Final Blood Blood Culture - Final Staphylococcus aureus 04/29/20 07:21 Blood Culture Gram Stain - Preliminary Blood Blood Culture - Preliminary Presumptive Staph aureus Assessment and Plan Assessment: Methicillin sensitive staph aureus pneumonia and bacteremia -Right lower lobe pneumonia suspected gram-negative orgasm -Underlying COVID 19 infection -Persistent atrial flutter fibrillation -Acute COPD exacerbation in an ex-smoker -Coronary artery disease with prior NE -Chronic hypoxic respiratory failure on 4 L oxygen at home -Acute hypoxic respiratory failure from above on 50% BiPAP -Chronic congestive heart failure from systolic dysfunction EF 40% -Secondary pulmonary hypertension Left adrenal mass likely nonspecific Plan: Continue oxygen titrated down as tolerated, and, we'll continue IV steroids breathing treatments supportive care, pulmonary and infectious disease following, Time with Patient: Greater than 30
[2020-05-01 17:19] LABS: Glucose,Whole Blood 256 mg/dL (75-99)
[2020-05-01] MEDS: SODIUM CHLORIDE 0.9% 1,000 ML IV SCH (17:44)
[2020-05-01 19:58] LABS: Glucose,Whole Blood 307 mg/dL (75-99)
[2020-05-01] MEDS: RIVAROXABAN 15 MG TAB PO SCH (20:22)
--- NOTE | 2020-05-01 23:23 | PN ---
PROGRESS NOTE DATE OF SERVICE: 05/01/2020 REASON FOR FOLLOWUP: MSSA bacteremia and pneumonia. INTERVAL HISTORY: The patient is currently afebrile. The patient is on BiPAP. The patient is hemodynamically stable, slightly lethargic but answer simple questions. No vomiting or diarrhea has been reported. PHYSICAL EXAMINATION: Blood pressure 128/74, pulse of 75, temperature 97.4. She is 100% on BiPAP. General description is an elderly female lying in bed in no distress. RESPIRATORY SYSTEM: Unlabored breathing with decreased intensity of breath sounds. No wheeze. HEART: S1, S2. Regular rate and rhythm. ABDOMEN: Soft. No tenderness. LABS: Blood culture from 04/30 has been negative so far. DIAGNOSTIC IMPRESSION AND PLAN: Patient with methicillin-susceptible Staphylococcus aeruginosa bacteremia pneumonia. CT of the chest did not show any concern or effusion or likely . The patient has cleared her bacteremia. She will continue with cefazolin 2 grams q.8 hourly for at least 2 weeks of IV antibiotic from negative blood culture, for which the patient needs a midline. Continue supportive care. MMODL / IJN: [id number] /
[2020-05-02] MEDS: SODIUM CHLORIDE 0.9% 1,000 ML IV SCH ×2 (00:43→13:10)
[2020-05-02] MEDS: methylPREDNISolone SOD SUCCI 125 MG/2 ML VIAL IV SCH ×5 (00:44→23:51)
[2020-05-02 07:22] LABS: Glucose,Whole Blood 136 mg/dL (75-99)
[2020-05-02] MEDS: OXYBUTYNIN CHLORIDE 5 MG TAB PO SCH ×2 (07:28→20:54)
[2020-05-02] MEDS: guaiFENesin 600 MG TABLET.ER PO SCH ×4 (07:28→20:53)
[2020-05-02] MEDS: ASCORBIC ACID 500 MG TAB PO SCH ×2 (07:28→20:53)
[2020-05-02] MEDS: METOPROLOL TARTRATE 50 MG TAB PO SCH ×2 (07:28→20:53)
[2020-05-02] MEDS: CHOLECALCIFEROL 1,000 UNIT TAB PO SCH (07:28)
[2020-05-02] MEDS: ZINC SULFATE 220 MG CAP PO SCH (07:28)
[2020-05-02] MEDS: SYMBICORT 160-4.5 MCG INHALER INHALATION SCH ×2 (07:50→20:31)
[2020-05-02] MEDS: INSULIN ASPART (NovoLOG) 100 UNIT/ML VIAL SQ SCH ×4 (08:13→20:54)
[2020-05-02 11:38] LABS: Glucose,Whole Blood 190 mg/dL (75-99)
[2020-05-02 12:42] VITALS: BMI 28.0
--- NOTE | 2020-05-02 13:55 | P.PN ---
Subjective Progress Note Date: 05/02/20 Principal diagnosis: Acute on chronic hypoxic and hypercapnic respiratory failure secondary to bacterial pneumonia, covid 19 pneumonia, and acute exacerbation of COPD. This is a pleasant 79-year-old female patient who follows with Dr. Cortes with a known history of chronic hypoxic respiratory failure on home oxygen, chronic tobacco dependence, atrial fibrillation, CVA/TIA, myocardial infarction, obstructive sleep apnea on no treatment, chronic systolic congestive heart failu re with ejection fraction 40%. She presented to the emergency room yesterday with complaints of a 2-3 day history of increasing shortness of breath, cough and congestion yellow productive sputum. She states she had been exposed to her grandson who was positive for CoVID 19. Chest x-ray revealed moderate cardiomegaly. Chronic lower lobe pneumonia similar to previous exam from 2017. Small right pleural effusion. White count 9.2. Hemoglobin 12.4. D-dimer 0.49. Sodium 134. Potassium 3.6. Creatinine 1.16. LDH 626. C-reactive protein 315. Coronavirus by PCR detected. She is seen today in consultation on the regular medical floor. She is currently in some moderate respiratory distress. She is spastic and wheezing. She has a productive cough. She is on 10 L high flow nasal cannula to maintain O2 saturation in the 90s. Urgent arterial blood gases were drawn and revealed a PaO2 of 46, pCO2 of 60 and a pH of 7.36. She was placed on BiPAP 12/6 and 60% FiO2. He is more comfortable. She has stated she did not want to be intubated and placed on mechanical ventilator. She is a DO NOT RESUSCITATE/DO NOT INTUBATE CODE STATUS. Pro calcitonin 3.21. She is initiated on Zosyn and bronchodilators. Preliminary blood culture reveals gram- positive cocci. She is initiated on vancomycin. The patient is seen today 04/27/2020 in follow-up on the regular medical floor. She is doing a bit better today compared to yesterday. She is up in the chair. She remains on BiPAP. Currently at 12/6 and 50% FiO2. His 0.9 normal saline at 50 MLS per hour. Blood cultures are revealing presumptive staph aureus. Sputum culture with presumptive staph aureus. Blood glucose 173. She remains on Symbicort, albuterol, IV Solu-Medrol. Continued on Zosyn and vancomycin. Anticoagulated with Xarelto. [place] on vitamin supplements. Patient is seen today 04/28/2020 in follow-up on the regular medical floor. She is currently sitting at the bedside. Awake and alert in no acute distress. Continues to improve daily. Maintaining O2 saturations at 100% on 8 L/m per nasal cannula. She continues with crackles in the bilateral bases. She did utilize BiPAP throughout the evening. Blood and sputum cultures reveal evidence of MSSA. White count 9.9. Hemoglobin 11.3. D-dimer 0.66. Continued on vancomycin, Zosyn, IV Solu-Medrol, bronchodilators. Anticoagulated with Xarelto. The patient is seen today 04/29/2020 and follow-up on the regular medical floor. She is currently sitting up at the bedside. Awake and alert in mild respiratory distress. She did utilize BiPAP throughout the evening 50% FiO2. She is currently on 8 L high flow nasal cannula. Arterial blood gases revealed a pO2 176, pCO2 52, pH 7.38. Antibiotics changed to cefazolin. Continued on IV Solu-Medrol, Symbicort, albuterol. Anticoagulated with Xarelto. Patient was reevaluated today on 04/30/20, patient is now on 6 L nasal cannula, maintaining O2 saturation at 96%. Patient is feeling better, less cough and less wheezing less shortness of breath, nonetheless, the patient is not back to her baseline. And on physical examination continues to have rhonchi and wheezes bilaterally and crackles at the right base. Patient is using BiPAP which is at bedside as needed. Presently on nasal cannula, and seems to be quite comfortable with that. Patient had an ABG yesterday on 50% FiO2, on BiPAP, her pO2 was 176 pCO2 52 and pH of 7.38. Electrolytes are normal BUN is 54 creatinine 1.2 indicative of prerenal azotemia. WBC count is 9.9 hemoglobin is 11.3. D-dimer is 0.66. Chest x-ray today showed patchy infiltrate at the right lower lobe area unchanged from admission. Reevaluated today on 05/01/20, patient is now on BiPAP, with IPAP of 12, EPAP of 6, and 40% FiO2. Patient is feeling better, but continues to have shortness of breath, intermittent episodes of cough and wheezing. On physical examination she continues to have significant crackles and rhonchi especially at the right base. Patient is being treated for COPD, Covid 19 pneumonitis, and also suspect underlying bacterial pneumonia with bacteremia. Reevaluated today on 05/02/20, patient is sitting at a bedside chair, on 4 L nasal cannula, in no distress, patient is normally on 4 L at home which is her maintenance oxygen for a long time. CT of the chest from yesterday was noted, patient has scattered areas of airspace infiltrate, bilaterally. Consistent with Covid 19 pneumonitis. However the patient was also noted to have left adrenal mass which may have to be addressed on an outpatient basis. Objective - Vital Signs Vital signs: Vital Signs Temp 98.0 F 05/02/20 11:00 Pulse 74 05/02/20 11:00 Resp 17 05/02/20 11:00 BP 121/69 05/02/20 11:00 Pulse Ox 100 05/02/20 11:00 Intake & Output 05/01/20 05/02/20 05/02/20 18:59 06:59 18:59 Intake Total 1190 360 Balance 1190 360 Weight 74 kg Intake: Intake, IV Titration 950 Amount Sodium Chloride 0.9% 1, 900 000 ml @ 75 mls/hr IV . [id number] [facility] Rx#:[id number] ceFAZolin 2 gm In Sodium 50 Chloride 0.9% 50 ml @ 100 mls/hr IVPB Q8HR [facility] Rx# :[id number] Oral 240 360 Other: Voiding Method Bedside Commode # Voids 5 1 # Bowel Movements 1 - Exam GENERAL EXAM: Alert, 79-year-old female patient, on 4 L nasal cannula which is her maintenance oxygen at home. HEAD: Normocephalic. ENT: PERRLA, EOMI, nonicteric, no neck masses, no JVD, no stridor. CHEST: No chest wall deformity. LUNGS: Symmetrical chest expansion, crackles bilaterally especially at the right base. CVS: S1 and S2 normal with no audible murmur, regular rhythm. ABDOMEN: No hepatosplenomegaly, normal bowel sounds, no guarding or rigidity. SPINE: No scoliosis or deformity SKIN: No rashes CENTRAL NERVOUS SYSTEM: Alert and oriented 3 focal deficits. EXTREMITIES: There is no peripheral edema. No clubbing, no cyanosis. Peripheral pulses are intact. Psychiatric: Normal mood affect and normal mental status examination. - Labs CBC & Chem 7: 04/28/20 07:02 04/28/20 07:02 Labs: Abnormal Lab Results - Last 24 Hours (Table) 05/01/20 05/01/20 05/02/20 Range/Units 17:17 19:57 07:21 POC Glucose (mg/dL) 256 H 307 H 136 H (75-99) mg/dL 05/02/20 Range/Units 11:36 POC Glucose (mg/dL) 190 H (75-99) mg/dL Microbiology - Last 24 Hours (Table) 05/01/20 06:48 Blood Culture - Preliminary Blood No Growth after 24 hours 04/30/20 05:52 Blood Culture - Preliminary Blood No Growth after 48 hours 04/29/20 07:21 Blood Culture Gram Stain - Final Blood Blood Culture - Final Staphylococcus aureus Assessment and Plan Assessment: Impression: Acute on chronic hypoxic and hypercapnic respiratory failure, multifactorial, secondary to acute exacerbation of COPD, covid 19 pneumonitis, and staph aureus pneumonia, MSSA. Acute staph aureus bacteremia, likely source is pneumonia. Acute kidney injury. Elevated inflammatory markers secondary to rotavirus infection. History of chronic atrial fibrillation. History of ischemic cardiomyopathy and LV dysfunction, ejection fraction of 40%. History of obstructive sleep apnea syndrome. Left adrenal mass will need outpatient close follow-up. And possible CT-guided needle biopsy. Recommendation: Continue bronchodilators, cefazolin, Covid 19 cocktail, Xarelto, Continue Solu-Medrol. Consider discharge planning in the next 24-48 hours. Continue to monitor renal profile. Improving steadily with hydration. And off diuretics Time with Patient: Less than 30
--- NOTE | 2020-05-02 14:18 | P.PN ---
Subjective Progress Note Date: 05/02/20 Principal diagnosis: Methicillin sensitive staph aureus pneumonia and bacteremia -Right lower lobe pneumonia suspected gram-negative orgasm -Underlying COVID 19 infection -Persistent atrial flutter fibrillation -Acute COPD exacerbation in an ex-smoker -Coronary artery disease with prior NV -Chronic hypoxic respiratory failure on 4 L oxygen at home -Acute hypoxic respiratory failure from above on 50% BiPAP -Chronic congestive heart failure from systolic dysfunction EF 40% -Secondary pulmonary hypertension 05/02/2020, overall respiratory status is stable cough congestion is there, remains on high flow oxygen, at nighttime she is been using BiPAP 05/01/2020, patient seen eval examined during the rounds labs reviewed medications reviewed care plan discussed, oxygen saturation remains stable, they are 100% when she is on BiPAP, ET scan of the chest revealed bilateral scattered infiltrate along with left adrenal mass, appears to be nonspecific 04/30/2020, patient seen eval examined during the rounds labs reviewed medications reviewed care plan discussed, chest x-ray remains stable, on 6 L oxygen saturation is in mid 90s, 04/29/2020, patient seen eval examined during the rounds labs reviewed medications reviewed, mild degree or shortness of breath ongoing is present, is still intermittently using BiPAP alternating with 8 L high flow oxygen, ID services following patient's antibiotics have been changed to cefazolin remains on direct oral anticoagulants and bronchodilator along with steroids 04/28/2020, patient seen and evaluated examined, off of BiPAP, on supplemental oxygen, breathing comfortably, on 6 L nasal cannula patient remains on broad- spectrum antibiotics along with IV steroids and bronchodilator and direct anticoagulant pulmonary is following, chest x-ray continue show bilateral infiltrates which are stable, sputum and blood both positive for MSSA, This is a pleasant 79-year-old patient of . Chronic stable medical conditions include atrial fibrillation, COPD, kidney disease, secondary pulmonary hypertension, DJD, CHF EF of 40%, obstructive sleep apnea does not use any treatment, home oxygen 4 L. Patient presents with 3-4 weeks of not feeling well got a cough taking yellow-green sputum. Denies any fever but feels cold all the time decreased appetite. No loss of smell or taste. Denies any headache. No diarrhea. Patient positive for COVID 19 PCR. Check stat x-ray showed right lower lobe infiltrate. Admitted with right lower lobe pneumonia suspected to be gram-negative organism, underlying COVID 19 infection, acute COPD exacerbation, acute hypoxic respiratory failure. Patient started IV Zosyn, vancomycin, bronchodilators, steroids. Xarelto continued Objective - Vital Signs Vital signs: Vital Signs Temp 98.0 F 05/02/20 11:00 Pulse 74 05/02/20 11:00 Resp 17 05/02/20 11:00 BP 121/69 05/02/20 11:00 Pulse Ox 100 05/02/20 11:00 Intake & Output 05/01/20 05/02/20 05/02/20 18:59 06:59 18:59 Intake Total 1190 360 Balance 1190 360 Weight 74 kg Intake: Intake, IV Titration 950 Amount Sodium Chloride 0.9% 1, 900 000 ml @ 75 mls/hr IV . [id number] [facility] Rx#:[id number] ceFAZolin 2 gm In Sodium 50 Chloride 0.9% 50 ml @ 100 mls/hr IVPB Q8HR [facility] Rx# :[id number] Oral 240 360 Other: Voiding Method Bedside Commode # Voids 5 1 # Bowel Movements 1 - Exam GENERAL: BMI 28.3, sitting up, tired. EYES: Pupils equal. Conjunctiva normal. HEENT: External appearance of nose and ears normal, oral cavity grossly normal. NECK: JVD not raised; masses not palpable. HEART: First and second heart sounds are normal; no edema. LUNGS: Respiratory rate increased, decreased breath sounds right basilar coarse crackles. ABDOMEN: Soft, nontender, liver spleen not palpable, no masses palpable. PSYCH: Alert and oriented x3; mood and affect normal. - Labs CBC & Chem 7: 04/28/20 07:02 04/28/20 07:02 Labs: Abnormal Lab Results - Last 24 Hours (Table) 05/01/20 05/01/20 05/02/20 Range/Units 17:17 19:57 07:21 POC Glucose (mg/dL) 256 H 307 H 136 H (75-99) mg/dL 05/02/20 Range/Units 11:36 POC Glucose (mg/dL) 190 H (75-99) mg/dL Microbiology - Last 24 Hours (Table) 05/01/20 06:48 Blood Culture - Preliminary Blood No Growth after 24 hours 04/30/20 05:52 Blood Culture - Preliminary Blood No Growth after 48 hours 04/29/20 07:21 Blood Culture Gram Stain - Final Blood Blood Culture - Final Staphylococcus aureus Assessment and Plan Assessment: Methicillin sensitive staph aureus pneumonia and bacteremia -Right lower lobe pneumonia suspected gram-negative orgasm -Underlying COVID 19 infection -Persistent atrial flutter fibrillation -Acute COPD exacerbation in an ex-smoker -Coronary artery disease with prior NV -Chronic hypoxic respiratory failure on 4 L oxygen at home -Acute hypoxic respiratory failure from above on 50% BiPAP -Chronic congestive heart failure from systolic dysfunction EF 40% -Secondary pulmonary hypertension Left adrenal mass likely nonspecific Plan: Continue oxygen titrated down as tolerated, and, we'll continue IV steroids christina athing treatments supportive care, pulmonary and infectious disease following, Time with Patient: Greater than 30
[2020-05-02 16:46] LABS: Glucose,Whole Blood 158 mg/dL (75-99)
--- NOTE | 2020-05-02 17:24 | CDI ---
Documentation Clarification Form Date: 05/02/2020 04:54:41 PM From: Shruthi Lawrence RN, CCDS Admit Date: 04/25/2020 08:02:00 PM Patient Name: Shailesh Vaca Visit Number: [id number] Discharge Date: ATTENTION: The Clinical Documentation Specialists (CDI) and [facility] Coding Staff appreciate your assistance in clarifying documentation. Please respond to the clarification below the line at the bottom and electronically sign. The CDI & [facility] Coding staff will review the response and follow-up if needed. Please note: Queries are made part of the Legal Health Record. If you have any questions, please contact the author of this message via ITS. Dr. Leonel Casanova MSSA Bacteremia source likely pneumonia is documented in the ID consult on 04/28 and subsequent progress notes. Patient history/risk factors: COPD Clinical Indicators: 79-year-old female present to ED on 04/25 with complaints of increasing shortness of breath and cough ongoing for 3 days. 04/25 Chest x-ray: right lower lobe infiltrate. 04/25 Vital signs: 110/56 119 28 102, 100% ON 15 % Non-Rebreather 04/25 WBC: 9.2 Neutrophils 8.5, Lactic acid 2.5 BUN 29 CR 1.16 04/25 LDH 626, C-Reactive Protein 229.9, Procalcitonin 3.21 04/25 Coronavirus Detected 04/25 Blood Culture: Staphylococcus aureus 04/26 Sputum Gram stain: Staphylococcus aureus 04/26 Pulmonary Consult: Bacteremia secondary to gram-positive cocci. Acute renal failure. Elevated inflammatory markers second to Coronavirus. Acute Covid 19 infection. Acute on chronic hypoxic respiratory secondary to an acute exacerbation of chronic obstructive pulmonary disease complicated by probably early pneumonia and Covid 19 infection Treatment: Cefazolin 2 gm IVPB Q HRS Zosyn 3.375 mg IVPB Q 8 HRS 04/26-04/28 Solu-medrol 60 MG IV Q 6 HRS .9NS @ 75 MLS/HR Bacteremia is considered a lab finding. Please clarify if that lab finding is clinical indicator of a more definitive medical diagnosis such as: Sepsis (present on admission Infectious Process, please specify: Other, please specify Unable to determine (Last Revision: February 2017) ___MSSA Pneumonia with secondary bacteremia MTDD
[2020-05-02 20:14] LABS: Glucose,Whole Blood 285 mg/dL (75-99)
[2020-05-02] MEDS: RIVAROXABAN 15 MG TAB PO SCH (20:54)
--- NOTE | 2020-05-02 23:02 | PN ---
PROGRESS NOTE DATE OF SERVICE: 05/02/2020 REASON FOR FOLLOWUP: MSSA bacteremia pneumonia. INTERVAL HISTORY: The patient is currently afebrile. Patient is breathing slightly comfortably. The patient denies having any chest pain. Occasional cough. No abdominal pain or diarrhea. PHYSICAL EXAMINATION: Blood pressure 148/81 with a pulse of 92, temperature 97.7. She is 94% on 2 L nasal cannula. General description is an elderly female up in the chair in no distress. Respiratory system: Unlabored breathing with decreased breath sounds. No wheeze. Heart S1-S2 regular rate and rhythm. ABDOMEN: Soft no tenderness. LABS: No new labs have been obtained today. Blood cultures 04/30 and 05/01 have been negative. DIAGNOSTIC IMPRESSION AND PLAN: Patient with MSSA bacteremia, source likely pneumonia. Blood culture has been negative now, she will need a Midline for outpatient IV antibiotic therapy at least 2 week course and continue supportive care. MMODL / IJN: [id number] /
[2020-05-03] MEDS: SODIUM CHLORIDE 0.9% 1,000 ML IV SCH ×2 (05:27→15:08)
[2020-05-03] MEDS: methylPREDNISolone SOD SUCCI 125 MG/2 ML VIAL IV SCH ×4 (05:27→23:08)
[2020-05-03] MEDS: ALBUTEROL HFA INHALER INHALATION PRN (08:01)
[2020-05-03] MEDS: SYMBICORT 160-4.5 MCG INHALER INHALATION SCH ×2 (08:01→18:41)
[2020-05-03] MEDS: CHOLECALCIFEROL 1,000 UNIT TAB PO SCH (08:26)
[2020-05-03] MEDS: ZINC SULFATE 220 MG CAP PO SCH (08:26)
[2020-05-03] MEDS: OXYBUTYNIN CHLORIDE 5 MG TAB PO SCH ×2 (08:26→21:31)
[2020-05-03] MEDS: METOPROLOL TARTRATE 50 MG TAB PO SCH ×2 (08:26→21:15)
[2020-05-03] MEDS: ASCORBIC ACID 500 MG TAB PO SCH ×2 (08:26→21:15)
[2020-05-03] MEDS: guaiFENesin 600 MG TABLET.ER PO SCH ×4 (08:27→21:15)
[2020-05-03] MEDS: INSULIN ASPART (NovoLOG) 100 UNIT/ML VIAL SQ SCH ×4 (08:27→21:15)
--- NOTE | 2020-05-03 12:17 | P.PN ---
Subjective Progress Note Date: 05/03/20 Principal diagnosis: Acute on chronic hypoxic and hypercapnic respiratory failure secondary to bacterial pneumonia, COVID 19 pneumonia and acute exacerbation of COPD This is a pleasant 79-year-old female patient who follows with Dr. Cortes with a known history of chronic hypoxic respiratory failure on home oxygen, chronic tobacco dependence, atrial fibrillation, CVA/TIA, myocardial infarction, obstructive sleep apnea on no treatment, chronic systolic congestive heart failu re with ejection fraction 40%. She presented to the emergency room yesterday with complaints of a 2-3 day history of increasing shortness of breath, cough and congestion yellow productive sputum. She states she had been exposed to her grandson who was positive for CoVID 19. Chest x-ray revealed moderate cardiomegaly. Chronic lower lobe pneumonia similar to previous exam from 2017. Small right pleural effusion. White count 9.2. Hemoglobin 12.4. D-dimer 0.49. Sodium 134. Potassium 3.6. Creatinine 1.16. LDH 626. C-reactive protein 315. Coronavirus by PCR detected. She is seen today in consultation on the regular medical floor. She is currently in some moderate respiratory distress. She is spastic and wheezing. She has a productive cough. She is on 10 L high flow nasal cannula to maintain O2 saturation in the 90s. Urgent arterial blood gases were drawn and revealed a PaO2 of 46, pCO2 of 60 and a pH of 7.36. She was placed on BiPAP 12/6 and 60% FiO2. He is more comfortable. She has stated she did not want to be intubated and placed on mechanical ventilator. She is a DO NOT RESUSCITATE/DO NOT INTUBATE CODE STATUS. Pro calcitonin 3.21. She is initiated on Zosyn and bronchodilators. Preliminary blood culture reveals gram- positive cocci. She is initiated on vancomycin. The patient is seen today 04/27/2020 in follow-up on the regular medical floor. She is doing a bit better today compared to yesterday. She is up in the chair. She remains on BiPAP. Currently at 12/6 and 50% FiO2. His 0.9 normal saline at 50 MLS per hour. Blood cultures are revealing presumptive staph aureus. Sputum culture with presumptive staph aureus. Blood glucose 173. She remains on Symbicort, albuterol, IV Solu-Medrol. Continued on Zosyn and vancomycin. Anticoagulated with Xarelto. [place] on vitamin supplements. Patient is seen today 04/28/2020 in follow-up on the regular medical floor. She is currently sitting at the bedside. Awake and alert in no acute distress. Continues to improve daily. Maintaining O2 saturations at 100% on 8 L/m per nasal cannula. She continues with crackles in the bilateral bases. She did utilize BiPAP throughout the evening. Blood and sputum cultures reveal evidence of MSSA. White count 9.9. Hemoglobin 11.3. D-dimer 0.66. Continued on vancomycin, Zosyn, IV Solu-Medrol, bronchodilators. Anticoagulated with Xarelto. The patient is seen today 04/29/2020 and follow-up on the regular medical floor. She is currently sitting up at the bedside. Awake and alert in mild respiratory distress. She did utilize BiPAP throughout the evening 50% FiO2. She is currently on 8 L high flow nasal cannula. Arterial blood gases revealed a pO2 176, pCO2 52, pH 7.38. Antibiotics changed to cefazolin. Continued on IV Solu-Medrol, Symbicort, albuterol. Anticoagulated with Xarelto. Patient was reevaluated today on 04/30/20, patient is now on 6 L nasal cannula, maintaining O2 saturation at 96%. Patient is feeling better, less cough and less wheezing less shortness of breath, nonetheless, the patient is not back to her baseline. And on physical examination continues to have rhonchi and wheezes bilaterally and crackles at the right base. Patient is using BiPAP which is at bedside as needed. Presently on nasal cannula, and seems to be quite comfortable with that. Patient had an ABG yesterday on 50% FiO2, on BiPAP, her pO2 was 176 pCO2 52 and pH of 7.38. Electrolytes are normal BUN is 54 creatinine 1.2 indicative of prerenal azotemia. WBC count is 9.9 hemoglobin is 11.3. D-dimer is 0.66. Chest x-ray today showed patchy infiltrate at the right lower lobe area unchanged from admission. Reevaluated today on 05/01/20, patient is now on BiPAP, with IPAP of 12, EPAP of 6, and 40% FiO2. Patient is feeling better, but continues to have shortness of breath, intermittent episodes of cough and wheezing. On physical examination she continues to have significant crackles and rhonchi especially at the right base. Patient is being treated for COPD, Covid 19 pneumonitis, and also suspect underlying bacterial pneumonia with bacteremia. Reevaluated today on 05/02/20, patient is sitting at a bedside chair, on 4 L nasal cannula, in no distress, patient is normally on 4 L at home which is her maintenance oxygen for a long time. CT of the chest from yesterday was noted, patient has scattered areas of airspace infiltrate, bilaterally. Consistent with Covid 19 pneumonitis. However the patient was also noted to have left adrenal mass which may have to be addressed on an outpatient basis. On 05/03/2020 patient seen in follow-up on medical medical oncology floor, she is currently 2 L of oxygen, she is feeling a lot better, she is sitting up in the chair, breathing comfortably, she is on for MSSA bacteremia/pneumonia, she already has home O2 available at home, vital signs have been stable, no fever or chills, blood pressure is stable, does get exertional dyspnea, but tolerates activity well. ID service is following, blood culture is no negative, patient is awaiting the placement of midline for outpatient IV antibiotics Objective - Vital Signs Vital signs: Vital Signs Temp 97.7 F 05/03/20 10:51 Pulse 64 05/03/20 10:51 Resp 19 05/03/20 10:51 BP 129/78 05/03/20 10:51 Pulse Ox 95 05/03/20 10:51 Intake & Output 05/02/20 05/03/20 05/03/20 18:59 06:59 18:59 Intake Total 1260 240 Output Total 2 Balance 1260 -2 240 Weight 74 kg Intake: Intake, IV Titration 900 Amount Sodium Chloride 0.9% 1, 800 000 ml @ 75 mls/hr IV . [id number] [facility] Rx#:[id number] ceFAZolin 2 gm In Sodium 100 Chloride 0.9% 50 ml @ 100 mls/hr IVPB Q8HR [facility] Rx# :[id number] Oral 360 240 Output: Urine 2 Other: Voiding Method Bedside Commode Bedside Commode # Voids 4 4 # Bowel Movements 3 1 - Exam GENERAL EXAM: Alert, very pleasant, 79-year-old white female, 2 L of oxygen and the pulse ox of 95% comfortable in no apparent distress. HEAD: Normocephalic/atraumatic. EYES: Normal reaction of pupils, equal size. Conjunctiva pink, sclera white. NOSE: Clear with pink turbinates. THROAT: No erythema or exudates. NECK: No masses, no JVD, no thyroid enlargement, no adenopathy. CHEST: No chest wall deformity. Symmetrical expansion. LUNGS: Equal air entry with no crackles, wheeze, rhonchi or dullness. CVS: Regular rate and rhythm, normal S1 and S2, no gallops, no murmurs, no rubs ABDOMEN: Soft, nontender. No hepatosplenomegaly, normal bowel sounds, no guarding or rigidity. EXTREMITIES: No clubbing, no edema, no cyanosis, 2+ pulses and upper and lower extremities. MUSCULOSKELETAL: Muscle strength and tone normal. SPINE: No scoliosis or deformity SKIN: No rashes CENTRAL NERVOUS SYSTEM: Alert and oriented -3. No focal deficits, tone is normal in all 4 extremities. PSYCHIATRIC: Alert and oriented -3. Appropriate affect. Intact judgment and insight. - Labs CBC & Chem 7: 04/28/20 07:02 04/28/20 07:02 Labs: Abnormal Lab Results - Last 24 Hours (Table) 05/02/20 05/02/20 Range/Units 16:45 20:13 POC Glucose (mg/dL) 158 H 285 H (75-99) mg/dL Microbiology - Last 24 Hours (Table) 05/01/20 06:48 Blood Culture - Preliminary Blood No Growth after 48 hours 04/30/20 05:52 Blood Culture - Preliminary Blood No Growth after 72 hours Assessment and Plan Plan: Assessment: #1. Acute on chronic hypoxic and hypercapnic respiratory failure, multifactorial, secondary to acute exacerbation of COPD, quit 19 pneumonitis, and staph aureus pneumonia, MSSA #2. MSSA bacteremia, with the likely source of pneumonia #3. Acute kidney injury, improved #4. Elevated inflammatory markers secondary to coronavirus infection #5. History of chronic A. fib #6. History of ischemic cardiomyopathy and LV dysfunction, with ejection fraction of 40% #7. History of obstructive sleep apnea syndrome #8. Left adrenal mass, and patient will need outpatient close follow-up for possibility of CT-guided needle biopsy Plan: Patient is breathing comfortably, she is down to 2 L, no fever or chills, she is awaiting placement of midline IV catheter for IV antibiotics for MSSA bacteremia for a total of 2 week course per ID service recommendations, pulmonary perspective she can be considered for discharge home today, outpatient follow-up with Dr. Nelson in the office in 2 weeks I performed a history & physical examination of the patient and discussed their management with my nurse practitioner, Farzana Maria. I reviewed the nurse practitioner's note and agree with the documented findings and plan of care. Lung sounds are positive for diminished breath sounds. The findings and the impression was discussed with the patient. I attest to the documentation by the nurse practitioner. Time with Patient: Less than 30
--- NOTE | 2020-05-03 14:16 | P.PN ---
Subjective Progress Note Date: 05/03/20 Principal diagnosis: Methicillin sensitive staph aureus pneumonia and bacteremia -Right lower lobe pneumonia suspected gram-negative orgasm -Underlying COVID 19 infection -Persistent atrial flutter fibrillation -Acute COPD exacerbation in an ex-smoker -Coronary artery disease with prior [place] -Chronic hypoxic respiratory failure on 4 L oxygen at home -Acute hypoxic respiratory failure from above on 50% BiPAP -Chronic congestive heart failure from systolic dysfunction EF 40% -Secondary pulmonary hypertension [facility] 2019, patient continued to do well in terms of breathing oxygen is down to 2 L, patient due to his staph bacteremia will need IV axis leg midline as discussed with infectious disease services and 14 days of IV therapy 05/02/2020, overall respiratory status is stable cough congestion is there, remains on high flow oxygen, at nighttime she is been using BiPAP 05/01/2020, patient seen eval examined during the rounds labs reviewed medications reviewed care plan discussed, oxygen saturation remains stable, they are 100% when she is on BiPAP, ET scan of the chest revealed bilateral scattered infiltrate along with left adrenal mass, appears to be nonspecific 04/30/2020, patient seen eval examined during the rounds labs reviewed medications reviewed care plan discussed, chest x-ray remains stable, on 6 L oxygen saturation is in mid 90s, 04/29/2020, patient seen eval examined during the rounds labs reviewed medications reviewed, mild degree or shortness of breath ongoing is present, is still intermittently using BiPAP alternating with 8 L high flow oxygen, ID services following patient's antibiotics have been changed to cefazolin remains on direct oral anticoagulants and bronchodilator along with steroids 04/28/2020, patient seen and evaluated examined, off of BiPAP, on supplemental oxygen, breathing comfortably, on 6 L nasal cannula patient remains on broad- spectrum antibiotics along with IV steroids and bronchodilator and direct antic oagulant pulmonary is following, chest x-ray continue show bilateral infiltrates which are stable, sputum and blood both positive for MSSA, This is a pleasant 79-year-old patient of . Chronic stable medical conditions include atrial fibrillation, COPD, kidney disease, secondary pulmonar y hypertension, DJD, CHF EF of 40%, obstructive sleep apnea does not use any treatment, home oxygen 4 L. Patient presents with 3-4 weeks of not feeling well got a cough taking yellow-green sputum. Denies any fever but feels cold all the time decreased appetite. No loss of smell or taste. Denies any headache. No diarrhea. Patient positive for COVID 19 PCR. Check stat x-ray showed right lower lobe infiltrate. Admitted with right lower lobe pneumonia suspected to be gram-negative organism, underlying COVID 19 infection, acute COPD exacerbation, acute hypoxic respiratory failure. Patient started IV Zosyn, vancomycin, bronchodilators, steroids. Xarelto continued Objective - Vital Signs Vital signs: Vital Signs Temp 97.7 F 05/03/20 10:51 Pulse 64 05/03/20 10:51 Resp 19 05/03/20 10:51 BP 129/78 05/03/20 10:51 Pulse Ox 95 05/03/20 10:51 Intake & Output 05/02/20 05/03/20 05/03/20 18:59 06:59 18:59 Intake Total 1260 240 Output Total 2 Balance 1260 -2 240 Weight 74 kg Intake: Intake, IV Titration 900 Amount Sodium Chloride 0.9% 1, 800 000 ml @ 75 mls/hr IV . [id number] [facility] Rx#:[id number] ceFAZolin 2 gm In Sodium 100 Chloride 0.9% 50 ml @ 100 mls/hr IVPB Q8HR [facility] Rx# :[id number] Oral 360 240 Output: Urine 2 Other: Voiding Method Bedside Commode Bedside Commode # Voids 4 4 # Bowel Movements 3 1 - Exam GENERAL: BMI 28.3, sitting up, tired. EYES: Pupils equal. Conjunctiva normal. HEENT: External appearance of nose and ears normal, oral cavity grossly normal. NECK: JVD not raised; masses not palpable. HEART: First and second heart sounds are normal; no edema. LUNGS: Respiratory rate increased, decreased breath sounds right basilar coarse crackles. ABDOMEN: Soft, nontender, liver spleen not palpable, no masses palpable. PSYCH: Alert and oriented x3; mood and affect normal. - Labs CBC & Chem 7: 04/28/20 07:02 04/28/20 07:02 Labs: Abnormal Lab Results - Last 24 Hours (Table) 05/02/20 05/02/20 Range/Units 16:45 20:13 POC Glucose (mg/dL) 158 H 285 H (75-99) mg/dL Microbiology - Last 24 Hours (Table) 05/01/20 06:48 Blood Culture - Preliminary Blood No Growth after 48 hours 04/30/20 05:52 Blood Culture - Preliminary Blood No Growth after 72 hours Assessment and Plan Assessment: Methicillin sensitive staph aureus pneumonia and bacteremia -Right lower lobe pneumonia suspected gram-negative orgasm -Underlying COVID 19 infection -Persistent atrial flutter fibrillation -Acute COPD exacerbation in an ex-smoker -Coronary artery disease with prior [place] -Chronic hypoxic respiratory failure on 4 L oxygen at home -Acute hypoxic respiratory failure from above on 50% BiPAP -Chronic congestive heart failure from systolic dysfunction EF 40% -Secondary pulmonary hypertension Left adrenal mass likely nonspecific Plan: Obtained midline and arrange outpatient antibiotics, Continue oxygen titrated down as tolerated, and, we'll continue IV steroids breathing treatments supportive care, pulmonary and infectious disease following, Time with Patient: Greater than 30
[2020-05-03] MEDS: RIVAROXABAN 15 MG TAB PO SCH (21:15)
--- NOTE | 2020-05-03 22:27 | PN ---
PROGRESS NOTE DATE OF SERVICE: 05/03/2020 REASON FOR FOLLOWUP: MSSA bacteremia pneumonia. INTERVAL HISTORY: The patient is currently afebrile. The patient is breathing comfortably. Denies having any chest pain. She did have some cough, not bringing any sputum. No nausea, no vomiting, no abdominal pain or diarrhea. PHYSICAL EXAMINATION: Blood pressure is 139/75 with a pulse of 90, temperature 97.5. She is 94% on 2 L nasal cannula. General description is an elderly female up in the chair in no distress. RESPIRATORY SYSTEM: Unlabored breathing with decreased intensity of breath sounds. No wheeze. HEART: S1, S2. Regular rate and rhythm. ABDOMEN: Soft. No tenderness. LABS: No new labs have been obtained today. DIAGNOSTIC IMPRESSION AND PLAN: Patient with MSSA bacteremia, source likely pneumonia. The patient has cleared her bacteremia. However, the patient will need at least 2 weeks of antibiotics from her negative blood cultures. She did get a midline. Currently waiting for outpatient antibiotic arrangement before discharge. Continue with supportive care. MMODL / IJN: [id number] /
[2020-05-04] MEDS: methylPREDNISolone SOD SUCCI 125 MG/2 ML VIAL IV SCH ×4 (05:23→23:31)
[2020-05-04 06:25] LABS: HCT 33.7 % (34.0-46.0); HGB 10.3 gm/dL (11.4-16.0); Hypochromasia Marked; MCH 29.6 pg (25.0-35.0); MCHC 30.7 g/dL (31.0-37.0); MCV 96.4 fL (80.0-100.0); Mean Platelet Volume 7.2; Platelet Count 294 k/uL (150-450); RBC 3.49 m/uL (3.80-5.40); RDW 13.8 % (11.5-15.5); WBC 5.8 k/uL (3.8-10.6)
[2020-05-04 07:11] LABS: Band Neutrophils % 9 %; Lymphocytes # (M) 0.64 k/uL (1.0-4.8); Metamyelocytes # (M) 0.17 k/uL (0); Metamyelocytes % 3 %; Monocytes # (M) 0.17 k/uL (0-1.0); Myelocytes # (M) 0.06 k/uL (0); Myelocytes % 1 %; Neutrophils % (M) 74 %; Nucleated Red Blood Cells 0 /100 WBC (0-0); Target Cells Present; Total Cells Counted 200
[2020-05-04 07:12] LABS: Anisocytosis (M) Present; Polychromasia Present
[2020-05-04 07:13] LABS: Large Platelets Present
[2020-05-04] MEDS: INSULIN ASPART (NovoLOG) 100 UNIT/ML VIAL SQ SCH ×4 (07:38→21:20)
[2020-05-04] MEDS: SODIUM CHLORIDE 0.9% 1,000 ML IV SCH ×2 (07:38→08:30)
[2020-05-04] MEDS: ZINC SULFATE 220 MG CAP PO SCH (08:27)
[2020-05-04] MEDS: METOPROLOL TARTRATE 50 MG TAB PO SCH ×2 (08:27→21:20)
[2020-05-04] MEDS: CHOLECALCIFEROL 1,000 UNIT TAB PO SCH (08:27)
[2020-05-04] MEDS: guaiFENesin 600 MG TABLET.ER PO SCH ×4 (08:27→21:20)
[2020-05-04] MEDS: ASCORBIC ACID 500 MG TAB PO SCH ×2 (08:27→21:20)
[2020-05-04] MEDS: OXYBUTYNIN CHLORIDE 5 MG TAB PO SCH ×2 (08:27→21:20)
[2020-05-04] MEDS: ALBUTEROL HFA INHALER INHALATION PRN (08:36)
[2020-05-04] MEDS: SYMBICORT 160-4.5 MCG INHALER INHALATION SCH (08:37)
[2020-05-04 10:51] LABS: African American GFR (CKD) 81.3 (60.0-200.0); Anion Gap 4.4 mmol/L (4.00-12.00); BUN/Creat Ratio 36.25 Ratio (12.00-20.00); C Reactive Protein 1.4 mg/dL (0.0-0.8); Calcium 8.2 mg/dL (8.7-10.3); Carbon Dioxide 30.6 mmol/L (21.6-31.8); Non-African American GFR(CKD) 70.1 (60.0-200.0); Potassium 5.5 mmol/L (3.5-5.5)
--- NOTE | 2020-05-04 12:14 | P.PN ---
Subjective Progress Note Date: 05/04/20 Principal diagnosis: Acute on chronic hypoxic respiratory failure secondary to an acute exacerbation of COPD complicated by early pneumonia, CoVID 19 infection This is a pleasant 79-year-old female patient who follows with Dr. Cortes with a known history of chronic hypoxic respiratory failure on home oxygen, chronic tobacco dependence, atrial fibrillation, CVA/TIA, myocardial infarction, obstructive sleep apnea on no treatment, chronic systolic congestive heart failure with ejection fraction 40%. She presented to the emergency room yesterday with complaints of a 2-3 day history of increasing shortness of breath, cough and congestion yellow productive sputum. She states she had been exposed to her grandson who was positive for CoVID 19. Chest x-ray revealed moderate cardiomegaly. Chronic lower lobe pneumonia similar to previous exam from 2017. Small right pleural effusion. White count 9.2. Hemoglobin 12.4. D-dimer 0.49. Sodium 134. Potassium 3.6. Creatinine 1.16. LDH 626. C- reactive protein 315. Coronavirus by PCR detected. She is seen today in [facility] on the regular medical floor. She is currently in some moderate respiratory distress. She is spastic and wheezing. She has a productive cough. She is on 10 L high flow nasal cannula to maintain O2 saturation in the 90s. Urgent arterial blood gases were drawn and revealed a PaO2 of 46, pCO2 of 60 and a pH of 7.36. She was placed on BiPAP 12/6 and 60% FiO2. He is more comfortable. She has stated she did not want to be intubated and placed on mechanical ventilator. She is a DO NOT RESUSCITATE/DO NOT INTUBATE CODE STATUS. Pro calcitonin 3.21. She is initiated on Zosyn and bronchodilators. Preliminary blood culture reveals gram-positive cocci. She is initiated on vancomycin. The patient is seen today 04/27/2020 in follow-up on the regular medical floor. She is doing a bit better today compared to yesterday. She is up in the chair. She remains on BiPAP. Currently at 12/6 and 50% FiO2. His 0.9 normal saline at 50 MLS per hour. Blood cultures are revealing presumptive staph aureus. Sputum culture with presumptive staph aureus. Blood glucose 173. She remains on Symbicort, albuterol, IV Solu-Medrol. Continued on Zosyn and vancomycin. Anticoagulated with Xarelto. [place] on vitamin supplements. Patient is seen today 04/28/2020 in follow-up on the regular medical floor. She is currently sitting at the bedside. Awake and alert in no acute distress. Con tinues to improve daily. Maintaining O2 saturations at 100% on 8 L/m per nasal cannula. She continues with crackles in the bilateral bases. She did utilize BiPAP throughout the evening. Blood and sputum cultures reveal evidence of MSSA. White count 9.9. Hemoglobin 11.3. D-dimer 0.66. Continued on vancomycin, Zosyn, IV Solu-Medrol, bronchodilators. Anticoagulated with Xarelto. The patient is seen today 04/29/2020 and follow-up on the regular medical floor. She is currently sitting up at the bedside. Awake and alert in mild respiratory distress. She did utilize BiPAP throughout the evening 50% FiO2. She is currently on 8 L high flow nasal cannula. Arterial blood gases revealed a pO2 176, pCO2 52, pH 7.38. Antibiotics changed to cefazolin. Continued on IV Solu-Medrol, Symbicort, albuterol. Anticoagulated with Xarelto. The patient is seen today 05/04/2020 in follow-up on the regular medical floor. She is currently awake and alert in no acute distress. Sitting up in a chair at the bedside. Maintaining good O2 saturation in the 90s on 2 L/m per nasal cannula. She is 0.9 normal saline at 75 ML's per hour. White count 5.8. Hemoglobin 10.3. Lymphocytes 0.64. Sodium 140. Potassium 5.5. Creatinine 0.8. C-reactive protein 1.4. Pro calcitonin 0.08. She is continued on bronchodilators, IV Solu-Medrol, cefazolin. Anticoagulated with Xarelto. Objective - Vital Signs Vital signs: Vital Signs Temp 98.1 F 05/04/20 11:00 Pulse 82 05/04/20 11:00 Resp 22 05/04/20 11:00 BP 127/71 05/04/20 11:00 Pulse Ox 95 05/04/20 11:00 Intake & Output 05/03/20 05/04/20 05/04/20 18:59 06:59 18:59 Intake Total 600 Balance 600 Intake: Oral 600 Other: Voiding Method Bedside Commode Bedside Commode Bedside Commode # Voids 4 2 # Bowel Movements 2 - Exam GENERAL EXAM: Alert, 79-year-old female patient, on 2 L nasal cannula, in no acute respiratory distress. HEAD: Normocephalic. EYES: Normal reaction of pupils, equal size. NOSE: Clear with pink turbinates. THROAT: No erythema or exudates. NECK: No masses, no JVD. CHEST: No chest wall deformity. LUNGS: Equal air entry with bilateral end expiratory wheeze, diminished. CVS: S1 and S2 normal with no audible murmur, regular rhythm. ABDOMEN: No hepatosplenomegaly, normal bowel sounds, no guarding or rigidity. SPINE: No scoliosis or deformity SKIN: No rashes CENTRAL NERVOUS SYSTEM: No focal deficits, tone is normal in all 4 extremities. EXTREMITIES: There is no peripheral edema. No clubbing, no cyanosis. Peripheral pulses are intact. - Labs CBC & Chem 7: 05/04/20 05:31 05/04/20 05:31 Labs: Abnormal Lab Results - Last 24 Hours (Table) 05/04/20 05/04/20 Range/Units 05:31 05:31 RBC 3.49 L (3.80-5.40) m/uL Hgb 10.3 L (11.4-16.0) gm/dL Hct 33.7 L (34.0-46.0) % MCHC 30.7 L (31.0-37.0) g/dL Lymphocytes # (Manual) 0.64 L (1.0-4.8) k/uL Metamyelocytes # (Man) 0.17 H (0) k/uL Myelocytes # (Manual) 0.06 H (0) k/uL BUN 29.0 H (9.0-27.0) mg/dL BUN/Creatinine Ratio 36.25 H (12.00-20.00) Ratio Calcium 8.2 L (8.7-10.3) mg/dL C-Reactive Protein 1.4 H (0.0-0.8) mg/dL Microbiology - Last 24 Hours (Table) 05/01/20 06:48 Blood Culture - Preliminary Blood No Growth after 72 hours 04/30/20 05:52 Blood Culture - Preliminary Blood No Growth after 96 hours Assessment and Plan Assessment: 1 Acute on chronic hypoxic respiratory failure secondary to an acute exacerbation of chronic obstructive pulmonary disease complicated by probable early pneumonia and CoVID 19 infection. 2 Acute CoVID 19 infection 3 Chronic hypoxemic respiratory failure 4 History of previous chronic tobacco dependence 5 Bacteremia secondary to gram-positive cocci 6 Acute renal failure 7 Elevated inflammatory markers secondary to Coronavirus 8 History of atrial fibrillation, anticoagulated with Xarelto 9 History of CVA/TIA 10 Ischemic cardiomyopathy with ejection fraction 40% 11 History of obstructive sleep apnea not on treatment 12 Poor overall functional performance based on the above-mentioned multiple comorbidities Plan: The patient was seen and evaluated by Dr. Juares Continue bronchodilators and IV Solu-Medrol Anticoagulated with Xarelto Currently on cefazolin Titrate down the FiO2 as tolerated We will continue to follow I, the cosigning physician, performed a history & physical examination of the patient. Lungs sounds with bilateral wheeze, diminished. Maintaining good O2 saturations in the 90s on 2 L nasal cannula. I discussed the assessment and plan of care with my nurse practitioner, Debbie Deras. I attest to the above note as dictated by her.
[2020-05-04] MEDS: RIVAROXABAN 15 MG TAB PO SCH (21:21)
--- NOTE | 2020-05-04 23:06 | PN ---
PROGRESS NOTE DATE OF SERVICE: 05/04/2020 REASON FOR FOLLOWUP: MSSA pneumonia and bacteremia. INTERVAL HISTORY: Patient is currently afebrile. Patient is breathing comfortably. Denies having any chest pain or shortness of breath. Occasional cough. No abdominal pain or diarrhea. PHYSICAL EXAMINATION: Blood pressure 119/76, pulse of 88, temperature 97.9. She is 94% on 2 L nasal cannula. General description: The patient is an elderly female up in the chair in no distress. Respiratory system: Unlabored breathing with decreased breath sounds in the base, with no wheeze. Heart S1, S2. Regular rate and rhythm. ABDOMEN: Soft. No tenderness. LABS: Hemoglobin is 10.3, white count 5.8, BUN of 29, creatinine 0.8. DIAGNOSTIC IMPRESSION AND PLAN: Patient with MSSA bacteremia. Blood culture of 04/30 has been negative so far. She will need at least 2 weeks of IV Cefazolin from negative blood cultures, once arranged she will be able to go home. Continue supportive care. MMODL / IJN: [id number] /
[2020-05-05] MEDS: SYMBICORT 160-4.5 MCG INHALER INHALATION SCH ×3 (03:31→18:51)
[2020-05-05] MEDS: methylPREDNISolone SOD SUCCI 125 MG/2 ML VIAL IV SCH ×3 (05:29→18:17)
[2020-05-05] MEDS: SODIUM CHLORIDE 0.9% 1,000 ML IV SCH ×2 (05:29→21:45)
[2020-05-05] MEDS: ALBUTEROL HFA INHALER INHALATION PRN ×3 (07:22→18:51)
[2020-05-05] MEDS: INSULIN ASPART (NovoLOG) 100 UNIT/ML VIAL SQ SCH ×4 (07:33→21:37)
[2020-05-05] MEDS: guaiFENesin 600 MG TABLET.ER PO SCH ×4 (08:05→21:37)
[2020-05-05] MEDS: CHOLECALCIFEROL 1,000 UNIT TAB PO SCH (08:05)
[2020-05-05] MEDS: ZINC SULFATE 220 MG CAP PO SCH (08:05)
[2020-05-05] MEDS: METOPROLOL TARTRATE 50 MG TAB PO SCH ×2 (08:06→21:38)
[2020-05-05] MEDS: OXYBUTYNIN CHLORIDE 5 MG TAB PO SCH ×2 (08:06→21:38)
[2020-05-05] MEDS: ASCORBIC ACID 500 MG TAB PO SCH ×2 (08:06→21:38)
--- NOTE | 2020-05-05 13:13 | P.PN ---
Subjective Progress Note Date: 05/05/20 Principal diagnosis: Acute on chronic hypoxic respiratory failure secondary to an acute exacerbation of COPD complicated by early pneumonia, CoVID 19 infection This is a pleasant 79-year-old female patient who follows with Dr. Cortes with a known history of chronic hypoxic respiratory failure on home oxygen, chronic tobacco dependence, atrial fibrillation, CVA/TIA, myocardial infarction, obstructive sleep apnea on no treatment, chronic systolic congestive heart failure with ejection fraction 40%. She presented to the emergency room yesterday with complaints of a 2-3 day history of increasing shortness of breath, cough and congestion yellow productive sputum. She states she had been exposed to her grandson who was positive for CoVID 19. Chest x-ray revealed moderate cardiomegaly. Chronic lower lobe pneumonia similar to previous exam from 2017. Small right pleural effusion. White count 9.2. Hemoglobin 12.4. D-dimer 0.49. Sodium 134. Potassium 3.6. Creatinine 1.16. LDH 626. C- reactive protein 315. Coronavirus by PCR detected. [facility] She is currently in some moderate respiratory distress. She is spastic and wheezing. She has a productive cough. She is on 10 L high flow nasal cannula to maintain O2 saturation in the 90s. Urgent arterial blood gases were drawn and revealed a PaO2 of 46, pCO2 of 60 and a pH of 7.36. She was placed on BiPAP 12/6 and 60% FiO2. He is more comfortable. She has stated she did not want to be intubated and placed on mechanical ventilator. She is a DO NOT RESUSCITATE/DO NOT INTUBATE CODE STATUS. Pro calcitonin 3.21. She is initiated on Zosyn and bronchodilators. Preliminary blood culture reveals gram-positive cocci. She is initiated on vancomycin. The patient is seen today 04/27/2020 in follow-up on the regular medical floor. She is doing a bit better today compared to yesterday. She is up in the chair. She remains on BiPAP. Currently at 12/6 and 50% FiO2. His 0.9 normal saline at 50 MLS per hour. Blood cultures are revealing presumptive staph aureus. Sputum culture with presumptive staph aureus. Blood glucose 173. She remains on Symbicort, albuterol, IV Solu-Medrol. Continued on Zosyn and vancomycin. Anticoagulated with Xarelto. [place] on vitamin supplements. Patient is seen today 04/28/2020 in follow-up on the regular medical floor. She is currently sitting at the bedside. Awake and alert in no acute distress. Con tinues to improve daily. Maintaining O2 saturations at 100% on 8 L/m per nasal cannula. She continues with crackles in the bilateral bases. She did utilize BiPAP throughout the evening. Blood and sputum cultures reveal evidence of MSSA. White count 9.9. Hemoglobin 11.3. D-dimer 0.66. Continued on vancomycin, Zosyn, IV Solu-Medrol, bronchodilators. Anticoagulated with Xarelto. The patient is seen today 04/29/2020 and follow-up on the regular medical floor. She is currently sitting up at the bedside. Awake and alert in mild respiratory distress. She did utilize BiPAP throughout the evening 50% FiO2. She is currently on 8 L high flow nasal cannula. Arterial blood gases revealed a pO2 176, pCO2 52, pH 7.38. Antibiotics changed to cefazolin. Continued on IV Solu-Medrol, Symbicort, albuterol. Anticoagulated with Xarelto. The patient is seen today 05/04/2020 in follow-up on the regular medical floor. She is currently awake and alert in no acute distress. Sitting up in a chair at the bedside. Maintaining good O2 saturation in the 90s on 2 L/m per nasal cannula. She is 0.9 normal saline at 75 ML's per hour. White count 5.8. Hemoglobin 10.3. Lymphocytes 0.64. Sodium 140. Potassium 5.5. Creatinine 0.8. C-reactive protein 1.4. Pro calcitonin 0.08. She is continued on bronchodilators, IV Solu-Medrol, cefazolin. Anticoagulated with Xarelto. The patient is seen today 05/05/2020 in follow-up on the regular medical floor. Currently sitting up in a chair at the bedside. Awake and alert in no acute distress. She is feeling back to her baseline. Maintaining O2 saturations in the 90s on 2 L/m per nasal cannula. Afebrile. Continue on Symbicort, albuter ol, cefazolin, IV Solu-Medrol. Remains on vitamin supplements. Anticoagulated with Xarelto. Blood culture positive for MSSA. Objective - Vital Signs Vital signs: Vital Signs Temp 97.9 F 05/05/20 05:00 Pulse 69 05/05/20 05:00 Resp 20 05/05/20 05:00 BP 138/86 05/05/20 05:00 Pulse Ox 96 05/05/20 05:00 Intake & Output 05/04/20 05/05/20 05/05/20 18:59 06:59 18:59 Intake Total 1000 950 Balance 1000 950 Intake: Intake, IV Titration 1000 650 Amount Sodium Chloride 0.9% 1, 900 600 000 ml @ 75 mls/hr IV . [id number] [facility] Rx#:[id number] ceFAZolin 2 gm In Sodium 100 50 Chloride 0.9% 50 ml @ 100 mls/hr IVPB Q8HR [facility] Rx# :[id number] Oral 300 Other: Voiding Method Bedside Commode Bedside Commode Bedside Commode Incontinent # Voids 3 3 2 - Exam GENERAL EXAM: Alert, 79-year-old female patient, on 2 L nasal cannula, in no acute respiratory distress. HEAD: Normocephalic. EYES: Normal reaction of pupils, equal size. NOSE: Clear with pink turbinates. THROAT: No erythema or exudates. NECK: No masses, no JVD. CHEST: No chest wall deformity. LUNGS: Equal air entry with bilateral end expiratory wheeze, diminished. CVS: S1 and S2 normal with no audible murmur, regular rhythm. ABDOMEN: No hepatosplenomegaly, normal bowel sounds, no guarding or rigidity. SPINE: No scoliosis or deformity SKIN: No rashes CENTRAL NERVOUS SYSTEM: No focal deficits, tone is normal in all 4 extremities. EXTREMITIES: There is no peripheral edema. No clubbing, no cyanosis. Peripheral pulses are intact. - Labs CBC & Chem 7: 05/04/20 05:31 05/04/20 05:31 Labs: Microbiology - Last 24 Hours (Table) 05/01/20 06:48 Blood Culture - Preliminary Blood No Growth after 96 hours 04/30/20 05:52 Blood Culture - Preliminary Blood No Growth after 120 hours Assessment and Plan Assessment: 1 Acute on chronic hypoxic respiratory failure secondary to an acute exacerbation of chronic obstructive pulmonary disease complicated by probable early pneumonia and CoVID 19 infection. 2 Acute CoVID 19 infection 3 Bacteremia secondary to MSSA 4 History of previous chronic tobacco dependence 5 Chronic obstructive pulmonary disease, oxygen dependent 6 Acute renal failure 7 Elevated inflammatory markers secondary to Coronavirus 8 History of atrial fibrillation, anticoagulated with Xarelto 9 History of CVA/TIA 10 Ischemic cardiomyopathy with ejection fraction 40% 11 History of obstructive sleep apnea not on treatment 12 Poor overall functional performance based on the above-mentioned multiple comorbidities Plan: The patient was seen and evaluated by Dr. Juares Currently stable from the pulmonary standpoint Current treatment plan Antibiotics per ID services Anticoagulated with Xarelto We will continue to follow I, the cosigning physician, performed a history & physical examination of the patient. Lungs sounds with bilateral wheeze, diminished. Maintaining good O2 saturations in the 90s on 2 L nasal cannula. I discussed the assessment and plan of care with my nurse practitioner, Debbie Deras. I attest to the above note as dictated by her.
[2020-05-05] MEDS: RIVAROXABAN 15 MG TAB PO SCH (21:38)
[2020-05-06] MEDS: methylPREDNISolone SOD SUCCI 125 MG/2 ML VIAL IV SCH ×3 (00:13→13:07)
--- NOTE | 2020-05-06 01:29 | PN ---
PROGRESS NOTE DATE OF SERVICE: 05/05/2020 REASON FOR FOLLOWUP: MSSA bacteremia pneumonia. INTERVAL HISTORY: Patient is currently afebrile. The patient is breathing comfortably. The patient denies having any chest pain, shortness of breath. Occasional cough. No nausea. No abdominal pain or diarrhea. PHYSICAL EXAMINATION: Blood pressure 152/70 with a pulse of 89, temperature 97.5. 96% on 2 L nasal cannula. General description is an elderly female up in the chair in no distress. Respiratory system: Decreased breath sounds in the bases with no wheeze. Heart S1, S2. Regular rate and rhythm. Abdomen soft, no tenderness. LABS: White count 5.8, BUN of 29, creatinine 0.8. DIAGNOSTIC IMPRESSION AND PLAN: Patient with MSSA bacteremia source of pneumonia, follow up blood culture has been negative. Patient is currently covered on cefazolin. She will continue to finish a total of two weeks of negative blood cultures. Continue supportive care. MMODL / IJN: [id number] /
[2020-05-06] MEDS: CHOLECALCIFEROL 1,000 UNIT TAB PO SCH (08:18)
[2020-05-06] MEDS: ZINC SULFATE 220 MG CAP PO SCH (08:18)
[2020-05-06] MEDS: ASCORBIC ACID 500 MG TAB PO SCH ×2 (08:18→20:53)
[2020-05-06] MEDS: OXYBUTYNIN CHLORIDE 5 MG TAB PO SCH ×2 (08:18→20:52)
[2020-05-06] MEDS: guaiFENesin 600 MG TABLET.ER PO SCH ×4 (08:19→20:53)
[2020-05-06] MEDS: INSULIN ASPART (NovoLOG) 100 UNIT/ML VIAL SQ SCH ×4 (08:19→21:06)
[2020-05-06] MEDS: METOPROLOL TARTRATE 50 MG TAB PO SCH ×2 (09:04→20:53)
[2020-05-06 09:32] LABS: Glucose,Whole Blood 114 mg/dL (75-99)
[2020-05-06 09:33] LABS: Glucose,Whole Blood 164 mg/dL (75-99)
[2020-05-06 09:33] LABS: Glucose,Whole Blood 266 mg/dL (75-99)
[2020-05-06 09:33] LABS: Glucose,Whole Blood 139 mg/dL (75-99)
[2020-05-06 09:34] LABS: Glucose,Whole Blood 120 mg/dL (75-99)
[2020-05-06 09:39] LABS: Glucose,Whole Blood 247 mg/dL (75-99)
[2020-05-06 09:40] LABS: Glucose,Whole Blood 251 mg/dL (75-99)
[2020-05-06 09:40] LABS: Glucose,Whole Blood 255 mg/dL (75-99)
[2020-05-06 09:41] LABS: Glucose,Whole Blood 258 mg/dL (75-99)
[2020-05-06 09:41] LABS: Glucose,Whole Blood 116 mg/dL (75-99)
[2020-05-06 09:42] LABS: Glucose,Whole Blood 158 mg/dL (75-99)
[2020-05-06 09:48] LABS: Glucose,Whole Blood 134 mg/dL (75-99)
[2020-05-06 09:48] LABS: Glucose,Whole Blood 155 mg/dL (75-99)
[2020-05-06 09:48] LABS: Glucose,Whole Blood 223 mg/dL (75-99)
[2020-05-06] MEDS: SYMBICORT 160-4.5 MCG INHALER INHALATION SCH ×2 (11:55→19:53)
[2020-05-06] MEDS: ALBUTEROL HFA INHALER INHALATION PRN ×2 (11:55→19:53)
[2020-05-06 12:40] LABS: Glucose,Whole Blood 165 mg/dL (75-99)
--- NOTE | 2020-05-06 12:58 | P.PN ---
Subjective Progress Note Date: 05/06/20 Principal diagnosis: Acute on chronic hypoxic respiratory failure secondary to an acute exacerbation of COPD complicated by early pneumonia, CoVID 19 infection This is a pleasant 79-year-old female patient who follows with Dr. Cortes with a known history of chronic hypoxic respiratory failure on home oxygen, chronic tobacco dependence, atrial fibrillation, CVA/TIA, myocardial infarction, obstructive sleep apnea on no treatment, chronic systolic congestive heart failure with ejection fraction 40%. She presented to the emergency room yesterday with complaints of a 2-3 day history of increasing shortness of breath, cough and congestion yellow productive sputum. She states she had been exposed to her grandson who was positive for CoVID 19. Chest x-ray revealed moderate cardiomegaly. Chronic lower lobe pneumonia similar to previous exam from 2017. Small right pleural effusion. White count 9.2. Hemoglobin 12.4. D-dimer 0.49. Sodium 134. Potassium 3.6. Creatinine 1.16. LDH 626. C- reactive protein 315. Coronavirus by PCR detected. She is seen today in [facility] on the regular medical floor. She is currently in some moderate respiratory distress. She is spastic and wheezing. She has a productive cough. She is on 10 L high flow nasal cannula to maintain O2 saturation in the 90s. Urgent arterial blood gases were drawn and revealed a PaO2 of 46, pCO2 of 60 and a pH of 7.36. She was placed on BiPAP 12/6 and 60% FiO2. He is more comfortable. She has stated she did not want to be intubated and placed on mechanical ventilator. She is a DO NOT RESUSCITATE/DO NOT INTUBATE CODE STATUS. Pro calcitonin 3.21. She is initiated on Zosyn and bronchodilators. Preliminary blood culture reveals gram-positive cocci. She is initiated on vancomycin. The patient is seen today 04/27/2020 in follow-up on the regular medical floor. She is doing a bit better today compared to yesterday. She is up in the chair. She remains on BiPAP. Currently at 12/6 and 50% FiO2. His 0.9 normal saline at 50 MLS per hour. Blood cultures are revealing presumptive staph aureus. Sputum culture with presumptive staph aureus. Blood glucose 173. She remains on Symbicort, albuterol, IV Solu-Medrol. Continued on Zosyn and vancomycin. Anticoagulated with Xarelto. [place] on vitamin supplements. Patient is seen today 04/28/2020 in follow-up on the regular medical floor. She is currently sitting at the bedside. Awake and alert in no acute distress. Con tinues to improve daily. Maintaining O2 saturations at 100% on 8 L/m per nasal cannula. She continues with crackles in the bilateral bases. She did utilize BiPAP throughout the evening. Blood and sputum cultures reveal evidence of MSSA. White count 9.9. Hemoglobin 11.3. D-dimer 0.66. Continued on vancomycin, Zosyn, IV Solu-Medrol, bronchodilators. Anticoagulated with Xarelto. The patient is seen today 04/29/2020 and follow-up on the regular medical floor. She is currently sitting up at the bedside. Awake and alert in mild respiratory distress. She did utilize BiPAP throughout the evening 50% FiO2. She is currently on 8 L high flow nasal cannula. Arterial blood gases revealed a pO2 176, pCO2 52, pH 7.38. Antibiotics changed to cefazolin. Continued on IV Solu-Medrol, Symbicort, albuterol. Anticoagulated with Xarelto. The patient is seen today 05/04/2020 in follow-up on the regular medical floor. She is currently awake and alert in no acute distress. Sitting up in a chair at the bedside. Maintaining good O2 saturation in the 90s on 2 L/m per nasal cannula. She is 0.9 normal saline at 75 ML's per hour. White count 5.8. Hemoglobin 10.3. Lymphocytes 0.64. Sodium 140. Potassium 5.5. Creatinine 0.8. C-reactive protein 1.4. Pro calcitonin 0.08. She is continued on bronchodilators, IV Solu-Medrol, cefazolin. Anticoagulated with Xarelto. The patient is seen today 05/05/2020 in follow-up on the regular medical floor. Currently sitting up in a chair at the bedside. Awake and alert in no acute distress. She is feeling back to her baseline. Maintaining O2 saturations in the 90s on 2 L/m per nasal cannula. Afebrile. Continue on Symbicort, albuter ol, cefazolin, IV Solu-Medrol. Remains on vitamin supplements. Anticoagulated with Xarelto. Blood culture positive for MSSA. The patient is seen today 05/06/2020 in follow-up on the regular medical floor. She is awake and alert in no acute distress. Continues to maintain good O2 saturations in the 90s on 2 L/m per nasal cannula. She's afebrile. Hemodynamically stable. Blood cultures were positive for methicillin sensitive Staphylococcus aureus care blood glucose 165. Continue on Symbicort, albuterol, cefazolin, IV Solu-Medrol. Remains on vitamin supplements. Anticoagulated with Xarelto. Objective - Vital Signs Vital signs: Vital Signs Temp 97.4 F L 05/06/20 05:00 Pulse 72 05/06/20 05:00 Resp 18 05/06/20 05:00 BP 145/80 05/06/20 05:00 Pulse Ox 95 05/06/20 05:00 Intake & Output 05/05/20 05/06/20 05/06/20 18:59 06:59 18:59 Intake Total 1050 Balance 1050 Intake: Oral 1050 Other: Voiding Method Bedside Commode Bedside Commode Incontinent Incontinent # Voids 3 1 1 # Bowel Movements 1 - Exam GENERAL EXAM: Alert, pleasant 79-year-old female patient, on 2 L nasal cannula, in no acute respiratory distress. HEAD: Normocephalic. EYES: Normal reaction of pupils, equal size. NOSE: Clear with pink turbinates. THROAT: No erythema or exudates. NECK: No masses, no JVD. CHEST: No chest wall deformity. LUNGS: Equal air entry with bilateral end expiratory wheeze, diminished. CVS: S1 and S2 normal with no audible murmur, regular rhythm. ABDOMEN: No hepatosplenomegaly, normal bowel sounds, no guarding or rigidity. SPINE: No scoliosis or deformity SKIN: No rashes CENTRAL NERVOUS SYSTEM: No focal deficits, tone is normal in all 4 extremities. EXTREMITIES: There is no peripheral edema. No clubbing, no cyanosis. Peripheral pulses are intact. - Labs CBC & Chem 7: 05/04/20 05:31 05/04/20 05:31 Labs: Abnormal Lab Results - Last 24 Hours (Table) 05/03/20 05/03/20 05/03/20 Range/Units 07:04 11:11 16:43 POC Glucose (mg/dL) 134 H 155 H 223 H (75-99) mg/dL 12/05/04/20 05/04/20 Range/Units 20:22 07:09 11:43 POC Glucose (mg/dL) 247 H 114 H 139 H (75-99) mg/dL 05/04/20 05/04/20 05/05/20 Range/Units 16:55 20:16 07:30 POC Glucose (mg/dL) 164 H 266 H 120 H (75-99) mg/dL 05/05/20 05/05/20 05/05/20 Range/Units 11:25 16:54 20:50 POC Glucose (mg/dL) 251 H 255 H 116 H (75-99) mg/dL 05/05/20 05/06/20 05/06/20 Range/Units 21:04 07:51 12:28 POC Glucose (mg/dL) 258 H 158 H 165 H (75-99) mg/dL Microbiology - Last 24 Hours (Table) 05/01/20 06:48 Blood Culture - Preliminary Blood No Growth after 120 hours 04/30/20 05:52 Blood Culture - Final Blood No Growth after 144 hours Assessment and Plan Assessment: 1 Acute on chronic hypoxic respiratory failure secondary to an acute exacerbation of chronic obstructive pulmonary disease complicated by probable early pneumonia and CoVID 19 infection. 2 Acute CoVID 19 infection 3 Bacteremia secondary to MSSA 4 History of previous chronic tobacco dependence 5 Chronic obstructive pulmonary disease, oxygen dependent 6 Acute renal failure 7 Elevated inflammatory markers secondary to Coronavirus 8 History of atrial fibrillation, anticoagulated with Xarelto 9 History of CVA/TIA 10 Ischemic cardiomyopathy with ejection fraction 40% 11 History of obstructive sleep apnea not on treatment 12 Poor overall functional performance based on the above-mentioned multiple comorbidities Plan: The patient was seen and evaluated by Dr. Juares Continue the current treatment plan We'll taper the steroids Antibiotics per ID services Anticoagulated with Xarelto We will continue to follow I, the cosigning physician, performed a history & physical examination of the patient. Lungs sounds with bilateral wheeze, diminished. Maintaining good O2 saturations in the 90s on 2 L nasal cannula. I discussed the assessment and plan of care with my nurse practitioner, Debbie Deras. I attest to the above note as dictated by her.
--- NOTE | 2020-05-06 17:04 | PN ---
PROGRESS NOTE DATE OF SERVICE: 05/06/2020 REASON FOR FOLLOWUP: MSSA bacteremia pneumonia. INTERVAL HISTORY: Patient is currently afebrile. The patient is breathing comfortably. The patient denies having any chest pain or shortness of breath. Occasional cough. No abdominal pain. No diarrhea. EXAMINATION: Blood pressure 127/72 with a pulse of 68, temperature 97.4. She is 93% on 2 L nasal cannula. General description is an elderly female up in the chair in no distress. Respiratory system: Unlabored breathing with decreased breath sounds in the bases. No wheeze. Heart S1, S2. Regular rate and rhythm. Abdomen soft, no tenderness. LABS: No new labs have been obtained today. DIAGNOSTIC IMPRESSION AND PLAN: Patient with MSSA bacteremia and pneumonia. Patient's follow up blood cultures have been negative. Because of bacteremia, she will need to be on IV antibiotic for at least 2 weeks from negative blood cultures. Currently waiting for arrangement for the same. Continue supportive care. MMODL / IJN: [id number] /
[2020-05-06 17:51] LABS: Glucose,Whole Blood 188 mg/dL (75-99)
[2020-05-06] MEDS: methylPREDNISolone SOD SUCCI 40 MG/ML 1 ML VIAL IV SCH (18:05)
[2020-05-06 20:32] LABS: Glucose,Whole Blood 222 mg/dL (75-99)
[2020-05-06] MEDS: SODIUM CHLORIDE 0.9% 1,000 ML IV SCH (20:53)
[2020-05-06] MEDS: RIVAROXABAN 15 MG TAB PO SCH (20:53)
[2020-05-07] MEDS: methylPREDNISolone SOD SUCCI 40 MG/ML 1 ML VIAL IV SCH ×3 (00:09→16:21)
[2020-05-07] MEDS: ALBUTEROL HFA INHALER INHALATION PRN ×3 (07:37→19:09)
[2020-05-07 07:38] LABS: Glucose,Whole Blood 172 mg/dL (75-99)
[2020-05-07] MEDS: SYMBICORT 160-4.5 MCG INHALER INHALATION SCH ×2 (07:38→19:09)
[2020-05-07] MEDS: INSULIN ASPART (NovoLOG) 100 UNIT/ML VIAL SQ SCH ×4 (08:37→21:20)
[2020-05-07] MEDS: CHOLECALCIFEROL 1,000 UNIT TAB PO SCH (08:37)
[2020-05-07] MEDS: OXYBUTYNIN CHLORIDE 5 MG TAB PO SCH ×2 (08:38→21:22)
[2020-05-07] MEDS: ASCORBIC ACID 500 MG TAB PO SCH ×2 (08:38→21:22)
[2020-05-07] MEDS: METOPROLOL TARTRATE 50 MG TAB PO SCH ×2 (08:38→21:22)
[2020-05-07] MEDS: guaiFENesin 600 MG TABLET.ER PO SCH ×4 (08:38→21:22)
[2020-05-07] MEDS: ZINC SULFATE 220 MG CAP PO SCH (08:38)
--- NOTE | 2020-05-07 10:32 | P.PN ---
Subjective Progress Note Date: 05/07/20 79-year-old female patient with chronic hypoxic respiratory failure, COPD, chronic atrial fibrillation, previous history of CVA, coronary artery disease and obstructive sleep apnea and history of chronic systolic heart failure with an ejection fraction of 40%. The patient was hospitalized for COVID 19 related pneumonia. The patient was treated. She was also found to have staph aureus bacteremia. Staph aureus was cultured in the sputum and the blood and the patient is currently completing a course of IV cefazolin. The patient has improved considerably and currently is on 2 L about 2 by nasal cannula. The patient is afebrile. The patient is hemodynamically stable. No nausea. No vomiting. No abdominal pain. No chest pain. The pro-calcitonin level has dropped. The CAT scan of the chest on 05/01/2020 showed scattered airspace disease bilaterally. There was also some superimposed interstitial prominence compatible with her COVID 19 related pneumonia.On today's evaluation, the patient is reporting increased swelling lower extremities bilaterally. There is also some blisters on the left leg. The lower extremities are quite tense at this point in time. The plan is to complete a two-week course of IV antibiotics for the MSSA bacteremia/pneumonia. She is on IV fluids at 0.9 at KVO. She remains on IV Solu Medrol 40 mg every 8 hours. She is also on Xarelto 15 mg daily at bedtime. Objective - Vital Signs Vital signs: Vital Signs Temp 97.5 F L 05/07/20 05:00 Pulse 72 05/07/20 05:00 Resp 20 05/07/20 05:00 BP 136/75 05/07/20 05:00 Pulse Ox 97 05/07/20 05:00 Intake & Output 05/06/20 05/07/20 05/07/20 18:59 06:59 18:59 Intake Total 400 Output Total 3 Balance -3 400 Intake: Oral 400 Output: Urine 3 Other: Voiding Method Bedside Commode Incontinent # Voids 1 3 1 # Bowel Movements 1 1 - Exam GENERAL EXAM: Alert, pleasant 79-year-old female patient, on 2 L nasal cannula, in no acute respiratory distress. HEAD: Normocephalic. EYES: Normal reaction of pupils, equal size. NOSE: Clear with pink turbinates. THROAT: No erythema or exudates. NECK: No masses, no JVD. CHEST: No chest wall deformity. LUNGS: Equal air entry with bilateral end expiratory wheeze, diminished. CVS: S1 and S2 normal with no audible murmur, regular rhythm. ABDOMEN: No hepatosplenomegaly, normal bowel sounds, no guarding or rigidity. SPINE: No scoliosis or deformity SKIN: No rashes CENTRAL NERVOUS SYSTEM: No focal deficits, tone is normal in all 4 extremities. EXTREMITIES: There is no peripheral edema. No clubbing, no cyanosis. Peripheral pulses are intact. - Labs CBC & Chem 7: 05/04/20 05:31 05/04/20 05:31 Labs: Abnormal Lab Results - Last 24 Hours (Table) 05/06/20 05/06/20 05/06/20 Range/Units 12:28 17:39 20:16 POC Glucose (mg/dL) 165 H 188 H 222 H (75-99) mg/dL 05/07/20 Range/Units 07:35 POC Glucose (mg/dL) 172 H (75-99) mg/dL Microbiology - Last 24 Hours (Table) 05/01/20 06:48 Blood Culture - Final Blood No Growth after 144 hours 04/30/20 05:52 Blood Culture - Final Blood No Growth after 144 hours Assessment and Plan Plan: 1 Acute on chronic hypoxic respiratory failure secondary to an acute exacerb ation of chronic obstructive pulmonary disease complicated by MSSA pneumonia and CoVID 19 infection. In fact, the patient was infected with Covid 19 at same time the patient was septic from MSSA pneumonia and she was bacteremic. She is currently completing a course of antibiotics with IV cefazolin. She was also completed total of 2 weeks course of IV antibiotics. Valproic acid troponin level has dropped. 2 Acute CoVID 19 infection 3 Bacteremia secondary to MSSA 4 History of previous chronic tobacco dependence 5 Chronic obstructive pulmonary disease, oxygen dependent 6 Acute renal failure 7 Elevated inflammatory markers secondary to Coronavirus 8 History of chronic atrial fibrillation, anticoagulated with Xarelto 9 History of CVA/TIA 10 Ischemic cardiomyopathy with ejection fraction 40% 11 History of obstructive sleep apnea not on treatment 12 Poor overall functional performance based on the above-mentioned multiple comorbidities 13 increased lower extremity edema Plan: He has a midline. The patient will complete a total of 2 weeks course of IV cefazolin. Started patient on Lasix 40 mg every 12 hours as the patient developed significant edema in lower extremities IV fluids to KVO Continue IV Solu-Medrol Chest x-ray to be repeated in a.m. As far as anticoagulation, continue Xarelto 20 mg by mouth daily and check Doppler of the lower extremities.
[2020-05-07 11:48] LABS: Glucose,Whole Blood 274 mg/dL (75-99)
[2020-05-07] MEDS: FUROSEMIDE 10 MG/ML 4 ML VIAL IV SCH ×2 (12:55→21:21)
[2020-05-07] MEDS: SPIRONOLACTONE 25 MG TAB PO SCH (12:55)
[2020-05-07 17:52] LABS: Glucose,Whole Blood 196 mg/dL (75-99)
[2020-05-07 20:22] LABS: Glucose,Whole Blood 188 mg/dL (75-99)
--- NOTE | 2020-05-07 21:11 | P.PN ---
Subjective Progress Note Date: 05/04/20 Principal diagnosis: Methicillin sensitive staph aureus pneumonia and bacteremia -Right lower lobe pneumonia suspected gram-negative orgasm -Underlying COVID 19 infection -Persistent atrial flutter fibrillation -Acute COPD exacerbation in an ex-smoker -Coronary artery disease with prior [place] -Chronic hypoxic respiratory failure on 4 L oxygen at home -Acute hypoxic respiratory failure from above on 50% BiPAP -Chronic congestive heart failure from systolic dysfunction EF 40% -Secondary pulmonary hypertension 05/04/2020, FiO2 continued to come down shortness of breath is better, denies any chest pain, sitting up side on chair, on 2 L nasal cannula, breathing comfortably remains on IV steroids and cefazolin along with direct anticoagulants May 03 2020, patient continued to do well in terms of breathing oxygen is down to 2 L, patient due to his staph bacteremia will need IV axis leg midline as discussed with infectious disease services and 14 days of IV therapy 05/02/2020, overall respiratory status is stable cough congestion is there, remains on high flow oxygen, at nighttime she is been using BiPAP 05/01/2020, patient seen eval examined during the rounds labs reviewed medications reviewed care plan discussed, oxygen saturation remains stable, they are 100% when she is on BiPAP, ET scan of the chest revealed bilateral scattered infiltrate along with left adrenal mass, appears to be nonspecific 04/30/2020, patient seen eval examined during the rounds labs reviewed medications reviewed care plan discussed, chest x-ray remains stable, on 6 L oxygen saturation is in mid 90s, 04/29/2020, patient seen eval examined during the rounds labs reviewed me dications reviewed, mild degree or shortness of breath ongoing is present, is still intermittently using BiPAP alternating with 8 L high flow oxygen, ID services following patient's antibiotics have been changed to cefazolin remains on direct oral anticoagulants and bronchodilator along with steroids 04/28/2020, patient seen and evaluated examined, off of BiPAP, on supplemental oxygen, breathing comfortably, on 6 L nasal cannula patient remains on broad- spectrum antibiotics along with IV steroids and bronchodilator and direct anticoagulant pulmonary is following, chest x-ray continue show bilateral infiltrates which are stable, sputum and blood both positive for MSSA, This is a pleasant 79-year-old patient of . Chronic stable medical conditions include atrial fibrillation, COPD, kidney disease, secondary pulmonary hypertension, DJD, CHF EF of 40%, obstructive sleep apnea does not use any treatment, home oxygen 4 L. Patient presents with 3-4 weeks of not feeling well got a cough taking yellow-green sputum. Denies any fever but feels cold all the time decreased appetite. No loss of smell or taste. Denies any headache. No diarrhea. Patient positive for COVID 19 PCR. Check stat x-ray showed right lower lobe infiltrate. Admitted with right lower lobe pneumonia suspected to be gram-negative organism, underlying COVID 19 infection, acute COPD exacerbation, acute hypoxic respiratory failure. Patient started IV Zosyn, vancomycin, bronchodilators, steroids. Xarelto continued Objective - Vital Signs Vital signs: Vital Signs Temp 98.1 F 05/04/20 11:00 Pulse 82 05/04/20 11:00 Resp 22 05/04/20 11:00 BP 127/71 05/04/20 11:00 Pulse Ox 95 05/04/20 11:00 Intake & Output 05/03/20 05/04/20 05/04/20 18:59 06:59 18:59 Intake Total 600 Balance 600 Intake: Oral 600 Other: Voiding Method Bedside Commode Bedside Commode Bedside Commode # Voids 4 2 # Bowel Movements 2 - Exam GENERAL: BMI 28.3, sitting up, tired. EYES: Pupils equal. Conjunctiva normal. HEENT: External appearance of nose and ears normal, oral cavity grossly normal. NECK: JVD not raised; masses not palpable. HEART: First and second heart sounds are normal; no edema. LUNGS: Respiratory rate increased, decreased breath sounds right basilar coarse crackles. ABDOMEN: Soft, nontender, liver spleen not palpable, no masses palpable. PSYCH: Alert and oriented x3; mood and affect normal. - Labs CBC & Chem 7: 05/04/20 05:31 05/04/20 05:31 Labs: Abnormal Lab Results - Last 24 Hours (Table) 05/04/20 05/04/20 Range/Units 05:31 05:31 RBC 3.49 L (3.80-5.40) m/uL Hgb 10.3 L (11.4-16.0) gm/dL Hct 33.7 L (34.0-46.0) % MCHC 30.7 L (31.0-37.0) g/dL Lymphocytes # (Manual) 0.64 L (1.0-4.8) k/uL Metamyelocytes # (Man) 0.17 H (0) k/uL Myelocytes # (Manual) 0.06 H (0) k/uL BUN 29.0 H (9.0-27.0) mg/dL BUN/Creatinine Ratio 36.25 H (12.00-20.00) Ratio Calcium 8.2 L (8.7-10.3) mg/dL C-Reactive Protein 1.4 H (0.0-0.8) mg/dL Microbiology - Last 24 Hours (Table) 05/01/20 06:48 Blood Culture - Preliminary Blood No Growth after 72 hours 04/30/20 05:52 Blood Culture - Preliminary Blood No Growth after 96 hours Assessment and Plan Assessment: Methicillin sensitive staph aureus pneumonia and bacteremia -Right lower lobe pneumonia suspected gram-negative orgasm -Underlying COVID 19 infection -Persistent atrial flutter fibrillation -Acute COPD exacerbation in an ex-smoker -Coronary artery disease with prior [place] -Chronic hypoxic respiratory failure on 4 L oxygen at home -Acute hypoxic respiratory failure from above on 50% BiPAP -Chronic congestive heart failure from systolic dysfunction EF 40% -Secondary pulmonary hypertension Left adrenal mass likely nonspecific Plan: Obtained midline and arrange outpatient antibiotics, Continue oxygen titrated down as tolerated, and, we'll continue IV steroids breathing treatments supportive care, pulmonary and infectious disease following, Time with Patient: Greater than 30
--- NOTE | 2020-05-07 21:15 | P.PN ---
Subjective Progress Note Date: 05/05/20 Principal diagnosis: Methicillin sensitive staph aureus pneumonia and bacteremia -Right lower lobe pneumonia suspected gram-negative orgasm -Underlying COVID 19 infection -Persistent atrial flutter fibrillation -Acute COPD exacerbation in an ex-smoker -Coronary artery disease with prior [place] -Chronic hypoxic respiratory failure on 4 L oxygen at home -Acute hypoxic respiratory failure from above on 50% BiPAP -Chronic congestive heart failure from systolic dysfunction EF 40% -Secondary pulmonary hypertension 05/05/2020, patient breathing comfortably denies any chest pain, remains afebrile, remains on IV cefazolin, patient is for midline and management of antibiotics as she will require 2 weeks of IV cefazolin, 05/04/2020, FiO2 continued to come down shortness of breath is better, denies any chest pain, sitting up side on chair, on 2 L nasal cannula, breathing comfortably remains on IV steroids and cefazolin along with direct anticoagulants May 03 2020, patient continued to do well in terms of breathing oxygen is down to 2 L, patient due to his staph bacteremia will need IV axis leg midline as discussed with infectious disease services and 14 days of IV therapy 05/02/2020, overall respiratory status is stable cough congestion is there, remains on high flow oxygen, at nighttime she is been using BiPAP 05/01/2020, patient seen eval examined during the rounds labs reviewed medications reviewed care plan discussed, oxygen saturation remains stable, they are 100% when she is on BiPAP, ET scan of the chest revealed bilateral scattered infiltrate along with left adrenal mass, appears to be nonspecific 04/30/2020, patient seen eval examined during the rounds labs reviewed medications reviewed care plan discussed, chest x-ray remains stable, on 6 L o xygen saturation is in mid 90s, 04/29/2020, patient seen eval examined during the rounds labs reviewed medications reviewed, mild degree or shortness of breath ongoing is present, is still intermittently using BiPAP alternating with 8 L high flow oxygen, ID services following patient's antibiotics have been changed to cefazolin remains on direct oral anticoagulants and bronchodilator along with steroids 04/28/2020, patient seen and evaluated examined, off of BiPAP, on supplemental oxygen, breathing comfortably, on 6 L nasal cannula patient remains on broad- spectrum antibiotics along with IV steroids and bronchodilator and direct anticoagulant pulmonary is following, chest x-ray continue show bilateral infiltrates which are stable, sputum and blood both positive for MSSA, This is a pleasant 79-year-old patient of . Chronic stable medical conditions include atrial fibrillation, COPD, kidney disease, secondary pulmonary hypertension, DJD, CHF EF of 40%, obstructive sleep apnea does not use any treatment, home oxygen 4 L. Patient presents with 3-4 weeks of not feeling well got a cough taking yellow-green sputum. Denies any fever but feels cold all the time decreased appetite. No loss of smell or taste. Denies any headache. No diarrhea. Patient positive for COVID 19 PCR. Check stat x-ray showed right lower lobe infiltrate. Admitted with right lower lobe pneumonia suspected to be gram-negative organism, underlying COVID 19 infection, acute COPD exacerbation, acute hypoxic respiratory failure. Patient started IV Zosyn, vancomycin, bronchodilators, steroids. Xarelto continued Objective - Vital Signs Vital signs: Vital Signs Temp 97.9 F 05/05/20 05:00 Pulse 69 05/05/20 05:00 Resp 20 05/05/20 05:00 BP 138/86 05/05/20 05:00 Pulse Ox 96 05/05/20 05:00 Intake & Output 05/04/20 05/05/20 05/05/20 18:59 06:59 18:59 Intake Total 1000 950 Balance 1000 950 Intake: Intake, IV Titration 1000 650 Amount Sodium Chloride 0.9% 1, 900 600 000 ml @ 75 mls/hr IV . [id number] [facility] Rx#:[id number] ceFAZolin 2 gm In Sodium 100 50 Chloride 0.9% 50 ml @ 100 mls/hr IVPB Q8HR [facility] Rx# :[id number] Oral 300 Other: Voiding Method Bedside Commode Bedside Commode Bedside Commode Incontinent # Voids 3 3 2 - Exam GENERAL: BMI 28.3, sitting up, tired. EYES: Pupils equal. Conjunctiva normal. HEENT: External appearance of nose and ears normal, oral cavity grossly normal. NECK: JVD not raised; masses not palpable. HEART: First and second heart sounds are normal; no edema. LUNGS: Respiratory rate increased, decreased breath sounds right basilar coarse crackles. ABDOMEN: Soft, nontender, liver spleen not palpable, no masses palpable. PSYCH: Alert and oriented x3; mood and affect normal. - Labs CBC & Chem 7: 05/04/20 05:31 05/04/20 05:31 Labs: Microbiology - Last 24 Hours (Table) 05/01/20 06:48 Blood Culture - Preliminary Blood No Growth after 96 hours 04/30/20 05:52 Blood Culture - Preliminary Blood No Growth after 120 hours Assessment and Plan Assessment: Methicillin sensitive staph aureus pneumonia and bacteremia -Right lower lobe pneumonia suspected gram-negative orgasm -Underlying COVID 19 infection -Persistent atrial flutter fibrillation -Acute COPD exacerbation in an ex-smoker -Coronary artery disease with prior [place] -Chronic hypoxic respiratory failure on 4 L oxygen at home -Acute hypoxic respiratory failure from above on 50% BiPAP -Chronic congestive heart failure from systolic dysfunction EF 40% -Secondary pulmonary hypertension Left adrenal mass likely nonspecific Plan: Obtained midline and arrange outpatient antibiotics, Continue oxygen titrated down as tolerated, and, we'll continue IV steroids breathing treatments supportive care, pulmonary and infectious disease following, Time with Patient: Greater than 30
--- NOTE | 2020-05-07 21:17 | P.PN ---
Subjective Progress Note Date: 05/06/20 Principal diagnosis: Methicillin sensitive staph aureus pneumonia and bacteremia -Right lower lobe pneumonia suspected gram-negative orgasm -Underlying COVID 19 infection -Persistent atrial flutter fibrillation -Acute COPD exacerbation in an ex-smoker -Coronary artery disease with prior [place] -Chronic hypoxic respiratory failure on 4 L oxygen at home -Acute hypoxic respiratory failure from above on 50% BiPAP -Chronic congestive heart failure from systolic dysfunction EF 40% -Secondary pulmonary hypertension 05/06/2020, patient seen eval examined during the rounds labs reviewed medications reviewed, remains on IV cefazolin, likely will be transferred to F for 2 weeks of antibiotics probably in next 24-48 hours if remains stable 05/05/2020, patient breathing comfortably denies any chest pain, remains afebrile, remains on IV cefazolin, patient is for midline and management of antibiotics as she will require 2 weeks of IV cefazolin, 05/04/2020, FiO2 continued to come down shortness of breath is better, denies any chest pain, sitting up side on chair, on 2 L nasal cannula, breathing comfortably remains on IV steroids and cefazolin along with direct anticoagulant s May 03 2020, patient continued to do well in terms of breathing oxygen is down to 2 L, patient due to his staph bacteremia will need IV axis leg midline as discussed with infectious disease services and 14 days of IV therapy 05/02/2020, overall respiratory status is stable cough congestion is there, remains on high flow oxygen, at nighttime she is been using BiPAP 05/01/2020, patient seen eval examined during the rounds labs reviewed medications reviewed care plan discussed, oxygen saturation remains stable, they are 100% when she is on BiPAP, ET scan of the chest revealed bilateral scattered infiltrate along with left adrenal mass, appears to be nonspecific 04/30/2020, patient seen eval examined during the rounds labs reviewed medications reviewed care plan discussed, chest x-ray remains stable, on 6 L oxygen saturation is in mid 90s, 04/29/2020, patient seen eval examined during the rounds labs reviewed medications reviewed, mild degree or shortness of breath ongoing is present, is still intermittently using BiPAP alternating with 8 L high flow oxygen, ID services following patient's antibiotics have been changed to cefazolin remains on direct oral anticoagulants and bronchodilator along with steroids 04/28/2020, patient seen and evaluated examined, off of BiPAP, on supplemental oxygen, breathing comfortably, on 6 L nasal cannula patient remains on broad-spectrum antibiotics along with IV steroids and bronchodilator and direct anticoagulant pulmonary is following, chest x-ray continue show bilateral infiltrates which are stable, sputum and blood both positive for MSSA, This is a pleasant 79-year-old patient of . Chronic stable medical conditions include atrial fibrillation, COPD, kidney disease, secondary pulmonary hypertension, DJD, CHF EF of 40%, obstructive sleep apnea does not use any treatment, home oxygen 4 L. Patient presents with 3-4 weeks of not feeling well got a cough taking yellow-green sputum. Denies any fever but feels cold all the time decreased appetite. No loss of smell or taste. Denies any headache. No diarrhea. Patient positive for COVID 19 PCR. Check stat x-ray showed right lower lobe infiltrate. Admitted with right lower lobe pneumonia suspected to be gram-negative organism, underlying COVID 19 infection, acute COPD exacerbation, acute hypoxic respiratory failure. Patient started IV Zosyn, vancomycin, bronchodilators, steroids. Xarelto continued Objective - Vital Signs Vital signs: Vital Signs Temp 97.4 F L 05/06/20 11:00 Pulse 68 05/06/20 11:00 Resp 18 05/06/20 11:00 BP 127/72 05/06/20 11:00 Pulse Ox 96 05/06/20 11:00 Intake & Output 05/05/20 05/06/20 05/06/20 18:59 06:59 18:59 Intake Total 1050 Balance 1050 Intake: Oral 1050 Other: Voiding Method Bedside Commode Bedside Commode Incontinent Incontinent # Voids 3 1 1 # Bowel Movements 1 - Exam GENERAL: BMI 28.3, sitting up, tired. EYES: Pupils equal. Conjunctiva normal. HEENT: External appearance of nose and ears normal, oral cavity grossly normal. NECK: JVD not raised; masses not palpable. HEART: First and second heart sounds are normal; no edema. LUNGS: Respiratory rate increased, decreased breath sounds right basilar coarse crackles. ABDOMEN: Soft, nontender, liver spleen not palpable, no masses palpable. PSYCH: Alert and oriented x3; mood and affect normal. - Labs CBC & Chem 7: 05/04/20 05:31 05/04/20 05:31 Labs: Abnormal Lab Results - Last 24 Hours (Table) 05/03/20 05/03/20 05/03/20 Range/Units 07:04 11:11 16:43 POC Glucose (mg/dL) 134 H 155 H 223 H (75-99) mg/dL 05/03/20 05/04/20 05/04/20 Range/Units 20:22 07:09 11:43 POC Glucose (mg/dL) 247 H 114 H 139 H (75-99) mg/dL 05/04/20 05/04/20 05/05/20 Range/Units 16:55 20:16 07:30 POC Glucose (mg/dL) 164 H 266 H 120 H (75-99) mg/dL 05/05/20 05/05/20 05/05/20 Range/Units 11:25 16:54 20:50 POC Glucose (mg/dL) 251 H 255 H 116 H (75-99) mg/dL 05/05/20 05/06/20 05/06/20 Range/Units 21:04 07:51 12:28 POC Glucose (mg/dL) 258 H 158 H 165 H (75-99) mg/dL Microbiology - Last 24 Hours (Table) 05/01/20 06:48 Blood Culture - Preliminary Blood No Growth after 120 hours 04/30/20 05:52 Blood Culture - Final Blood No Growth after 144 hours Assessment and Plan Assessment: Methicillin sensitive staph aureus pneumonia and bacteremia -Right lower lobe pneumonia suspected gram-negative orgasm -Underlying COVID 19 infection -Persistent atrial flutter fibrillation -Acute COPD exacerbation in an ex-smoker -Coronary artery disease with prior [place] -Chronic hypoxic respiratory failure on 4 L oxygen at home -Acute hypoxic respiratory failure from above on 50% BiPAP -Chronic congestive heart failure from systolic dysfunction EF 40% -Secondary pulmonary hypertension Left adrenal mass likely nonspecific Plan: Obtained midline and arrange outpatient antibiotics, Continue oxygen titrated down as tolerated, and, we'll continue IV steroids breathing treatments supportive care, pulmonary and infectious disease following, Time with Patient: Greater than 30
--- NOTE | 2020-05-07 21:21 | P.PN ---
Subjective Progress Note Date: 05/07/20 Principal diagnosis: Methicillin sensitive staph aureus pneumonia and bacteremia -Right lower lobe pneumonia suspected gram-negative orgasm -Underlying COVID 19 infection -Persistent atrial flutter fibrillation -Acute COPD exacerbation in an ex-smoker -Coronary artery disease with prior [place] -Chronic hypoxic respiratory failure on 4 L oxygen at home -Acute hypoxic respiratory failure from above on 50% BiPAP -Chronic congestive heart failure from systolic dysfunction EF 40% -Secondary pulmonary hypertension 05/07/2020 patient noted to have some swelling in the lower extremity as well as large blister formation William wrap patient has been done, pulmonary service has given some Lasix as well, she'll however remains afebrile on 2 L oxygen, continued to be on direct anticoagulation, feel that his steroids can be tapered and DC to oral prednisone as outpatient will discuss with pulmonary service, repeat labs in the morning 05/06/2020, patient seen eval examined during the rounds labs reviewed medications reviewed, remains on IV cefazolin, likely will be transferred to F for 2 weeks of antibiotics probably in next 24-48 hours if remains stable 05/05/2020, patient breathing comfortably denies any chest pain, remains afebrile, remains on IV cefazolin, patient is for midline and management of antibiotics as she will require 2 weeks of IV cefazolin, 05/04/2020, FiO2 continued to come down shortness of breath is better, denies any chest pain, sitting up side on chair, on 2 L nasal cannula, breathing comfortably remains on IV steroids and cefazolin along with direct anticoagulants May 03 2020, patient continued to do well in terms of breathing oxygen is down to 2 L, patient due to his staph bacteremia will need IV axis leg midline as discussed with infectious disease services and 14 days of IV therapy 05/02/2020, overall respiratory status is stable cough congestion is there, remains on high flow oxygen, at nighttime she is been using BiPAP 05/01/2020, patient seen eval examined during the rounds labs reviewed medications reviewed care plan discussed, oxygen saturation remains stable, they are 100% when she is on BiPAP, ET scan of the chest revealed bilateral scattered infiltrate along with left adrenal mass, appears to be nonspecific 04/30/2020, patient seen eval examined during the rounds labs reviewed medications reviewed care plan discussed, chest x-ray remains stable, on 6 L oxygen saturation is in mid 90s, 04/29/2020, patient seen eval examined during the rounds labs reviewed medications reviewed, mild degree or shortness of breath ongoing is present, is still intermittently using BiPAP alternating with 8 L high flow oxygen, ID services following patient's antibiotics have been changed to cefazolin remains on direct oral anticoagulants and bronchodilator along with steroids 04/28/2020, patient seen and evaluated examined, off of BiPAP, on supplemental oxygen, breathing comfortably, on 6 L nasal cannula patient remains on broad- spectrum antibiotics along with IV steroids and bronchodilator and direct anticoagulant pulmonary is following, chest x-ray continue show bilateral infiltrates which are stable, sputum and blood both positive for MSSA, This is a pleasant 79-year-old patient of . Chronic stable medical conditions include atrial fibrillation, COPD, kidney disease, secondary pulmonary hypertension, DJD, CHF EF of 40%, obstructive sleep apnea does not use any treatment, home oxygen 4 L. Patient presents with 3-4 weeks of not feeling well got a cough taking yellow-green sputum. Denies any fever but feels cold all the time decreased appetite. No loss of smell or taste. Denies any headach e. No diarrhea. Patient positive for COVID 19 PCR. Check stat x-ray showed right lower lobe infiltrate. Admitted with right lower lobe pneumonia suspected to be gram-negative organism, underlying COVID 19 infection, acute COPD exacerbation, acute hypoxic respiratory failure. Patient started IV Zosyn, vancomycin, bronchodilators, steroids. Xarelto continued Objective - Vital Signs Vital signs: Vital Signs Temp 97.4 F L 05/07/20 20:53 Pulse 91 05/07/20 20:53 Resp 18 05/07/20 20:53 BP 129/75 05/07/20 20:53 Pulse Ox 94 L 05/07/20 20:53 Intake & Output 05/07/20 05/07/20 05/08/20 06:59 18:59 06:59 Intake Total 400 300 Balance 400 300 Intake: Intake, IV Titration 300 Amount Sodium Chloride 0.9% 1, 200 000 ml @ 20 mls/hr IV . Q24H [facility] Rx#:[id number] ceFAZolin 2 gm In Sodium 100 Chloride 0.9% 50 ml @ 100 mls/hr IVPB Q8HR [facility] Rx# :[id number] Oral 400 Other: Voiding Method Bedside Commode Incontinent # Voids 3 7 # Bowel Movements 1 - Exam GENERAL: BMI 28.3, sitting up, tired. EYES: Pupils equal. Conjunctiva normal. HEENT: External appearance of nose and ears normal, oral cavity grossly normal. NECK: JVD not raised; masses not palpable. HEART: First and second heart sounds are normal; no edema. LUNGS: Respiratory rate increased, decreased breath sounds right basilar coarse crackles. ABDOMEN: Soft, nontender, liver spleen not palpable, no masses palpable. PSYCH: Alert and oriented x3; mood and affect normal. - Labs CBC & Chem 7: 05/04/20 05:31 05/04/20 05:31 Labs: Abnormal Lab Results - Last 24 Hours (Table) 05/07/20 05/07/20 05/07/20 Range/Units 07:35 11:36 17:29 POC Glucose (mg/dL) 172 H 274 H 196 H (75-99) mg/dL 05/07/20 Range/Units 20:21 POC Glucose (mg/dL) 188 H (75-99) mg/dL Microbiology - Last 24 Hours (Table) 05/01/20 06:48 Blood Culture - Final Blood No Growth after 144 hours Assessment and Plan Assessment: Methicillin sensitive staph aureus pneumonia and bacteremia -Right lower lobe pneumonia suspected gram-negative orgasm -Underlying COVID 19 infection -Persistent atrial flutter fibrillation -Acute COPD exacerbation in an ex-smoker -Coronary artery disease with prior [place] -Chronic hypoxic respiratory failure on 4 L oxygen at home -Acute hypoxic respiratory failure from above on 50% BiPAP -Chronic congestive heart failure from systolic dysfunction EF 40% -Secondary pulmonary hypertension Left adrenal mass likely nonspecific Plan: Status post midline and arrange outpatient antibiotics, Continue oxygen titrated down as tolerated, and, we'll continue IV steroids breathing treatments supportive care, pulmonary and infectious disease following, hopefully his steroids can be changed to oral possible discharge in next 24 hours Time with Patient: Greater than 30
[2020-05-07] MEDS: RIVAROXABAN 20 MG TAB PO SCH (21:22)
[2020-05-07] MEDS: SODIUM CHLORIDE 0.9% 1,000 ML IV SCH (21:22)
--- NOTE | 2020-05-07 23:45 | PN ---
PROGRESS NOTE DATE OF SERVICE: 05/07/2020 REASON FOR FOLLOWUP: MSSA bacteremia and pneumonia. INTERVAL HISTORY: Patient is currently afebrile. The patient is breathing more comfortably. The patient denies having any chest pain, cough, no abdominal pain, no diarrhea. She is noted to have significant swelling in the lower extremity. PHYSICAL EXAMINATION: Her blood pressure is 129/75, pulse of 91, temperature is 99.4. She is 94% on 2 L nasal cannula. General description is an elderly female up in the bed in no distress. Respiratory system: Unlabored breathing with a few coarse crackles in the bases. Heart S1-S2 regular rate and rhythm. Abdomen soft. No tenderness. Extremities 2+ edema of the feet. LABS: No new labs have been obtained today. Blood cultures 04/30/2020 has been negative. DIAGNOSTIC IMPRESSION AND PLAN: Patient with MSSA bacteremia. Concern likely for pneumonia, she grew the same pathogen in sputum. Now with evidence of significantly swelling in the lower extremity. We will also obtain an echocardiogram to make sure no evidence of any valvular abnormality. Continue with cefazolin and monitor clinical course closely. MMODL / IJN: [id number] /
[2020-05-08] MEDS: methylPREDNISolone SOD SUCCI 40 MG/ML 1 ML VIAL IV SCH ×2 (00:02→07:58)
[2020-05-08] MEDS: ALBUTEROL HFA INHALER INHALATION PRN ×3 (07:23→19:15)
[2020-05-08] MEDS: SYMBICORT 160-4.5 MCG INHALER INHALATION SCH ×2 (07:23→19:16)
[2020-05-08 07:26] LABS: Glucose,Whole Blood 164 mg/dL (75-99)
[2020-05-08] MEDS: ZINC SULFATE 220 MG CAP PO SCH (07:57)
[2020-05-08] MEDS: CHOLECALCIFEROL 1,000 UNIT TAB PO SCH (07:57)
[2020-05-08] MEDS: ASCORBIC ACID 500 MG TAB PO SCH ×2 (07:57→21:38)
[2020-05-08] MEDS: METOPROLOL TARTRATE 50 MG TAB PO SCH ×2 (07:58→21:38)
[2020-05-08] MEDS: SPIRONOLACTONE 25 MG TAB PO SCH (07:58)
[2020-05-08] MEDS: FUROSEMIDE 10 MG/ML 4 ML VIAL IV SCH ×2 (07:58→21:38)
[2020-05-08] MEDS: OXYBUTYNIN CHLORIDE 5 MG TAB PO SCH ×2 (07:58→21:38)
[2020-05-08] MEDS: guaiFENesin 600 MG TABLET.ER PO SCH ×4 (07:59→21:38)
--- NOTE | 2020-05-08 08:12 | XR ---
EXAMINATION TYPE: XR chest 1V DATE OF EXAM: 05/08/2020 CLINICAL HISTORY: Difficulty breathing progress study. Covid 19 Pneumonia and persistent bacteremia. TECHNIQUE: Single AP portable frontal view of the chest is obtained. COMPARISON: Chest x-ray from 8 days earlier and older x-rays. CT chest one week ago. FINDINGS: Persistent cardiomegaly with atherosclerotic thoracic aorta. Background chronic emphysemat ous change with multifocal bilateral opacities redemonstrated. It is greatest in the lower lungs. Oss eous structures are intact. IMPRESSION: Cardiomegaly and chronic emphysematous change with multifocal bilateral acute infiltrates greatest in the right lung base. No significant change from most recent studies.
[2020-05-08] MEDS: INSULIN ASPART (NovoLOG) 100 UNIT/ML VIAL SQ SCH ×4 (08:32→21:38)
[2020-05-08 09:59] LABS: Basophils # (A) 0.1 k/uL (0-0.2); Basophils % (A) 1 %; Eosinophils % (A) 0 %; HCT 38.2 % (34.0-46.0); HGB 11.9 gm/dL (11.4-16.0); Lymphocytes # (A) 0.4 k/uL (1.0-4.8); Lymphocytes % (A) 3 %; MCH 29.1 pg (25.0-35.0); MCHC 31.3 g/dL (31.0-37.0); Monocytes # (A) 0.3 k/uL (0-1.0); Monocytes % (A) 3 %; Neutrophils # (A) 11.1 k/uL (1.3-7.7); Neutrophils % (A) 93 %; Platelet Count 274 k/uL (150-450); RBC 4.11 m/uL (3.80-5.40); RDW 14.5 % (11.5-15.5)
--- NOTE | 2020-05-08 10:02 | P.PN ---
Subjective Progress Note Date: 05/08/20 Principal diagnosis: Methicillin sensitive staph aureus pneumonia and bacteremia -Right lower lobe pneumonia suspected gram-negative orgasm -Underlying COVID 19 infection -Persistent atrial flutter fibrillation -Acute COPD exacerbation in an ex-smoker -Coronary artery disease with prior [place] -Chronic hypoxic respiratory failure on 4 L oxygen at home -Acute hypoxic respiratory failure from above on 50% BiPAP -Chronic congestive heart failure from systolic dysfunction EF 40% -Secondary pulmonary hypertension 05/08/2020, patient seen and evaluated examined, remains on 2 L oxygen, shortness of breath stable, patient on IV Lasix for diuresis, swelling the lower extremity still present, Meño on the left leg stable wrapped with pressure dressing, chest x-ray performed today continue show cardiomegaly with COPD-like changes and bilateral infiltrates right compared to left side, no significant effusion is seen, anticipate Lasix will be changed to by mouth later on today a nd likely discharge to home tomorrow antibiotics for home has been arranged 05/07/2020 patient noted to have some swelling in the lower extremity as well as large blister formation William wrap patient has been done, pulmonary service has given some Lasix as well, she'll however remains afebrile on 2 L oxygen, continued to be on direct anticoagulation, feel that his steroids can be tapered and DC to oral prednisone as outpatient will discuss with pulmonary service, repeat labs in the morning 05/06/2020, patient seen eval examined during the rounds labs reviewed medications reviewed, remains on IV cefazolin, likely will be transferred to ECF for 2 weeks of antibiotics probably in next 24-48 hours if remains stable 05/05/2020, patient breathing comfortably denies any chest pain, remains afebr ile, remains on IV cefazolin, patient is for midline and management of antibiotics as she will require 2 weeks of IV cefazolin, 05/04/2020, FiO2 continued to come down shortness of breath is better, denies any chest pain, sitting up side on chair, on 2 L nasal cannula, breathing comfortably remains on IV steroids and cefazolin along with direct anticoagulants May 03 2020, patient continued to do well in terms of breathing oxygen is down to 2 L, patient due to his staph bacteremia will need IV axis leg midline as discussed with infectious disease services and 14 days of IV therapy 05/02/2020, overall respiratory status is stable cough congestion is there, remains on high flow oxygen, at nighttime she is been using BiPAP 05/01/2020, patient seen eval examined during the rounds labs reviewed medications reviewed care plan discussed, oxygen saturation remains stable, they are 100% when she is on BiPAP, ET scan of the chest revealed bilateral scattered infiltrate along with left adrenal mass, appears to be nonspecific 04/30/2020, patient seen eval examined during the rounds labs reviewed medications reviewed care plan discussed, chest x-ray remains stable, on 6 L oxygen saturation is in mid 90s, 04/29/2020, patient seen eval examined during the rounds labs reviewed medicat ions reviewed, mild degree or shortness of breath ongoing is present, is still intermittently using BiPAP alternating with 8 L high flow oxygen, ID services following patient's antibiotics have been changed to cefazolin remains on direct oral anticoagulants and bronchodilator along with steroids 04/28/2020, patient seen and evaluated examined, off of BiPAP, on supplemental oxygen, breathing comfortably, on 6 L nasal cannula patient remains on broad- spectrum antibiotics along with IV steroids and bronchodilator and direct anticoagulant pulmonary is following, chest x-ray continue show bilateral infiltrates which are stable, sputum and blood both positive for MSSA, This is a pleasant 79-year-old patient of . Chronic stable medical conditions include atrial fibrillation, COPD, kidney disease, secondary pulmonary hypertension, DJD, CHF EF of 40%, obstructive sleep apnea does not use any treatment, home oxygen 4 L. Patient presents with 3-4 weeks of not feeling well got a cough taking yellow-green sputum. Denies any fever but feels cold all the time decreased appetite. No loss of smell or taste. Denies any headache. No diarrhea. Patient positive for COVID 19 PCR. Check stat x-ray showed right lower lobe infiltrate. Admitted with right lower lobe pneumonia suspected to be gram-negative organism, underlying COVID 19 infection, acute COPD exacerbation, acute hypoxic respiratory failure. Patient started IV Zosyn, vancomycin, bronchodilators, steroids. Xarelto continued Objective - Vital Signs Vital signs: Vital Signs Temp 97.4 F L 05/08/20 04:58 Pulse 79 05/08/20 04:58 Resp 20 05/08/20 04:58 BP 135/79 05/08/20 04:58 Pulse Ox 97 05/08/20 04:58 Intake & Output 05/07/20 05/08/20 05/08/20 18:59 06:59 18:59 Intake Total 300 640 480 Output Total 2000 Balance 300 -1360 480 Intake: Intake, IV Titration 300 320 Amount Sodium Chloride 0.9% 1, 200 220 000 ml @ 20 mls/hr IV . Q24H BROCK Rx#:[id number] ceFAZolin 2 gm In Sodium 100 100 Chloride 0.9% 50 ml @ 100 mls/hr IVPB Q8HR BROCK Rx# :[id number] Oral 320 480 Output: Urine 2000 Other: Voiding Method Bedside Commode Diaper # Voids 7 1 # Bowel Movements 1 - Exam GENERAL: BMI 28.3, sitting up, tired. EYES: Pupils equal. Conjunctiva normal. HEENT: External appearance of nose and ears normal, oral cavity grossly normal. NECK: JVD not raised; masses not palpable. HEART: First and second heart sounds are normal; no edema. LUNGS: Respiratory rate increased, decreased breath sounds right basilar coarse crackles. ABDOMEN: Soft, nontender, liver spleen not palpable, no masses palpable. Bilateral lower extremity edema PSYCH: Alert and oriented x3; mood and affect normal. - Labs CBC & Chem 7: 05/08/20 06:05 05/04/20 05:31 Labs: Abnormal Lab Results - Last 24 Hours (Table) 05/07/20 05/07/20 05/07/20 Range/Units 11:36 17:29 20:21 WBC (3.8-10.6) k/uL Neutrophils # (1.3-7.7) k/uL Lymphocytes # (1.0-4.8) k/uL POC Glucose (mg/dL) 274 H 196 H 188 H (75-99) mg/dL 05/08/20 05/08/20 Range/Units 06:05 07:22 WBC 12.0 H (3.8-10.6) k/uL Neutrophils # 11.1 H (1.3-7.7) k/uL Lymphocytes # 0.4 L (1.0-4.8) k/uL POC Glucose (mg/dL) 164 H (75-99) mg/dL Microbiology - Last 24 Hours (Table) 05/01/20 06:48 Blood Culture - Final Blood No Growth after 144 hours Assessment and Plan Assessment: Bilateral lower extremity edema Methicillin sensitive staph aureus pneumonia and bacteremia -Right lower lobe pneumonia suspected gram-negative orgasm -Underlying COVID 19 infection -Persistent atrial flutter fibrillation -Acute COPD exacerbation in an ex-smoker -Coronary artery disease with prior [place] -Chronic hypoxic respiratory failure on 4 L oxygen at home -Acute hypoxic respiratory failure from above on 50% BiPAP -Chronic congestive heart failure from systolic dysfunction EF 40% -Secondary pulmonary hypertension Left adrenal mass likely nonspecific Plan: Status post midline and arrange outpatient antibiotics, Continue oxygen titrated down as tolerated, and, we'll continue IV steroids and Lasix hopefully changed to oral in next 1224 hrs. breathing treatments supportive care, pulmonary and infectious disease following, hopefully his steroids can be changed to oral possible discharge in next 24 hours Time with Patient: Greater than 30
[2020-05-08 10:34] LABS: ALT <8 U/L (8-44); AST 34 U/L (13-35); African American GFR (CKD) 62.1 (60.0-200.0); Albumin/Globulin Ratio 1.67 (1.60-3.17); Alkaline Phosphatase 146 U/L (41-126); Calcium 8.2 mg/dL (8.7-10.3); Carbon Dioxide 35.7 mmol/L (21.6-31.8); Chloride 96 mmol/L (96-109); Globulin 2.1 g/dL (1.6-3.3); Glucose 176 mg/dL (70-110); Non-African American GFR(CKD) 53.5 (60.0-200.0); Potassium 5.8 mmol/L (3.5-5.5); Sodium 138 mmol/L (135-145); Total Bilirubin 0.9 mg/dL (0.2-1.2); Total Protein 5.6 g/dL (6.2-8.2)
--- NOTE | 2020-05-08 11:04 | P.PN ---
Subjective Progress Note Date: 05/08/20 Today's evaluation of 05/08/2020, the patient is being seen for a follow-up. The patient is feeling well and she has no specific complaints. She had significant edema lower extremities bilaterally patient was started on IV Lasix. She produces adequate amount of urine output and her urine output is improved considerably with diuresis. She remains on 2 L of oxygen by nasal cannula. No chest pain. She IV fluids to KVO. Her legs are wrapped at this point and the patient has no significant blister formation. She has chronic hypoxic respiratory failure/COPD. She also suffers from chronic atrial fibrillation. She has previous history of CVA, coronary artery disease and obstructive sleep apnea and chronic systolic heart failure with an ejection fraction of 40%. During the same admission, the patient was diagnosed having staph aureus bacteremia from a pneumonia as the sputum and the blood culture was positive for staph aureus and the patient remains on IV cefazolin. She is completing a two- week course of antibiotics. She remains hemodynamically stable. No other new complaints otherwise for now. No diarrhea. She is on 20 mg of Xarelto regarding her atrial fibrillation. Objective - Vital Signs Vital signs: Vital Signs Temp 97.4 F L 05/08/20 04:58 Pulse 79 05/08/20 04:58 Resp 20 05/08/20 04:58 BP 135/79 05/08/20 04:58 Pulse Ox 97 05/08/20 04:58 Intake & Output 05/07/20 05/08/20 05/08/20 18:59 06:59 18:59 Intake Total 300 640 480 Output Total 2000 Balance 300 -1360 480 Intake: Intake, IV Titration 300 320 Amount Sodium Chloride 0.9% 1, 200 220 000 ml @ 20 mls/hr IV . Q24H BROCK Rx#:[id number] ceFAZolin 2 gm In Sodium 100 100 Chloride 0.9% 50 ml @ 100 mls/hr IVPB Q8HR [facility]OCK Rx# :[id number] Oral 320 480 Output: Urine 2000 Other: Voiding Method Bedside Commode Diaper # Voids 7 1 # Bowel Movements 1 - Exam GENERAL EXAM: Alert, pleasant 79-year-old female patient, on 2 L nasal cannula, in no acute respiratory distress. HEAD: Normocephalic. EYES: Normal reaction of pupils, equal size. NOSE: Clear with pink turbinates. THROAT: No erythema or exudates. NECK: No masses, no JVD. CHEST: No chest wall deformity. LUNGS: Equal air entry with bilateral end expiratory wheeze, diminished. CVS: S1 and S2 normal with no audible murmur, irregular rhythm. ABDOMEN: No hepatosplenomegaly, normal bowel sounds, no guarding or rigidity. SPINE: No scoliosis or deformity SKIN: No rashes CENTRAL NERVOUS SYSTEM: No focal deficits, tone is normal in all 4 extremities. EXTREMITIES: There is no peripheral edema. No clubbing, no cyanosis. P eripheral pulses are intact. - Labs CBC & Chem 7: 05/08/20 06:05 05/08/20 06:05 Labs: Abnormal Lab Results - Last 24 Hours (Table) 05/07/20 05/07/20 05/07/20 Range/Units 11:36 17:29 20:21 WBC (3.8-10.6) k/uL Neutrophils # (1.3-7.7) k/uL Lymphocytes # (1.0-4.8) k/uL Potassium (3.5-5.5) mmol/L Carbon Dioxide (21.6-31.8) mmol/L BUN (9.0-27.0) mg/dL Est GFR (CKD-EPI)NonAf (60.0-200.0) BUN/Creatinine Ratio (12.00-20.00) Ratio Glucose (70-110) mg/dL POC Glucose (mg/dL) 274 H 196 H 188 H (75-99) mg/dL Calcium (8.7-10.3) mg/dL ALT (8-44) U/L Alkaline Phosphatase (41-126) U/L Total Protein (6.2-8.2) g/dL Albumin (3.80-4.90) g/dL 05/08/20 05/08/20 05/08/20 Range/Units 06:05 06:05 07:22 WBC 12.0 H (3.8-10.6) k/uL Neutrophils # 11.1 H (1.3-7.7) k/uL Lymphocytes # 0.4 L (1.0-4.8) k/uL Potassium 5.8 H (3.5-5.5) mmol/L Carbon Dioxide 35.7 H (21.6-31.8) mmol/L BUN 33.0 H (9.0-27.0) mg/dL Est GFR (CKD-EPI)NonAf 53.5 L (60.0-200.0) BUN/Creatinine Ratio 33.00 H (12.00-20.00) Ratio Glucose 176 H (70-110) mg/dL POC Glucose (mg/dL) 164 H (75-99) mg/dL Calcium 8.2 L (8.7-10.3) mg/dL ALT <8 L (8-44) U/L Alkaline Phosphatase 146 H (41-126) U/L Total Protein 5.6 L (6.2-8.2) g/dL Albumin 3.50 L (3.80-4.90) g/dL Microbiology - Last 24 Hours (Table) 05/01/20 06:48 Blood Culture - Final Blood No Growth after 144 hours Assessment and Plan Plan: 1 Acute on chronic hypoxic respiratory failure secondary to an acute exacerba tion of chronic obstructive pulmonary disease complicated by MSSA pneumonia and CoVID 19 infection. In fact, the patient was infected with Covid 19 at same time the patient was septic from MSSA pneumonia and she was bacteremic. She is currently completing a course of antibiotics with IV cefazolin. She was also completed total of 2 weeks course of IV antibiotics. Overall pulmonary status is stable. The patient is currently on 2 L of oxygen by nasal cannula. She has chronic hypoxic respiratory failure and she already uses oxygen at home somewhere between 2 and 4 L per minute nasal cannula. As such, the patient is back to her normal oxygenation status. 2 Acute CoVID 19 infection 3 Bacteremia secondary to MSSA, currently completing a course of IV cefazolin 4 History of previous chronic tobacco dependence 5 Chronic obstructive pulmonary disease, oxygen dependent 6 Acute renal failure 7 Elevated inflammatory markers secondary to Coronavirus 8 History of chronic atrial fibrillation, anticoagulated with Xarelto 9 History of CVA/TIA 10 Ischemic cardiomyopathy with ejection fraction 40% 11 History of obstructive sleep apnea not on treatment 12 Poor overall functional performance based on the above-mentioned multiple comorbidities 13 increased lower extremity edema, improving with IV Lasix and Plan: He has a midline. The patient will complete a total of 2 weeks course of IV cefazolin. He has 2 additional days of antibiotics Continue Lasix 40 mg every 12 hours as the patient developed significant edema in lower extremities, and the patient reports improvement in lower extremity edema. The legs need to be wrapped with William wraps. I would suggest stopping the Aldactone as the patient's potassium level has gone up to 5.8. IV fluids to KVO IV Solu-Medrol and put the patient on prednisone burst taper. Chest x-ray to be repeated this morning and the chest x-ray shows marked improvement in the right lower lobe consolidation/pneumonia Continue anticoagulation, continue Xarelto 20 mg by mouth daily
[2020-05-08 11:37] LABS: Glucose,Whole Blood 131 mg/dL (75-99)
--- NOTE | 2020-05-08 12:01 | ECHOF ---
Referral Reason:MSSA bacteremia and CHF ?Endocarditis MEASUREMENTS -------- HEIGHT: 162.6 cm WEIGHT: 73.9 kg BP: 135/79 RVIDd: 4.3 cm (< 3.3) IVSd: 1.2 cm (0.6 - 1.1) LVIDd: 3.9 cm (3.9 - 5.3) LVPWd: 1.4 cm (0.6 - 1.1) IVSs: 1.6 cm LVIDs: 2.4 cm LVPWs: 1.5 cm LA Diam: 4.0 cm (2.7 - 3.8) LAESV Index (A-L): 42.27 ml/m Ao Diam: 3.1 cm (2.0 - 3.7) AV Cusp: 1.8 cm (1.5 - 2.6) MV EXCURSION: 14.270 mm (> 18.000) MV EF SLOPE: 45 mm/s (70 - 150) EPSS: 0.2 cm RAP: 20.00 mmHg RVSP: 91.17 mmHg FINDINGS -------- This was a technically adequate study. The left ventricular size is normal. There is mild concentric left ventricular hypertrophy. Overa ll left ventricular systolic function is normal with, an EF between 55 - 60 %. The right ventricle is severely enlarged. The right ventricular septal wall is flattened in diastol e and systole which is consistent with right ventricular volume and pressure overload. LA is severely dilated >40 ml/m2 The right atrium is mildly enlarged. Interatrial and interventricular septum intact. The aortic valve is trileaflet and appears structurally normal. There is mild aortic valve sclerosi s. There is no evidence of aortic regurgitation. There is no evidence of aortic stenosis. Mild mitral annular calcification present. Mild mitral regurgitation is present. Severe tricuspid regurgitation present. There is severe pulmonary hypertension. The right ventric ular systolic pressure, as measured by Doppler, is 91.17mmHg. There is no pulmonic regurgitation present. The aortic root size is normal. The inferior vena cava is dilated with no significant inspiratory collapse which is consistent estima julio right atrial pressure of >20 mmHg. There is a small, generalized pericardial effusion present. CONCLUSIONS -------- 1. The left ventricular size is normal. 2. There is mild concentric left ventricular hypertrophy. 3. Overall left ventricular systolic function is normal with, an EF between 55 - 60 %. 4. The right ventricle is severely enlarged. 5. The right ventricular septal wall is flattened in diastole and systole which is consistent with r ight ventricular volume and pressure overload. 6. LA is severely dilated >40 ml/m2 7. The right atrium is mildly enlarged. 8. There is mild aortic valve sclerosis. 9. Mild mitral annular calcification present. 10. Mild mitral regurgitation is present. 11. Severe tricuspid regurgitation present. 12. There is severe pulmonary hypertension. 13. The right ventricular systolic pressure, as measured by Doppler, is 91.17mmHg. 14. The inferior vena cava is dilated with no significant inspiratory collapse which is consistent es timated right atrial pressure of >20 mmHg. 15. There is a small, generalized pericardial effusion present. FRONT OF HOUSE MANAGER: Briana Caceres RDCS
[2020-05-08] MEDS: predniSONE 20 MG TAB PO SCH (13:11)
[2020-05-08 17:05] LABS: Glucose,Whole Blood 252 mg/dL (75-99)
[2020-05-08 20:34] LABS: Glucose,Whole Blood 287 mg/dL (75-99)
[2020-05-08] MEDS: SODIUM CHLORIDE 0.9% 1,000 ML IV SCH (21:37)
[2020-05-08] MEDS: RIVAROXABAN 20 MG TAB PO SCH (21:38)
--- NOTE | 2020-05-08 23:00 | PN ---
PROGRESS NOTE DATE OF SERVICE: 05/08/2020 REASON FOR FOLLOWUP: MSSA bacteremia and pneumonia. INTERVAL HISTORY: The patient is afebrile. The patient is breathing more comfortably. The patient denies having any chest pain. Occasional cough. No nausea, no vomiting, no abdominal pain or diarrhea. The swelling in the leg has slightly decreased. PHYSICAL EXAMINATION: Blood pressure 135/70 with a pulse of 82, temperature 97.4. She is 96% on 2 L nasal cannula. General description is an elderly female up in the chair in no distress. RESPIRATORY SYSTEM: Unlabored breathing with decreased intensity of breath sounds. Occasional wheeze. HEART: S1, S2. Regular rate and rhythm. ABDOMEN: Soft. No tenderness. LABS: Hemoglobin is 11.9, white count 12,000. BUN of 33, creatinine 1.0. DIAGNOSTIC IMPRESSION AND PLAN: Patient with MSSA bacteremia, source likely pneumonia. Blood culture from 04/30 has been negative and needs to go a total of 2 weeks from one negative blood culture. Patient's echocardiogram did show aortic valve stenosis and significant tricuspid regurgitation. Patient may benefit from a MARIANNE and this will be discussed further with the admitting and pulmonary team. Continue cefazolin and monitor her clinical course closely. MMODL / IJN: [id number] /
[2020-05-09 07:03] LABS: Glucose,Whole Blood 109 mg/dL (75-99)
[2020-05-09] MEDS: INSULIN ASPART (NovoLOG) 100 UNIT/ML VIAL SQ SCH ×4 (07:21→21:12)
[2020-05-09] MEDS: ALBUTEROL HFA INHALER INHALATION PRN ×3 (07:48→20:01)
[2020-05-09] MEDS: SYMBICORT 160-4.5 MCG INHALER INHALATION SCH ×2 (07:48→20:01)
[2020-05-09] MEDS: predniSONE 20 MG TAB PO SCH (08:45)
[2020-05-09] MEDS: ZINC SULFATE 220 MG CAP PO SCH (08:45)
[2020-05-09] MEDS: OXYBUTYNIN CHLORIDE 5 MG TAB PO SCH ×2 (08:45→21:11)
[2020-05-09] MEDS: FUROSEMIDE 10 MG/ML 4 ML VIAL IV SCH ×2 (08:45→21:11)
[2020-05-09] MEDS: ASCORBIC ACID 500 MG TAB PO SCH ×2 (08:45→21:11)
[2020-05-09] MEDS: METOPROLOL TARTRATE 50 MG TAB PO SCH ×2 (08:45→21:11)
[2020-05-09] MEDS: CHOLECALCIFEROL 1,000 UNIT TAB PO SCH (08:45)
[2020-05-09] MEDS: guaiFENesin 600 MG TABLET.ER PO SCH ×4 (08:45→21:11)
[2020-05-09 11:30] LABS: Glucose,Whole Blood 126 mg/dL (75-99)
--- NOTE | 2020-05-09 14:57 | P.PN ---
Subjective Progress Note Date: 05/09/20 Principal diagnosis: Acute on chronic hypoxic respiratory failure secondary to an acute exacerbation of COPD complicated by early pneumonia, CoVID 19 infection This is a pleasant 79-year-old female patient who follows with Dr. Cortes with a known history of chronic hypoxic respiratory failure on home oxygen, chronic tobacco dependence, atrial fibrillation, CVA/TIA, myocardial infarction, obstructive sleep apnea on no treatment, chronic systolic congestive heart failure with ejection fraction 40%. She presented to the emergency room yesterday with complaints of a 2-3 day history of increasing shortness of breath, cough and congestion yellow productive sputum. She states she had been exposed to her grandson who was positive for CoVID 19. Chest x-ray revealed moderate cardiomegaly. Chronic lower lobe pneumonia similar to previous exam from 2017. Small right pleural effusion. White count 9.2. Hemoglobin 12.4. D-dimer 0.49. Sodium 134. Potassium 3.6. Creatinine 1.16. LDH 626. C- reactive protein 315. Coronavirus by PCR detected. She is seen [facility] on the regular medical floor. She is currently in some moderate respiratory distress. She is spastic and wheezing. She has a productive cough. She is on 10 L high flow nasal cannula to maintain O2 saturation in the 90s. Urgent arterial blood gases were drawn and revealed a PaO2 of 46, pCO2 of 60 and a pH of 7.36. She was placed on BiPAP 12/6 and 60% FiO2. He is more comfortable. She has stated she did not want to be intubated and placed on mechanical ventilator. She is a DO NOT RESUSCITATE/DO NOT INTUBATE CODE STATUS. Pro calcitonin 3.21. She is initiated on Zosyn and bronchodilators. Preliminary blood culture reveals gram-positive cocci. She is initiated on vancomycin. The patient is seen today 04/27/2020 in follow-up on the regular medical floor. She is doing a bit better today compared to yesterday. She is up in the chair. She remains on BiPAP. Currently at 12/6 and 50% FiO2. His 0.9 normal saline at 50 MLS per hour. Blood cultures are revealing presumptive staph aureus. Sputum culture with presumptive staph aureus. Blood glucose 173. She remains on Symbicort, albuterol, IV Solu-Medrol. Continued on Zosyn and vancomycin. Anticoagulated with Xarelto. [place] on vitamin supplements. Patient is seen today 04/28/2020 in follow-up on the regular medical floor. She is currently sitting at the bedside. Awake and alert in no acute distress. Con tinues to improve daily. Maintaining O2 saturations at 100% on 8 L/m per nasal cannula. She continues with crackles in the bilateral bases. She did utilize BiPAP throughout the evening. Blood and sputum cultures reveal evidence of MSSA. White count 9.9. Hemoglobin 11.3. D-dimer 0.66. Continued on vancomycin, Zosyn, IV Solu-Medrol, bronchodilators. Anticoagulated with Xarelto. The patient is seen today 04/29/2020 and follow-up on the regular medical floor. She is currently sitting up at the bedside. Awake and alert in mild respiratory distress. She did utilize BiPAP throughout the evening 50% FiO2. She is currently on 8 L high flow nasal cannula. Arterial blood gases revealed a pO2 176, pCO2 52, pH 7.38. Antibiotics changed to cefazolin. Continued on IV Solu-Medrol, Symbicort, albuterol. Anticoagulated with Xarelto. The patient is seen today 05/04/2020 in follow-up on the regular medical floor. She is currently awake and alert in no acute distress. Sitting up in a chair at the bedside. Maintaining good O2 saturation in the 90s on 2 L/m per nasal cannula. She is 0.9 normal saline at 75 ML's per hour. White count 5.8. Hemoglobin 10.3. Lymphocytes 0.64. Sodium 140. Potassium 5.5. Creatinine 0.8. C-reactive protein 1.4. Pro calcitonin 0.08. She is continued on bronchodilators, IV Solu-Medrol, cefazolin. Anticoagulated with Xarelto. The patient is seen today 05/05/2020 in follow-up on the regular medical floor. Currently sitting up in a chair at the bedside. Awake and alert in no acute distress. She is feeling back to her baseline. Maintaining O2 saturations in the 90s on 2 L/m per nasal cannula. Afebrile. Continue on Symbicort, albuter ol, cefazolin, IV Solu-Medrol. Remains on vitamin supplements. Anticoagulated with Xarelto. Blood culture positive for MSSA. The patient is seen today 05/06/2020 in follow-up on the regular medical floor. She is awake and alert in no acute distress. Continues to maintain good O2 saturations in the 90s on 2 L/m per nasal cannula. She's afebrile. Hemodynamically stable. Blood cultures were positive for methicillin sensitive Staphylococcus aureus care blood glucose 165. Continue on Symbicort, albuterol, cefazolin, IV Solu-Medrol. Remains on vitamin supplements. Anticoagulated with Xarelto. The patient is seen today 05/09/2020 in follow-up on the regular medical floor. She is currently sitting up in a chair at the bedside. Awake and alert in no acute distress. Follow-up blood cultures reveal no growth. Blood glucose 126. She remains on cefazolin, Symbicort, albuterol. Anticoagulated with Xarelto. Diuretics in the form of Lasix 40 mg IV every 12 hours. Echocardiogram reveals preserved left ventricular systolic function with ejection fraction 55-60%. There is severe pulmonary hypertension with an RVSP of 91 mmHg. Objective - Vital Signs Vital signs: Vital Signs Temp 97.9 F 05/09/20 10:40 Pulse 68 05/09/20 10:40 Resp 18 05/09/20 10:40 BP 129/75 05/09/20 10:40 Pulse Ox 93 L 05/09/20 10:40 Intake & Output 05/08/20 05/09/20 05/09/20 18:59 06:59 18:59 Intake Total 780 Balance 780 Intake: Intake, IV Titration 300 Amount Sodium Chloride 0.9% 1, 200 000 ml @ 20 mls/hr IV . Q24H BROCK Rx#:[id number] ceFAZolin 2 gm In Sodium 100 Chloride 0.9% 50 ml @ 100 mls/hr IVPB Q8HR [facility]OCK Rx# :[id number] Oral 480 Other: Voiding Method Bedside Commode Bedside Commode Diaper Diaper # Voids 6 5 3 # Bowel Movements 1 1 - Exam GENERAL EXAM: Alert, pleasant 79-year-old female patient, on 2 L nasal cannula, in no acute respiratory distress. HEAD: Normocephalic. EYES: Normal reaction of pupils, equal size. NOSE: Clear with pink turbinates. THROAT: No erythema or exudates. NECK: No masses, no JVD. CHEST: No chest wall deformity. LUNGS: Equal air entry with bilateral end expiratory wheeze, diminished. CVS: S1 and S2 normal with no audible murmur, regular rhythm. ABDOMEN: No hepatosplenomegaly, normal bowel sounds, no guarding or rigidity. SPINE: No scoliosis or deformity SKIN: No rashes CENTRAL NERVOUS SYSTEM: No focal deficits, tone is normal in all 4 extremities. EXTREMITIES: There is no peripheral edema. No clubbing, no cyanosis. Pe ripheral pulses are intact. - Labs CBC & Chem 7: 05/08/20 06:05 05/08/20 06:05 Labs: Abnormal Lab Results - Last 24 Hours (Table) 05/08/20 05/08/20 05/09/20 Range/Units 16:57 20:17 06:56 POC Glucose (mg/dL) 252 H 287 H 109 H (75-99) mg/dL 05/09/20 Range/Units 11:21 POC Glucose (mg/dL) 126 H (75-99) mg/dL Assessment and Plan Assessment: 1 Acute on chronic hypoxic respiratory failure secondary to an acute exacerbation of chronic obstructive pulmonary disease complicated by probable early pneumonia and CoVID 19 infection. 2 Acute CoVID 19 infection 3 Bacteremia secondary to MSSA, follow-up blood cultures reveal no growth 4 History of previous chronic tobacco dependence 5 Chronic obstructive pulmonary disease, oxygen dependent 6 Acute renal failure 7 Elevated inflammatory markers secondary to Coronavirus 8 History of atrial fibrillation, anticoagulated with Xarelto 9 History of CVA/TIA 10 Ischemic cardiomyopathy with ejection fraction 40% 11 History of obstructive sleep apnea not on treatment 12 Severe pulmonary hypertension, RVSP 91 mmHg 13 Poor overall functional performance based on the above-mentioned multiple comorbidities Plan: The patient was seen and evaluated by Dr. Mor Landeros once cleared medically Continue the current treatment plan We'll taper the steroids Antibiotics per ID services Anticoagulated with Xarelto Follow-up in the office 1-2 weeks' post discharge I, the cosigning physician, performed a history & physical examination of the patient. Lungs sounds with bilateral wheeze, diminished. Maintaining good O2 saturations in the 90s on 2 L nasal cannula. I discussed the assessment and plan of care with my nurse practitioner, Debbie Deras. I attest to the above note as dictated by her.
--- NOTE | 2020-05-09 16:16 | P.DS ---
Providers Date of admission: 04/25/20 20:02 Expected date of discharge: 05/09/20 Attending physician: Finn Scott Consults: 04/25/20 20:00 Consult Physician Routine Consulting Provider: Jamir Lazar Consult Reason/Comments: covid, copd Do you want consulting provider notified?: Yes 04/27/20 20:53 Consult Physician Routine Consulting Provider: Leonel Casanova Consult Reason/Comments: Staph sepsis Do you want consulting provider notified?: Yes 04/28/20 21:24 Consult Physician Routine Consulting Provider: Leonel Casanova Consult Reason/Comments: MSSA Do you want consulting provider notified?: Yes, Notify in am 05/09/20 15:22 Consult Physician Routine Consulting Provider: Kofi Miller Consult Reason/Comments: BACTEREMIA AND ABNORMAL ECHO , NEED FOR MARIANNE Do you want consulting provider notified?: Yes Primary care physician: [facility] Course: 05/09/2020, patient seen eval examined during the rounds labs reviewed medications reviewed, patient is cleared by pulmonary service for discharge, patient did require some Lasix which will be continued at home, patient has a severe pulmonary hypertension, she will require supplemental oxygen 2 L as well, patient has been arranged for home antibiotics she will get cefazolin for 2 weeks for MSSA follow-up with pulmonary as outpatient and primary service and cardiovascular service 05/08/2020, patient seen and evaluated examined, remains on 2 L oxygen, shortness of breath stable, patient on IV Lasix for diuresis, swelling the lower extremity still present, Meño on the left leg stable wrapped with pressure dressing, chest x-ray performed today continue show cardiomegaly with COPD-like changes and bilateral infiltrates right compared to left side, no significant effusion is seen, anticipate Lasix will be changed to by mouth later on today and likely discharge to home tomorrow antibiotics for home has been arranged 05/07/2020 patient noted to have some swelling in the lower extremity as well as large blister formation William wrap patient has been done, pulmonary service has given some Lasix as well, she'll however remains afebrile on 2 L oxygen, continued to be on direct anticoagulation, feel that his steroids can be tapered and DC to oral prednisone as outpatient will discuss with pulmonary service, repeat labs in the morning 05/06/2020, patient seen eval examined during the rounds labs reviewed medications reviewed, remains on IV cefazolin, likely will be transferred to ECF for 2 weeks of antibiotics probably in next 24-48 hours if remains stable 05/05/2020, patient breathing comfortably denies any chest pain, remains afebrile, remains on IV cefazolin, patient is for midline and management of antibiotics as she will require 2 weeks of IV cefazolin, 05/04/2020, FiO2 continued to come down shortness of breath is better, denies any chest pain, sitting up side on chair, on 2 L nasal cannula, breathing comfortably remains on IV steroids and cefazolin along with direct antic oagulants May 03 2020, patient continued to do well in terms of breathing oxygen is down to 2 L, patient due to his staph bacteremia will need IV axis leg midline as discussed with infectious disease services and 14 days of IV therapy 05/02/2020, overall respiratory status is stable cough congestion is there, remains on high flow oxygen, at nighttime she is been using BiPAP 05/01/2020, patient seen eval examined during the rounds labs reviewed medications reviewed care plan discussed, oxygen saturation remains stable, they are 100% when she is on BiPAP, ET scan of the chest revealed bilateral scattered infiltrate along with left adrenal mass, appears to be nonspecific 04/30/2020, patient seen eval examined during the rounds labs reviewed medications reviewed care plan discussed, chest x-ray remains stable, on 6 L oxygen saturation is in mid 90s, 04/29/2020, patient seen eval examined during the rounds labs reviewed medications reviewed, mild degree or shortness of breath ongoing is present, is still intermittently using BiPAP alternating with 8 L high flow oxygen, ID services following patient's antibiotics have been changed to cefazolin remains on direct oral anticoagulants and bronchodilator along with steroids 04/28/2020, patient seen and evaluated examined, off of BiPAP, on supplemental oxygen, breathing comfortably, on 6 L nasal cannula patient remains on broad- spectrum antibiotics along with IV steroids and bronchodilator and direct anticoagulant pulmonary is following, chest x-ray continue show bilateral infiltrates which are stable, sputum and blood both positive for MSSA, This is a pleasant 79-year-old patient of . Chronic stable medical conditions include atrial fibrillation, COPD, kidney disease, secondary pulmonary hypertension, DJD, CHF EF of 40%, obstructive sleep apnea does not use any treatment, home oxygen 4 L. Patient presents with 3-4 weeks of not feeling well got a cough taking yellow-green sputum. Denies any fever but feels cold all the time decreased appetite. No loss of smell or taste. Denies any headache. No diarrhea. Patient positive for COVID 19 PCR. Check stat x-ray showed right lower lobe infiltrate. Admitted with right lower lobe pneumonia suspected to be gram-negative organism, underlying COVID 19 infection, acute COPD exacerbation, acute hypoxic respiratory failure. Patient started IV Zosyn, vancomycin, bronchodilators, steroids. Xarelto continued Assessment: 1 Acute on chronic hypoxic respiratory failure secondary to an acute exacerbation of chronic obstructive pulmonary disease complicated by probable early pneumonia and CoVID 19 infection. 2 Acute CoVID 19 infection 3 Bacteremia secondary to MSSA, follow-up blood cultures reveal no growth 4 History of previous chronic tobacco dependence 5 Chronic obstructive pulmonary disease, oxygen dependent 6 Acute renal failure 7 Elevated inflammatory markers secondary to Coronavirus 8 History of atrial fibrillation, anticoagulated with Xarelto 9 History of CVA/TIA 10 Ischemic cardiomyopathy with ejection fraction 40% 11 History of obstructive sleep apnea not on treatment 12 Severe pulmonary hypertension, RVSP 91 mmHg 13 Poor overall functional performance based on the above-mentioned multiple comorbidities Patient Condition at Discharge: Fair Plan - Discharge Summary New Discharge Prescriptions: New predniSONE [Deltasone] 40 mg PO DAILY #20 tab Zinc Sulfate [Orazinc] 220 mg PO DAILY #30 cap Ascorbic Acid [Vitamin C] 500 mg PO BID #30 tab Cholecalciferol [Vitamin D3 (25 Mcg = 1000 Iu)] 5,000 unit PO DAILY #30 tab Continue Oxybutynin Chloride [Ditropan] 5 mg PO BID Metoprolol Tartrate [Lopressor] 50 mg PO BID #60 tab Furosemide [Lasix] 20 mg PO BID Fluticasone/Vilanterol [Breo Ellipta 200-25 Mcg INH] 1 puff INHALATION RT- DAILY Ipratropium-Albuterol Nebulize [Duoneb 0.5 mg-3 mg/3 ml Soln] 3 ml INHALATION RT-QID #120 neb Rivaroxaban [Xarelto] 20 mg PO HS Potassium Chloride 10 meq PO DAILY Spironolactone [Aldactone] 25 mg PO DAILY Discharge Medication List Oxybutynin Chloride [Ditropan] 5 mg PO BID 08/26/16 [History] Metoprolol Tartrate [Lopressor] 50 mg PO BID #60 tab 10/08/16 [Rx] Fluticasone/Vilanterol [Breo Ellipta 200-25 Mcg INH] 1 puff INHALATION RT-DAILY 01/10/17 [History] Furosemide [Lasix] 20 mg PO BID 01/10/17 [History] Ipratropium-Albuterol Nebulize [Duoneb 0.5 mg-3 mg/3 ml Soln] 3 ml INHALATION RT-QID #120 neb 02/11/17 [Rx] Rivaroxaban [Xarelto] 20 mg PO HS 01/18/19 [History] Potassium Chloride 10 meq PO DAILY 04/25/20 [History] Spironolactone [Aldactone] 25 mg PO DAILY 04/25/20 [History] Ascorbic Acid [Vitamin C] 500 mg PO BID #30 tab 05/09/20 [Rx] Cholecalciferol [Vitamin D3 (25 Mcg = 1000 Iu)] 5,000 unit PO DAILY #30 tab 05/09/20 [Rx] Zinc Sulfate [Orazinc] 220 mg PO DAILY #30 cap 05/09/20 [Rx] predniSONE [Deltasone] 40 mg PO DAILY #20 tab 05/09/20 [Rx] Follow up Appointment(s)/Referral(s): Jamir Lazar MD [STAFF PHYSICIAN] - 2 Weeks [facility], [NON-STAFF] - (Homecare will come in AM 05/10/2020 to start infusion and teach.) Kofi Cortes MD [Primary Care Provider] - 1-2 days [facility], [REFERRING] - Discharge Disposition: HOME WITH HOME HEALTH SERVICES
[2020-05-09 17:16] LABS: Glucose,Whole Blood 242 mg/dL (75-99)
[2020-05-09 20:49] LABS: Glucose,Whole Blood 224 mg/dL (75-99)
[2020-05-09] MEDS: RIVAROXABAN 20 MG TAB PO SCH (21:11)
[2020-05-09] MEDS: SODIUM CHLORIDE 0.9% 1,000 ML IV SCH (21:14)
[2020-05-10 05:14] VITALS: TEMP 97.7
[2020-05-10 07:04] LABS: Glucose,Whole Blood 83 mg/dL (75-99)
[2020-05-10] MEDS: INSULIN ASPART (NovoLOG) 100 UNIT/ML VIAL SQ SCH ×3 (07:10→17:34)
[2020-05-10] MEDS: ALBUTEROL HFA INHALER INHALATION PRN ×2 (07:21→12:23)
[2020-05-10] MEDS: SYMBICORT 160-4.5 MCG INHALER INHALATION SCH (07:21)
[2020-05-10] MEDS: predniSONE 20 MG TAB PO SCH (08:29)
[2020-05-10] MEDS: guaiFENesin 600 MG TABLET.ER PO SCH ×3 (08:29→17:34)
[2020-05-10] MEDS: OXYBUTYNIN CHLORIDE 5 MG TAB PO SCH (08:29)
[2020-05-10] MEDS: ZINC SULFATE 220 MG CAP PO SCH (08:29)
[2020-05-10] MEDS: METOPROLOL TARTRATE 50 MG TAB PO SCH (08:30)
[2020-05-10] MEDS: CHOLECALCIFEROL 1,000 UNIT TAB PO SCH (08:30)
[2020-05-10] MEDS: FUROSEMIDE 10 MG/ML 4 ML VIAL IV SCH (08:30)
[2020-05-10] MEDS: ASCORBIC ACID 500 MG TAB PO SCH (08:30)
--- NOTE | 2020-05-10 11:13 | P.PN ---
Subjective Progress Note Date: 05/10/20 Principal diagnosis: Acute on chronic hypoxic respiratory failure secondary to an acute exacerbation of COPD complicated by early pneumonia, CoVID 19 infection This is a pleasant 79-year-old female patient who follows with Dr. Cortes with a known history of chronic hypoxic respiratory failure on home oxygen, chronic tobacco dependence, atrial fibrillation, CVA/TIA, myocardial infarction, obstructive sleep apnea on no treatment, chronic systolic congestive heart failure with ejection fraction 40%. She presented to the emergency room yesterday with complaints of a 2-3 day history of increasing shortness of breath, cough and congestion yellow productive sputum. She states she had been exposed to her grandson who was positive for CoVID 19. Chest x-ray revealed moderate cardiomegaly. Chronic lower lobe pneumonia similar to previous exam from 2017. Small right pleural effusion. White count 9.2. Hemoglobin 12.4. D-dimer 0.49. Sodium 134. Potassium 3.6. Creatinine 1.16. LDH 626. C- reactive protein 315. Coronavirus by PCR detected. She is seen today in [facility] on the regular medical floor. She is currently in some moderate respiratory distress. She is spastic and wheezing. She has a productive cough. She is on 10 L high flow nasal cannula to maintain O2 saturation in the 90s. Urgent arterial blood gases were drawn and revealed a PaO2 of 46, pCO2 of 60 and a pH of 7.36. She was placed on BiPAP 12/6 and 60% FiO2. He is more comfortable. She has stated she did not want to be intubated and placed on mechanical ventilator. She is a DO NOT RESUSCITATE/DO NOT INTUBATE CODE STATUS. Pro calcitonin 3.21. She is initiated on Zosyn and bronchodilators. Preliminary blood culture reveals gram-positive cocci. She is initiated on vancomycin. The patient is seen today 04/27/2020 in follow-up on the regular medical floor. She is doing a bit better today compared to yesterday. She is up in the chair. She remains on BiPAP. Currently at 12/6 and 50% FiO2. His 0.9 normal saline at 50 MLS per hour. Blood cultures are revealing presumptive staph aureus. Sputum culture with presumptive staph aureus. Blood glucose 173. She remains on Symbicort, albuterol, IV Solu-Medrol. Continued on Zosyn and vancomycin. Anticoagulated with Xarelto. [place] on vitamin supplements. Patient is seen today 04/28/2020 in follow-up on the regular medical floor. She is currently sitting at the bedside. Awake and alert in no acute distress. Con tinues to improve daily. Maintaining O2 saturations at 100% on 8 L/m per nasal cannula. She continues with crackles in the bilateral bases. She did utilize BiPAP throughout the evening. Blood and sputum cultures reveal evidence of MSSA. White count 9.9. Hemoglobin 11.3. D-dimer 0.66. Continued on vancomycin, Zosyn, IV Solu-Medrol, bronchodilators. Anticoagulated with Xarelto. The patient is seen today 04/29/2020 and follow-up on the regular medical floor. She is currently sitting up at the bedside. Awake and alert in mild respiratory distress. She did utilize BiPAP throughout the evening 50% FiO2. She is currently on 8 L high flow nasal cannula. Arterial blood gases revealed a pO2 176, pCO2 52, pH 7.38. Antibiotics changed to cefazolin. Continued on IV Solu-Medrol, Symbicort, albuterol. Anticoagulated with Xarelto. The patient is seen today 05/04/2020 in follow-up on the regular medical floor. She is currently awake and alert in no acute distress. Sitting up in a chair at the bedside. Maintaining good O2 saturation in the 90s on 2 L/m per nasal cannula. She is 0.9 normal saline at 75 ML's per hour. White count 5.8. Hemoglobin 10.3. Lymphocytes 0.64. Sodium 140. Potassium 5.5. Creatinine 0.8. C-reactive protein 1.4. Pro calcitonin 0.08. She is continued on bronchodilators, IV Solu-Medrol, cefazolin. Anticoagulated with Xarelto. The patient is seen today 05/05/2020 in follow-up on the regular medical floor. Currently sitting up in a chair at the bedside. Awake and alert in no acute distress. She is feeling back to her baseline. Maintaining O2 saturations in the 90s on 2 L/m per nasal cannula. Afebrile. Continue on Symbicort, albuter ol, cefazolin, IV Solu-Medrol. Remains on vitamin supplements. Anticoagulated with Xarelto. Blood culture positive for MSSA. The patient is seen today 05/06/2020 in follow-up on the regular medical floor. She is awake and alert in no acute distress. Continues to maintain good O2 saturations in the 90s on 2 L/m per nasal cannula. She's afebrile. Hemodynamically stable. Blood cultures were positive for methicillin sensitive Staphylococcus aureus care blood glucose 165. Continue on Symbicort, albuterol, cefazolin, IV Solu-Medrol. Remains on vitamin supplements. Anticoagulated with Xarelto. The patient is seen today 05/09/2020 in follow-up on the regular medical floor. She is currently sitting up in a chair at the bedside. Awake and alert in no acute distress. Follow-up blood cultures reveal no growth. Blood glucose 126. She remains on cefazolin, Symbicort, albuterol. Anticoagulated with Xarelto. Diuretics in the form of Lasix 40 mg IV every 12 hours. Echocardiogram reveals preserved left ventricular systolic function with ejection fraction 55-60%. There is severe pulmonary hypertension with an RVSP of 91 mmHg. The patient is seen today 05/10/2020 in follow-up on the regular medical floor. She is currently resting comfortably in bed. Maintaining good O2 saturation in the mid 90s on 2 L/m per nasal cannula. She remains afebrile. Intermedics per ID services. They're recommending a MARIANNE. She remains on cefazolin, Symbicort, albuterol, prednisone. Anticoagulated with Xarelto. He remains on IV diuretics. Objective - Vital Signs Vital signs: Vital Signs Temp 97.7 F 05/10/20 05:00 Pulse 76 05/10/20 05:00 Resp 16 05/10/20 05:00 BP 120/76 05/10/20 05:00 Pulse Ox 98 05/10/20 05:00 Intake & Output 05/09/20 05/10/20 05/10/20 18:59 06:59 18:59 Intake Total 340 440 Balance 340 440 Intake: Intake, IV Titration 340 150 Amount Sodium Chloride 0.9% 1, 240 100 000 ml @ 20 mls/hr IV . Q24H [facility] Rx#:[id number] ceFAZolin 2 gm In Sodium 100 50 Chloride 0.9% 50 ml @ 100 mls/hr IVPB Q8HR [facility] Rx# :[id number] Oral 290 Other: Voiding Method Bedside Commode Bedside Commode Diaper # Voids 1 1 # Bowel Movements 1 1 - Exam GENERAL EXAM: Alert, pleasant 79-year-old female patient, on 2 L nasal cannula, in no acute respiratory distress. HEAD: Normocephalic. EYES: Normal reaction of pupils, equal size. NOSE: Clear with pink turbinates. THROAT: No erythema or exudates. NECK: No masses, no JVD. CHEST: No chest wall deformity. LUNGS: Equal air entry with bilateral end expiratory wheeze, diminished. CVS: S1 and S2 normal with no audible murmur, regular rhythm. ABDOMEN: No hepatosplenomegaly, normal bowel sounds, no guarding or rigidity. SPINE: No scoliosis or deformity SKIN: No rashes CENTRAL NERVOUS SYSTEM: No focal deficits, tone is normal in all 4 extremities. EXTREMITIES: There is no peripheral edema. No clubbing, no cyanosis. Peripheral pulses are intact. - Labs CBC & Chem 7: 05/08/20 06:05 05/08/20 06:05 Labs: Abnormal Lab Results - Last 24 Hours (Table) 05/09/20 05/09/20 05/09/20 Range/Units 11:21 16:57 20:48 POC Glucose (mg/dL) 126 H 242 H 224 H (75-99) mg/dL Assessment and Plan Assessment: 1 Acute on chronic hypoxic respiratory failure secondary to an acute exacerbation of chronic obstructive pulmonary disease complicated by probable early pneumonia and CoVID 19 infection. 2 Acute CoVID 19 infection 3 Bacteremia secondary to MSSA, follow-up blood cultures reveal no growth. Plan is for possible MARIANNE. 4 History of previous chronic tobacco dependence 5 Chronic obstructive pulmonary disease, oxygen dependent 6 Acute renal failure 7 Elevated inflammatory markers secondary to Coronavirus 8 History of atrial fibrillation, anticoagulated with Xarelto 9 History of CVA/TIA 10 Ischemic cardiomyopathy with ejection fraction 40% 11 History of obstructive sleep apnea not on treatment 12 Severe pulmonary hypertension, RVSP 91 mmHg 13 Poor overall functional performance based on the above-mentioned multiple comorbidities Plan: The patient was seen and evaluated by Dr. Mor Landeros once cleared medically Possible MARIANNE today Continue the current treatment plan We'll taper the steroids Antibiotics per ID services Anticoagulated with Xarelto Follow-up in the office 1-2 weeks' post discharge I, the cosigning physician, performed a history & physical examination of the patient. Lungs sounds with bilateral wheeze, diminished. Maintaining good O2 saturations in the 90s on 2 L nasal cannula. I discussed the assessment and plan of care with my nurse practitioner, Debbie Deras. I attest to the above note as dictated by her.
--- NOTE | 2020-05-10 11:28 | P.CRDCN ---
History of Present Illness Consult date: 05/10/20 History of present illness: CHIEF COMPLAINT: Bacteremia, MARIANNE HISTORY OF PRESENT ILLNESS: This is a 79-year-old female with a past medical history significant for atrial fibrillation, COPD, CHF, sleep apnea, and CVA/TIA. We have been asked to see the patient in consultation for bacteremia and possible MARIANNE. Patient is currently admitted to the hospital secondary to Covid 19. Patient has MSSA bacteremia. Most recent repeat cultures are negative. She is being followed by infectious disease. Blood pressure 120/76. Heart rate in the 70s. Patient is on 2 L nasal cannula with oxygen saturations greater than 92%. DIAGNOSTICS: EKG reveals sinus tachycardia Chest xray cardiomegaly and chronic emphysematous change with multifocal bilateral acute infiltrates greatest in the right lung base. Laboratory data: WBC 12.0. Hemoglobin 11.9. Platelet count 274. Sodium 138. Potassium 5.8. BUN 33. Creatinine 1.0. Current home cardiac medications include Aldactone 25 mg daily, Xarelto 20 mg daily, metoprolol 50 mg twice a day, Lasix 20 mg twice a day Echocardiogram completed revealed ejection fraction 55-60%, mild mitral regurgitation, severe tricuspid regurgitation, severe pulmonary hypertension and small generalized pericardial effusion. REVIEW OF SYSTEMS: Thorough review of systems not completed secondary to limited evaluation/examination and due to Covid19 PHYSICAL EXAM: Thorough physical exam not completed secondary to limited evaluation/examination and due to Covid19 ASSESSMENT: Covid 19 pneumonia Acute hypoxic respiratory failure MSSA bacteremia COPD Paroxysmal atrial fibrillation on anticoagulation with Xarelto Valvular heart disease Severe pulmonary hypertension PLAN: Continue current cardiac medications Case reviewed by Dr. Perez. No plans for MARIANNE at this time Continue antibiotics per infectious disease Patient may be discharged from a cardiac standpoint We will sign off. Please re-consult if needed Nurse practitioner note has been reviewed by physician. Signing provider agrees with the documented findings, assessment, and plan of care. Past Medical History Past Medical History: Atrial Fibrillation, Asthma, Heart Failure, COPD, CVA/TIA, Myocardial Infarction (CT), Pneumonia, Renal Disease, Respiratory Disorder, Sleep Apnea/CPAP/BIPAP Additional Past Medical History / Comment(s): Obesity, COPD, secondary pulmonary potential, degenerative arthritis, CHF with ejection fraction of 40%, obstructive sleep apnea currently on no treatment, uses O2 4L Last Myocardial Infarction Date:: 1991 History of Any Multi-Drug Resistant Organisms: None Reported Past Surgical History: Appendectomy, Tonsillectomy Additional Past Surgical History / Comment(s): left leg surgery d/t fracture, colonoscopy-normal. Past Anesthesia/Blood Transfusion Reactions: No Reported Reaction Past Psychological History: No Psychological Hx Reported Additional Psychological History / Comment(s): Pt has her daughter and 2 adult grandchildren living with her. She has a cane and walker. Smoking Status: Former smoker Past Alcohol Use History: None Reported Additional Past Alcohol Use History / Comment(s): Pt states she started smoking in 1954 and quit in 2011. Past Drug Use History: None Reported - Past Family History Father Family Medical History: Congestive Heart Failure (CHF) Additional Family Medical History / Comment(s): Father of CHF-pt cannot recall how old he was. Mother Family Medical History: Diabetes Mellitus Additional Family Medical History / Comment(s): Mother lived to be in her 90's. Medications and Allergies Home Medications Medication Instructions Recorded Confirmed Type Oxybutynin Chloride [Ditropan] 5 mg PO BID 08/26/16 04/25/20 History Metoprolol Tartrate [Lopressor] 50 mg PO BID #60 tab 10/08/16 04/25/20 Rx Fluticasone/Vilanterol [Breo 1 puff INHALATION RT-DAILY 01/10/17 04/25/20 History Ellipta 200-25 Mcg INH] Furosemide [Lasix] 20 mg PO BID 01/10/17 04/25/20 History Ipratropium-Albuterol Nebulize 3 ml INHALATION RT-QID #120 neb 02/11/17 04/25/20 Rx [Duoneb 0.5 mg-3 mg/3 ml Soln] Rivaroxaban [Xarelto] 20 mg PO HS 01/18/19 04/25/20 History Potassium Chloride 10 meq PO DAILY 04/25/20 04/25/20 History Spironolactone [Aldactone] 25 mg PO DAILY 04/25/20 04/25/20 History Ascorbic Acid [Vitamin C] 500 mg PO BID #30 tab 05/09/20 Rx Cholecalciferol [Vitamin D3 (25 5,000 unit PO DAILY #30 tab 05/09/20 Rx Mcg = 1000 Iu)] Zinc Sulfate [Orazinc] 220 mg PO DAILY #30 cap 05/09/20 Rx predniSONE [Deltasone] 40 mg PO DAILY #20 tab 05/09/20 Rx Allergies Allergy/AdvReac Type Severity Reaction Status Date / Time No Known Allergies Allergy Verified 04/25/20 20:44 Physical Exam Vitals: Vital Signs Temp Pulse Resp BP BP Pulse Ox 05/10/20 05:00 97.7 F 76 16 120/76 98 05/09/20 21:41 98 F 87 24 133/72 94 L 05/09/20 18:10 98.1 F 107 H 18 118/77 93 L Intake and Output 05/09/20 05/10/20 05/10/20 22:59 06:59 14:59 Intake Total 630 150 Balance 630 150 Intake: Intake, IV Titration 340 150 Amount Sodium Chloride 0.9% 1, 240 100 000 ml @ 20 mls/hr IV . Q24H [facility] Rx#:[id number] ceFAZolin 2 gm In Sodium 100 50 Chloride 0.9% 50 ml @ 100 mls/hr IVPB Q8HR [facility] Rx# :[id number] Oral 290 Other: Voiding Method Bedside Commode Bedside Commode Diaper # Voids 2 1 # Bowel Movements 1 1 Results 05/08/20 06:05 05/08/20 06:05 Current Medications Generic Name Dose Route Start Last Admin Trade Name Freq PRN Reason Stop Dose Admin Acetaminophen 1,000 mg 04/25/20 16:55 Acetaminophen Tab 500 Mg Tab PO Q6HR PRN Fever>101 Albuterol Sulfate 2 puff 04/25/20 16:55 05/10/20 07:21 Albuterol Hfa Inhaler INHALATION 2 puff RT-Q6H PRN Administration Shortness Of Breath Or Wheezing Ascorbic Acid 500 mg 04/25/20 21:00 05/10/20 08:30 Ascorbic Acid 500 Mg Tab PO 500 mg BID [facility] Administration Budesonide/Formoterol Fumarate 2 puff 04/26/20 08:00 05/10/20 07:21 Symbicort 160-4.5 Mcg Inhaler INHALATION 2 puff RT-BID [facility] Administration Cholecalciferol 5,000 unit 04/25/20 20:15 05/10/20 08:30 Cholecalciferol 1,000 Unit Tab PO 5,000 unit DAILY [facility] Administration Furosemide 40 mg 05/07/20 10:45 05/10/20 08:30 Furosemide 10 Mg/Ml 4 Ml Vial IV 40 mg Q12HR [facility] Administration Guaifenesin 600 mg 04/26/20 13:00 05/10/20 08:29 Guaifenesin 600 Mg Tablet.Er PO 600 mg QID [facility] Administration Sodium Chloride 1,000 mls @ 20 mls/hr 04/25/20 20:00 05/09/20 21:14 Saline 0.9% IV 20 mls/hr .Q24H [facility] Administration Cefazolin Sodium 2 gm/ Sodium 50 mls @ 100 mls/hr 04/28/20 16:00 05/10/20 08:30 Chloride IVPB 100 mls/hr Q8HR [facility] Administration Insulin Aspart 0 unit 04/26/20 12:30 05/10/20 07:10 Insulin Aspart (Novolog) 100 Unit/Ml Vial SQ Not Given ACHS [facility] Protocol Metoprolol Tartrate 50 mg 04/25/20 21:00 05/10/20 08:30 Metoprolol Tartrate 50 Mg Tab PO 50 mg BID [facility] Administration Oxybutynin Chloride 5 mg 04/26/20 11:30 05/10/20 08:29 Oxybutynin Chloride 5 Mg Tab PO 5 mg BID [facility] Administration Prednisone 40 mg 05/08/20 11:15 05/10/20 08:29 Prednisone 20 Mg Tab PO 40 mg DAILY [facility] Administration Rivaroxaban 20 mg 05/07/20 21:00 05/09/20 21:11 Rivaroxaban 20 Mg Tab PO 20 mg HS [facility] Administration Zinc Sulfate 220 mg 04/25/20 20:15 05/10/20 08:29 Zinc Sulfate 220 Mg Cap PO 220 mg DAILY [facility] Administration Intake and Output 05/09/20 05/10/20 05/10/20 22:59 06:59 14:59 Intake Total 630 150 Balance 630 150 Intake: Intake, IV Titration 340 150 Amount Sodium Chloride 0.9% 1, 240 100 000 ml @ 20 mls/hr IV . Q24H [facility] Rx#:[id number] ceFAZolin 2 gm In Sodium 100 50 Chloride 0.9% 50 ml @ 100 mls/hr IVPB Q8HR [facility] Rx# :[id number] Oral 290 Other: Voiding Method Bedside Commode Bedside Commode Diaper # Voids 2 1 # Bowel Movements 1 1 05/08/20 06:05 05/08/20 06:05
[2020-05-10 11:44] LABS: Glucose,Whole Blood 151 mg/dL (75-99)
[2020-05-10 12:25] VITALS: BP 102/58; PULSE 77; RESP 20
--- NOTE | 2020-05-10 13:49 | PN ---
PROGRESS NOTE DATE OF SERVICE: 05/10/2020 REASON FOR FOLLOWUP: MSSA bacteremia pneumonia. INTERVAL HISTORY: The patient is currently afebrile. The patient is feeling better. Breathing comfortably. Denies any chest pain. Occasional cough. No abdominal pain. No diarrhea. PHYSICAL EXAMINATION: Blood pressure 102/58 with a pulse of 77, temperature 97.4, she is 94% on 1 L nasal cannula. General description is an elderly female up in the chair in no distress. Respiratory system: Unlabored breathing, decreased intensity of breath sounds in the base, with no wheeze. Heart S1, S2. Regular rate and rhythm. Abdomen soft, nontender. LABS: No new labs been obtained. Blood culture 04/30 has been negative. DIAGNOSTIC IMPRESSION AND PLAN: Patient MSSA bacteremia, source likely pneumonia. However, the patient has significant valvular abnormality and has been of no benefit to make sure no evidence of any seeding of these echeverria. Cardiology has seen the patient and recommended against MARIANNE and the patient will continue on IV Zosyn 2 grams q.8 hours for another 4 days to finish a 2 week course of therapy from negative blood cultures and close outpatient followup. Questions and concerns were answered. MMODL / IJN: [id number] /
--- NOTE | 2020-05-10 14:20 | P.PN ---
Subjective Progress Note Date: 05/10/20 Principal diagnosis: Methicillin sensitive staph aureus pneumonia and bacteremia -Right lower lobe pneumonia suspected gram-negative orgasm -Underlying COVID 19 infection -Persistent atrial flutter fibrillation -Acute COPD exacerbation in an ex-smoker -Coronary artery disease with prior GA -Chronic hypoxic respiratory failure on 4 L oxygen at home -Acute hypoxic respiratory failure from above on 50% BiPAP -Chronic congestive heart failure from systolic dysfunction EF 40% -Secondary pulmonary hypertension 05/10/2020, patient seen eval examined on 2 L oxygen, breathing comfortably denies any chest pain, swelling the lower extremity continued to improve, patient is seen by cardiovascular services no plans for MARIANNE patient will be discharged now 05/08/2020, patient seen and evaluated examined, remains on 2 L oxygen, shortness of breath stable, patient on IV Lasix for diuresis, swelling the lower extremity still present, Meño on the left leg stable wrapped with pressure dressing, chest x-ray performed today continue show cardiomegaly with COPD-like changes and bilateral infiltrates right compared to left side, no significant effusion is seen, anticipate Lasix will be changed to by mouth later on today and likely discharge to home tomorrow antibiotics for home has been arranged 05/07/2020 patient noted to have some swelling in the lower extremity as well as large blister formation William wrap patient has been done, pulmonary service has given some Lasix as well, she'll however remains afebrile on 2 L oxygen, continued to be on direct anticoagulation, feel that his steroids can be tapered and DC to oral prednisone as outpatient will discuss with pulmonary service, repeat labs in the morning 05/06/2020, patient seen eval examined during the rounds labs reviewed medications reviewed, remains on IV cefazolin, likely will be transferred to F for 2 weeks of antibiotics probably in next 24-48 hours if remains stable 05/05/2020, patient breathing comfortably denies any chest pain, remains afebrile, remains on IV cefazolin, patient is for midline and management of antibiotics as she will require 2 weeks of IV cefazolin, 05/04/2020, FiO2 continued to come down shortness of breath is better, denies any chest pain, sitting up side on chair, on 2 L nasal cannula, breathing comfortably remains on IV steroids and cefazolin along with direct anticoagu lants May 03 2020, patient continued to do well in terms of breathing oxygen is down to 2 L, patient due to his staph bacteremia will need IV axis leg midline as discussed with infectious disease services and 14 days of IV therapy 05/02/2020, overall respiratory status is stable cough congestion is there, remains on high flow oxygen, at nighttime she is been using BiPAP 05/01/2020, patient seen eval examined during the rounds labs reviewed medications reviewed care plan discussed, oxygen saturation remains stable, they are 100% when she is on BiPAP, ET scan of the chest revealed bilateral scattered infiltrate along with left adrenal mass, appears to be nonspecific 04/30/2020, patient seen eval examined during the rounds labs reviewed medications reviewed care plan discussed, chest x-ray remains stable, on 6 L oxygen saturation is in mid 90s, 04/29/2020, patient seen eval examined during the rounds labs reviewed medications reviewed, mild degree or shortness of breath ongoing is present, is still intermittently using BiPAP alternating with 8 L high flow oxygen, ID services following patient's antibiotics have been changed to cefazolin remains on direct oral anticoagulants and bronchodilator along with steroids 04/28/2020, patient seen and evaluated examined, off of BiPAP, on supplemental oxygen, breathing comfortably, on 6 L nasal cannula patient remains on broad-spectrum antibiotics along with IV steroids and bronchodilator and direct anticoagulant pulmonary is following, chest x-ray continue show bilateral infiltrates which are stable, sputum and blood both positive for MSSA, This is a pleasant 79-year-old patient of . Chronic stable medical conditions include atrial fibrillation, COPD, kidney disease, secondary pulmonary hypertension, DJD, CHF EF of 40%, obstructive sleep apnea does not use any treatment, home oxygen 4 L. Patient presents with 3-4 weeks of not feeling well got a cough taking yellow-green sputum. Denies any fever but feels cold all the time decreased appetite. No loss of smell or taste. Denies any headache. No diarrhea. Patient positive for COVID 19 PCR. Check stat x-ray showed right lower lobe infiltrate. Admitted with right lower lobe pneumonia suspected to be gram-negative organism, underlying COVID 19 infection, acute COPD exacerbation, acute hypoxic respiratory failure. Patient started IV Zosyn, vancomycin, bronchodilators, steroids. Xarelto continued Objective - Vital Signs Vital signs: Vital Signs Temp 97.7 F 05/10/20 11:00 Pulse 77 05/10/20 11:00 Resp 20 05/10/20 11:00 BP 102/58 05/10/20 11:00 Pulse Ox 94 L 05/10/20 11:00 Intake & Output 05/09/20 05/10/20 05/10/20 18:59 06:59 18:59 Intake Total 340 440 Balance 340 440 Intake: Intake, IV Titration 340 150 Amount Sodium Chloride 0.9% 1, 240 100 000 ml @ 20 mls/hr IV . Q24H BROCK Rx#:[id number] ceFAZolin 2 gm In Sodium 100 50 Chloride 0.9% 50 ml @ 100 mls/hr IVPB Q8HR BROCK Rx# :[id number] Oral 290 Other: Voiding Method Bedside Commode Bedside Commode Diaper # Voids 1 1 # Bowel Movements 1 1 - Exam GENERAL: BMI 28.3, sitting up, tired. EYES: Pupils equal. Conjunctiva normal. HEENT: External appearance of nose and ears normal, oral cavity grossly normal. NECK: JVD not raised; masses not palpable. HEART: First and second heart sounds are normal; no edema. LUNGS: Respiratory rate increased, decreased breath sounds right basilar coarse crackles. ABDOMEN: Soft, nontender, liver spleen not palpable, no masses palpable. Bilateral lower extremity edema PSYCH: Alert and oriented x3; mood and affect normal. - Labs CBC & Chem 7: 05/08/20 06:05 05/08/20 06:05 Labs: Abnormal Lab Results - Last 24 Hours (Table) 05/09/20 05/09/20 05/10/20 Range/Units 16:57 20:48 11:40 POC Glucose (mg/dL) 242 H 224 H 151 H (75-99) mg/dL Assessment and Plan Assessment: Bilateral lower extremity edema Methicillin sensitive staph aureus pneumonia and bacteremia -Right lower lobe pneumonia suspected gram-negative orgasm -Underlying COVID 19 infection -Persistent atrial flutter fibrillation -Acute COPD exacerbation in an ex-smoker -Coronary artery disease with prior GA -Chronic hypoxic respiratory failure on 4 L oxygen at home -Acute hypoxic respiratory failure from above on 50% BiPAP -Chronic congestive heart failure from systolic dysfunction EF 40% -Secondary pulmonary hypertension Left adrenal mass likely nonspecific Plan: Status post midline and arrange outpatient antibiotics, Continue oxygen titrated down as tolerated, and, we'll continue IV steroids and Lasix hopefully changed to oral in next 1224 hrs. breathing treatments supportive care, pulmonary and infectious disease following, hopefully his steroids can be changed to oral possible discharge in next 24 hours, cardiovascular services evaluated the patient no plans for MARIANNE Time with Patient: Greater than 30
[2020-05-10 17:05] LABS: Glucose,Whole Blood 290 mg/dL (75-99)
--- NOTE | 2020-05-14 09:51 | CDI ---
Documentation Clarification Form Date: 05/14/20 From: Judy Sabillon Phone: If you have a question about this query, please contact Donna Payne Tobacco Stemmer at [phone] between 8am and 5pm Admit Date: 04/25/2020 08:02:00 PM Patient Name: Shailesh Vaca Visit Number: [id number] Discharge Date: 05/10/2020 06:15:00 PM ATTENTION: The Clinical Documentation Specialists (CDI) and [facility] Coding Staff appreciate your assistance in clarifying documentation. Please respond to the clarification below the line at the bottom and electronically sign. The CDI & [facility] Coding staff will review the response and follow-up if needed. Please note: Queries are made part of the Legal Health Record. If you have any questions, please contact the author of this message via ITS. Dr. Ajit Bowie, Conflicting documentation has been found in the medical record: History of paroxysmal atrial fibrillation is documented in the cardiology consult on 05/10. History of chronic atrial fibrillation is documented in Dr Lazar's PNs on 04/30, 05/01, 05/[address] Bahena's PN on 05/07 and 05/08. Persistent atrial fibrillation is documented by Dr Scott in the H&P, his PN on 04/27. Your PN on 04/28, 04/29, 04/30, 05/01, 05/02, 05/03, 05/04, 05/05, 05/06, 05/07, 05/08 & 05/10 History/Risk Factors: COPD, kidney disease, secondary pulmonary HTN, DJD, CHF, SAGE, home oxygen Clinical Indicators: Right lower lobe pneumonia suspected gram-negative orgasm patient with thick yellow-green sputum. -Underlying COVID 19 infection -Persistent atrial flutter fibrillation -Acute COPD exacerbation in an ex-smoker Treatment: Mina In your opinion, what is the most clinically appropriate diagnosis for this patient? Chronic MTDD
--- NOTE | 2020-05-14 10:00 | CDI ---
Documentation Clarification Form Date: 05/14/20 From: Judy Sabillon Phone: If you have a question about this query, please contact Donna Payne, Ground Support Equipment Fitter at [phone] between 8am and 5pm Admit Date: 04/25/2020 08:02:00 PM Patient Name: Shailesh Vaca Visit Number: [id number] Discharge Date: 05/10/2020 06:15:00 PM ATTENTION: The Clinical Documentation Specialists (CDI) and [facility] Coding Staff appreciate your assistance in clarifying documentation. Please respond to the clarification below the line at the bottom and electronically sign. The CDI & [facility] Coding staff will review the response and follow-up if needed. Please note: Queries are made part of the Legal Health Record. If you have any questions, please contact the author of this message via ITS. Dr. Ajit Bowie, Atrial Flutter is documented in the H&P and numerous PNs. History/Risk factors: COPD, kidney disease, secondary pulmonary HTN, DJD, CHF, SAGE, home oxygen Clinical Indicators: Per Dr Scott documentation-EKG tracing personally reviewed by mt-atrial [facility]. EKG/telemetry: Sinus tachycardia with short ND with fusion complexes. Vent rate-119 bpm, ND interval-70 ms, QRS-70 ms, QT/QTc-296/416 ms, P-R-T axes-108 16 Treatment: Xarelto In your professional opinion, in order to capture the severity of condition; can you please clarify the type of Atrial Flutter if known? Unable to determine MTDD
== END 2020-05-10 18:15 | disposition home health service (06) | DRG 177 ==
LOC: EC 16:39 → 6NMEDSUR 20:02
PROVIDERS: ADMIT Hospitalist; ATTEND Hospitalist
PROC: 5A09557 Assistance with Respiratory Ventilation, Greater than 96 Consecutive Hours, Continuous Positive Airway Pressure (ICD-10-PCS; principal; 2020-04-26)
PROC: 05H933Z Insertion of Infusion Device into Right Brachial Vein, Percutaneous Approach (ICD-10-PCS; 2020-05-03 14:25)
DX: U07.1 COVID-19 (principal); J12.89 Other viral pneumonia; J96.21 Acute and chronic respiratory failure with hypoxia; J15.211 Pneumonia due to Methicillin susceptible Staphylococcus aureus; J96.22 Acute and chronic respiratory failure with hypercapnia; R78.81 Bacteremia; N17.9 Acute kidney failure, unspecified; I50.22 Chronic systolic (congestive) heart failure; J44.0 Chronic obstructive pulmonary disease with (acute) lower respiratory infection; J44.1 Chronic obstructive pulmonary disease with (acute) exacerbation; I48.92 Unspecified atrial flutter; I48.20 Chronic atrial fibrillation, unspecified; I27.29 Other secondary pulmonary hypertension; I11.0 Hypertensive heart disease with heart failure; I08.1 Rheumatic disorders of both mitral and tricuspid valves; I25.5 Ischemic cardiomyopathy; D72.810 Lymphocytopenia; Z66 Do not resuscitate; G47.33 Obstructive sleep apnea (adult) (pediatric); I25.10 Atherosclerotic heart disease of native coronary artery without angina pectoris; E27.9 Disorder of adrenal gland, unspecified; S80.822A Blister (nonthermal), left lower leg, initial encounter; R32 Unspecified urinary incontinence; I25.2 Old myocardial infarction; M19.90 Unspecified osteoarthritis, unspecified site; E66.9 Obesity, unspecified; Z68.28 Body mass index [BMI] 28.0-28.9, adult; Z99.81 Dependence on supplemental oxygen; Z79.01 Long term (current) use of anticoagulants; Z79.899 Other long term (current) drug therapy; Z86.73 Personal history of transient ischemic attack (TIA), and cerebral infarction without residual deficits; Z90.89 Acquired absence of other organs; Z98.890 Other specified postprocedural states; Z87.81 Personal history of (healed) traumatic fracture; Z87.891 Personal history of nicotine dependence; Z71.3 Dietary counseling and surveillance; Z82.49 Family history of ischemic heart disease and other diseases of the circulatory system; Z83.3 Family history of diabetes mellitus
CPT/HCPCS: 36410; 36415; 36600; 71045; 71260; 76937; 80048; 80053; 82728; 82805; 83605; 83615; 83735; 84145; 85025; 85379; 85610; 85730; 86140; 87040; 87070; 87077; 87186; 87205; 87635; 93005; 93306; 94640; 94660; 96360; 96361; 99285